=== PATIENT | male | born 1955 | race Caucasian/White ===

== ENCOUNTER → 2020-03-31 11:10 | Outpatient (CLI) | payer MEDICARE, OTHER, SELFPAY ==
[2015-12-01 10:50] VITALS: BMI 25.7
--- NOTE | 2020-03-31 | IMM_PTH ---
PATIENT: KRISTIAN GUTIERREZ LOC: [facility] U#:[id number] AGE/SX: 70/M ROOM: RE03/31/[address]: Dr. Konrad Ferro MD : 1955 BED: DIS: SPEC #: [id number] RECD: 04/01/20 11:49 STATUS: DAWIT RECharles #: [id number] LOBITO: 03/31/20 00:[address]: Konrad Ferro DEPT: IMMUNOHISTOCHEMISTRY RECD BY: Mindy Andre ENTERED: 04/01/20 11:50 SP TYPE: IMMUNO OTHR DR: Dr. Da Nath MD Tissues: B - PROSTATE RIGHT C - PROSTATE RIGHT F - PROSTATE LEFT Procedures: 34BE12 (add) P40 (add) 34BE12 (initial) PHYSICIAN & INSTITUTION [place] [address] SPECIMEN INFORMATION: Tissue Source: B - Right prostate, mid, C - Right prostate, base, F - Left prostate, base Clinical Info: Elevated PSA Specimen Number: [id number] B, C & F CPT code: 12801, 25571 x5 METHODOLOGY: Deparaffinized sections of prefer/formalin-fixed tissue or PAP/DQ stained slides are incubated with monoclonal/polyclonal antibodies/oligonucleotide probes. Localization is made via biotin free immunoperoxidase method. Appropriate controls are performed and reacted as expected. Results on target cell population are indicated in the following table: RESULTS: ANTIBODY / CLONE RESULT Block B P40 (BC28) negative 34BE12 (34BE12) negative Block C P40 (BC28) negative 34BE12 (34BE12) negative Block F P40 (BC28) negative* 34BE12 (34BE12) negative* * positive in the area of high grade prostatic intraepithelial neoplasia (HGPIN) These tests were developed and their performance characteristics determined by [facility]. They may not have been cleared or approved by the U.S. Food and Drug Administration. The FDA has determined that such clearance or approval is not necessary. The above immunohistochemical/dualISH markers are ordered and reviewed by the Pathologist. INTERPRETATION: B. Right prostate, mid, core biopsy: Focal atypical small acinar proliferation. See comment. C. Right prostate, base, core biopsy: A minute focus of adenocarcinoma. F. Left prostate, base, core biopsy: Focal atypical small acinar proliferation. Focal high-grade prostatic intraepithelial neoplasia (HGPIN). See comment. GINNY:lincoln 04/02/20 Comment: B & F - Atypical focus consists of only 2-3 glands. Case has been reviewed in consultation with Dr. Donahue who concurs with the above diagnosis. IDC:AM
--- NOTE | 2020-03-31 | IMM_PTH ---
PATIENT: KRISTIAN GUTIERREZ LOC: [facility] U#:[id number] AGE/SX: 70/M ROOM: RE03/31/[address]: Dr. Konrad Ferro MD : 1955 BED: DIS: SPEC #: [id number] RECD: 04/01/20 11:49 STATUS: DAWIT RECharles #: [id number] LOBITO: 03/31/20 00:[address]: Konrad Ferro DEPT: IMMUNOHISTOCHEMISTRY RECD BY: Mindy Andre ENTERED: 04/01/20 11:50 SP TYPE: IMMUNO OTHR DR: Dr. Da Nath MD Tissues: B - PROSTATE RIGHT C - PROSTATE RIGHT F - PROSTATE LEFT Procedures: 34BE12 (add) P40 (add) 34BE12 (initial) PHYSICIAN & INSTITUTION [place] [address] SPECIMEN INFORMATION: Tissue Source: B - Right prostate, mid, C - Right prostate, base, F - Left prostate, base Clinical Info: Elevated PSA Specimen Number: [id number] B, C & F CPT code: 52499, 36229 x5 METHODOLOGY: Deparaffinized sections of prefer/formalin-fixed tissue or PAP/DQ stained slides are incubated with monoclonal/polyclonal antibodies/oligonucleotide probes. Localization is made via biotin free immunoperoxidase method. Appropriate controls are performed and reacted as expected. Results on target cell population are indicated in the following table: RESULTS: ANTIBODY / CLONE RESULT Block B P40 (BC28) negative 34BE12 (34BE12) negative Block C P40 (BC28) negative 34BE12 (34BE12) negative Block F P40 (BC28) negative* 34BE12 (34BE12) negative* * positive in the area of high grade prostatic intraepithelial neoplasia (HGPIN) These tests were developed and their performance characteristics determined by [facility]. They may not have been cleared or approved by the U.S. Food and Drug Administration. The FDA has determined that such clearance or approval is not necessary. The above immunohistochemical/dualISH markers are ordered and reviewed by the Pathologist. INTERPRETATION: B. Right prostate, mid, core biopsy: Focal atypical small acinar proliferation. See comment. C. Right prostate, base, core biopsy: A minute focus of adenocarcinoma. F. Left prostate, base, core biopsy: Focal atypical small acinar proliferation. Focal high-grade prostatic intraepithelial neoplasia (HGPIN). See comment. GINNY:lincoln 04/02/20 Comment: B & F - Atypical focus consistent with only 2-3 glands. Case has been reviewed in consultation with Dr. Donahue who concurs with the above diagnosis. IDC:AM
--- NOTE | 2020-03-31 08:00 | PROSBIL_PTH ---
PATIENT: KRISTIAN GUTIERREZ LOC: [facility] U#:[id number] AGE/SX: 70/M ROOM: RE03/31/[address]: Dr. Konrad Ferro MD : 1955 BED: DIS: SPEC #: [id number] RECD: 03/31/20 11:08 STATUS: DAWIT KEREN #: [id number] LOBITO: 03/31/20 08:[address]: Konrad Ferro DEPT: SURGICAL PATHOLOGY RECD BY: Marshal Jonas ENTERED: 03/31/20 11:50 SP TYPE: PROST BX JEREMIAS DR: Dr. Da Nath MD Tissues: A - PROSTATE RIGHT B - PROSTATE RIGHT C - PROSTATE RIGHT D - PROSTATE LEFT E - PROSTATE LEFT F - PROSTATE LEFT Procedures: PROSTATE BX HEADER OPERATION: Prostate biopsy PRE-OP DIAGNOSIS: Elevated PSA TISSUE SUBMITTED: A - Right apex, B - Right mid, C - Right base, D - Left apex, E - Left mid, F - Left base MICROSCOPIC DIAGNOSIS A. Right prostate, apex, core biopsy: Prostatic tissue, negative for malignancy. B. Right prostate, mid, core biopsy: Focal atypical small acinar proliferation (MILIND). See comment. C. Right prostate, base, core biopsy: Prostatic adenocarcinoma. Alysha grade: 3+3=6 Number of cores involved: 1/2 Proportion of tissue involved: <5% Perineural invasion: Not identified. Greatest tumor length: <1 mm See comment. D. Left prostate, apex, core biopsy: Prostatic tissue, negative for malignancy. E. Left prostate, mid, core biopsy: Prostatic tissue, negative for malignancy. Focal mild acute and chronic inflammation. F. Left prostate, base, core biopsy: Focal high-grade prostatic intraepithelial neoplasia (HGPIN). Focal atypical small acinar proliferation (MILIND). Focal mild chronic inflammation. See comment. COMMENT B, C & F - Immunohistochemistry ([id number]) supports the above diagnosis. B & F - Atypical focus consists of only 2-3 glands. Case has been reviewed in consultation with Dr. Donahue who concurs with the above diagnosis. IDC:AM MICROSCOPIC DESCRIPTION Slides are reviewed. GROSS DESCRIPTION A - Received is one container designated prostate, right apex. The specimen consists of one elongated fragment of light arredondo-white soft tissue measuring 1.5 cm in length and 0.1 cm in diameter. The specimen is totally submitted in one cassette. B - Received is one container designated prostate, right mid. The specimen consists of two elongated fragments of light arredondo-white soft tissue measuring 0.7 and 1.2 cm in length and 0.1 cm in diameter. The specimen is totally submitted in one cassette. C - Received is one container designated prostate, right base. The specimen consists of two elongated fragments of light arredondo-white soft tissue measuring 1 and 1.2 cm in length and 0.1 cm in diameter. The specimen is totally submitted in one cassette. D - Received is one container designated prostate, left apex. The specimen consists of one elongated fragment of light arredondo-white soft tissue measuring 1.5 cm in length and 0.1 cm in diameter. The specimen is totally submitted in one cassette. E - Received is one container designated prostate, left mid. The specimen consists of one elongated fragment of light arredondo-white soft tissue measuring 1.2 cm in length and 0.1 cm in diameter. The specimen is totally submitted in one cassette. F - Received is one container designated prostate, left base. The specimen consists of two elongated fragments of light arredondo-white soft tissue each measuring 1.2 cm in length and 0.1 cm in diameter. The specimen is totally submitted in one cassette. / SJ:rg 03/31/20 TC:0 CPT: 85111 x6 ADDENDUM ADDENDUM ADDENDUM ADDENDUM ADDENDUM ADDENDUM ADDENDUM ADDENDUM 04/23/2020 09:34 ADDENDUM 04/23/2020 09:34 ADDENDUM 04/23/2020 09:34 ADDENDUM 04/23/2020 09:34 ADDENDUM 04/23/2020 09:34 An order for Oncotype testing was received from Dr. Ferro. This necessitated case review, block and slide selection by pathologist at [facility]. Genomic Prostate Score = 23 Results of the complete Oncotype testing (Run3D report) are viewable in EMR under: Reports - Pathology - Lab Pathology Report, Scanned.
== END ==
PROVIDERS: PCP Family Medicine; Referring Provider Urology; Visit Provider Urology
DX: R97.20 Elevated prostate specific antigen [PSA] (principal)
CPT/HCPCS: 88305; 88341; 88342; G0416

== ENCOUNTER 2021-07-27 11:52 | Outpatient (RCR) | payer MEDICARE, OTHER, SELFPAY ==
--- NOTE | 2021-10-12 10:57 | HP.PTDCSUM ---
It has been my pleasure to treat KRISTIAN GUTIERREZ referred by Dr. Chey Capps MD, with the diagnosis of B RC impingement for a total of 1 visit(s). Discharge Date: 10/12/21 Please see the following information for a summary of their discharge status. R shoulder Pain Intensity (Out of 10): 4 L shoulder pain Pain Intensity (Out of 10): 4 Goal 1:: I HEP Plan: Per pt request see pt for a few visits to learn HEP to include increase ROM, stretch and strengthening RC and scapular and thoracic. HEP: corner stretch and orange T-band mid rows Discharge Comments: DC PT at this time due to the patient not wanting to come into the clinic for additional exercises. If there are questions or concerns regarding this patient's physical therapy, please feel free to call me at [phone]. Thank you for the referral of this patient. Sincerely, Dahlia Swift, MPT Balance/Gait/Functional tests - Balance/Special Test Scores Quick DASH Score: 29.5450
== END 2021-07-27 19:00 | disposition home or self-care (01) ==
LOC: PT 11:52
PROVIDERS: PCP Family Medicine; Referring Provider Internal Medicine Rheumatology; Visit Provider Internal Medicine Rheumatology
DX: M05.742 Rheumatoid arthritis with rheumatoid factor 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 (principal); C43.9 Malignant melanoma of skin, unspecified; C61 Malignant neoplasm of prostate; M17.0 Bilateral primary osteoarthritis of knee; G56.02 Carpal tunnel syndrome, left upper limb; M65.342 Trigger finger, left ring finger; M65.352 Trigger finger, left little finger; Z79.899 Other long term (current) drug therapy; Z85.828 Personal history of other malignant neoplasm of skin
CPT/HCPCS: 97161

== ENCOUNTER → 2022-04-15 | Outpatient (CLI) | payer MEDICARE, OTHER, SELFPAY ==
--- NOTE | 2022-04-15 08:30 | MRI_ITS ---
STUDY: MR PELVIS WITH T WITHOUT CONTRAST REASON FOR EXAM: Male, 67 years old. ELEVATED PROSTATE SPECIFIC ANTIGEN TECHNIQUE: Standardized fat and water weighted pulse sequences were obtained in all 3 orthogonal planes, pre-and post contrast administration. WITH T WITHOUT of 15ML dOTAREM contrast material was administered intravenously for the contrast portion of the examination. COMPARISON: None. FINDINGS: Normal urinary bladder. Normal visualized colon. Prostate gland: The anterior fibromuscular stroma and central zone appear intact. The central gland demonstrates heterogeneous nodular signal characteristics. This suggests benign prostatic hypertrophy. Rectum is unremarkable. Levator ani muscle is not disrupted. The distal urethra is surrounded by the low T2 signal intensity muscle which is the external urethral sphincter as noted on the coronal images. The penile bulb is embraced by an intact inferomedial levator ani muscle. No areas of abnormal enhancement. Normal visualized neurovascular bundles. There is no pelvic fluid. There is no pelvic mass lesion or lymphadenopathy. Normal visualized pelvic arteries. Normal osseous structures. There is a left inguinal hernia containing fat. There is no bowel involvement. There is no incarceration. There is no findings suggesting that this is causing a bowel obstruction. MRI/Pelvis W/WO Contrast IMPRESSION: No discrete MRI signal abnormality to suggest a neoplasm. Nodular heterogeneous prostate gland suggest benign prostatic hypertrophy. Electronically Signed: Quan Vivar MD at 15:29 EDT ,
[2022-04-15 09:00] LABS: CREATININE FINGERSTICK < 0.9 mg/dL (0.70-1.30); EGFR FINGERSTICK > 60.0000 mL/min (>60)
== END | disposition home or self-care (01) ==
PROVIDERS: PCP Family Medicine; Referring Provider Urology; Visit Provider Urology
DX: R97.20 Elevated prostate specific antigen [PSA] (principal)
CPT/HCPCS: 72197; A9575

== ENCOUNTER 2023-01-24 09:19 | Day surgery (SDC) | payer MEDICARE, OTHER, SELFPAY ==
[2023-01-24 09:48] VITALS: BP 143/74; PULSE 89; RESP 18; TEMP 36.4; O2SAT 98; BMI 22.0
[2023-01-24] MEDS: Lactated Ringers 1,000 ML 15 ML IV (09:51)
--- NOTE | 2023-01-24 10:45 | HP.PCM_ITS ---
[facility] - General General Date of Service: 01/24/23 Chief Complaint: Screening for intestinal cancer [facility] Narrative KRISTIAN GUTIERREZ, is a 68 M who presents for screening colonoscopy today. Previous one was at least 10 years ago. No family history of colon cancer. No bright red blood per rectum or melena. He otherwise enjoys a steady health. He presents via open access today. He feels in good condition. No chest pain or shortness of breath. No abdominal pain. No change of bowel habits. [facility] Medical History (Updated 01/18/23 @ 13:42 by Kaylynn Knight) Cancer High cholesterol History of steroid therapy Keratosis Non-smoker Pure hypercholesterolemia, unspecified Rheumatoid arthritis Wears glasses Home Medications folic acid 1 mg tablet 1 mg PO BIDCM 11/30/15 [History Last Taken Unknown] leucovorin calcium 5 mg tablet 3 tab PO Q7D 11/30/15 [History Last Taken Unknown] methotrexate sodium 2.5 mg tablet 8 tab PO Q7D 11/30/15 [History Last Taken Un known] atorvastatin 10 mg tablet 10 mg PO DAILY 12/05/22 [History Last Taken Unknown] hydroxychloroquine 200 mg tablet 300 mg PO DAILY 12/05/22 [History Last Taken Unknown] Allergy/AdvReac Type Severity Reaction Status Date / Time tetracycline Allergy SKIN Verified 01/24/23 09:48 FLAKING Family History (Updated 12/05/22 @ 09:52 by Nova Alcala) Father Diabetes CAD (coronary artery disease) Hypertension Mother Diabetes Surgical History (Updated 01/18/23 @ 13:42 by Kaylynn Knight) History of colonoscopy History of prostate biopsy Hx of left knee surgery Hx of umbilical hernia repair (~12/01/15) Social History (Updated 12/05/22 @ 09:53 by Nova Alcala) household members: spouse current occupational status: retired Smoking Status: Never smoker alcohol intake: never ROS Constitutional Constitutional: Reports systems reviewed and no addt'l complaints, except as documented Cardiovascular Cardiovascular: Denies chest pain Respiratory/Chest Respiratory/Chest: Denies shortness of breath at rest Gastrointestinal Gastrointestinal: Denies abdominal pain, change in bowel habits, hematochezia or melena Vital Signs Vital Signs Vital Signs: 01/24/23 09:48 01/24/23 09:48 Temperature 97.6 F L Temperature Source Temporal Pulse Rate 89 Respiratory Rate 18 Respiratory Pattern Normal Blood Pressure 143/74 H Blood Pressure Mean 97 Blood Pressure Source Monitor Blood Pressure Position Sitting Blood Pressure Location Left Arm Pulse Ox 98 Oxygen Delivery Method Room Air Weight Weight: 144 lb 13.499 oz Body Mass Index (BMI) 22.0 Physical Exam Const alert, oriented x3 and no apparent distress General Appearance: cooperative and comfortable Eyes General Eye: normal appearance of both eyes Neck General: normal visual inspection Chest inspection of chest normal Resp Effort and Inspection: able to speak in complete sentences and symmetric chest movement Auscultation: clear to auscultation bilaterally Cardio regular rate and regular rhythm GI soft to palpation, non-tender and non-distended Extremity no calf tenderness Neuro oriented x3 Psych thought process normal Assessment & Plan Assessment/Plan (1) Encounter for screening for malignant neoplasm of colon: PLAN: The patient presents for screening colonoscopy today. He is aware of the technique, benefit, risk, alternatives. He has had an opportunity to ask and have questions answered. He presents via open access. We will proceed as noted. Reji Arce M.D., F.A.C.S.
--- NOTE | 2023-01-24 10:45 | COLBX_PTH ---
PATIENT: KRISTIAN GUTIERREZ LOC: EN U#:[id number] AGE/SX: 68/M ROOM: RE01/24/[address]: Dr. Reji Arce MD : 1955 BED: DIS: 01/24/2023 SPEC #: [id number] RECD: 01/24/23 11:35 STATUS: DAWIT VELIZ #: [id number] LOBITO: 01/24/23 10:[address]: Reji Arce DEPT: SURGICAL PATHOLOGY RECD BY: Kathryn Weathers ENTERED: 01/24/23 12:52 SP TYPE: COLON BX OTHR DR: Dr. Da Nath MD Tissues: Sigmoid colon biopsy Procedures: Surgery Specimen Level IV HEADER OPERATION: Colonoscopy ? open access (MAC) PRE-OP DIAGNOSIS: Screening TISSUE SUBMITTED: Distal sigmoid polyp MICROSCOPIC DIAGNOSIS Distal sigmoid colon polyp, biopsy: Tubular adenoma. AM:lincoln 01/25/2023 MICROSCOPIC DESCRIPTION Slides are reviewed. GROSS DESCRIPTION Received in fixative is one container labeled with the patient's name and designated distal sigmoid polyp. The specimen consists of two irregular fragments of light arredondo soft tissue that in aggregate measure 0.6 x 0.6 x 0.1 cm. The specimen is totally submitted in one cassette. / AM:lincoln 01/24/2023 TC:5 CPT: 87361
--- NOTE | 2023-01-24 11:28 | OP.CCLET_ITS ---
01/24/2023 Da Nath Re : Colonoscopy procedure for Tommy Daveycherri Nath This procedure was performed on Tuesday, January 24, 2023. My impressions and recommendations are as follows: Impressions : - One 4 mm polyp in the distal sigmoid colon, removed with a hot snare. Resected and retrieved. - Tortuous colon. Recommendations : - Discharge patient to home. - Resume previous diet. - Continue present medications. - Repeat colonoscopy in 5 years for surveillance based on pathology results. - Telephone my office for pathology results in 1 week. My findings are described in the full procedure note, which is enclosed. If I can be of further assistance, please feel free to contact me at Doctor phone number(s): Work: . Sincerely, Reji Arce MD 01/24/2023 11:27:59 AM This report has been signed electronically.
--- NOTE | 2023-01-24 11:28 | OP.COLON_ITS ---
Patient Name: Tommy Barba Procedure Date: 01/24/2023 10:53 AM Date of : 1955 Age: 68 Procedure: Colonoscopy Indications: Screening for colorectal malignant neoplasm Providers: Reji Arce MD Referring MD: Reji Arce MD Medicines: See the Anesthesia note for documentation of the administered medications Patient Profile: Last Colonoscopy: 10 years ago. Complications: No immediate complications. Procedure: Pre-Anesthesia Assessment: - Prior to the procedure, a History and Physical was performed, and patient medications and allergies were reviewed. The patient's tolerance of previous anesthesia was also reviewed. The risks and benefits of the procedure and the sedation options and risks were discussed with the patient. All questions were answered, and informed consent was obtained. Prior Anticoagulants: The patient has taken no previous anticoagulant or antiplatelet agents. ASA Grade Assessment: II - A patient with mild systemic disease. After reviewing the risks and benefits, the patient was deemed in satisfactory condition to undergo the procedure. After I obtained informed consent, the scope was passed under direct vision. Throughout the procedure, the patient's blood pressure, pulse, and oxygen saturations were monitored continuously. The colonoscope was introduced through the anus and advanced to the cecum, identified by appendiceal orifice and ileocecal valve. The colonoscopy was performed without difficulty. The patient tolerated the procedure well. The quality of the bowel preparation was good. The ileocecal valve and the appendiceal orifice were photographed. Scope In: 11:04:35 AM Scope Withdrawal Time 0 hours 14 minutes 16 seconds Scope Out: 11:24:13 AM Total Procedure Duration Time 0 hours 19 minutes 38 seconds Findings: The perianal and digital rectal examinations were normal. Pertinent negatives include normal prostate (size, shape, and consistency). A 4 mm polyp was found in the distal sigmoid colon. The polyp was sessile. The polyp was removed with a hot snare. Resection and retrieval were complete. The sigmoid colon was moderately tortuous. Impression: - One 4 mm polyp in the distal sigmoid colon, removed with a hot snare. Resected and retrieved. - Tortuous colon. Recommendation: - Discharge patient to home. - Resume previous diet. - Continue present medications. - Repeat colonoscopy in 5 years for surveillance based on pathology results. - Telephone my office for pathology results in 1 week. Procedure Code(s): --- Professional --- 08712, Colonoscopy, flexible; with removal of tumor(s), polyp(s), or other lesion(s) by snare technique Diagnosis Code(s): --- Professional --- Z12.11, Encounter for screening for malignant neoplasm of colon D12.5, Benign neoplasm of sigmoid colon Q43.8, Other specified congenital malformations of intestine CPT copyright 2017 [employer]. All rights reserved. The codes documented in this report are preliminary and upon gold leaf printer review may be revised to meet current compliance requirements. Reji Arce MD 01/24/2023 11:27:59 AM This report has been signed electronically. Number of Addenda: 0 Note Initiated On: 01/24/2023 10:53 AM
[2023-01-24 11:30] VITALS: BP 107/66; BP 143/74; PULSE 58; RESP 16; TEMP 36.6; O2SAT 99
[2023-01-24 11:35] VITALS: BP 111/79; BP 143/74; PULSE 53; RESP 16; O2SAT 99
[2023-01-24 11:40] VITALS: BP 126/73; BP 143/74; PULSE 50; RESP 16; O2SAT 100
[2023-01-24 11:45] VITALS: BP 121/73; BP 143/74; PULSE 52; RESP 16; TEMP 36.2; O2SAT 100
[2023-01-24 12:02] VITALS: BP 143/74
== END 2023-01-24 12:06 | disposition home or self-care (01) ==
LOC: EN 09:22 → AC 10:30
PROVIDERS: PCP Family Medicine; Referring Provider Family Medicine; Visit Provider Surgery
PROC: 0DJD8ZZ Inspection of Lower Intestinal Tract, Via Natural or Artificial Opening Endoscopic (ICD-10-PCS; CPT 45378; principal; 2023-01-24 10:40)
DX: Z12.11 Encounter for screening for malignant neoplasm of colon (principal); D12.5 Benign neoplasm of sigmoid colon; E78.00 Pure hypercholesterolemia, unspecified; Q43.8 Other specified congenital malformations of intestine; Z79.899 Other long term (current) drug therapy
CPT/HCPCS: 45385; 88305; J7120; J2405

== ENCOUNTER → 2023-09-19 | Outpatient (CLI) | payer MEDICARE, OTHER, SELFPAY ==
--- NOTE | 2023-09-19 07:47 | ECHOD_ITS ---
Reason For Study: VENTRICULAR PREMATURE DEPOLARIZATION Procedure This was a 2D Doppler, Color Flow transthoracic echocardiogram. Exam performed in department. Left Ventricle Normal left ventricle. Left ventricular systolic function is normal. The estimated ejection fraction is 55 %. No regional wall motion abnormalities noted. Right Ventricle Normal RV size. Normal systolic function. Atria Normal left atrium. Normal right atrium. Mitral Valve Normal mitral valve. Tricuspid Valve Normal tricuspid valve. Mild tricuspid valve insufficiency. Pulmonary artery systolic pressure is 24 mmHg. Aortic Valve Trisinus/trileaflet aortic valve. Pulmonic Valve The pulmonic valve is not well visualized. Great Vessels Normal aortic root. The pulmonary artery is normal size. Normal inferior vena cava. Pericardium/Pleural No pericardial effusion. MMode/2D Measurements & Calculations LVIDd: 4.0 cm IVSd: 0.90 cm Ao root diam: 3.4 cm LVIDs: 2.8 cm LVPWd: 0.92 cm RVDd: 3.7 cm FS: 30.0 % LAV(MOD-bp): 34.2 ml LVAd ap4: 31.9 cm2 SV(MOD-sp4): 53.6 ml LAV(MOD-bp) Indexed: 18.6 ml/m2 LVLd ap4: 8.4 cm LAV(MOD-sp2): 33.1 ml EDV(MOD-sp4): 98.9 ml LAV(MOD-sp4): 34.5 ml EDV(sp4-el): 102.7 ml LVAs ap4: 20.0 cm2 LVLs ap4: 7.4 cm ESV(MOD-sp4): 45.3 ml ESV(sp4-el): 46.4 ml EF(MOD-sp4): 54.2 % EF(sp4-el): 54.9 % SV(sp4-el): 56.3 ml LA A4 area: 15.4 cm2 LA dimension(2D): 2.7 cm RA A4 area: 13.8 cm2 Time Measurements MV dec time: 0.27 sec Doppler Measurements & Calculations MV E max maxwell: 63.8 cm/sec Lat Peak E' Maxwell: 9.4 cm/sec Med Peak E' Maxwell: 8.5 cm/sec MV A max maxwell: 59.3 cm/sec E/E' lat: 6.8 E/E' med: 7.5 MV E/A: 1.1 Ao V2 max: 111.2 cm/sec AI max maxwell: 536.4 cm/sec LV V1 max: 97.6 cm/sec Ao max P.9 mmHg AI max P.1 mmHg LV V1 max P.8 mmHg AI dec slope: 207.7 cm/sec2 AI P1/2t: 756.4 msec PA V2 max: 82.7 cm/sec TR max maxwell: 220.6 cm/sec TR max P.5 mmHg ECHO/Echo Complete Interpretation Summary Normal left ventricle. Left ventricular systolic function is normal. The estimated ejection fraction is 55 %. Structurally normal valves. Ordering Physician: Yun Torres Referring Physician: BEN ASHBY Performed By: Jelena Cardenas RDCS
--- OUTSIDE RECORDS SUMMARY | 2023-09-19 07:54 | XMS RPT_ITS | CCD ---
Author Name Unknown Address [facility] [address] [place] [address] Organization [facility] Care Team Providers Care Hot Braider Name Role Phone ZACH HIRSCH MD Admitting Unavailable ZACH HIRSCH MD Attending Unavailable ZACH HIRSCH MD Primary Care Unavailable Ben Nath Primary Care Provider Ben Nath Unavailable Ben Nath Primary Care Provider BEN NATH Primary Care Unavailable BEN NATH Primary Care Unavailable Allergies Allergy Classification Reported Allergen(s) Allergy Type Date of Onset Reaction(s) Facility Tetracyclines (antibiotic) (1 source) Tetracycline Drug Allergy 2 Itching [facility] (1 source) Tetracycline Drug Allergy 2 Itching [facility] (1 source) ALLERGIES NOT ON FILE; Translations: [ALLERGIES NOT ON FILE] Propensity to adverse reactions (disorder) [facility] Medications Completed/Discontinued Medications Medication Drug Class(es) Dates Sig (Normalized) Sig (Original) folic acid 1 mg oral tablet (1 source) take 1 tablet by eddy th twice daily folic acid 1 mg tablet Take 1 mg by mouth twice daily. 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 therapy; Translations: [Other snf (current) drug therapy] Onset: 12-24-2019 Episodic Other connective tissue disease (11 sources) Disorder of rotator cuff; Translations: [Disorders of bursae and tendons in shoulder region, unspecified] Episodic Other non-traumatic joint disorders (11 sources) Chronic pain of right upper limb; Translations: [Pain in joint, shoulder region] Episodic Other non-traumatic joint disorders (11 sources) Shoulder stiff; Translations: [Stiffness of joint, not elsewhere classified, shoulder region] Episodic Rheumatoid arthritis and related disease (2 sources) 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; Translations: [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 (CMS/HCC)] Onset: 06-12-2023 Chronic Past or Other Problems Problem Classification Problem Date Documented Da te Episodic/Chronic Other screening for suspected conditions (not mental disorders or infectious disease) (2 sources) Patient encounter status; Translations: [Encounter for screening for malignant neoplasm of colon] Onset: 04-09-2012 04-09-2012 Episodic Results Test Name Value Interpretation Reference Range [facility] Encounters Encounter Date Encounter Type Care Provider Facility Start: 09-08[facility]20[facility] Start: 06-12-2023 End: 06-13-2023 ambulatory BEN Bajwa [facility] Start: 12-08-2022 Telephone encounter Debbie abraham PA-C Work Phone: General Surgery Procedures Date Procedure Procedure Detail Performing Clinician Start: 09-08-2023 CBC W Auto Different ial panel - Blood BEN NATH Start: 09-08-2023 Comprehensive metabo lic 2000 panel - Serum or Plasma BEN NATH Start: 09-08-2023 PROSTATE SPECIFIC ANTIGEN BEN NATH Start: 06-12-2023 CBC W Auto Different ial panel - Blood BEN NATH Start: 06-12-2023 Comprehensive metabo lic 2000 panel - Serum or Plasma BEN NATH Start: 05-01-2012 Colonoscopy [facility]ome [facility] Work Phone: Plan of Treatment Date Care Activity Detail Author Start: 09-11-2022 ADVANCE DIRECTIVE DISCUSSION ADVANCE DIRECTIVE DISCUSSION [facility] Start: 09-11-2022 DEPRESSION ASSESSMENT DEPRESSION ASSESSMENT [facility] Start: 05-12-2022 Influenza vaccination INFLUENZA (#1) [facility] Start: 05-01-2022 Colonoscopy COLONOSCOPY [facility] Start: 05-01-2022 COLORECTAL CANCER SCREENING COLORECTAL CANCER SCREENING [facility] Start: 05-01-2022 Screening for malignant neoplasm of colon [facility] Start: 01-03-2022 PTRECHECKMary, Provider: Cora Hanson, Status: Pen, Time: 2:45 PM PTRECHECKMary, Provider: Cora Hanson, Status: Pen, Time: 2:45 PM [facility] Work Phone: Start: 12-20-2021 [email or web address], Provider: Mirtha Herron, Status: Pen, Time: 2:45 PM [email or web address], Provider: Mirtha Herron, Status: Pen, Time: 2:45 PM [facility] Work Phone: Start: 12-03-2021 [email or web address], Provider: Mirtha Herron, Status: Pen, Time: 2:00 PM [email or web address], Provider: Mirtha Herron, Status: Pen, Time: 2:00 PM [facility] Work Phone: Start: 11-29-2021 PTRECHECKA, Provider: Cora Hanson, Status: Pen, Time: 2:15 PM PTRECHECKA, Provider: Cora Hanson, Status: Pen, Time: 2:15 PM [facility] Work Phone: Start: 11-26-2021 [email or web address], Provider: Mirtha Herron, Status: Pen, Time: 2:00 PM [email or web address], Provider: Mirtha Herron, Status: Pen, Time: 2:00 PM [facility] Work Phone: Start: 11-22-2021 PTRECHECKMary, Provider: Cora Hanson, Status: Pen, Time: 2:00 PM PTRECHAIDA, Provider: Cora Hanson, Status: Pen, Time: 2:00 PM [facility] Work Phone: Start: 11-19-2021 [email or web address], Provider: Mirtha Herron, Status: Pen, Time: 2:00 PM [email or web address], Provider: Mirtha Herron, Status: Pen, Time: 2:00 [facility] [place] [facility]: Start: 11-15-2021 [email or web address], Provider: Mirtha Herron, Status: Pen, Time: 2:00 PM [email or web address], Provider: Mirtha Herron, Status: Pen, Time: 2:00 PM [facility] [place] [facility]: Start: 11-12-2021 [email or web address], Provider: Mirtha Herron, Status: Pen, Time: 2:00 PM [email or web address], Provider: Mirtha Herron, Status: Pen, Time: 2:00 PM [facility] [place] Work [facility]: Start: 11-08-2021 PTFUADULT4, Provider: Mirtha Herron, Status: Pen, Time: 2:00 PM [email or web address], Provider: Mirtha Herron, Status: Pen, Time: 2:00 PM [facility] [place] Work [facility]: Start: 11-05-2021 PTFUADULT4, Provider: Mirtha Herron, Status: Pen, Time: 2:00 PM [email or web address], Provider: Mirtha Herron, Status: Pen, Time: 2:00 PM [facility] [place] Work [facility]: Start: 11-01-2021 PTFUADULT4, Provider: Mirtha Herron, Status: Pen, Time: 2:00 PM [email or web address], Provider: Mirtha Herron, Status: Pen, Time: 2:00 PM [facility] [place] Work [facility]: Start: 10-29-2021 PTFUADULT4, Provider: Mirtha Herron, Status: Pen, Time: 2:00 PM PTFUADULT4, Provider: Mirtha Herron, Status: Pen, Time: 2:00 PM [facility] Work Phone: Start: 05-12-2021 Influenza vaccination INFLUENZA (Season Ended) [facility] Start: 2018 ADVANCE DIRECTIVE DISCUSSION ADVANCE DIRECTIVE DISCUSSION [facility] Start: 2018 PNEUMOCOCCAL: 65+ (1 - PCV) PNEUMOCOCCAL: 65+ (1 - PCV) [facility] Start: 2018 PNEUMOVAX AGE 65 AND OVER WITH 5YR LOOKBACK (#1) PNEUMOVAX AGE 65 AND OVER WITH 5YR LOOKBACK (#1) [facility] Start: 03-26-2017 PROSTATE CANCER SCREENING DISCUSSION PROSTATE CANCER SCREENING DISCUSSION [facility] Start: 05-25-2015 LIPID SCREEN LIPID SCREEN [facility] Start: 05-25-2013 DIABETES SCREEN DIABETES SCREEN [facility] Start: 2003 Screening for malignant neoplasm of colon [facility] Start: 2003 SHINGRIX VACCINE (1 of 2) SHINGRIX VACCINE (1 of 2) [facility] Start: 1998 COLOGUARD (FIT-DNA) COLOGUARD (FIT-DNA) [facility] Start: [address] COLONOGRAPHY [facility] Start: 1998 FECAL OCCULT BLOOD FECAL OCCULT BLOOD [facility] Start: 1998 SIGMOIDOSCOPY SIGMOIDOSCOPY [facility] Start: 01-20-1972 Urine microalbumin profile DTAP,TDAP,TD (1 - Tdap) [facility] Start: 1971 HEPATITIS C SCREENING HEPATITIS C SCREENING [facility] Start: 1965 Adult depression screening assessment DEPRESSION SCREENING [facility] Start: 1953 COVID-19 VACCINE (#1) COVID-19 VACCINE (#1) [facility] Payers Date Payer Category Payer Unknown 2018 Medicare [id number] 2018 Medicare MEDICARE MEDICAR E A AND B [id number] 2018-Present [phone] [place] [address] Medicare [id number] 2011 Unknown MMO [employer] [id number] 2011-2015 PPO [id number] 1953 Unknown [id number] 1953 Unknown [id number] 1953 Unknown [id number] Social History Date Type Detail Facility Start: 04-09-2012 Tobacco smoking stat [facility] Unknown if ever smoked [facility] Start: 1955 Sex Assigned At Not on file [facility] Start: 11-25-2015 Tobacco smoking stat [facility] Never smoked tobacco [facility] Start: 09-21-2016 Alcohol intake Current non-dr sweeney of alcohol (finding) [facility] Clinical Notes 04-09-2012 to 12-08-2022 Telephone Encounter - Divine Fuchs RN - 12/08/2022 11:43 AM EDTTelephone Encounter - Roger Martinez - 04/09/2012 11:58 AM EDTTelephone Encounter - Keyla Eric Rn - 04/09/2012 11:12 AM EDT Note Date & Type Note Facility 12-08-2022 Miscellaneous Notes Received a request from Dr. Ben Nath's office for the consultation note for Tommy's office visit with Debbie Spencer on 10/28/2022. The patient cancelled that visit and did not reschedule. Note faxed to the office, fax confirmation sheet received. Divine Fuchs RN documented in this encounter [facility] 11-01-2021 History of Presen t illness Narrative Pt is also scheduled for recheck next mon11/01/21 therefore did not perform recheck this date. Pt tolerated session well without c/o pain despite progression and addition of multiple activities. VCs to maintain scapular retraction during TB activities and to keep elbows at sides during TB ER/IR. [facility] Work Phone: 10-25-2021 History of Presen t illness Narrative Mr. Gutierrez is progressing well through their POC addressing R shoulder pain. Pt has attended 10 sessions since 10/25/21. The pt demonstrates and verbalizes improvements in UE strength and mobility. This contributes to greater ease with all activities however pt does report mild pain in ant shoulder with abd and reaching behind back. Pt has one more appt scheduled for Mon of this week then will benefit from skilled PT once a week to every other week for 4 weeks (2-4 additional visits) with a focus on strengthening and stabilizing of the R shoulder. Pt verbalized understanding and agreement to goals and POC. Thank you for this referral and please call [phone] with any questions or concerns. [facility] Work Phone: 09-12-2021 History of Presen t illness Narrative Answered all questions at beginning of session regarding HEP. Added 1/2 foam roll stretches today for continued improved shoulder mobility. Patient had difficulty at first but then felt relief. Added these to HEP today. Tightness along the UT this date. [facility] Work Phone: 04-09-2012 Miscellaneous Notes Patient scheduled as requested [facility] SCHEDULING/PAT Pt informed of colonoscopy procedure, clear liquid diet and bowel prep. Informed pt they will call him the day before the procedure for arrival time. Verbalized understanding. [facility] ENDOSCOPY CURE FORM Patient Name:Crsitobal Gutierrez Referring Provider: Ordering provider- Dr.Daniel Dimas / Dr Ben Nath Date and Time of procedure: 05/01/2012 arriving at 6 AM for an 630 AM procedure Procedure: Colonoscopy/Go Lytely Diagnosis Code: V76.51 Does the patient have any of the following: Diabetes: No Pacemaker: No Does patient need antibiotics? No Keyla Eric RN documented in this encounter [facility] History of Present illness Narrative Mr. GUTIERREZ presents with signs and symptoms consistent with and demonstrates impairments/limitations in . They would benefit from skilled Physical Therapy with combination of manual therapy techniques to decrease myofascial and joint restrictions, as well as progression of exercises for ROM, flexibility, strength, core stabilization, and postural retraining, and body mechanics education throughout POC to progress towards independence with ADL s/IADL s and return to PLOF. [facility] Work Phone: History of Present illness Narrative Mr. GUTIERREZ presents with signs and symptoms consistent with Bilateral shoulder impingement & rotator cuff dysfunction as medical diagnosis and PT diagnosis of Right shoulder pain and stiffness of Right shoulder and demonstrates impairments/limitations in Shoulder AROM and PROM mildly, significant restriction in GH joint mobility into posterior and inferior directions as well as decreased motor control and proximal stability with scapular musculature with Right scapular more protracted and weakness noted in periscapular musculature. Pt also presents with poor posture and body mechanics. He reported good understanding to all edu and HEP with HO given. Responded well to STM and Joint Mobs to GH performed after eval this date. They would benefit from skilled Physical Therapy with combination of manual therapy techniques to decrease myofascial and joint restrictions, as well as progression of exercises for ROM, flexibility, strength, core stabilization, and postural retraining, and body mechanics education throughout POC to progress towards independence with ADL s/IADL s and return to PLOF.Clinical Presentation: Stable and/or uncomplicated characteristics.Level of Complexity: lowProblem List: activity limitations, ADLs/IADLs/self care skills, decreased functional level, flexibility, motor function/control/tone, pain, participation restrictions, posture, range of motion/joint mobility and strength. [facility] Work Phone: History of Present illness Narrative GH elevation on the R with standing shoulder flexion. End range tightness with passive flexion and ER. Tightness along UT and deltoid during STW. [facility] Work Phone: History of Present illness Narrative Added resisted shoulder rows today with cues needed d/t leaning entire body. Improvement after cues given. Updated HEP this date (see below) with blue tband and theraloop. Improved ROM with ABC's in supine. Decreased end range tightness with passive flexion and ABD.Response to treatment: no change in pain. [facility] [employer] Work Phone: History of Present illness Narrative Was able to progress strength this date by adding resisted extension and progressing to active IR/ER. Progressed instead taking 2 steps d/t improved control.Response to treatment: no change in pain. [facility] History of Present illness Narrative Improved passive flexion to WFL with soft end feel. Minimal exacerbation of pain with PROM. Added weight with anterior shoulder flexion and shoulder abduction. Decreased GH compensation observed today with these exercises so weight was added today in clinic and for HEP.Response to treatment: decreased pain. [facility] Work Phone: History of Present illness Narrative Improved ROM with ABC's with ability to complete large ROM, will attempt in standing next visit for progression. Improved ROM with shoulder flex and ABD actively. Added weight with eccentric lowering with wall slides and shoulder flex and ABD in front of the mirror.Response to treatment: decreased pain. [facility] Work Phone: History of Present illness Narrative Improved eccentric control with resisted and weight PRE's. Added internal towel stretch to HEP.Response to treatment: decreased pain.Patient was able to complete today's treatment with some difficulty. [facility] Work Phone: Reason for visit Narrative Initial Evalu ation . RIght Shoulder Impingement. [facility] Work Phone: Reason for visit Narrative Initial Evalu ation . RIght Shoulder Impingement.Referred by: Zach Wolff [facility] Work Phone: Summary Purpose Family History No Family History Records FoundNo Family History Records FoundNo Family History Records FoundNo Family History Records FoundNo Family History Records FoundNo Family History Records FoundNo Family History Records Found Advance Directives No Advanced Directives Records FoundNo Advanced Directives Records FoundNo Advanced Directives Records FoundNo Advanced Directives Records FoundNo Advanced Directives Records FoundNo Advanced Directives Records FoundNo Advanced Directives Records Found Additional Source Comments (unrecognized sect ion and content) No Status Records FoundNo Status Records FoundNo Status Records FoundNo Status Records FoundNo Status Records FoundNo Status Records FoundNo Status Records Found INFORMATION SOURCE (unrecogn ized section and content) DATE CREATED AUTHOR AUTHOR'S ORGANIZ ATION 12/26/2019 [facility] DATE CREATED AUTHOR AUTHOR'S ORGANIZ ATION 12/09/2021 [facility] DATE CREATED AUTHOR AUTHOR'S ORGANIZ ATION 05/07/2022 [employer] DATE CREATED AUTHOR AUTHOR'S ORGANIZ ATION 12/13/2022 [facility] DATE CREATED AUTHOR AUTHOR'S ORGANIZ ATION 03/25/2023 [facility] DATE CREATED AUTHOR AUTHOR'S ORGANIZ ATION 09/10/2023 [facility] Source Comments (unrecognize d section and content) In the event this informatio n is protected by the Federal Confidentiality of Alcohol and Drug Abuse Patient Records regulations: The Federal rules restrict any use of the information to criminally investigate or prosecute any alcohol or drug abuse patient.[facility] the event this information is protected by the Federal Confidentiality of Alcohol and Drug Abuse Patient Records regulations: The Federal rules restrict any use of the information to criminally investigate or prosecute any alcohol or drug abuse patient.[facility] Reason for Visit (unrecogniz ed section and content) Reason Comments Medical Records Care Teams (unrecognized sec tion and content) FOR RECORDS PERTAINING TO PATIENTS WHO ARE OR HAVE BEEN ENROLLED IN A CHEMICAL DEPENDENCY/SUBSTANCEABUSE PROGRAM, SOME INFORMATION MAY BE OMITTED. This clinical summary was aggregated from multiple sources. Caution should be exercised in using it in the provision of clinical care. This summary normalizes information from multiple sources, and as a consequence, information in this document may materially change the coding, format and clinical context of patient data. In addition, data may be omitted in some cases. CLINICAL DECISIONS SHOULD BE BASED ON THE PRIMARY CLINICAL RECORDS. [facility] [employer] provides no warranty or guarantee of the accuracy or completeness of information in this document.
== END | disposition home or self-care (01) ==
PROVIDERS: PCP Family Medicine; Referring Provider Family Medicine; Visit Provider Family Medicine
DX: I49.3 Ventricular premature depolarization (principal)
CPT/HCPCS: 93306

== ENCOUNTER 2024-01-17 12:24 | Emergency (ER) | payer MEDICARE, OTHER, SELFPAY ==
[2024-01-17 12:25] VITALS: BP 122/81; PULSE 100; RESP 17; TEMP 36.2; O2SAT 99; BMI 20.8
--- NOTE | 2024-01-17 14:11 | EDS_ITS ---
HPI History of Present Illness Chief Complaint: General Illness Informant: patient and family Narrative Narrative: Presents to ED for evaluation with difficulty sleeping. He is here with family. He states for years he is taking care of his [id number] therefore had lack of sleep. Since been over, he states night he has trouble sleeping. He saw his PCP was started on trazodone 100 mg at night. He has been taking it still unable to sleep. Approximate 10 days ago had Wellbutrin 150 mg added to take for anxiety. Last week had a phone conference and trazodone increased to 200 mg. States initially was put on magnesium which did not help. He follow-up with pulmonology Dr. Bustos 2 days ago was told with him unable to sleep cannot do a sleep study. He was told he needs to train his mind to sleep and if he is unable to sleep to be active until he is tired to sleep. He was told that trazodone would not help if he is unable to do this therefore he decreased his trazodone back down to 100 mg. He states he is getting dizzy from the 200 mg dosing. Family here stating they had a follow-up on the 15 and a week however they cannot wait that long. he denies any suicidal homicidal ideations. In addition they report over the last 5 weeks had a 40 pound weight loss. He states just does not have an appetite. There is been no vomiting or diarrhea. No urinary symptoms. No bloody stools. He has had colonoscopy in the past. Prior similar symptoms: Yes [facility] Medical History Cancer High cholesterol History of steroid therapy Keratosis Non-smoker Pure hypercholesterolemia, unspecified Rheumatoid arthritis Wears glasses no medical history Home Medications folic acid 1 mg tablet 1 mg PO BIDCM 11/30/15 [History Last Taken Unknown] leucovorin calcium 5 mg tablet 3 tab PO Q7D 11/30/15 [History Last Taken Unknown] methotrexate sodium 2.5 mg tablet 8 tab PO Q7D 11/30/15 [History Last Taken Unknown] atorvastatin 10 mg tablet 10 mg PO DAILY 12/05/22 [History Last Taken Unknown] hydroxychloroquine 200 mg tablet 300 mg PO DAILY 12/05/22 [History Last Taken Unknown] Allergy/AdvReac Type Severity Reaction Status Date / Time tetracycline Allergy SKIN Verified 01/24/23 09:48 FLAKING Family History Father Diabetes CAD (coronary artery disease) Hypertension Mother Diabetes Surgical History History of colonoscopy History of prostate biopsy Hx of left knee surgery Hx of umbilical hernia repair (~12/01/15) Social History household members: spouse current occupational status: retired Smoking Status: Never smoker alcohol intake: never ROS ROS ED Constitutional Constitutional ED: Denies chills, fever(s) or sweats Eyes Eyes: Denies change in vision ENT ENT ED: Denies dysphagia or sore throat Cardiovascular Cardiovascular: Denies chest pain, leg edema, palpitations or racing heartbeat Respiratory/Chest Respiratory/Chest: Denies cough, dyspnea or dyspnea on exertion Gastrointestinal Gastrointestinal: Denies abdominal pain, diarrhea, nausea or vomiting Genitourinary Genitourinary ED: Denies dysuria, hematuria or urinary frequency Musculoskeletal Musculoskeletal: Denies back pain, extremity pain or neck pain Integumentary Denies rash or wounds Neurologic Neurologic: Denies headache(s), paresthesias or weakness EXAM Physical Exam Const Vital Signs: 01/17/24 12:25 Temperature 97.2 F L Temperature Source Temporal Pulse Rate 100 Respiratory Rate 17 Blood Pressure 122/81 H Blood Pressure Mean 94 Pulse Ox 99 Oxygen Delivery Method Room Air MDM MDM MDM Narrative Medical decision making narrative: Interventions / MDM: Differential diagnosis: Insomnia, weight loss Diagnosis considered but do not suspect: Cancers, discussed with patient and family however outpatient workup. My EKG interpretation: N/A Imaging independently reviewed and interpreted by myself: N/A External documents reviewed: N/A Test considered but not ordered:N/A ED course: Vital stable. Patient reports insomnia with history of this. Difficulty sleeping. He is not suicidal or homicidal. There are concerns that medications were not working. Discussed his 14 pound weight loss in 5 days with no appetite. He has no belly pain no vomiting or diarrhea no bloody stools. Discussed with him that he has had upper and lower endoscopies in the past. He may need further workup if he continues to lose weight however this is outpatient. They understand this. Discussed told family I will discuss with his PCP. 1415: Discussed with Dr. Cisneros his recent treatment and visit to pulmonology, his plans were to start Ambien however he states he will have a virtual visit today with the patient and family. They will discuss treatment he will get him in and try other medications however this will be planned as an outpatient. Re-evaluation: stable Disposition discussed with patient/family/significant other: Patient and family. Case discussed with consulting clinician: N/A This note was generated with [employer] software. It may contain incorrect words, spelling, and punctuation that were not noted in checking the note before signing. Discharge Plan Triage Chief Complaint: General Illness ED Provider: Rolly Henriquez/Rx/DC Orders Clinical Impression: Insomnia disorder, Recent weight loss Instructions: Treating Insomnia, ED Insomnia Prescriptions: No Action hydroxychloroquine 200 mg tablet 300 mg PO DAILY atorvastatin 10 mg tablet 10 mg PO DAILY methotrexate sodium 2.5 MG tablet 8 tab PO Q7D Patient Comments: SATURDAYS leucovorin calcium 5 MG tablet 3 tab PO Q7D Patient Comments: SUNDAYS folic acid 1 MG tablet 1 mg PO BIDCM Primary Care Provider: Care Physician,No Primary Referrals: Lor Cisneros MD [Med Staff - Quality Assurance Engineer] - 1 Day Care Physician,No Primary [Primary Care Provider] - Activity Restrictions/Additional Instructions: Keep your phone on you. Staff will reach out to you for a virtual visit today with Dr. Cisneros. He will discuss other treatment options and medications. Disposition Disposition: Home, Self Care Discharge Date/Time: 01/17/24 14:27
== END 2024-01-17 14:27 | disposition home or self-care (01) ==
PROVIDERS: Emergency Provider Emergency Medicine; Visit Provider Emergency Medicine
DX: G47.00 Insomnia, unspecified (principal); E78.00 Pure hypercholesterolemia, unspecified; R63.4 Abnormal weight loss; Z63.6 Dependent relative needing care at home; F41.9 Anxiety disorder, unspecified; Z79.899 Other long term (current) drug therapy
CPT/HCPCS: 99282

== ENCOUNTER → 2024-01-17 | Outpatient (CLI) | payer MEDICARE, OTHER, SELFPAY ==
[2024-01-17 17:28] LABS: Absolute Lymphocyte Count 0.49 X10^3/uL (0.83-4.51); Absolute Neutrophil Count 5.3 X10^3/uL (2.0-7.7); Basophil# 0.03 X10^3/uL; Basophil% 0.5 % (0-1); Eosinophil# 0.06 X10^3/uL; Eosinophils% 0.9 % (0-5); Hemoglobin 14.6 g/dL (13.0-16.5); Lymphocyte # 0.49 X10^3/ul (0.83-4.51); Lymphocyte % 7.6 % (19-41); Mean Corpuscular Hgb 32.9 pg (27.0-32.0); Mean Corpuscular Volume 96.8 fL (80-94); Mean Platelet Vol. 9.3 fl (6.2-12.0); Monocyte# 0.48 X10^3/uL; Monocyte% 7.5 % (0-10); NRBC Flagged by Analyzer 0 % (0-5); Neutrophil # 5.33 X10^3/uL (2.7-7.7); Neutrophil % 82.9 % (47-70); POSITIVE DIFFERENTIAL YES; Platelet Count 247 K/mm3 (150-450); RBC Distribution Width CV 13.1 % (11.6-14.6); RBC Distribution Width SD 45.8 fl (35.1-43.9); Red Blood Count 4.44 M/mm3 (4.6-6.2); White Blood Count 6.4 K/mm3 (4.4-11.0)
[2024-01-17 17:47] LABS: Vitamin D,25 Hydroxy 76.5 ng/mL
== END | disposition home or self-care (01) ==
LOC: MFPLAB 15:33
PROVIDERS: Visit Provider Family Medicine
DX: R63.4 Abnormal weight loss (principal); Z85.820 Personal history of malignant melanoma of skin
CPT/HCPCS: 36415; 82306; 85025

== ENCOUNTER → 2024-05-28 | Outpatient (CLI) | payer MEDICARE, OTHER, SELFPAY ==
--- NOTE | 2024-05-28 11:48 | STRESSREP_ITS ---
Stress Test Report Date: 05/28/2024 Procedure: Exercise tolerance test/imaging study Indications: Dyspnea on exertion Consent: Per the patient Procedure: The patient exercised on a Sidney protocol for 7 minutes achieving a peak heart rate of 148 bpm (99% predicted maximal heart rate) with a peak blood pressure 152/78 mmHg and a peak MET capacity of 10.1 METs. The baseline ECG demonstrated sinus rhythm with PACs. The peak exercise ECG demonstrated sinus tachycardia with ST depressions in inferior lateral leads. PACs recorded at baseline as well as with exercise and in recovery. The functional capacity was considered good. There was no complaint of chest discomfort during exercise or recovery. The examination was discontinued secondary to target heart rate being achieved. The patient was injected with 11.5 mCi of technetium 99m Cardiolite and subsequently rest SPECT Cardiolite nuclear imaging was obtained in the horizontal long, vertical long, and short axis views. Post-exercise, the patient was injected with 34.1 mCi of technetium 99m Cardiolite and subsequently stress SPECT Cardiolite nuclear imaging was obtained in the horizontal long, vertical long, and short axis views. A gated Cardiolite study at peak stress was obtained. Rest and stress SPECT Cardiolite nuclear imaging status post realignment, normalization, and attenuation correction, demonstrates small reversible perfusion defect of the apex suggestive of mild ischemia. There is end systolic thickening and brightening. The gated Cardiolite study demonstrates myocardial thickening and inward wall motion. The reported LVEF is 60%. Impression: 1. Technically adequate (percent predicted maximal heart rate greater than 85%) exercise tolerance test 2. Peak exercise ECG with ST changes in inferior and lateral leads suggestive of ischemia 3. PACs noted at baseline, during testing in recovery 4. Rest and stress SPECT Cardiolite nuclear imaging demonstrate small reversible perfusion defect of the apex suggestive of mild ischemia. 5. The gated Cardiolite study reports an LVEF of 60%. This note was generated with [employer] software. It may contain incorrect words, spelling, and punctuation that were not noted in checking the note before signing.
== END | disposition home or self-care (01) ==
LOC: CVS 06:25
PROVIDERS: PCP Family Medicine; Referring Provider Family Medicine; Visit Provider Family Medicine
DX: R06.02 Shortness of breath (principal)
CPT/HCPCS: 78452; 93017; A9500; A4216

== ENCOUNTER → 2024-07-08 | Outpatient (CLI) | payer MEDICARE, OTHER, SELFPAY ==
--- NOTE | 2024-07-08 12:45 | CT_ITS ---
STUDY: CT CHEST WITH CONTRAST REASON FOR EXAM: Male, 69 years old. Hyperlipidemia, unspecified limited over read only RADIATION DOSAGE (If Supplied By Facility): CTDIvol = ( 28.09 ) mGy, DLP = ( 1273.49 ) mGycm TECHNIQUE: Transaxial imaging was performed following intravenous administration of IV 55mL [id number]-[id number]. Individualized dose optimization techniques were used for this CT. COMPARISON: No relevant priors. FINDINGS: CHEST Mild degree of increased markings at the lung bases suggestive of scarring. There is no demonstrated pleural abnormality. There are calcifications of the coronary arteries. There are small lymph nodes within the mediastinum, which are normal in size and morphology most compatible with reactive lymph hyperplasia. Normal hilar regions. Normal unenhanced pulmonary arteries. Normal aorta arch and descending thoracic aorta. There are multi-level degenerative changes of the thoracic spine. There is no demonstrated abnormality of the visualized upper abdomen. CT/Limited Chest CT Cardiac Only IMPRESSION: Mild degree of increased markings at the lung bases suggestive of scarring. Coronary artery calcification. Electronically Signed: Zacarias De Paz MD at 13:32 EDT ,
[2024-07-08 12:56] VITALS: BP 133/71; PULSE 58; RESP 14; O2SAT 98; BMI 24.3
[2024-07-08 13:31] VITALS: PULSE 57
[2024-07-08] MEDS: Nitroglycerin SL (ED/IMG/CATH) 0.4 MG TABLET SL (13:31)
[2024-07-08 13:36] VITALS: BP 140/76; PULSE 64; RESP 14; O2SAT 97
[2024-07-08 13:37] LABS: CREATININE FINGERSTICK < 1.0 mg/dL (0.70-1.30); EGFR FINGERSTICK > 60.0000 mL/min (>60)
--- OUTSIDE RECORDS SUMMARY | 2024-07-08 15:07 | XMS RPT_ITS | CCD ---
Author Organization [facility] Inform ion Partnership [facility] Care Team Providers Care Director Of Academic Name Role Phone CHEY HIRSCH MD Admitting Unavailable CHEY HIRSCH MD Attending Unavailable CHEY HIRSCH MD Primary Care Unavailable Ben Nath Primary Care Provider Ben Nath Unavailable Ben Nath Primary Care Provider System, Provider Not In Primary Care Provider Un available THUAN GARCIA Attending Unavailab THUAN Dow Consulting Unavailab THUAN Dow Admitting Unavailab le SYSTEM, PROVIDER NOT IN Primary Care UnavailBEN Bains Primary Care Unavailable BEN NATH Primary Care Unavailable BEN NATH Primary Care Unavailable BEN NATH Primary Care Unavailable BEN NATH Primary Care Unavailable BEN NATH Primary Care Unavailable Allergies Allergy Classification Reported Allergen(s) Allergy Type Date of Onset Reaction(s) Facility Serotonin Reuptake Inhibitors (SSRIs) (1 source) traZODone Drug Allergy 4 Headache, Dizziness only [facility] Tetracyclines (antibiotic) (1 source) Tetracycline Drug Allergy 2 Itching [facility] (1 source) Tetracycline Drug Allergy 2 Itching [facility] (1 source) traZODone; Translations: [TRAZODONE] Drug Allergy 4 [facility] (1 source) ALLERGIES NOT ON FILE; Translations: [ALLERGIES NOT ON FILE] Propensity to adverse reactions (disorder) [facility] Medications Current Medications Medication Drug Class(es) Dates Sig (Normalized) Sig (Original) folic acid 1 mg oral tablet (6 sources) Start: 02-09-2024 End: 03-10-2024 take 1 tablet by mouth once daily folic acid (FOLVITE) 1 MG tablet Take 2 (two) tablets (2 mg total) by mouth daily . 60 tablet 0 02/09/2024 03/10/2024 Active Start: 02-06-2024 End: 02-09-2024 take 2 mg by mouth once daily in the morning 2 mg, Oral, User specified (Once per day on Monday), First dose on Mon02/06/24 at 1400, In am except for the day he gets wellcovorin. Start: 01-30-2024 End: 02-05-2024 folic acid (FOLVITE) tablet 1 mg take 1 tablet by eddy th twice daily folic acid 1 mg tablet Take 1 mg by mouth twice daily. 0 Active Comment on above: Take 1 mg by mouth t wice daily. melatonin 1 mg oral tablet (3 sources) Start: 02-09-2024 End: 03-10-2024 take 2 tablets by mouth once daily melatonin 1 mg Tab Take 2 (two) tablets (2 mg total) by mouth nightly . 60 tablet 0 02/09/2024 03/10/2024 Active Start: 02-08-2024 End: 02-09-2024 melatonin tablet 2 mg mirtazapine 15 mg oral tablet (4 sources) Start: 02-02-2024 End: 03-10-2024 take 1 tablet by mouth once daily mirtazapine (REMERON) 15 MG tablet Take 1 (one) tablet (15 mg total) by mouth nightly . 30 tablet 0 02/09/2024 03/10/2024 Active Start: 01-30-2024 End: 02-02-2024 mirtazapine (REMERON) tablet 7.5 mg multivitamin (THERAGRAN) per tablet (2 sources) take 1 tablet by eddy th once daily multivitamin (THERAGRAN) per tablet Take 1 (one) tablet by mouth daily . 0 Active take 1 tablet by mouth once bennie y multivitamin (THERAGRAN) per tablet Take 1 (one) tablet by mouth daily . 0 OLANZapine 5 mg oral tablet (5 sources) Atypical Antipsychotic Start: 02-09-2024 End: 03-10-2024 take 0.5 tablet by mouth once daily OLANZapine (ZYPREXA) 5 MG tablet Take 0.5 (one-half) tablet (2.5 mg total) by mouth nightly . 15 tablet 0 02/09/2024 03/10/2024 Active Start: 02-05-2024 End: 02-09-2024 OLANZapine (ZYPREXA) tablet 2.5 mg Start: 02-03-2024 OLANZapine zyd is (ZYPREXA) disintegrating tablet 5 mg Start: 01-30-2024 End: 02-09-2024 take 1 tablet by mouth every four hours as needed OLANZapine (ZYPREXA) tablet 5 mg vitamin b12 1 mg oral tablet (3 sources) Vitamin B12 Start: 02-05-2024 End: 03-11-2024 take 1 tablet by mouth once daily cyanocobalamin (B-12) 1000 MCG tablet Take 1 (one) tablet (1,000 mcg total) by mouth daily Start: 02/10/24. 30 tablet 0 02/10/2024 03/11/2024 Active Completed/Discontinued Medications Medication Drug Class(es) Dates Sig (Normalized) Sig (Original) acetaminophen 325 mg oral tablet (1 source) Start: 01-30-2024 End: 02-09-2024 take 1 tablet by mouth every four hours as needed for pain acetaminophen (TYLENOL) tablet 650 mg 24 hr ALPRAZolam 0.5 mg extended release oral tablet (1 source) Benzodiazepine End: 02-09-2024 take 1 tablet by mouth twice daily as needed ALPRAZolam (XANAX XR) 0.5 MG 24 hr tablet Take 1 (one) tablet (0.5 mg total) by mouth 2 (two) times a day as needed . 0 02/09/2024 Discontinued (Stop Taking at Discharge) aluminum hydroxide 40 mg/ml / magnesium hydroxide 40 mg/ml / simethicone 4 mg/ml oral suspension (1 source) Start: 01-30-2024 End: 02-09-2024 take 30 mL by mouth every four hours as needed aluminum-magnesium hydroxide-simethic one (MAALOX PLUS) 200-200-20 mg/5 mL suspension 30 mL atorvastatin 10 mg oral tablet (4 sources) HMG-CoA Reductase Inhibitor Start: 01-30-2024 End: 02-09-2024 take 10 mg by mouth once daily 10 mg, Oral, Daily, First dose on Mon02/05/24 at 1400 2 ml benztropine mesylate 1 mg/ml injection (1 source) Anticholinergic, Antihistamine Start: 01-30-2024 End: 02-09-2024 inject 2 mg by intramuscular injection every twenty-four hours as needed benztropine (COGENTIN) injection 2 mg 24 hr buPROPion hydrochloride 150 mg extended release oral tablet (1 source) Aminoketone End: 02-09-2024 take 1 tablet by mouth once daily buPROPion (WELLBUTRIN XL) 150 MG 24 hr tablet Take 1 (one) tablet (150 mg total) by mouth daily . 0 02/09/2024 Discontinued (Stop Taking at Discharge) clonazePAM 0.5 mg oral tablet (1 source) Benzodiazepine Start: 02-03-2024 End: 02-03-2024 clonazePAM (KLONOPIN) tablet 1 mg Start: 02-03-2024 End: 02-03-2024 clonazePAM (KLONOPIN) tablet 1 mg escitalopram 10 mg oral tablet (2 sources) Serotonin Reuptake Inhibitor Start: 01-30-2024 End: 02-09-2024 take 10 mg by mouth once 10 mg, Oral, Once, On Mon01/30/24 at 0120, For 1 dose Haloperidol (1 source) Typical Antipsychotic Start: 01-30-2024 End: 02-09-2024 take 1 tablet by mouth every four hours as needed haloperidoL (HALDOL) tablet 5 mg hydroxychloroquine sulfate 200 mg oral tablet (4 sources) Antimalarial, Antirheumatic Agent Start: 01-30-2024 End: 02-09-2024 take 300 mg by mouth once daily 300 mg, Oral, Daily, First dose on Mon02/05/24 at 1400, Indication: Rheumatoid Arthritis hydroxychloroqui ne (PLAQUENIL) 200 mg tablet Take 1.5 (one and a half) tablets (300 mg total) by mouth daily . 0 Active hydrOXYzine hydrochloride 25 mg oral tablet (1 source) Antihistamine Start: 01-30-2024 End: 02-09-2024 take 1 tablet by mouth every six hours as needed for anxiety hydrOXYzine (ATARAX) tablet 25 mg leucovorin 5 mg oral tablet (4 sources) Folate Analog Start: 02-05-2024 End: 02-09-2024 take 15 mg by mouth every week 15 mg, Oral, Weekly, First dose on Mon02/05/24 at 1400 take 3 tablets by mouth every we ek leucovorin (WELLCOVORIN) 5 mg tablet Take 3 (three) tablets (15 mg total) by mouth once a week On Sundays Only . 0 Active Comment on above: Take 5 mg by mouth o nce each week. Three tablets every Monday magnesium hydroxide 80 mg/ml oral suspension (1 source) Start: 01-30-2024 End: 02-09-2024 magnesium hydroxide (MOM) 400 mg/5 mL suspension 2,400 mg methotrexate 2.5 mg oral tablet (5 sources) Folate Analog Metabolic Inhibitor Start: 02-05-2024 End: 02-09-2024 methoTREXate (TREXALL) tablet 10 mg take 8 tablets by mouth every we ek methoTREXate (TREXALL) 2.5 MG tablet Take 8 (eight) tablets (20 mg total) by mouth once a week On Saturdays Only . 0 Active take 7 tablets by mouth once Met hotrexate Sodium 2.5 mg tablet Take 7.5 mg by mouth once each week. Seven pills every Monday 0 Active Comment on above: Take 7.5 mg by mouth once each week. Seven pills every Monday multivitamin (THERAGRAN) per tablet 1 tablet (1 source) Start: 02-05-20 End: 02-09-20 take 1 tablet by mouth once daily 1 tablet, Oral, Daily, First dose on Mon02/05/24 at 1400 OLANZapine (ZyPREXA) injection 5 mg (1 source) Start: 01-30-20 End: 02-09-20 inject 5 mg by intramuscular injection every four hours as needed OLANZapine (ZyPREXA) injection 5 mg tamsulosin hydrochloride 0.4 mg oral capsule (4 sources) alpha-Adrenergic Velma Start: 01-30-20 End: 02-09-20 take 0.8 mg by mouth once daily at mealtime 0.8 mg, Oral, Daily, First dose on Mon02/05/24 at 1400, DO NOT CRUSH OR CHEW. Give 30 minutes after the same meal daily. Monitor for orthostasis due to potential risk of syncope. take 2 capsules by mouth once da shukri tamsulosin (FLOMAX) 0.4 mg capsule Take 2 (two) capsules (0.8 mg total) by mouth daily . 0 Active traZODone hydrochloride 50 mg oral tablet (1 source) Serotonin Reuptake Inhibitor Start: 01-30-2024 End: 02-09-2024 traZODone (DESYREL) tablet 50 mg zolpidem tartrate 5 mg oral tablet (2 sources) gamma-Aminobutyri c Acid-ergic Agonist Start: 01-30-2024 End: 01-30-2024 take 5 mg by mouth once 5 mg, Oral, Once, On Mon01/30/24 at 0120, For 1 dose End: 02-09-2024 take 1 tablet by mouth at bedtime zolpidem (AMBIEN) 10 mg tablet Take 1 (one) tablet (10 mg total) by mouth at bedtime routine . 0 02/09/2024 Discontinued (Stop Taking at Discharge) Problems Active Problems Problem Classification Problem Date Documented Da te Episodic/Chronic Anxiety disorders (4 sources) Anxiety; Translations: [Anxiety disorder, unspecified] Onset: 01-05-2024 01-30-2024 Chronic Cancer of prostate (2 sources) Malignant neoplasm of prostate; Translations: [Malignant neoplasm of prostate (CMS/HCC)] Onset: 09-08-2023 Chronic Miscellaneous mental health disorders (5 sources) Suicidal behavior; Translations: [Other symptoms and signs involving emotional state] Onset: 01-29-2024 01-29-2024 Episodic Mood disorders (9 sources) Recurrent major depressive episodes; Translations: [Major depressive disorder, recurrent, unspecified] Onset: 01-29-2024 01-29-2024 Chronic Other connective tissue disease (11 sources) Disorder of rotator cuff; Translations: [Disorders of bursae and tendons in shoulder region, unspecified] Episodic Other non-traumatic joint disorders (11 sources) Chronic pain of right upper limb; Translations: [Pain in joint, shoulder region] Episodic Other non-traumatic joint disorders (11 sources) Shoulder stiff; Translations: [Stiffness of joint, not elsewhere classified, shoulder region] Episodic Rheumatoid arthritis and related disease (4 sources) 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; Translations: [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 (Multi)] Onset: 03-18-2024 Chronic Past or Other Problems Problem Classification Problem Date Documented Da te Episodic/Chronic Other aftercare (5 sources) Other intermediate accountant (current) drug therapy; Translations: [Other intermediate accountant (current) drug therapy] Onset: 12-24-2019 Episodic Other screening for suspected conditions (not mental disorders or infectious disease) (2 sources) Patient encounter status; Translations: [Encounter for screening for malignant neoplasm of colon] Onset: 04-09-2012 04-09-2012 Episodic Results Test Name Value Interpretation Reference Range Facility CBC W Auto Differential pane l (Bld)on 05-20-2024 Basophils (Bld) [#/Vol] 0.04 x10*3/uL Normal 0.00-0.10 [facility] Comment on above: Performed By: #### 2 4323-8 #### ARPITA LUGO ([id number]) [facility] ([facility]) [address] [place] [address] 46837 Basophils/100 WBC (Bld) 0.8 % Normal 0.0-2.0 [facility] Comment on above: Performed By: #### 2 4323-8 #### ARPITA LUGO ([id number]) [facility] ([facility]) [address] [place] [address] 86622 Eosinophils (Bld) [#/Vol] 0.17 x10*3/uL Normal 0.00-0.40 [facility] Comment on above: Performed By: #### 2 4323-8 #### ARPITA LUGO ([id number]) [facility] ([facility]) [address] [place] [address] 87128 Eosinophils/100 WBC (Bld) 3.5 % Normal 0.0-6.0 [facility] Comment on above: Performed By: #### 2 4323-8 #### ARPITA LUGO ([id number]) [facility] ([facility]) [address] [place] [address] 95682 Erythrocyte distribution width (RBC) [Ratio] 13.0 % Normal 11.5-14.5 [facility] Comment on above: Performed By: #### 2 4323-8 #### ARPITA LUGO ([id number]) [facility] ([facility]) [address] [place] [address] 10333 Hematocrit (Bld) [Volume fraction] 43.6 % Normal 41.0-52.0 [facility] Comment on above: Performed By: #### 2 432-8 #### ARPITA LUGO ([id number]) [facility] ([facility]) [address] [place] [address] 71359 Hemoglobin (Bld) [Mass/Vol] 14.2 g/dL Normal 13.5-17.5 [facility] Comment on above: Performed By: #### 2 4322-8 #### ARPITA LUGO ([id number]) [facility] ([facility]) [address] [place] [address] 37680 Immature granulocytes (Bld) [#/Vol] 0.02 x10*3/uL Normal 0.00-0.50 [facility] Comment on above: Performed By: #### 2 4323-8 #### ARPITA LUGO ([id number]) [facility] ([facility]) [address] [place] [address] 68035 Immature granulocytes/100 WBC (Bld) 0.4 % Normal 0.0-0.9 [facility] Comment on above: Result Comment: Trina ture Granulocyte Count (IG) includes promyelocytes, myelocytes and metamyelocytes but does not include bands. Percent differential counts (%) should be interpreted in the context of the absolute cell counts (cells/UL). Performed By: #### 2 4323-8 #### ARPITA LUGO ([id number]) [facility] ([facility]) [address] [place] [address] 84301 Lymphocytes (Bld) [#/Vol] 0.83 x10*3/uL Normal 0.80-3.00 [facility] Comment on above: Performed By: #### 2 4323-8 #### ARPITA LUGO ([id number]) [facility] ([facility]) [address] [place] [address] 64496 Lymphocytes/100 WBC (Bld) 17.0 % Normal 13.0-44.0 [facility] Comment on above: Performed By: #### 2 4323-8 #### ARPITA LUGO ([id number]) [facility] ([facility]) [address] [place] [address] 19091 MCH (RBC) [Entitic mass] 33.3 pg Normal 26.0-34.0 [facility] Comment on above: Performed By: #### 2 4323-8 #### ARPITA LUGO ([id number]) [facility] ([facility]) [address] [place] [address] 45906 MCHC (RBC) [Mass/Vol] 32.6 g/dL Normal 32.0-36.0 [facility] Comment on above: Performed By: #### 2 432-8 #### ARPITA LUGO ([id number]) [facility] ([facility]) [address] [place] [address] 60836 MCV (RBC) [Entitic vol] 102 fL High 80-100 [facility] Comment on above: Performed By: #### 2 432-8 #### ARPITA LUGO ([id number]) [facility] ([facility]) [address] [place] [address] 30537 Monocytes (Bld) [#/Vol] 0.39 x10*3/uL Normal 0.05-0.80 [facility] Comment on above: Performed By: #### 2 4323-8 #### ARPITA LUGO ([id number]) [facility] ([facility]) [address] [place] [address] 70534 Monocytes/100 WBC (Bld) 8.0 % Normal 2.0-10.0 [facility] Comment on above: Performed By: #### 2 4323-8 #### ARPITA LUGO ([id number]) [facility] ([facility]) [address] [place] [address] 16696 Neutrophils (Bld) [#/Vol] 3.42 x10*3/uL Normal 1.60-5.50 [facility] Comment on above: Result Comment: Perc ent differential counts (%) should be interpreted in the context of the absolute cell counts (cells/uL). Performed By: #### 2 4323-8 #### ARPITA LUGO ([id number]) [facility] ([facility]) [address] [place] [address] 50486 Neutrophils/100 WBC (Bld) 70.3 % Normal 40.0-80.0 [facility] Comment on above: Performed By: #### 2 4323-8 #### ARPITA LUGO ([id number]) [facility] ([facility]) [address] [place] [address] 68946 Nucleated RBC/100 WBC (Bld) [Ratio] 0.0 /100 WBCs Normal 0.0-0.0 [facility] Comment on above: Performed By: #### 2 4323-8 #### ARPITA LUGO ([id number]) [facility] ([facility]) [address] [place] [address] 49498 Platelets (Bld) [#/Vol] 228 x10*3/uL Normal 150-450 [facility] Comment on above: Performed By: #### 2 4323-8 #### ARPITA LUGO ([id number]) [facility] ([facility]) [address] [place] [address] 95202 RBC (Bld) [#/Vol] 4.27 x10*6/uL Low 4.50-5.90 [facility] Comment on above: Performed By: #### 2 4323-8 #### ARPITA LUGO ([id number]) [facility] ([facility]) [address] [place] [address] 81511 WBC (Bld) [#/Vol] 4.9 x10*3/uL Normal 4.4-11.3 [facility] Comment on above: Performed By: #### 2 4323-8 #### ARPITA LUGO ([id number]) [facility] ([facility]) [address] [place] [address] 29786 Comprehensive metabolic 2000 panelon 05-20-2024 Albumin BCP dye [Mass/Vol] 4.4 g/dL Normal 3.4-5.0 [facility] Comment on above: Performed By: #### 2 4323-8 #### ARPITA LUGO ([id number]) [facility] ([facility]) [address] [place] [address] 48009 ALP [Catalytic activity/Vol] 64 U/L Normal 33-136 [facility] Comment on above: Performed By: #### 2 4323-8 #### ARPITA LUGO ([id number]) [facility] ([facility]) [address] [place] [address] 27078 ALT With P-5'-P [Catalytic activity/Vol] 24 U/L Normal 10-52 [facility] Comment on above: Result Comment: Birdie ents treated with Sulfasalazine may generate falsely decreased results for ALT. Performed By: #### 2 432-8 #### ARPITA LUGO ([id number]) [facility] ([facility]) [address] [place] [address] 72769 Anion gap [Moles/Vol] 10 mmol/L Normal 10-20 [facility] Comment on above: Performed By: #### 2 432-8 #### ARPITA LUGO ([id number]) [facility] ([facility]) [address] [place] [address] 28884 AST With P-5'-P [Catalytic activity/Vol] 25 U/L Normal 9-39 [facility] Comment on above: Performed By: #### 2 432-8 #### ARPITA LUGO ([id number]) [facility] ([facility]) [address] [place] [address] 34618 Bilirubin [Mass/Vol] 0.7 mg/dL Normal 0.0-1.2 [facility] Comment on above: Performed By: #### 2 432-8 #### ARPITA LUGO ([id number]) [facility] ([facility]) [address] [place] [address] 73721 Calcium [Mass/Vol] 9.4 mg/dL Normal 8.6-10.3 [facility] Comment on above: Performed By: #### 2 432-8 #### ARPITA LUGO ([id number]) [facility] ([facility]) [address] [place] [address] 87677 Chloride [Moles/Vol] 104 mmol/L Normal 98-107 [facility] Comment on above: Performed By: #### 2 432-8 #### ARPITA LUGO ([id number]) [facility] ([facility]) [address] [place] [address] CO2 [Moles/Vol] 29 mmol/L Normal 21-32 [facility] Comment on above: Performed By: #### 2 4323-8 #### ARPITA LUGO ([id number]) [facility] ([facility]) [address] [place] [address] Creatinine [Mass/Vol] 1.07 mg/dL Normal 0.50-1.30 [facility] Comment on above: Performed By: #### 2 4323-8 #### ARPITA LUGO ([id number]) [facility] ([facility]) [address] [place] [address] 27348 Glomerular filtration rate/1.73 sq M.predicted 74 mL/min/1.73m*2 Normal >60 [facility] Comment on above: Result Comment: Calc ulations of estimated GFR are performed using the 2020 CKD-EPI Study Refit equation without the race variable for the IDMS-Traceable creatinine methods. https://jasn.asnjournals.org/content/early//ASN.375668 4527 Performed By: #### 2 4323-8 #### ARPITA LUGO ([id number]) [facility] ([facility]) [facility] [place] [address] Glucose [Mass/Vol] 104 mg/dL High 74-99 [facility] Comment on above: Performed By: #### 2 4323-8 #### ARPITA LUGO ([id number]) [facility] ([facility]) [address] [place] [address] Potassium [Moles/Vol] 4.2 mmol/L Normal 3.5-5.3 [facility] Comment on above: Performed By: #### 2 4323-8 #### ARPITA LUGO ([id number]) [facility] ([facility]) [address] [place] [address] Protein [Mass/Vol] 6.5 g/dL Normal 6.4-8.2 [facility] Comment on above: Performed By: #### 2 4322-8 #### ARPITA LUGO ([id number]) [facility] ([facility]) [address] [place] [address] 54712 Sodium [Moles/Vol] 139 mmol/L Normal 136-145 [facility] Comment on above: Performed By: #### 2 4322-8 #### ARPITA LUGO ([id number]) [facility] ([facility]) [address] [place] [address] 42966 Urea nitrogen [Mass/Vol] 20 mg/dL Normal 6-23 [facility] Comment on above: Performed By: #### 2 4322-8 #### ARPITA LUGO ([id number]) [facility] ([facility]) [address] [place] [address] 98368 CBC W Auto Differential pane l (Bld)on 02-19-2024 Basophils (Bld) [#/Vol] 0.02 x10*3/uL Normal 0.00-0.10 [facility] Comment on above: Performed By: #### 2 4322-8 #### ARPITA LUGO ([id number]) [facility] ([facility]) [address] [place] [address] 05612 Basophils/100 WBC (Bld) 0.4 % Normal 0.0-2.0 [facility] Comment on above: Performed By: #### 2 4322-8 #### ARPITA LUGO ([id number]) [facility] ([facility]) [address] [place] [address] 23271 Eosinophils (Bld) [#/Vol] 0.10 x10*3/uL Normal 0.00-0.40 [facility] Comment on above: Performed By: #### 2 3-8 #### ARPITA LUGO ([id number]) [facility] ([facility]) [address] [place] [address] 81752 Eosinophils/100 WBC (Bld) 2.2 % Normal 0.0-6.0 [facility] Comment on above: Performed By: #### 2 4322-8 #### ARPITA LUGO ([id number]) [facility] ([facility]) [address] [place] [address] 48741 Erythrocyte distribution width (RBC) [Ratio] 15.1 % High 11.5-14.5 [facility] Comment on above: Performed By: #### 2 4323-8 #### ARPITA LUGO ([id number]) [facility] ([facility]) [address] [place] [address] Hematocrit (Bld) [Volume fraction] 43.9 % Normal 41.0-52.0 [facility] Comment on above: Performed By: #### 2 4323-8 #### ARPITA LUGO ([id number]) [facility] ([facility]) [address] [place] [address] Hemoglobin (Bld) [Mass/Vol] 14.0 g/dL Normal 13.5-17.5 [facility] Comment on above: Performed By: #### 2 4323-8 #### ARPITA LUGO ([id number]) [facility] ([facility]) [address] [place], [place] [address] Immature granulocytes (Bld) [#/Vol] 0.03 x10*3/uL Normal 0.00-0.50 [facility] Comment on above: Performed By: #### 2 4323-8 #### ARPITA LUGO ([id number]) [facility] ([facility]) [address] [place], [place] [id number] Immature granulocytes/100 WBC (Bld) 0.7 % Normal 0.0-0.9 [facility] Comment on above: Result Comment: Trina ture Granulocyte Count (IG) includes promyelocytes, myelocytes and metamyelocytes but does not include bands. Percent differential counts (%) should be interpreted in the context of the absolute cell counts (cells/UL). Performed By: #### 2 4323-8 #### ARPITA LUGO ([id number]) [facility] ([facility]) [address] [place] [address] 27708 Lymphocytes (Bld) [#/Vol] 0.82 x10*3/uL Normal 0.80-3.00 [facility] Comment on above: Performed By: #### 2 432-8 #### ARPITA LUGO ([id number]) [facility] ([facility]) [address] [place] [address] 18704 Lymphocytes/100 WBC (Bld) 18.0 % Normal 13.0-44.0 [facility] Comment on above: Performed By: #### 2 432-8 #### ARPITA LUGO ([id number]) [facility] ([facility]) [address] [place] [address] 65158 MCH (RBC) [Entitic mass] 34.0 pg Normal 26.0-34.0 [facility] Comment on above: Performed By: #### 2 4322-8 #### ARPITA LUGO ([id number]) [facility] ([facility]) [address] [place] [address] 12362 MCHC (RBC) [Mass/Vol] 31.9 g/dL Low 32.0-36.0 [facility] Comment on above: Performed By: #### 2 4322-8 #### ARPITA LUGO ([id number]) [facility] ([facility]) [address] [place] [address] 23100 MCV (RBC) [Entitic vol] 107 fL High 80-100 [facility] Comment on above: Performed By: #### 2 4322-8 #### ARPITA LUGO ([id number]) [facility] ([facility]) [address] [place] [address] 57007 Monocytes (Bld) [#/Vol] 0.28 x10*3/uL Normal 0.05-0.80 [facility] Comment on above: Performed By: #### 2 432-8 #### ARPITA LUGO ([id number]) [facility] ([facility]) [address] [place] [address] 56363 Monocytes/100 WBC (Bld) 6.2 % Normal 2.0-10.0 [facility] Comment on above: Performed By: #### 2 432-8 #### ARPITA LUGO ([id number]) [facility] ([facility]) [address] [place] [address] 00494 Neutrophils (Bld) [#/Vol] 3.30 x10*3/uL Normal 1.60-5.50 [facility] Comment on above: Result Comment: Perc ent differential counts (%) should be interpreted in the context of the absolute cell counts (cells/uL). Performed By: #### 2 4323-8 #### ARPITA LUGO ([id number]) [facility] ([facility]) [address] [place] [address] 10690 Neutrophils/100 WBC (Bld) 72.5 % Normal 40.0-80.0 [facility] Comment on above: Performed By: #### 2 432-8 #### ARPITA LUGO ([id number]) [facility] ([facility]) [address] [place] [address] 97803 Nucleated RBC/100 WBC (Bld) [Ratio] 0.0 /100 WBCs Normal 0.0-0.0 [facility] Comment on above: Performed By: #### 2 432-8 #### ARPITA LUGO ([id number]) [facility] ([facility]) [address] [place] [address] 90556 Platelets (Bld) [#/Vol] 227 x10*3/uL Normal 150-450 [facility] Comment on above: Performed By: #### 2 4323-8 #### ARPITA LUGO ([id number]) [facility] ([facility]) [address] [place] [address] 72391 RBC (Bld) [#/Vol] 4.12 x10*6/uL Low 4.50-5.90 [facility] Comment on above: Performed By: #### 2 4323-8 #### ARPITA LUGO ([id number]) [facility] ([facility]) [address] [place] [address] 21413 WBC (Bld) [#/Vol] 4.6 x10*3/uL Normal 4.4-11.3 [facility] Comment on above: Performed By: #### 2 4323-8 #### ARPITA LUGO ([id number]) [facility] ([facility]) [address] [place] [address] 97155 Comprehensive metabolic 2000 panelon 02-19-2024 Albumin BCP dye [Mass/Vol] 3.9 g/dL Normal 3.4-5.0 [facility] Comment on above: Performed By: #### 2 4323-8 #### ARPITA LUGO ([id number]) [facility] ([facility]) [address] [place] [address] ALP [Catalytic activity/Vol] 51 U/L Normal 33-136 [facility] Comment on above: Performed By: #### 2 4323-8 #### ARPITA LUGO ([id number]) [facility] ([facility]) [address] [place] [address] ALT With P-5'-P [Catalytic activity/Vol] 33 U/L Normal 10-52 [facility] Comment on above: Result Comment: Birdie ents treated with Sulfasalazine may generate falsely decreased results for ALT. Performed By: #### 2 4323-8 #### ARPITA LUGO ([id number]) [facility] ([facility]) [address] [place] [address] Anion gap [Moles/Vol] 10 mmol/L Normal 10-20 [facility] Comment on above: Performed By: #### 2 432-8 #### ARPITA LUGO ([id number]) [facility] ([facility]) [address] [place] [address] AST With P-5'-P [Catalytic activity/Vol] 22 U/L Normal 9-39 [facility] Comment on above: Performed By: #### 2 4323-8 #### ARPITA LUGO ([id number]) [facility] ([facility]) [address] [place] [address] Bilirubin [Mass/Vol] 0.7 mg/dL Normal 0.0-1.2 [facility] Comment on above: Performed By: #### 2 4323-8 #### ARPITA LUGO ([id number]) [facility] ([facility]) [address] [place] [address] Calcium [Mass/Vol] 9.0 mg/dL Normal 8.6-10.3 [facility] Comment on above: Performed By: #### 2 4323-8 #### ARPITA LUGO ([id number]) [facility] ([facility]) [facility] [place] [address] Chloride [Moles/Vol] 104 mmol/L Normal 98-107 [facility] Comment on above: Performed By: #### 2 4323-8 #### ARPITA LUGO ([id number]) [facility] ([facility]) [address] [place] [address] 84284 CO2 [Moles/Vol] 31 mmol/L Normal 21-32 [facility] Comment on above: Performed By: #### 2 4323-8 #### ARPITA LUGO ([id number]) [facility] ([facility]) [address] [place] [address] 44421 Creatinine [Mass/Vol] 0.85 mg/dL Normal 0.50-1.30 [facility] Comment on above: Performed By: #### 2 4323-8 #### ARPITA LUGO ([id number]) [facility] ([facility]) [address] [place] [address] 55309 GFR/1.73 sq M.predicted MDRD (S/P/Bld) [Vol rate/Area] mL/min/{1.73_m2} Normal >60 [facility] Comment on above: Result Comment: Calc ulations of estimated GFR are performed using the 2020 CKD-EPI Study Refit equation without the race variable for the IDMS-Traceable creatinine methods. https://jasn.asnjournals.org/content/early//ASN.073481 0331 Performed By: #### 2 4323-8 #### ARPITA LUGO ([id number]) [facility] ([facility]) [address] [place] [address] 54882 Glucose [Mass/Vol] 100 mg/dL High 74-99 [facility] Comment on above: Performed By: #### 2 4323-8 #### ARPITA LUGO ([id number]) [facility] ([facility]) [address] [place] [address] Potassium [Moles/Vol] 4.4 mmol/L Normal 3.5-5.3 [facility] Comment on above: Performed By: #### 2 4323-8 #### ARPITA LUGO ([id number]) [facility] ([facility]) [address] [place] [address] Protein [Mass/Vol] 6.2 g/dL Low 6.4-8.2 [facility] Comment on above: Performed By: #### 2 4323-8 #### ARPITA LUGO ([id number]) [facility] ([facility]) [address] [place] [address] Sodium [Moles/Vol] 141 mmol/L Normal 136-145 [facility] Comment on above: Performed By: #### 2 4323-8 #### ARPITA LUGO ([id number]) [facility] ([facility]) [address] [place] [address] 56757 Urea nitrogen [Mass/Vol] 16 mg/dL Normal 6-23 [facility] Comment on above: Performed By: #### 2 4323-8 #### ARPITA LUGO ([id number]) [facility] ([facility]) [address] [place] [address] 70893 AMMONIAon 02-04-2024 AMMONIA 13 micromol/L Normal 12-47 [facility] Comment on above: Performed By: #### 4 5060 ####[facility] [address] [place], [place] [address] Lance Ram M.D. [id number] Ammoniaon 02-04-2024 Ammonia (P) [Mass/Vol] 13 ug/dL [facility] Ammonia (P) [Mass/Vol]on Interpretation and review of laboratory results Normal [facility] URINALYSISon 02-04-2024 BACTERIA, URINE None Seen Normal None Seen [facility] Comment on above: Order Comment: Micro scopic examination is performed on all urinalysis samples and only positive findings are reported. The test for blood on the chemical analytic portion of urinalysis may also be positive due to hemoglobinuria and myoglobinuria and if red blood cells are present they are quantified by microscopic examination. Performed By: #### 4 6625 #### [facility] [address] [place] [address] Lance Ram M.D. [id number] BILIRUBIN, URINE Negative Normal Negative [facility] Comment on above: Order Comment: Micro scopic examination is performed on all urinalysis samples and only positive findings are reported. The test for blood on the chemical analytic portion of urinalysis may also be positive due to hemoglobinuria and myoglobinuria and if red blood cells are present they are quantified by microscopic examination. Performed By: #### 4 6625 #### [facility] [address] [place] [address] Lance Ram M.D. [id number] BLOOD, URINE Negative Normal Negative [facility] Comment on above: Order Comment: Micro scopic examination is performed on all urinalysis samples and only positive findings are reported. The test for blood on the chemical analytic portion of urinalysis may also be positive due to hemoglobinuria and myoglobinuria and if red blood cells are present they are quantified by microscopic examination. Performed By: #### 4 6625 #### [facility] [address] [place] [address] Lance Ram M.D. [id number] Clarity (U) Clear Normal Clear [facility] Comment on above: Order Comment: Micro scopic examination is performed on all urinalysis samples and only positive findings are reported. The test for blood on the chemical analytic portion of urinalysis may also be positive due to hemoglobinuria and myoglobinuria and if red blood cells are present they are quantified by microscopic examination. Performed By: #### 4 6625 #### [facility] [address] [place] [address] Lance Ram M.D. [id number] Color (U) Yellow Normal Colorless, Yellow [facility] Comment on above: Order Comment: Micro scopic examination is performed on all urinalysis samples and only positive findings are reported. The test for blood on the chemical analytic portion of urinalysis may also be positive due to hemoglobinuria and myoglobinuria and if red blood cells are present they are quantified by microscopic examination. Performed By: #### 4 6625 #### [facility] [address] [place] [id number] Lance Ram M.D. [id number] Glucose Ql (U) Negative Normal Negative [facility] Comment on above: Order Comment: Micro scopic examination is performed on all urinalysis samples and only positive findings are reported. The test for blood on the chemical analytic portion of urinalysis may also be positive due to hemoglobinuria and myoglobinuria and if red blood cells are present they are quantified by microscopic examination. Performed By: #### 4 6625 #### [facility] [address] [place] [id number] Lance Ram M.D. [id number] Ketones Ql (U) Negative Normal Negative [facility] Comment on above: Order Comment: Micro scopic examination is performed on all urinalysis samples and only positive findings are reported. The test for blood on the chemical analytic portion of urinalysis may also be positive due to hemoglobinuria and myoglobinuria and if red blood cells are present they are quantified by microscopic examination. Performed By: #### 4 6625 #### LAB [address] [place] [address] Lance Ram M.D. [id number] Leukocyte esterase Test strip Ql (U) Negative Normal Negative [facility] Comment on above: Order Comment: Micro scopic examination is performed on all urinalysis samples and only positive findings are reported. The test for blood on the chemical analytic portion of urinalysis may also be positive due to hemoglobinuria and myoglobinuria and if red blood cells are present they are quantified by microscopic examination. Performed By: #### 4 6625 #### [facility] [address] [place] [id number] Lance Ram M.D. [id number] MUCUS, URINE Rare Normal None Seen, Rare [facility] Comment on above: Order Comment: Micro scopic examination is performed on all urinalysis samples and only positive findings are reported. The test for blood on the chemical analytic portion of urinalysis may also be positive due to hemoglobinuria and myoglobinuria and if red blood cells are present they are quantified by microscopic examination. Performed By: #### 4 6625 #### [facility] [address] [place] [address] Lance Ram M.D. [id number] NITRITE, URINE Negative Normal Negative [facility] Comment on above: Order Comment: Micro scopic examination is performed on all urinalysis samples and only positive findings are reported. The test for blood on the chemical analytic portion of urinalysis may also be positive due to hemoglobinuria and myoglobinuria and if red blood cells are present they are quantified by microscopic examination. Performed By: #### 4 6625 #### [facility] [address] [place] [address] Lance Ram M.D. [id number] pH (U) 6.5 [pH] Normal 5.0-7.0 [facility] Comment on above: Order Comment: Micro scopic examination is performed on all urinalysis samples and only positive findings are reported. The test for blood on the chemical analytic portion of urinalysis may also be positive due to hemoglobinuria and myoglobinuria and if red blood cells are present they are quantified by microscopic examination. Performed By: #### 4 6625 #### [facility] [address] [place] [address] Lance Ram M.D. [id number] PROTEIN, URINE Negative Normal Negative [facility] Comment on above: Order Comment: Micro scopic examination is performed on all urinalysis samples and only positive findings are reported. The test for blood on the chemical analytic portion of urinalysis may also be positive due to hemoglobinuria and myoglobinuria and if red blood cells are present they are quantified by microscopic examination. Performed By: #### 4 6625 #### [facility] [address] [place] [address] Lance Ram M.D. [id number] RBC, URINE < Normal 0-3 [facility] Comment on above: Order Comment: Micro scopic examination is performed on all urinalysis samples and only positive findings are reported. The test for blood on the chemical analytic portion of urinalysis may also be positive due to hemoglobinuria and myoglobinuria and if red blood cells are present they are quantified by microscopic examination. Performed By: #### 4 6625 #### [facility] [address] [place], [place] [address] Lance Ram M.D. [id number] Specific gravity (U) [Rel density] 1.023 Normal 1.005-1.025 [facility] Comment on above: Order Comment: Micro scopic examination is performed on all urinalysis samples and only positive findings are reported. The test for blood on the chemical analytic portion of urinalysis may also be positive due to hemoglobinuria and myoglobinuria and if red blood cells are present they are quantified by microscopic examination. Performed By: #### 4 6625 #### [facility] [address] [place], [place] [address] Lance Ram M.D. [id number] UROBILINOGEN, URINE <2.0 Normal <2.0 [facility] Comment on above: Order Comment: Micro scopic examination is performed on all urinalysis samples and only positive findings are reported. The test for blood on the chemical analytic portion of urinalysis may also be positive due to hemoglobinuria and myoglobinuria and if red blood cells are present they are quantified by microscopic examination. Performed By: #### 4 6625 #### [facility] [address] [place], [place] [address] Lance Ram M.D. [id number] UrinalysisOrdered By: Rose Marie Beverly on 02-04-2024 Bacteria Auto Ql (U) None Seen None Se en /hpf [facility] Bilirubin Ql (U) Negative Negative [facility] th Clarity Refractometry automated (U) Clear Clear [facility] Color (U) Yellow Colorless, Yellow [facility] Glucose Auto test strip (U) [Mass/Vol] Negative Negative mg/dL [facility] Hemoglobin Auto test strip Ql (U) Negative Negative [facility] Interpretation and review of laboratory results Normal [facility] Ketones (U) [Mass/Vol] Negative Negative mg/dL [facility] Leukocyte esterase Auto test strip Ql (U) Negative Negative [facility] Mucus Auto (Urine sed) [#/Area] Rare None Seen, Rare /lpf [facility] Nitrite Auto test strip Ql (U) Negative Negative [facility] pH (U) 6.5 [pH] 5.0 - 7.0 [facility] Protein (U) [Mass/Vol] Negative Negative mg/dL [facility] RBC Auto (Urine sed) [#/Area] [facility] Specific gravity (U) [Rel density] 1.023 1.005 - 1.025 [facility] Urobilinogen (U) [Mass/Vol] mg/dL NINF - 2.0 mg/dL [facility] Microscopic examination is performed on all urinalysis samples and only positive findings are reported. The test for blood on the chemical analytic portion of urinalysis may also be positive due to hemoglobinuria and myoglobinuria and if red blood cells are present they are quantified by microscopic examination. [facility] Cobalamin (Vitamin B12) [Mas s/Vol]on 02-01-2024 Interpretation and review of laboratory results Normal [facility] FOLATEon 02-01-2024 FOLATE > High 3.1-17.5 [facility] Comment on above: Result Comment: Defi cient <2.2 Borderline 2.2 - 3.0 Excessive >17.5 Performed By: #### 4 5658 #### [facility] [address] [place] [address] Lance Ram M.D. [id number] FolateOrdered By: Ora Hazel on 02-01-2024 Folate [Mass/Vol] ng/mL High 3.1 - 17.5 ng/mL [facility] Comment on above: Deficient <2.2 Borderline 2.2 - 3.0 Excessive >17.5 Folate [Mass/Vol]Ordered By: Ora Hazel on 02-01-2024 Interpretation and review of laboratory results Abnormal [facility] VITAMIN B12on 02-01-2024 Cobalamin (Vitamin B12) [Mass/Vol] 877 pg/mL Normal 232-1245 [facility] Comment on above: Performed By: #### 4 6670 ####[facility] [address] [place], [place] [address] Lance Ram M.D. [id number] VITAMIN D, TOTAL, 25-OHon VITAMIN D 25-HYDROXY 54 ng/mL Normal 20-100 [facility] Comment on above: Order Comment: [facility] has implemented the eGFR calculation approach that does not have a coefficient for race that conforms to the NKF-ASN Task Force Recommendations. Performed By: #### 4 6147 #### [facility] [address] [place], [place] [address] Lance Ram M.D. [id number] Vitamin B12on 02-01-2024 Cobalamin (Vitamin B12) [Mass/Vol] 877 pg/mL 232 - 1245 pg/mL [facility] Vitamin D, Total, 25-OHon 25-hydroxyvitamin D [Mass/Vol] 54 ng/mL 20 - 100 ng/mL [facility] Interpretation and review of laboratory results Normal [facility] Vitamin D Expected Values Deficiency: 0-10 Insufficiency: 10-20 Sufficient: 20-100 Toxicity: >100 [facility] Comprehensive metabolic 2000 panelon 01-30-2024 Albumin [Mass/Vol] 3.9 g/dL 3.2 - 5.2 g/dL [facility] ALP [Catalytic activity/Vol] 74 U/L 40 - 150 U/L [facility] ALT [Catalytic activity/Vol] 37 U/L 0-50 U/L [facility] AST [Catalytic activity/Vol] 30 U/L 0-50 U/L [facility] Bilirubin [Mass/Vol] 0.5 mg/dL 0.0 - 1 .3 mg/dL [facility] Protein [Mass/Vol] 5.9 g/dL Low 6.0 - 8.0 g/dL [facility] DRUGS OF ABUSE SCREEN, URINE on 01-30-2024 AMPHETAMINE SCREEN, URINE Not detected Normal None Detected [facility] Comment on above: Order Comment: Scree n results should be used for treatment purposes only.Specimen will be kept for 2 weeks, if the sample is adequate. Confirmation testing can be initiated by calling the lab within 2 weeks. Result Comment: Urin e Amphetamine Cutoff: < 1000 ng/mL = None Detected Performed By: #### 4 6965 ####[facility] [address] [place], [place] [address] Lance Ram M.D. [id number] BARBITURATE SCREEN URINE Not detected Normal None Detected [facility] Comment on above: Order Comment: Scree n results should be used for treatment purposes only.Specimen will be kept for 2 weeks, if the sample is adequate. Confirmation testing can be initiated by calling the lab within 2 weeks. Result Comment: Urin e Barbiturates Cutoff: < 200 ng/mL = None Detected Performed By: #### 4 6965 ####[facility] [address] [place] [address] Lance Ram M.D. [id number] BENZODIAZEPINE SCREEN, URINE Positive Abnormal None Detected [facility] Comment on above: Order Comment: Scree n results should be used for treatment purposes only.Specimen will be kept for 2 weeks, if the sample is adequate. Confirmation testing can be initiated by calling the lab within 2 weeks. Result Comment: Urin e Benzodiazepine Cutoff: < 200 ng/mL = None Detected Performed By: #### 4 6965 ####[facility] [address] [place] [address] Lance Ram M.D. [id number] BUPRENORPHINE, URINE Not detected Normal None Detected [facility] Comment on above: Order Comment: Scree n results should be used for treatment purposes only.Specimen will be kept for 2 weeks, if the sample is adequate. Confirmation testing can be initiated by calling the lab within 2 weeks. Result Comment: Urin e Buprenorphine Cutoff: < 5 ng/mL = None Detected Performed By: #### 4 6965 #### [facility] [address] [place] [address] Lance Ram M.D. [id number] CANNABINOID SCREEN URINE Not detected Normal None Detected [facility] Comment on above: Order Comment: Scree n results should be used for treatment purposes only.Specimen will be kept for 2 weeks, if the sample is adequate. Confirmation testing can be initiated by calling the lab within 2 weeks. Result Comment: Urin e Cannabinoids Cutoff: < 50 ng/mL = None Detected Performed By: #### 4 6965 ####[facility] [address] [place] [address] Lance Ram M.D. [id number] COCAINE, SCREEN URINE Not detected Normal None Detecte d [facility] Comment on above: Order Comment: Scree n results should be used for treatment purposes only.Specimen will be kept for 2 weeks, if the sample is adequate. Confirmation testing can be initiated by calling the lab within 2 weeks. Result Comment: Urin e Cocaine Cutoff: < 300 ng/mL = None Detected Performed By: #### 4 6965 ####[facility] [address] [place] [address] Lance Ram M.D. [id number] FENTANYL, URINE Not detected Normal None Detected [facility] Comment on above: Order Comment: Scree n results should be used for treatment purposes only.Specimen will be kept for 2 weeks, if the sample is adequate. Confirmation testing can be initiated by calling the lab within 2 weeks. Result Comment: Urin e Fentanyl Cutoff: < 1 ng/mL = None Detected Performed By: #### 4 6965 #### [facility] [address] [place] [address] Lance Ram M.D. [id number] METHADONE SCREEN, URINE Not detected Normal None Detected [facility] Comment on above: Order Comment: Scree n results should be used for treatment purposes only.Specimen will be kept for 2 weeks, if the sample is adequate. Confirmation testing can be initiated by calling the lab within 2 weeks. Result Comment: Urin e Methadone Cutoff: < 300 ng/mL = None Detected Performed By: #### 4 6965 #### [facility] [address] [place] [address] Lance Ram M.D. [id number] OPIATE SCREEN URINE Not detected Normal None Detected [facility] Comment on above: Order Comment: Scree n results should be used for treatment purposes only.Specimen will be kept for 2 weeks, if the sample is adequate. Confirmation testing can be initiated by calling the lab within 2 weeks. Result Comment: Urin e Opiates Cutoff: < 300 ng/mL = None Detected Performed By: #### 4 [id number] #### LAB [address] [address] Lance Ram M.D. [id number] OXYCODONE SCREEN, URINE Not detected Normal None Detected [facility] Comment on above: Order Comment: Scree n results should be used for treatment purposes only.Specimen will be kept for 2 weeks, if the sample is adequate. Confirmation testing can be initiated by calling the lab within 2 weeks. Result Comment: Urin e Oxycodone Cutoff: < 100 ng/mL = None Detected Performed By: #### 4 6965 ####[facility] [address] [address] Lance Ram M.D. [id number] ED Prov Noteon 01-30-2024 ED Prov Note This patient was turned over to me by . Patient was evaluated by behavioral health and the patient will be excepted by Dr. Abdalla for inpatient evaluation for depression. Patient felisa stable while in the ED. Kristian Moulton Jr., PA-C 01/30/24 0330 AUTHENTICATED BY KRISTIAN MOULTON JR., ON 01/30/2024 03:30:32 Normal [facility] Free T4 [Mass/Vol]on 024 Interpretation and review of laboratory results Normal [facility] Gold Topon 01-30-2024 Extra Tube Hold for add-ons. [facility] Comment on above: Auto resulted. [facility] Laboratory - Chemistry and C hemistry - challengeon 01-30-2024 Anion gap [Moles/Vol] 13 mmol/L 10 - 2 0 mmol/L [facility] Calcium [Mass/Vol] 9.0 mg/dL 8.4 - 10. 2 mg/dL [facility] Chloride [Moles/Vol] 102 mmol/L 98 - 10 8 mmol/L [facility] Creatinine [Mass/Vol] 1.02 mg/dL 0.80 - 1.30 mg/dL [facility] GFR/1.73 sq M.predicted CKD-EPI (S/P/Bld) [Vol rate/Area] 79 - PINF [facility] Comment on above: Estimated GFR was ca lculated using the 2020 CKD-EPI creatinine equation. Glucose [Mass/Vol] 159 mg/dL High 65 - 99 mg/dL [facility] HCO3 [Moles/Vol] 26 mmol/L 21 - 32 mmol/L [facility] Potassium [Moles/Vol] 4.4 mmol/L 3.5 - 5.1 mmol/L [facility] Sodium [Moles/Vol] 137 mmol/L 135 - 145 mmol/L [facility] Urea nitrogen [Mass/Vol] 22 mg/dL 8 - 25 mg/dL [facility] Urea nitrogen/Creatinine [Mass ratio] 21.6 mg/mg High 10.0 - 20.0 [facility] Lipid 1996 panelon 4 Cholesterol [Mass/Vol] 120 mg/dL 100 - 199 mg/dL [facility] Cholesterol in HDL [Mass/Vol] 58 mg/dL 40 - 59 mg/dL [facility] Cholesterol in LDL [Mass/Vol] 46 mg/dL 10 - 130 mg/dL [facility] Comment on above: National Cholesterol Education Program Guidelines: LDL Cholesterol Optimal: <100 mg/dL Near Optimal/above Optimal: 100-129 mg/dL Borderline High: 130-159 mg/dL High: 160-189 mg/dL Very High: greater than or equal to 190 mg/dL Cholesterol non HDL [Mass/Vol] 62 mg/dL [facility] Comment on above: National Cholesterol Education Program Guidelines: NON HDL Cholesterol Desirable: <130 mg/dL Borderline High: 130-159 mg/dL High: 160-189 mg/dL Very High: > or = 190 mg/dL Cholesterol.total/Cho lesterol in HDL [Mass ratio] 2.1 {ratio} ratio [facility] Comment on above: Males Cholesterol/HD L Ratio: Average risk: 5.0 1/2 average risk: 3.4 2 x average risk: 9.6 Triglyceride [Mass/Vol] 79 mg/dL 30 - 150 mg/dL [facility] No Panel Informationon 01-29 Interpretation and review of laboratory results Abnormal [facility] Services has implemented the eGFR calculation approach that does not have a coefficient for race that conforms to the NKF-ASN Task Force Recommendations. [facility] T4, Freeon 01-30-2024 Free T4 [Mass/Vol] 1.3 ng/dL 0.7 - 1.7 ng/dL [facility] TSH DL <= 0.005 mIU/L Qnon 0 01-30-2024 TSH Qn 4.81 m[IU]/L High [facility] Urine Drug Screenon 01-30-20 24 Amphetamines Ql (U) Not detected None Detected [facility] Comment on above: Urine Amphetamine Cu toff: < 1000 ng/mL = None Detected Barbiturates Screen Ql (U) Not detected None Detected [facility] Comment on above: Urine Barbiturates C utoff: < 200 ng/mL = None Detected Benzodiazepines Ql (U) Positive Abnormal None Detected [facility] Comment on above: Urine Benzodiazepine Cutoff: < 200 ng/mL = None Detected Buprenorphine Ql (U) Not detected None Detected [facility] Comment on above: Urine Buprenorphine Cutoff: < 5 ng/mL = None Detected Cannabinoids Screen Ql (U) Not detected None Detected [facility] Comment on above: Urine Cannabinoids C utoff: < 50 ng/mL = None Detected Cocaine Ql (U) Not detected None Detected [facility] Comment on above: Urine Cocaine Cutoff : < 300 ng/mL = None Detected fentaNYL+Norfentanyl Screen Ql (U) Not detected None Detected [facility] Comment on above: Urine Fentanyl Cutof f: < 1 ng/mL = None Detected Interpretation and review of laboratory results Abnormal [facility] Methadone Screen Ql (U) Not detected None Detected [facility] Comment on above: Urine Methadone Cuto ff: < 300 ng/mL = None Detected Opiates Screen Ql (U) Not detected None Detecte d [facility] Comment on above: Urine Opiates Cutoff : < 300 ng/mL = None Detected oxyCODONE Ql (U) Not detected None Detected [facility] Comment on above: Urine Oxycodone Cuto ff: < 100 ng/mL = None Detected Screen results should be used for treatment purposes only. Specimen will be kept for 2 weeks, if the sample is adequate. Confirmation testing can be initiated by calling the lab within 2 weeks. [facility] ALCOHOL, MEDICALon ALCOHOL MEDICAL < Normal <10.0 [facility] Comment on above: Result Comment: Alco hol cutoff: <10.00 mg/dL = None Detected Performed By: #### 4 6126 #### [facility] [address], [place] [address] Lance Ram M.D. [id number] Alcohol, MedicalOrdered By: Jimena Henson on 01-29-2024 Ethanol [Mass/Vol] mg/dL NINF - 10 .0 mg/dL [facility] Comment on above: Alcohol cutoff: <10. 00 mg/dL = None Detected BASIC METABOLIC PANELon 01-10 Anion gap [Moles/Vol] 13 mmol/L Normal - [facility] Comment on above: Order Comment: [facility] Services has implemented the eGFR calculation approach that does not have a coefficient for race that conforms to the NKF-ASN Task Force Recommendations. Performed By: #### 4 6134 #### [facility] [address], [place] [address] Lance Ram M.D. [id number] Performed By: #### 4 6126 #### [facility] [address] [address] Lance Ram M.D. [id number] Calcium [Mass/Vol] 9.0 mg/dL Normal 8.4-10.2 [facility] Comment on above: Order Comment: [facility] has implemented the eGFR calculation approach that does not have a coefficient for race that conforms to the NKF-ASN Task Force Recommendations. Performed By: #### 4 6124 #### [facility] [address] [address] Lance Ram M.D. [id number] Performed By: #### 4 6126 #### LAB [address] [address] Lance Ram M.D. [id number] Chloride [Moles/Vol] 102 mmol/L Normal 98-108 [facility] Comment on above: Order Comment: [facility] Services has implemented the eGFR calculation approach that does not have a coefficient for race that conforms to the NKF-ASN Task Force Recommendations. Performed By: #### 4 6124 #### LAB [address] [address] Lance Ram M.D. [id number] Performed By: #### 4 6126 #### LAB [address] [address] Lance Ram M.D. [id number] Creatinine [Mass/Vol] 1.02 mg/dL Normal 0.80-1.30 [facility] Comment on above: Order Comment: [facility] Services has implemented the eGFR calculation approach that does not have a coefficient for race that conforms to the NKF-ASN Task Force Recommendations. Performed By: #### 4 6124 #### [facility] [address] [address] Lance Ram M.D. [id number] Performed By: #### 4 6126 #### LAB [address] [address] Lance Ram M.D. [id number] EGFR 79 mL/min/1.73 m2 Normal >=60 [facility] Comment on above: Order Comment: [facility] has implemented the eGFR calculation approach that does not have a coefficient for race that conforms to the NKF-ASN Task Force Recommendations. Result Comment: Cory mated GFR was calculated using the 2020 CKD-EPI creatinine equation. Performed By: #### 4 6124 #### [facility] [address] [address] Lance Ram M.D. [id number] Performed By: #### 4 6126 #### [facility] [address] [address] Lance Ram M.D. [id number] Glucose [Mass/Vol] 159 mg/dL High 65-99 [facility] Comment on above: Order Comment: [facility] has implemented the eGFR calculation approach that does not have a coefficient for race that conforms to the NKF-ASN Task Force Recommendations. Performed By: #### 4 6124 #### LAB [address] [address] Lance Ram M.D. [id number] Performed By: #### 4 6126 #### LAB [address] [address] Lance Ram M.D. [id number] HCO3 (Bld) [Moles/Vol] 26 mmol/L Normal 21-32 [facility] Comment on above: Order Comment: [facility] Services has implemented the eGFR calculation approach that does not have a coefficient for race that conforms to the NKF-ASN Task Force Recommendations. Performed By: #### 4 6124 #### [facility] [address] [address] Lance Ram M.D. [id number] Performed By: #### 4 6126 #### [facility] [address] [address] Lance Ram M.D. [id number] Potassium [Moles/Vol] 4.4 mmol/L Normal 3.5-5.1 [facility] Comment on above: Order Comment: [facility] has implemented the eGFR calculation approach that does not have a coefficient for race that conforms to the NKF-ASN Task Force Recommendations. Performed By: #### 4 6124 #### [facility] [address] [address] Lance Ram M.D. [id number] Performed By: #### 4 6126 #### LAB [address] [address] Lance Ram M.D. [id number] Sodium [Moles/Vol] 137 mmol/L Normal 135-145 [facility] Comment on above: Order Comment: [facility] has implemented the eGFR calculation approach that does not have a coefficient for race that conforms to the NKF-ASN Task Force Recommendations. Performed By: #### 4 6124 #### [facility] LAB [address] [place] [address] Lance Ram M.D. [id number] Performed By: #### 4 6126 #### LAB [address] [address] Lance Ram M.D. [id number] Urea nitrogen [Mass/Vol] 22 mg/dL Normal 8-25 [facility] Comment on above: Order Comment: [facility] has implemented the eGFR calculation approach that does not have a coefficient for race that conforms to the NKF-ASN Task Force Recommendations. Performed By: #### 4 6124 #### LAB [address] [address] Lance Ram M.D. [id number] Performed By: #### 4 6126 #### LAB [address] [address] Lance Ram M.D. [id number] Urea nitrogen/Creatinine [Mass ratio] 21.6 mg/mg High 10.0-20.0 [facility] Comment on above: Order Comment: [facility] has implemented the eGFR calculation approach that does not have a coefficient for race that conforms to the NKF-ASN Task Force Recommendations. Performed By: #### 4 6124 #### [facility] [address] [id number] Lance Ram M.D. [id number] Performed By: #### 4 6126 #### LAB [address] [id number] Lance Ram M.D. [id number] COMPREHENSIVE METABOLIC PANE [facility] 01-29-2024 Albumin [Mass/Vol] 3.9 g/dL Normal 3.2-5.2 [facility] Comment on above: Order Comment: [facility] has implemented the eGFR calculation approach that does not have a coefficient for race that conforms to the NKF-ASN Task Force Recommendations. Performed By: #### 4 6126 #### LAB [address] [address] Lance Ram M.D. [id number] ALP [Catalytic activity/Vol] 74 U/L Normal 40-150 [facility] Comment on above: Order Comment: [facility] has implemented the eGFR calculation approach that does not have a coefficient for race that conforms to the NKF-ASN Task Force Recommendations. Performed By: #### 4 6126 #### LAB [address] [address] Lance Ram M.D. [id number] ALT [Catalytic activity/Vol] 37 U/L Normal 0-50 U/L [facility] Comment on above: Order Comment: [facility] has implemented the eGFR calculation approach that does not have a coefficient for race that conforms to the NKF-ASN Task Force Recommendations. Performed By: #### 4 6126 #### LAB [address] [address] Lance Ram M.D. [id number] AST [Catalytic activity/Vol] 30 U/L Normal 0-50 U/L [facility] Comment on above: Order Comment: [facility] has implemented the eGFR calculation approach that does not have a coefficient for race that conforms to the NKF-ASN Task Force Recommendations. Performed By: #### 4 6126 #### LAB [address] [address] Lance Ram M.D. [id number] Bilirubin [Mass/Vol] 0.5 mg/dL Normal 0.0-1.3 [facility] Comment on above: Order Comment: [facility] has implemented the eGFR calculation approach that does not have a coefficient for race that conforms to the NKF-ASN Task Force Recommendations. Performed By: #### 4 6126 #### LAB [address], [place] [address] Lance Ram M.D. [id number] Protein [Mass/Vol] 5.9 g/dL Low 6.0-8.0 [facility] Comment on above: Order Comment: [facility] has implemented the eGFR calculation approach that does not have a coefficient for race that conforms to the NKF-ASN Task Force Recommendations. Performed By: #### 4 6126 #### LAB [address], [place] [address] Lance Ram M.D. [id number] ED Prov Noteon 01-29-2024 ED Prov Note [facility] EMERGENCY DEPARTMENT ATTENDING NOTE: NAME: Kristian Gutierrez CSN: [id number] 69 y.o. PCP: System, Provider Not In History: Chief Complaint: Psychiatric Evaluation HPI: The history was obtained from the patient and sisters . Kristian is a 69 y.o. male who presents with a chief complaint of Psychiatric Evaluation. Patient brought in for psychiatric valuation. Sister is very concerned about him being increasingly depressed not sleeping very focused on financial issues and they state that he verbalized some suicidal thoughts no plan. Patient is on various psychiatric medications currently he has never been hospitalized for anypsychiatric issues in the past. Sister states only thing that seems to help briefly is the Xanax that he takes twice a day otherwise he is hyperfocused on financial issues. Sister states that he does have money is not destitute he can pay all his bills but this is a very pressing concern to the patient. PMHx: Past Medical History: Diagnosis Date Anxiety Arthritis Cancer (HCC) Depression Insomnia PMSx: History reviewed. No pertinent surgical history. FAM. Hx: History reviewed. No pertinent family history. SOC. Hx: Social History Socioeconomic History Marital status: Tobacco Use Smoking status: Never Smokeless tobacco: Never Vaping Use Vaping Use: Never used Substance and Sexual Activity Alcohol use: Never Drug use: Never MEDs: No current outpatient medications on file prior to encounter. ALL: No Known Allergies ROS: Review of Systems Positives and pertinent negatives as per HPI. All other systems were reviewed and are negative. Physical Exam: Patient Vitals for the past 24 hrs: BP Temp Pulse Resp SpO2 Height Weight 01/29/24 2230 (!) 146/87 -- -- -- 96 % -- -- 01/29/24 2215 (!) 163/83 -- -- -- 98 % -- -- 01/29/24 2212 (!) 163/83 98.2 degrees F (36.8 degrees C) 81 18 97 % -- -- 01/29/242153 -- -- -- -- -- 5' 7 62.6 kg (138 lb) Physical Exam Constitutional: Awake, alert, no acute distress Head: Normocephalic/atrau matic Neck: Supple, trachea midline Skin: Warm and dry, no rashes Lungs: No acute respiratory distress Musculoskeletal: Full range of motion all extremities, Neuro: No gross focal neurologic deficits, NIH is 0 Psych: Alert and oriented x 3, no psychosis, Laboratory & Radiological Imaging (if done): Labs Reviewed DRUGS OF ABUSE SCREEN, URINE ALCOHOL, MEDICAL No orders to display Procedures: Procedures ED Course / Medical Decision Making: I did personally review Kristian's past medical history, surgical history, social history, as well as family history (when relevant). In this case, I also oversaw the his drug management by reviewing his medication list, allergy list, as well as the medications that I prescribed during the ED course and/or recommended as an out-patient (including possible OTC medications such as acetaminophen, NSAIDs , etc). His past medical problem list included: Active Ambulatory Problems Diagnosis Date Noted No Active Ambulatory Problems Resolved Ambulatory Problems Diagnosis Date Noted No Resolved Ambulatory Problems Past Medical History: Diagnosis Date Anxiety Arthritis Cancer (HCC) Depression Insomnia ED MEDICATIONS GIVEN: Medications - No data to display After reviewing the items above, I did look at previous medical documentation, such as recent hospitalizations, office visits, and/or recent consultations with PCP/specialist. SDOH: Another factor that I considered in Kristian's care was his Social Determinants of Health (SDOH). During this ED encounter, he did NOT appear to have any significant issues identified. LAB TESTING: Ancillary lab testing: See orders DIFFERENTIAL DIAGNOSES: Depression, psychosis, as well as other etiologies. ED COURSE: I advised the patient. I feel he would benefit from a psychiatric consultation and admission. Discussed this with the patient and sisters at bedside. Patient be endorsed to the oncoming provider . Clinical Impression: 1. Suicidal behavior without attempted self-injury 2. Episode of recurrent major depressive disorder, unspecified depression episode severity (HCC) Disposition: ED Disposition None Jessica Corrigan DO ED Attending Physician [facility] EMERGENCY DEPART[facility] Jessica Corrigan DO 01/29/24 6971 AUTHENTICATED BY JESSICA CORRIGAN, ON 01/29/2024 22:57:33 [facility] Ethanol [Mass/Vol]Ordered By : Jimena Henson on 01-29-2024 Interpretation and review of laboratory results Normal [facility] LIPID PANELon 01-29-2024 Cholesterol [Mass/Vol] 120 mg/dL Normal 100-199 [facility] Comment on above: Performed By: #### 4 6087 ####[facility] [address], [place] [address] Lance Ram M.D. [id number] Cholesterol in HDL [Mass/Vol] 58 mg/dL Normal 40-59 [facility] Comment on above: Performed By: #### 4 6087 ####[facility] [address], [place] [address] Lance Ram M.D. [id number] Cholesterol.total/Cho lesterol in HDL [Mass ratio] 2.1 {ratio} Normal [facility] Comment on above: Result Comment: Male s Cholesterol/HDL Ratio: Average risk: 5.0 1/2 average risk: 3.4 2 x average risk: 9.6 Performed By: #### 4 6087 ####[facility] [address], [place] [address] Lance Ram M.D. [id number] LDL CHOLESTEROL CALCULATED 46 mg/dL Normal 10-130 [facility] Comment on above: Result Comment: [place] [place] Cholesterol Education Program Guidelines: LDL Cholesterol Optimal: <100 mg/dL Near Optimal/above Optimal: 100-129 mg/dL Borderline High: 130-159 mg/dL High: 160-189 mg/dL Very High: greater than or equal to 190 mg/dL Performed By: #### 4 6087 #### LAB [address] [address] Lance Ram M.D. [id number] NON HDL CHOL 62 mg/dL Normal [facility] Comment on above: Result Comment: [place]ari [place] Cholesterol Education Program Guidelines: NON HDL Cholesterol Desirable: <130 mg/dL Borderline High: 130-159 mg/dL High: 160-189 mg/dL Very High: > or = 190 mg/dL Performed By: #### 4 6087 #### LAB [address] [address] Lance Ram M.D. [id number] Triglyceride [Mass/Vol] 79 mg/dL Normal 30-150 [facility] Comment on above: Performed By: #### 4 6087 ####[facility] [address] [address] Lance Ram M.D. [id number] No Panel Informationon 01-28 Extra Tube Hold for add-ons. [facility] Comment on above: Auto resulted. [facility] T4, FREEon 01-29-2024 Free T4 [Mass/Vol] 1.3 ng/dL Normal 0.7-1.7 [facility] Comment on above: Performed By: #### 4 6567 #### LAB [address] [address] Lance Ram M.D. [id number] TSH WITH REFLEX FREE T4on TSH Qn 4.81 m[IU]/L High 0.27-4.20 [facility] Comment on above: Performed By: #### 4 6126 #### LAB [address] [address] Lance Ram M.D. [id number] Testosterone Free/Testostero ne.total [Mass fraction]on 01-05-2024 Testosterone [Mass/Vol] 281 ng/dL Normal 250-1100 [facility] Comment on above: Result Comment: Men with clinically significant hypogonadal symptoms and testosterone values repeatedly in the range of the 200-300 ng/dL or less, may benefit from testosterone treatment after adequate risk and benefits counseling. For additional information, please refer to http://education.[employer]/faq/ PxdhcCnzuuscvihqfCXZNNZYOU945 (This link is being provided for informational/ educational purposes only.) This test was developed and its analytical performance characteristics have been determined by [employer] [place], [place]. It has not been cleared or approved by the U.S. Food and Drug Administration. This assay has been validated pursuant to the CLIA regulations and is used for clinical purposes. Performed By: #### 2 4323-8 #### ARPITA LUGO ([id number]) [facility] ([facility]) [address] [place] [address] Testosterone Free [Mass/Vol] 65.8 pg/mL Normal 30.0-135.0 [facility] Comment on above: Result Comment: This test was developed and its analytical performance characteristics have been determined by [employer] [place] [place]. It has not been cleared or approved by the U.S. Food and Drug Administration. This assay has been validated pursuant to the CLIA regulations and is used for clinical purposes. Performed By: #### 2 4323-8 #### ARPITA LUGO ([id number]) [facility] ([facility]) [address] [place] [address] CBC W Auto Differential pane l (Bld)on 11-27-2023 Basophils (Bld) [#/Vol] 0.03 x10*3/uL Normal 0.00-0.10 [facility] Comment on above: Performed By: #### 2 4323-8 #### ARPITA LUGO ([id number]) [facility] ([facility]) [address] [place] [address]682 Basophils/100 WBC (Bld) 0.6 % Normal 0.0-2.0 [facility] Comment on above: Performed By: #### 2 4323-8 #### ARPITA LUGO ([id number]) [facility] ([facility]) [address] [place] [address]86 Eosinophils (Bld) [#/Vol] 0.06 x10*3/uL Normal 0.00-0.70 [facility] Comment on above: Performed By: #### 2 4323-8 #### ARPITA LUGO ([id number]) [facility] ([facility]) [address] [place] [address]73 Eosinophils/100 WBC (Bld) 1.3 % Normal 0.0-6.0 [facility] Comment on above: Performed By: #### 2 4322-8 #### ARPITA LUGO ([id number]) [facility] ([facility]) [address] [place] [address] 92771 Erythrocyte distribution width (RBC) [Ratio] 13.2 % Normal 11.5-14.5 [facility] Comment on above: Performed By: #### 2 4322-8 #### ARPITA LUGO ([id number]) [facility] ([facility]) [address] [place] [address]647 Hematocrit (Bld) [Volume fraction] 47.3 % Normal 41.0-52.0 [facility] Comment on above: Performed By: #### 2 4322-8 #### ARPITA LUGO ([id number]) [facility] ([facility]) [address] [place] [address]46 Hemoglobin (Bld) [Mass/Vol] 15.8 g/dL Normal 13.5-17.5 [facility] Comment on above: Performed By: #### 2 4323-8 #### ARPITA LUGO ([id number]) [facility] ([facility]) [address] [place] [address] 56190 Immature granulocytes (Bld) [#/Vol] 0.01 x10*3/uL Normal 0.00-0.70 [facility] Comment on above: Performed By: #### 2 432-8 #### ARPITA LUGO ([id number]) [facility] ([facility]) [address] [place] [address] 17088 Immature granulocytes/100 WBC (Bld) 0.2 % Normal 0.0-0.9 [facility] Comment on above: Result Comment: Trina ture Granulocyte Count (IG) includes promyelocytes, myelocytes and metamyelocytes but does not include bands. Percent differential counts (%) should be interpreted in the context of the absolute cell counts (cells/UL). Performed By: #### 2 4323-8 #### ARPITA LUGO ([id number]) [facility] ([facility]) [address] [place] [address] 52758 Lymphocytes (Bld) [#/Vol] 0.82 x10*3/uL Low 1.20-4.80 [facility] Comment on above: Performed By: #### 2 4323-8 #### ARPITA LUGO ([id number]) [facility] ([facility]) [address] [place] [address] 98326 Lymphocytes/100 WBC (Bld) 17.5 % Normal 13.0-44.0 [facility] Comment on above: Performed By: #### 2 4323-8 #### ARPITA LUGO ([id number]) [facility] ([facility]) [address] [place] [address] 90394 MCH (RBC) [Entitic mass] 33.9 pg Normal 26.0-34.0 [facility] Comment on above: Performed By: #### 2 4323-8 #### ARPITA LUGO ([id number]) [facility] ([facility]) [address] [place] [address] 46835 MCHC (RBC) [Mass/Vol] 33.4 g/dL Normal 32.0-36.0 [facility] Comment on above: Performed By: #### 2 4323-8 #### ARPITA LUGO ([id number]) [facility] ([facility]) [address] [place] [address] 37988 MCV (RBC) [Entitic vol] 102 fL High 80-100 [facility] Comment on above: Performed By: #### 2 4323-8 #### ARPITA LUGO ([id number]) [facility] ([facility]) [address] [place] [address] 77532 Monocytes (Bld) [#/Vol] 0.36 x10*3/uL Normal 0.10-1.00 [facility] Comment on above: Performed By: #### 2 4323-8 #### ARPITA LUGO ([id number]) [facility] ([facility]) [address] [place] [address] 13655 Monocytes/100 WBC (Bld) 7.7 % Normal 2.0-10.0 [facility] Comment on above: Performed By: #### 2 4323-8 #### ARPITA LUGO ([id number]) [facility] ([facility]) [address] [place] [address] 05079 Neutrophils (Bld) [#/Vol] 3.41 x10*3/uL Normal 1.20-7.70 [facility] Comment on above: Result Comment: Perc ent differential counts (%) should be interpreted in the context of the absolute cell counts (cells/uL). Performed By: #### 2 4323-8 #### ARPITA LUGO ([id number]) [facility] ([facility]) [address] [place] [address] 73710 Neutrophils/100 WBC (Bld) 72.7 % Normal 40.0-80.0 [facility] Comment on above: Performed By: #### 2 4323-8 #### ARPITA LUGO ([id number]) [facility] ([facility]) [address] [place] [address] 28060 Nucleated RBC/100 WBC (Bld) [Ratio] 0.0 /100 WBCs Normal 0.0-0.0 [facility] Comment on above: Performed By: #### 2 4323-8 #### ARPITA LUGO ([id number]) [facility] ([facility]) [address] [place] [address] 45284 Platelets (Bld) [#/Vol] 235 x10*3/uL Normal 150-450 [facility] Comment on above: Performed By: #### 2 4323-8 #### ARPITA LUGO ([id number]) [facility] ([facility]) [address] [place] [address] 85089 RBC (Bld) [#/Vol] 4.66 x10*6/uL Normal 4.50-5.90 [facility] Comment on above: Performed By: #### 2 4323-8 #### ARPITA LUGO ([id number]) [facility] ([facility]) [address] [place] [address] 86856 WBC (Bld) [#/Vol] 4.7 x10*3/uL Normal 4.4-11.3 [facility] Comment on above: Performed By: #### 2 4323-8 #### ARPITA LUGO ([id number]) [facility] ([facility]) [address] [place] [address] 26457 Comprehensive metabolic 2000 panelon 11-27-2023 Albumin BCP dye [Mass/Vol] 4.6 g/dL Normal 3.4-5.0 [facility] Comment on above: Performed By: #### 2 4323-8 #### ARPITA LUGO ([id number]) [facility] ([facility]) [address] [place] [address] 19459 ALP [Catalytic activity/Vol] 57 U/L Normal 33-136 [facility] Comment on above: Performed By: #### 2 4323-8 #### ARPITA LUGO ([id number]) [facility] ([facility]) [address] [place] [address] 91202 ALT With P-5'-P [Catalytic activity/Vol] 23 U/L Normal 10-52 [facility] Comment on above: Result Comment: Birdie ents treated with Sulfasalazine may generate falsely decreased results for ALT. Performed By: #### 2 4323-8 #### ARPITA LUGO ([id number]) [facility] ([facility]) [address] [place] [address] 60024 Anion gap [Moles/Vol] 9 mmol/L Low 10-20 [facility] Comment on above: Performed By: #### 2 4323-8 #### ARPITA LUGO ([id number]) [facility] ([facility]) [address] [place] [address] 28312 AST With P-5'-P [Catalytic activity/Vol] 20 U/L Normal 9-39 [facility] Comment on above: Performed By: #### 2 4323-8 #### ARPITA LUGO ([id number]) [facility] ([facility]) [address] [place] [address] Bilirubin [Mass/Vol] 1.1 mg/dL Normal 0.0-1.2 [facility] Comment on above: Performed By: #### 2 4323-8 #### ARPITA LUGO ([id number]) [facility] ([facility]) [address] [place] [address] Calcium [Mass/Vol] 9.6 mg/dL Normal 8.6-10.3 [facility] Comment on above: Performed By: #### 2 4323-8 #### ARPITA LUGO ([id number]) [facility] ([facility]) [address] [place] [address] Chloride [Moles/Vol] 103 mmol/L Normal 98-107 [facility] Comment on above: Performed By: #### 2 4323-8 #### ARPITA LUGO ([id number]) [facility] ([facility]) [address] [place] [address] CO2 [Moles/Vol] 32 mmol/L Normal 21-32 [facility] Comment on above: Performed By: #### 2 4323-8 #### ARPITA LUGO ([id number]) [facility] ([facility]) [address] [place] [address] Creatinine [Mass/Vol] 0.93 mg/dL Normal 0.50-1.30 [facility] Comment on above: Performed By: #### 2 4323-8 #### ARPITA LUGO ([id number]) [facility] ([facility]) [address] [place] [address] Glomerular filtration rate/1.73 sq M.predicted 88 mL/min/1.73m*2 Normal >60 [facility] Comment on above: Result Comment: Calc ulations of estimated GFR are performed using the 2020 CKD-EPI Study Refit equation without the race variable for the IDMS-Traceable creatinine methods. https://jasn.asnjournals.org/content/early/ASN.923298 4024 Performed By: #### 2 4323-8 #### ARIPTA LUGO ([id number]) [facility] ([facility]) [address] [place] [address] 90828 Glucose [Mass/Vol] 92 mg/dL Normal 74-99 [facility] Comment on above: Performed By: #### 2 4323-8 #### ARPITA LUGO ([id number]) [facility] ([facility]) [address] [place] [address] 69798 Potassium [Moles/Vol] 4.4 mmol/L Normal 3.5-5.3 [facility] Comment on above: Performed By: #### 2 4323-8 #### ARPITA LUGO ([id number]) [facility] ([facility]) [address] [place] [address] 65771 Protein [Mass/Vol] 6.9 g/dL Normal 6.4-8.2 [facility] Comment on above: Performed By: #### 2 4323-8 #### ARPITA LUGO ([id number]) [facility] ([facility]) [address] [place] [address] 80752 Sodium [Moles/Vol] 140 mmol/L Normal 136-145 [facility] Comment on above: Performed By: #### 2 4323-8 #### ARPITA LUGO ([id number]) [facility] ([facility]) [address] [place] [address] 54528 Urea nitrogen [Mass/Vol] 17 mg/dL Normal 6-23 [facility] Comment on above: Performed By: #### 2 4323-8 #### ARPITA LUGO ([id number]) [facility] ([facility]) [address] [place] [address] 81450 CBC W Auto Differential pane l (Bld)on 10-16-2023 Basophils (Bld) [#/Vol] 0.03 x10*3/uL Normal 0.00-0.10 [facility] Comment on above: Performed By: #### 5 7021-8 #### ARPITA LUGO ([id number]) [facility] ([facility]) [address] [place] [address] 06514 Basophils/100 WBC (Bld) 0.5 % Normal 0.0-2.0 [facility] Comment on above: Performed By: #### 5 7021-8 #### ARPITA LUGO ([id number]) [facility] ([facility]) [address] [place] [address] 45199 Eosinophils (Bld) [#/Vol] 0.07 x10*3/uL Normal 0.00-0.70 [facility] Comment on above: Performed By: #### 7021-8 #### ARPITA LUGO ([id number]) [facility] ([facility]) [address] [place] [address] 46089 Eosinophils/100 WBC (Bld) 1.3 % Normal 0.0-6.0 [facility] Comment on above: Performed By: #### 7021-8 #### ARPITA LUGO ([id number]) [facility] ([facility]) [address] [place] [address] 73618 Erythrocyte distribution width (RBC) [Ratio] 13.3 % Normal 11.5-14.5 [facility] Comment on above: Performed By: #### 5 7021-8 #### ARPITA LUGO ([id number]) [facility] ([facility]) [address] [place] [address] 11903 Hematocrit (Bld) [Volume fraction] 45.5 % Normal 41.0-52.0 [facility] Comment on above: Performed By: #### 5 7021-8 #### ARPITA LUGO ([id number]) [facility] ([facility]) [address] [place] [address] 43809 Hemoglobin (Bld) [Mass/Vol] 15.5 g/dL Normal 13.5-17.5 [facility] Comment on above: Performed By: #### 5 7021-8 #### ARPITA LUGO ([id number]) [facility] ([facility]) [address] [place] [address] 32364 Immature granulocytes (Bld) [#/Vol] 0.04 x10*3/uL Normal 0.00-0.70 [facility] Comment on above: Performed By: #### 5 7021-8 #### ARPITA LUGO ([id number]) [facility] ([facility]) [address] [place], [place] [address] Immature granulocytes/100 WBC (Bld) 0.7 % Normal 0.0-0.9 [facility] Comment on above: Result Comment: Trina ture Granulocyte Count (IG) includes promyelocytes, myelocytes and metamyelocytes but does not include bands. Percent differential counts (%) should be interpreted in the context of the absolute cell counts (cells/UL). Performed By: #### 5 7021-8 #### ARPITA LUGO ([id number]) [facility] ([facility]) [address] [place] [address] Lymphocytes (Bld) [#/Vol] 0.75 x10*3/uL Low 1.20-4.80 [facility] Comment on above: Performed By: #### 5 7021-8 #### ARPITA LUGO ([id number]) [facility] ([facility]) [address] [place], [place] [address] Lymphocytes/100 WBC (Bld) 13.7 % Normal 13.0-44.0 [facility] Comment on above: Performed By: #### 5 7021-8 #### ARPITA LUGO ([id number]) [facility] ([facility]) [address] [place] [address] MCH (RBC) [Entitic mass] 33.7 pg Normal 26.0-34.0 [facility] Comment on above: Performed By: #### 5 7021-8 #### ARPITA LUGO ([id number]) [facility] ([facility]) [address] [place] [address] MCHC (RBC) [Mass/Vol] 34.1 g/dL Normal 32.0-36.0 [facility] Comment on above: Performed By: #### 5 7021-8 #### ARPITA LUGO ([id number]) [facility] ([facility]) [address] [place] [address] MCV (RBC) [Entitic vol] 99 fL Normal 80-100 [facility] Comment on above: Performed By: #### 5 7021-8 #### ARPITA LUGO ([id number]) [facility] ([facility]) [address] [place] [address] 45158 Monocytes (Bld) [#/Vol] 0.43 x10*3/uL Normal 0.10-1.00 [facility] Comment on above: Performed By: #### 5 7021-8 #### ARPITA LUGO ([id number]) [facility] ([facility]) [address] [place] [address] 91446 Monocytes/100 WBC (Bld) 7.9 % Normal 2.0-10.0 [facility] Comment on above: Performed By: #### 5 7021-8 #### ARPITA LUGO ([id number]) [facility] ([facility]) [address] [place] [address] 41527 Neutrophils (Bld) [#/Vol] 4.15 x10*3/uL Normal 1.20-7.70 [facility] Comment on above: Result Comment: Perc ent differential counts (%) should be interpreted in the context of the absolute cell counts (cells/uL). Performed By: #### 5 7021-8 #### ARPITA LUGO ([id number]) [facility] ([facility]) [address] [place] [address] 63996 Neutrophils/100 WBC (Bld) 75.9 % Normal 40.0-80.0 [facility] Comment on above: Performed By: #### 5 7021-8 #### ARPITA LUGO ([id number]) [facility] ([facility]) [address] [place] [address] 72745 Nucleated RBC/100 WBC (Bld) [Ratio] 0.0 /100 WBCs Normal 0.0-0.0 [facility] Comment on above: Performed By: #### 5 7021-8 #### ARPITA LUGO ([id number]) [facility] ([facility]) [address] [place] [address] 33980 Platelets (Bld) [#/Vol] 240 x10*3/uL Normal 150-450 [facility] Comment on above: Performed By: #### 5 7021-8 #### ARPITA LUGO ([id number]) [facility] ([facility]) [address] [place] [address] RBC (Bld) [#/Vol] 4.60 x10*6/uL Normal 4.50-5.90 [facility] Comment on above: Performed By: #### 5 7021-8 #### ARPITA LUGO ([id number]) [facility] ([facility]) [address] [place] [address] WBC (Bld) [#/Vol] 5.5 x10*3/uL Normal 4.4-11.3 [facility] Comment on above: Performed By: #### 5 7021-8 #### ARPITA LUGO ([id number]) [facility] ([facility]) [address] [place] [address] Cobalaminson 10-16-2023 Cobalamin (Vitamin B12) [Mass/Vol] 308 pg/mL Normal 211-911 [facility] Comment on above: Performed By: #### 2 4323-8 #### ARPITA LUGO ([id number]) [facility] ([facility]) [address] [place] [address] Comprehensive metabolic 2000 panelon 10-16-2023 Albumin BCP dye [Mass/Vol] 4.6 g/dL Normal 3.4-5.0 [facility] Comment on above: Performed By: #### 2 4323-8 #### ARPITA LUGO ([id number]) [facility] ([facility]) [address] [place] [address] 51033 ALP [Catalytic activity/Vol] 64 U/L Normal 33-136 [facility] Comment on above: Performed By: #### 2 4323-8 #### ARPITA LUGO ([id number]) [facility] ([facility]) [address] [place] [address] 05541 ALT With P-5'-P [Catalytic activity/Vol] 24 U/L Normal 10-52 [facility] Comment on above: Result Comment: Birdie ents treated with Sulfasalazine may generate falsely decreased results for ALT. Performed By: #### 2 4323-8 #### ARPITA LUGO ([id number]) [facility] ([facility]) [facility] [place] [address] Anion gap [Moles/Vol] 11 mmol/L Normal 10-20 [facility] Comment on above: Performed By: #### 2 4323-8 #### ARPITA LUGO ([id number]) [facility] ([facility]) [address] [place] [address] 80126 AST With P-5'-P [Catalytic activity/Vol] 21 U/L Normal 9-39 [facility] Comment on above: Performed By: #### 2 432-8 #### ARPITA LUGO ([id number]) [facility] ([facility]) [address] [place] [address] 11420 Bilirubin [Mass/Vol] 1.1 mg/dL Normal 0.0-1.2 [facility] Comment on above: Performed By: #### 2 432-8 #### ARPITA LUOG ([id number]) [facility] ([facility]) [address] [place] [address] 41559 Calcium [Mass/Vol] 9.5 mg/dL Normal 8.6-10.3 [facility] Comment on above: Performed By: #### 2 4323-8 #### ARPITA LUGO ([id number]) [facility] ([facility]) [address] [place] [address] 76177 Chloride [Moles/Vol] 105 mmol/L Normal 98-107 [facility] Comment on above: Performed By: #### 2 4323-8 #### ARPITA LUGO ([id number]) [facility] ([facility]) [address] [place] [address] 63264 CO2 [Moles/Vol] 31 mmol/L Normal 21-32 [facility] Comment on above: Performed By: #### 2 4323-8 #### ARPITA LUGO ([id number]) [facility] ([facility]) [address] [place] [address] 49105 Creatinine [Mass/Vol] 0.92 mg/dL Normal 0.50-1.30 [facility] Comment on above: Performed By: #### 2 432-8 #### ARPITA LUGO ([id number]) [facility] ([facility]) [address] [place] [address] 02113 Glomerular filtration rate/1.73 sq M.predicted 89 mL/min/1.73m*2 Normal >60 [facility] Comment on above: Result Comment: Calc ulations of estimated GFR are performed using the 2020 CKD-EPI Study Refit equation without the race variable for the IDMS-Traceable creatinine methods. https://jasn.asnjournals.org/content/early//ASN.352487 0272 Performed By: #### 2 432-8 #### ARPITA LUGO ([id number]) [facility] ([facility]) [address] [place] [address] 29824 Glucose [Mass/Vol] 77 mg/dL Normal 74-99 [facility] Comment on above: Performed By: #### 2 432-8 #### ARPITA LUGO ([id number]) [facility] ([facility]) [address] [place] [address] 34789 Potassium [Moles/Vol] 4.5 mmol/L Normal 3.5-5.3 [facility] Comment on above: Performed By: #### 2 432-8 #### ARPITA LUGO ([id number]) [facility] ([facility]) [address] [place] [address] 64818 Protein [Mass/Vol] 6.7 g/dL Normal 6.4-8.2 [facility] Comment on above: Performed By: #### 2 432-8 #### ARPITA LUGO ([id number]) [facility] ([facility]) [address] [place] [address] 08796 Sodium [Moles/Vol] 142 mmol/L Normal 136-145 [facility] Comment on above: Performed By: #### 2 432-8 #### ARPITA LUGO ([id number]) [facility] ([facility]) [address] [place] [address] Urea nitrogen [Mass/Vol] 19 mg/dL Normal 6-23 [facility] Comment on above: Performed By: #### 2 4323-8 #### ARPITA LUGO ([id number]) [facility] ([facility]) [address] [place] [address] Ferritinon 10-16-2023 Ferritin [Mass/Vol] 399 ng/mL High 20-300 [facility] Comment on above: Performed By: #### 2 276-4 #### ARPITA LUGO ([id number]) [facility] ([facility]) [address] [place] [address] Lipid 1996 panelon Cholesterol [Mass/Vol] 150 mg/dL Normal 0-199 [facility] Comment on above: Result Comment: Age Desirable Borderline High High 0-19 Y 0 - 169 170 - 199 >/= 200 20-24 Y 0 - 189 190 - 224 >/= 225 >24 Y 0 - 199 200 - 239 >/= 240 All ranges are based on fasting samples. Specific therapeutic targets will vary based on patient-specific cardiac risk. Pediatric guidelines reference:Pediatrics 2011, 128(S5).Adult guidelines reference: NCEP ATPIII Guidelines,FIDEL 2001, 258:2486-97 Venipuncture immediately after or during the administration of Metamizole may lead to falsely low results. Testing should be performed immediately prior to Metamizole dosing. Performed By: #### 2 4331-1 #### ARPITA LUGO ([id number]) [facility] ([facility]) [address] [place] [address] Cholesterol in HDL [Mass/Vol] 55.0 mg/dL Normal [facility] Comment on above: Result Comment: Age Very Low Low Normal High 0-19 Y < 35 < 40 40-45 ---- 20-24 Y ---- < 40 >45 ---- >24 Y ---- < 40 40-60 >60 Performed By: #### 2 4331-1 #### ARPITA LUGO ([id number]) [facility] ([facility]) [facility] [place] [address] Cholesterol in LDL [Mass/Vol] 84 mg/dL Normal <=99 [facility] Comment on above: Result Comment: Near Borderline AGE Desirable Optimal High High Very High 0-19 Y 0 - 109 --- 110-129 >/= 130 ---- 20-24 Y 0 - 119 --- 120-159 >/= 160 ---- >24 Y 0 - 99 100-129 130-159 160-189 >/=190 Performed By: #### 2 4331-1 #### ARPITA LUGO ([id number]) [facility] ([facility]) [address] [place] [address] 33060 Cholesterol in VLDL [Mass/Vol] 11 mg/dL Normal 0-40 [facility] Comment on above: Performed By: #### 2 4331-1 #### ARPITA LUGO ([id number]) [facility] ([facility]) [address] [place] [address] 29310 CHOLESTEROL/HDL RATIO 2.7 Normal [facility] Comment on above: Result Comment: Ref Values Desirable < 3.4 High Risk > 5.0 Performed By: #### 2 4331-1 #### ARPITA LUGO ([id number]) [facility] ([facility]) [address] [place] [address] 15938 NON HDL CHOLESTEROL 95 mg/dL Normal 0-149 [facility] Comment on above: Result Comment: Age Desirable Borderline High High Very High 0-19 Y 0 - 119 120 - 144 >/= 145 >/= 160 20-24 Y 0 - 149 150 - 189 >/= 190 ---- >24 Y 30 mg/dL above LDL Cholesterol goal Performed By: #### 2 4331-1 #### ARPITA LUGO ([id number]) [facility] ([facility]) [address] [place] [address] 01756 Triglyceride [Mass/Vol] 56 mg/dL Normal 0-149 [facility] Comment on above: Result Comment: Age Desirable Borderline High High Very High 0 D-90 D 19 - 174 ---- ---- ---- 91 D- 9 Y 0 - 74 75 - 99 >/= 100 ---- 10-19 Y 0 - 89 90 - 129 >/= 130 ---- 20-24 Y 0 - 114 115 - 149 >/= 150 ---- >24 Y 0 - 149 150 - 199 200- 499 >/= 500 Venipuncture immediately after or during the administration of Metamizole may lead to falsely low results. Testing should be performed immediately prior to Metamizole dosing. Performed By: #### 2 4331-1 #### ARPITA LUGO ([id number]) [facility] ([facility]) [address] [place] [id number] Magnesiumon 10-16-2023 Magnesium [Mass/Vol] 2.00 mg/dL Normal 1.60-2.40 [facility] Comment on above: Performed By: #### 1 9123-9 #### ARPITA LUGO ([id number]) [facility] ([facility]) [address] [place] [address] Thyrotropinon 10-16-2023 TSH Qn 2.91 m[IU]/L Normal 0.44-3.98 [facility] Comment on above: Order Comment: TSH t esting is performed using different testing methodology at [facility] than at other [facility]. Direct result comparisons should only be made within the same method. Performed By: #### 2 4323-8 #### ARPITA LUGO ([id number]) [facility] ([facility]) [address] [place] [id number] CBC W Auto Differential pane l (Bld)on 09-08-2023 Basophils (Bld) [#/Vol] 0.05 x10*3/uL Normal 0.00-0.10 [facility] Comment on above: Performed By: #### 5 7021-8 #### ARPITA LUGO ([id number]) [facility] ([facility]) [address] [place] [address] 96080 Basophils/100 WBC (Bld) 1.0 % Normal 0.0-2.0 [facility] Comment on above: Performed By: #### 5 7021-8 #### ARPITA LUGO ([id number]) [facility] ([facility]) [address] [place] [address] 70817 Eosinophils (Bld) [#/Vol] 0.14 x10*3/uL Normal 0.00-0.70 [facility] Comment on above: Performed By: #### 5 7021-8 #### ARPITA LUGO ([id number]) [facility] ([facility]) [address] [place] [address] 12147 Eosinophils/100 WBC (Bld) 2.7 % Normal 0.0-6.0 [facility] Comment on above: Performed By: #### 5 7021-8 #### ARPITA LUGO ([id number]) [facility] ([facility]) [address] [place] [address] 90795 Erythrocyte distribution width (RBC) [Ratio] 13.4 % Normal 11.5-14.5 [facility] Comment on above: Performed By: #### 5 7021-8 #### ARPITA LUGO ([id number]) [facility] ([facility]) [address] [place], [place] [address] Hematocrit (Bld) [Volume fraction] 43.9 % Normal 41.0-52.0 [facility] Comment on above: Performed By: #### 5 7021-8 #### ARPITA LUGO ([id number]) [facility] ([facility]) [address] [place] [address] 68342 Hemoglobin (Bld) [Mass/Vol] 14.7 g/dL Normal 13.5-17.5 [facility] Comment on above: Performed By: #### 5 7021-8 #### ARPITA LUGO ([id number]) [facility] ([facility]) [address] [place] [address] 05080 Immature granulocytes (Bld) [#/Vol] 0.04 x10*3/uL Normal 0.00-0.70 [facility] Comment on above: Performed By: #### 5 7021-8 #### ARPITA LUGO ([id number]) [facility] ([facility]) [address] [place] [address] 93917 Immature granulocytes/100 WBC (Bld) 0.8 % Normal 0.0-0.9 [facility] Comment on above: Result Comment: Trina ture Granulocyte Count (IG) includes promyelocytes, myelocytes and metamyelocytes but does not include bands. Percent differential counts (%) should be interpreted in the context of the absolute cell counts (cells/UL). Performed By: #### 5 7021-8 #### ARPITA LUGO ([id number]) [facility] ([facility]) [address] [place] [address] 41945 Lymphocytes (Bld) [#/Vol] 1.04 x10*3/uL Low 1.20-4.80 [facility] Comment on above: Performed By: #### 5 7021-8 #### ARPITA LUGO ([id number]) [facility] ([facility]) [address] [place] [address] 20183 Lymphocytes/100 WBC (Bld) 20.3 % Normal 13.0-44.0 [facility] Comment on above: Performed By: #### 5 7021-8 #### ARPITA LUGO ([id number]) [facility] ([facility]) [address] [place] [address] 91819 MCH (RBC) [Entitic mass] 33.4 pg Normal 26.0-34.0 [facility] Comment on above: Performed By: #### 5 7021-8 #### ARPITA LUGO ([id number]) [facility] ([facility]) [address] [place] [address] 08587 MCHC (RBC) [Mass/Vol] 33.5 g/dL Normal 32.0-36.0 [facility] Comment on above: Performed By: #### 5 7021-8 #### ARPITA LUGO ([id number]) [facility] ([facility]) [address] [place] [address] 43743 MCV (RBC) [Entitic vol] 100 fL Normal 80-100 [facility] Comment on above: Performed By: #### 5 7021-8 #### ARPITA LUGO ([id number]) [facility] ([facility]) [address] [place] [address] 02754 Monocytes (Bld) [#/Vol] 0.49 x10*3/uL Normal 0.10-1.00 [facility] Comment on above: Performed By: #### 5 7021-8 #### ARPITA LUGO ([id number]) [facility] ([facility]) [address] [place] [address] 53872 Monocytes/100 WBC (Bld) 9.6 % Normal 2.0-10.0 [facility] Comment on above: Performed By: #### 5 7021-8 #### ARPITA LUGO ([id number]) [facility] ([facility]) [address] [place] [address] 32128 Neutrophils (Bld) [#/Vol] 3.37 x10*3/uL Normal 1.20-7.70 [facility] Comment on above: Result Comment: Perc ent differential counts (%) should be interpreted in the context of the absolute cell counts (cells/uL). Performed By: #### 5 7021-8 #### ARPITA LUGO ([id number]) [facility] ([facility]) [address] [place] [address] 52522 Neutrophils/100 WBC (Bld) 65.6 % Normal 40.0-80.0 [facility] Comment on above: Performed By: #### 5 7021-8 #### ARPITA LUGO ([id number]) [facility] ([facility]) [address] [place] [address] 94166 Nucleated RBC/100 WBC (Bld) [Ratio] 0.0 /100 WBCs Normal 0.0-0.0 [facility] Comment on above: Performed By: #### 5 7021-8 #### ARPITA LUGO ([id number]) [facility] ([facility]) [address] [place] [address] 62565 Platelets (Bld) [#/Vol] 262 x10*3/uL Normal 150-450 [facility] Comment on above: Performed By: #### 5 7021-8 #### ARPITA LUGO ([id number]) [facility] ([facility]) [address] [place] [address] 40194 RBC (Bld) [#/Vol] 4.40 x10*6/uL Low 4.50-5.90 [facility] Comment on above: Performed By: #### 5 7021-8 #### ARPITA LUGO ([id number]) [facility] ([facility]) [address] [place] [address] 33344 WBC (Bld) [#/Vol] 5.1 x10*3/uL Normal 4.4-11.3 [facility] Comment on above: Performed By: #### 5 7021-8 #### ARPITA LUGO ([id number]) [facility] ([facility]) [address] [place] [address] Comprehensive metabolic 2000 panelon 09-08-2023 Albumin BCP dye [Mass/Vol] 4.5 g/dL Normal 3.4-5.0 [facility] Comment on above: Performed By: #### 2 4323-8 #### ARPITA LUGO ([id number]) [facility] ([facility]) [address] [place] [address] 87413 ALP [Catalytic activity/Vol] 68 U/L Normal 33-136 [facility] Comment on above: Performed By: #### 2 4323-8 #### ARPITA LUGO ([id number]) [facility] ([facility]) [address] [place] [address] 38834 ALT With P-5'-P [Catalytic activity/Vol] 25 U/L Normal 10-52 [facility] Comment on above: Result Comment: Birdie ents treated with Sulfasalazine may generate falsely decreased results for ALT. Performed By: #### 2 4323-8 #### ARPITA LUGO ([id number]) [facility] ([facility]) [address] [place] [address] 22796 Anion gap [Moles/Vol] 9 mmol/L Low 10-20 [facility] Comment on above: Performed By: #### 2 4323-8 #### ARPITA LUGO ([id number]) [facility] ([facility]) [address] [place] [address] 05713 AST With P-5'-P [Catalytic activity/Vol] 22 U/L Normal 9-39 [facility] Comment on above: Performed By: #### 2 4323-8 #### ARPITA LUGO ([id number]) [facility] ([facility]) [address] [place] [address] Bilirubin [Mass/Vol] 0.7 mg/dL Normal 0.0-1.2 [facility] Comment on above: Performed By: #### 2 4323-8 #### ARPITA LUGO ([id number]) [facility] ([facility]) [address] [place] [address] 38520 Calcium [Mass/Vol] 9.4 mg/dL Normal 8.6-10.3 [facility] Comment on above: Performed By: #### 2 4323-8 #### ARPITA LUGO ([id number]) [facility] ([facility]) [address] [place] [address] 88710 Chloride [Moles/Vol] 104 mmol/L Normal 98-107 [facility] Comment on above: Performed By: #### 2 4323-8 #### ARPITA LUGO ([id number]) [facility] ([facility]) [address] [place] [address] CO2 [Moles/Vol] 33 mmol/L High 21-32 [facility] Comment on above: Performed By: #### 2 4323-8 #### ARPITA LUGO ([id number]) [facility] ([facility]) [facility] [place] [address] Creatinine [Mass/Vol] 0.96 mg/dL Normal 0.50-1.30 [facility] Comment on above: Performed By: #### 2 4323-8 #### ARPITA LUGO ([id number]) [facility] ([facility]) [address] [place] [address] 23313 GFR/1.73 sq M.predicted MDRD (S/P/Bld) [Vol rate/Area] 85 mL/min/1.73m*2 Normal >60 [facility] Comment on above: Result Comment: Calc ulations of estimated GFR are performed using the 2020 CKD-EPI Study Refit equation without the race variable for the IDMS-Traceable creatinine methods. https://jasn.asnjournals.org/content//ASN.168018 5373 Performed By: #### 2 4323-8 #### ARPITA LUGO ([id number]) [facility] ([facility]) [address] [place] [address] 22233 Glucose [Mass/Vol] 80 mg/dL Normal 74-99 [facility] Comment on above: Performed By: #### 2 4323-8 #### ARPITA LUGO ([id number]) [facility] ([facility]) [address] [place] [address] 77963 Potassium [Moles/Vol] 4.8 mmol/L Normal 3.5-5.3 [facility] Comment on above: Performed By: #### 2 4323-8 #### ARPITA LUGO ([id number]) [facility] ([facility]) [address] [place] [address] 20250 Protein [Mass/Vol] 6.7 g/dL Normal 6.4-8.2 [facility] Comment on above: Performed By: #### 2 4323-8 #### ARPITA LUGO ([id number]) [facility] ([facility]) [address] [place] [address] 55451 Sodium [Moles/Vol] 141 mmol/L Normal 136-145 [facility] Comment on above: Performed By: #### 2 4323-8 #### ARPITA LUGO ([id number]) [facility] ([facility]) [address] [place] [address] 88465 Urea nitrogen [Mass/Vol] 18 mg/dL Normal 6-23 [facility] Comment on above: Performed By: #### 2 4323-8 #### ARPITA LUGO ([id number]) [facility] ([facility]) [address] [place] [address] 17789 Prostate specific Agon 09-08 Prostate specific Ag [Mass/Vol] 6.37 ng/mL High <=4.00 [facility] Comment on above: Order Comment: The F DA requires that the method used for PSA assay be reported to the physician. Values obtained with different assay methods must not be used interchangeably. This test was performed at [facility] using the Flythegap PSA assay is a two-site immunoenzymatic sandwich assay. The assay is approved for measurement of prostate-specific antigen (PSA)in serum and may be used in conjunction with a digital rectal examination in men 50 years and older as an aid in detection of prostate cancer. 9-Zgnzl-iqmxjsait inhibitors (e.g. Proscar, Finasteride, Avodart, Dutasteride and Judy) for the treatment of BPH have been shown to lower PSA levels by an average of 50% after 6 months of treatment. Performed By: #### 2 857-1 #### ARPITA LUGO ([id number]) [facility] ([facility]) [address] [place] [address] 41818 CBC W Auto Differential pane l (Bld)on 06-12-2023 Basophils (Bld) [#/Vol] 0.03 x10*3/uL Normal 0.00-0.10 [facility] Comment on above: Performed By: #### 5 7021-8 #### ARPITA LUGO ([id number]) [facility] ([facility]) [address] [place] [address] 86156 Basophils/100 WBC (Bld) 0.7 % Normal 0.0-2.0 [facility] Comment on above: Performed By: #### 5 7021-8 #### ARPITA LUGO ([id number]) [facility] ([facility]) [address] [place] [address] 47409 Eosinophils (Bld) [#/Vol] 0.08 x10*3/uL Normal 0.00-0.70 [facility] Comment on above: Performed By: #### 5 7021-8 #### ARPITA LUGO ([id number]) [facility] ([facility]) [address] [place] [address] 27657 Eosinophils/100 WBC (Bld) 1.7 % Normal 0.0-6.0 [facility] Comment on above: Performed By: #### 5 7021-8 #### ARPITA LUGO ([id number]) [facility] ([facility]) [address] [place] [address] 81696 Erythrocyte distribution width (RBC) [Ratio] 13.6 % Normal 11.5-14.5 [facility] Comment on above: Performed By: #### 5 7021-8 #### ARPITA LUGO ([id number]) [facility] ([facility]) [address] [place] [address] 80905 Hematocrit (Bld) [Volume fraction] 43.6 % Normal 41.0-52.0 [facility] Comment on above: Performed By: #### 5 7021-8 #### ARPITA LUGO ([id number]) [facility] ([facility]) [address] [place] [address] Hemoglobin (Bld) [Mass/Vol] 14.4 g/dL Normal 13.5-17.5 [facility] Comment on above: Performed By: #### 5 7021-8 #### ARPITA LUGO ([id number]) [facility] ([facility]) [address] [place], [place] [address] Immature granulocytes (Bld) [#/Vol] 0.01 x10*3/uL Normal 0.00-0.70 [facility] Comment on above: Performed By: #### 5 7021-8 #### ARPITA LUGO ([id number]) [facility] ([facility]) [address] [place], [place] [address] Immature granulocytes/100 WBC (Bld) 0.2 % Normal 0.0-0.9 [facility] Comment on above: Result Comment: Trina ture Granulocyte Count (IG) includes promyelocytes, myelocytes and metamyelocytes but does not include bands. Percent differential counts (%) should be interpreted in the context of the absolute cell counts (cells/UL). Performed By: #### 5 7021-8 #### ARPITA LUGO ([id number]) [facility] ([facility]) [address] [place] [address] 23445 Lymphocytes (Bld) [#/Vol] 0.90 x10*3/uL Low 1.20-4.80 [facility] Comment on above: Performed By: #### 5 7021-8 #### ARPITA LUGO ([id number]) [facility] ([facility]) [address] [place] [address] Lymphocytes/100 WBC (Bld) 19.6 % Normal 13.0-44.0 [facility] Comment on above: Performed By: #### 5 7021-8 #### ARPITA LUGO ([id number]) [facility] ([facility]) [address] [place] [address] 57854 MCH (RBC) [Entitic mass] 33.9 pg Normal 26.0-34.0 [facility] Comment on above: Performed By: #### 5 7021-8 #### ARPITA LUGO ([id number]) [facility] ([facility]) [address] [place] [address] 63865 MCHC (RBC) [Mass/Vol] 33.0 g/dL Normal 32.0-36.0 [facility] Comment on above: Performed By: #### 5 7021-8 #### ARPITA LUGO ([id number]) [facility] ([facility]) [address] [place] [address] 03049 MCV (RBC) [Entitic vol] 103 fL High 80-100 [facility] Comment on above: Performed By: #### 5 7021-8 #### ARPITA LUGO ([id number]) [facility] ([facility]) [address] [place] [address] Monocytes (Bld) [#/Vol] 0.42 x10*3/uL Normal 0.10-1.00 [facility] Comment on above: Performed By: #### 5 7021-8 #### ARPITA LUGO ([id number]) [facility] ([facility]) [address] [place] [address] 35497 Monocytes/100 WBC (Bld) 9.1 % Normal 2.0-10.0 [facility] Comment on above: Performed By: #### 5 7021-8 #### ARPITA LUGO ([id number]) [facility] ([facility]) [address] [place] [address] Neutrophils (Bld) [#/Vol] 3.16 x10*3/uL Normal 1.20-7.70 [facility] Comment on above: Result Comment: Perc ent differential counts (%) should be interpreted in the context of the absolute cell counts (cells/uL). Performed By: #### 5 7021-8 #### ARPITA LUGO ([id number]) [facility] ([facility]) [address] [place] [address] 32188 Neutrophils/100 WBC (Bld) 68.7 % Normal 40.0-80.0 [facility] Comment on above: Performed By: #### 5 7021-8 #### ARPITA LUGO ([id number]) [facility] ([facility]) [address] [place] [address] 14769 Nucleated RBC/100 WBC (Bld) [Ratio] 0.0 /100 WBCs Normal 0.0-0.0 [facility] Comment on above: Performed By: #### 5 7021-8 #### ARPITA LUGO ([id number]) [facility] ([facility]) [address] [place] [address] 00059 Platelet mean volume (Bld) [Entitic vol] 9.4 fL Normal 7.5-11.5 [facility] Comment on above: Performed By: #### 5 7021-8 #### ARPITA LUGO ([id number]) [facility] ([facility]) [address] [place] [address] 92668 Platelets (Bld) [#/Vol] 248 x10*3/uL Normal 150-450 [facility] Comment on above: Performed By: #### 5 7021-8 #### ARPITA LUGO ([id number]) [facility] ([facility]) [address] [place] [address] 83884 RBC (Bld) [#/Vol] 4.25 x10*6/uL Low 4.50-5.90 [facility] Comment on above: Performed By: #### 5 7021-8 #### ARPITA LUGO ([id number]) [facility] ([facility]) [address] [place] [address] 59077 WBC (Bld) [#/Vol] 4.6 x10*3/uL Normal 4.4-11.3 [facility] Comment on above: Performed By: #### 5 7021-8 #### ARPITA LUGO ([id number]) [facility] ([facility]) [address] [place] [address] Comprehensive metabolic 2000 panelon 06-12-2023 Albumin BCP dye [Mass/Vol] 4.6 g/dL Normal 3.4-5.0 [facility] Comment on above: Performed By: #### 2 4323-8 #### ARPITA LUGO ([id number]) [facility] ([facility]) [address] [place] [address] 48511 ALP [Catalytic activity/Vol] 54 U/L Normal 33-136 [facility] Comment on above: Performed By: #### 2 4323-8 #### ARPITA LUGO ([id number]) [facility] ([facility]) [address] [place] [address] 78501 ALT With P-5'-P [Catalytic activity/Vol] 27 U/L Normal 10-52 [facility] Comment on above: Result Comment: Birdie ents treated with Sulfasalazine may generate falsely decreased results for ALT. Performed By: #### 2 4323-8 #### ARIPTA LUGO ([id number]) [facility] ([facility]) [address] [place] [address] 54450 Anion gap [Moles/Vol] 8 mmol/L Low 10-20 [facility] Comment on above: Performed By: #### 2 4323-8 #### ARPITA LUGO ([id number]) [facility] ([facility]) [address] [place] [address] 51786 AST With P-5'-P [Catalytic activity/Vol] 25 U/L Normal 9-39 [facility] Comment on above: Performed By: #### 2 4323-8 #### ARPITA LUGO ([id number]) [facility] ([facility]) [address] [place] [address] 96566 Bilirubin [Mass/Vol] 0.8 mg/dL Normal 0.0-1.2 [facility] Comment on above: Performed By: #### 2 4323-8 #### ARPITA LUGO ([id number]) [facility] ([facility]) [address] [place] [address] Calcium [Mass/Vol] 9.6 mg/dL Normal 8.6-10.3 [facility] Comment on above: Performed By: #### 2 4323-8 #### ARPITA LUGO ([id number]) [facility] ([facility]) [address] [place] [address] 46615 Chloride [Moles/Vol] 103 mmol/L Normal 98-107 [facility] Comment on above: Performed By: #### 2 4323-8 #### ARPITA LUGO ([id number]) [facility] ([facility]) [address] [place] [address] 91765 CO2 [Moles/Vol] 32 mmol/L Normal 21-32 [facility] Comment on above: Performed By: #### 2 4323-8 #### ARPITA LUGO ([id number]) [facility] ([facility]) [address] [place] [address] 71595 Creatinine [Mass/Vol] 0.88 mg/dL Normal 0.50-1.30 [facility] Comment on above: Performed By: #### 2 4323-8 #### ARPITA LUGO ([id number]) [facility] ([facility]) [address] [place] [address] 23889 GFR/1.73 sq M.predicted MDRD (S/P/Bld) [Vol rate/Area] mL/min/{1.73_m2} Normal >60 [facility] Comment on above: Result Comment: Calc ulations of estimated GFR are performed using the 2020 CKD-EPI Study Refit equation without the race variable for the IDMS-Traceable Creatinine Methods. https://jasn.asnjournals.org/content/early//ASN.159377 5215 Performed By: #### 2 4323-8 #### ARPITA LUGO ([id number]) [facility] ([facility]) [address] [place] [address] 15543 Glucose [Mass/Vol] 62 mg/dL Low 74-99 [facility] Comment on above: Performed By: #### 2 4323-8 #### ARPITA LUGO ([id number]) [facility] ([facility]) [address] [place] [address] 14064 Potassium [Moles/Vol] 4.3 mmol/L Normal 3.5-5.3 [facility] Comment on above: Performed By: #### 2 4323-8 #### ARPITA LUGO ([id number]) [facility] ([facility]) [address] [place] [address] Protein [Mass/Vol] 6.4 g/dL Normal 6.4-8.2 [facility] Comment on above: Performed By: #### 2 4323-8 #### ARPITA LUGO ([id number]) [facility] ([facility]) [address] [place] [address] Sodium [Moles/Vol] 139 mmol/L Normal 136-145 [facility] Comment on above: Performed By: #### 2 4323-8 #### ARPITA LUGO ([id number]) [facility] ([facility]) [address] [place] [address] Urea nitrogen [Mass/Vol] 20 mg/dL Normal 6-23 [facility] Comment on above: Performed By: #### 2 4323-8 #### ARPITA LUGO ([id number]) [facility] ([facility]) [address] [place] [address] CBC AND DIFFERENTIALon 03-24 % AUTOMATED IMMATURE GRAN 0.5 % Normal 0.0 - 0.9 [facility] Comment on above: Result Comment: Trina ture Granulocyte Count (IG) includes promyelocytes, myelocytes and metamyelocytes but does not include bands. Percent differential counts (%) should be interpreted in the context of the absolute cell counts (cells/L). Performed By: #### M DIFF #### [place] [id number] Basophils (Bld) [#/Vol] 0.04 10*3/uL Normal 0.00 - 0.10 [facility] Comment on above: Performed By: #### M DIFF #### [address] [id number] Basophils/100 WBC (Bld) 0.7 % Normal 0.0 - 2.0 [facility] Comment on above: Performed By: #### M DIFF #### [address] [id number] Eosinophils (Bld) [#/Vol] 0.16 10*3/uL Normal 0.00 - 0.70 [facility] Comment on above: Performed By: #### M DIFF #### [address] [address] Eosinophils/100 WBC (Bld) 2.7 % Normal 0.0 - 6.0 [facility] Comment on above: Performed By: #### M DIFF #### [address] [address] Erythrocyte distribution width (RBC) [Ratio] 13.6 % Normal 11.5 - 14.5 [facility] Comment on above: Performed By: #### M DIFF #### [address] [address] Hematocrit (Bld) [Volume fraction] 42.5 % Normal 41.0 - 52.0 [facility] Comment on above: Performed By: #### M DIFF #### [address] [address] Hemoglobin (Bld) [Mass/Vol] 14.4 g/dL Normal 13.5 - 17.5 [facility] Comment on above: Performed By: #### M DIFF #### [address] [address] Lymphocytes (Bld) [#/Vol] 1.00 10*3/uL Low 1.20 - 4.80 [facility] Comment on above: Performed By: #### M DIFF #### [address] [address] Lymphocytes/100 WBC (Bld) 16.8 % Normal 13.0 - 44.0 [facility] Comment on above: Performed By: #### M DIFF #### [address] [address] MCHC (RBC) [Mass/Vol] 33.9 g/dL Normal 32.0 - 36.0 [facility] Comment on above: Performed By: #### M DIFF #### [address] [address] MCV (RBC) [Entitic vol] 101 fL High 80 - 100 [facility] Comment on above: Performed By: #### M DIFF #### [address] [address] Monocytes (Bld) [#/Vol] 0.47 10*3/uL Normal 0.10 - 1.00 [facility] Comment on above: Performed By: #### M DIFF #### [address] [address] Monocytes/100 WBC (Bld) 7.9 % Normal 2.0 - 10.0 [facility] Comment on above: Performed By: #### M DIFF #### [address] [address] Neutrophils (Bld) [#/Vol] 4.24 10*3/uL Normal 1.20 - 7.70 [facility] Comment on above: Result Comment: Perc ent differential counts (%) should be interpreted in the context of the absolute cell counts (cells/L). Performed By: #### M DIFF #### [address] [address] Neutrophils/100 WBC (Bld) 71.4 % Normal 40.0 - 80.0 [facility] Comment on above: Performed By: #### M DIFF #### [address] [address] Platelets (Bld) [#/Vol] 269 10*3/uL Normal 150 - 450 [facility] Comment on above: Performed By: #### M DIFF #### [address] [address] RBC 4.22 x10E12/L Low 4.50 - 5.90 [facility] Comment on above: Performed By: #### M DIFF #### [address] [address] WBC (Bld) [#/Vol] 5.9 10*3/uL Normal 4.4 - 11.3 [facility] [place] Comment on above: Performed By: #### M DIFF #### [address] [address] COMPREHENSIVE PANELon 2022 Albumin [Mass/Vol] 4.3 g/dL Normal 3.4 - 5.0 [facility] [place] Comment on above: Performed By: #### M DIFF #### [address] [address] ALP [Catalytic activity/Vol] 59 U/L Normal 33 - 136 [facility] Comment on above: Performed By: #### M DIFF #### [address] [address] ALT [Catalytic activity/Vol] 22 U/L Normal 10 - 52 [facility] Comment on above: Result Comment: Birdie ents treated with Sulfasalazine may generate falsely decreased results for ALT. Performed By: #### M DIFF #### [address] [address] Anion gap [Moles/Vol] 9 mmol/L Low 10 - 20 [facility] Comment on above: Performed By: #### M DIFF #### [address] [address] AST [Catalytic activity/Vol] 22 U/L Normal 9 - 39 [facility] Comment on above: Performed By: #### M DIFF #### [address] [address] Bilirubin [Mass/Vol] 0.7 mg/dL Normal 0.0 - 1.2 [facility] Comment on above: Performed By: #### M DIFF #### [address] [address] Calcium [Mass/Vol] 9.5 mg/dL Normal 8.6 - 10.3 [facility] [place] Comment on above: Performed By: #### M DIFF #### [address] [address] Chloride [Moles/Vol] 105 mmol/L Normal 98 - 107 [facility] Comment on above: Performed By: #### M DIFF #### [address] [address] Creatinine [Mass/Vol] 1.11 mg/dL Normal 0.50 - 1.30 [facility] Comment on above: Performed By: #### M DIFF #### [address] [address] GFR/1.73 sq M.predicted among non-blacks MDRD (S/P/Bld) [Vol rate/Area] 71 mL/min/{1.73_m2} Normal >90 [facility] Comment on above: Result Comment: CALC ULATIONS OF ESTIMATED GFR ARE PERFORMED USING THE 2020 CKD-EPI STUDY REFIT EQUATION WITHOUT THE RACE VARIABLE FOR THE IDMS-TRACEABLE CREATININE METHODS. https://jasn.asnjournals.org/content/early/ASN.064366 8533 Performed By: #### M DIFF #### [address] [address] Glucose [Mass/Vol] 92 mg/dL Normal 74 - 99 [facility] [place] Comment on above: Performed By: #### M DIFF #### [address] [address] HCO3 (Bld) [Moles/Vol] 30 mmol/L Normal 21 - 32 [facility] Comment on above: Performed By: #### M DIFF #### [address] [address] Potassium [Moles/Vol] 4.1 mmol/L Normal 3.5 - 5.3 [facility] Comment on above: Performed By: #### M DIFF #### [address] [address] Protein [Mass/Vol] 6.7 g/dL Normal 6.4 - 8.2 [facility] [place] Comment on above: Performed By: #### M DIFF #### [address] [address] Sodium [Moles/Vol] 140 mmol/L Normal 136 - 145 [facility] [place] Comment on above: Performed By: #### M DIFF #### [address] [address] Urea nitrogen [Mass/Vol] 20 mg/dL Normal 6 - 23 [facility] Comment on above: Performed By: #### M DIFF #### [address] [address] CBC AND DIFFERENTIALon 12-26 % AUTOMATED IMMATURE GRAN 0.4 % Normal 0.0 - 0.9 [facility] Comment on above: Result Comment: Trina ture Granulocyte Count (IG) includes promyelocytes, myelocytes and metamyelocytes but does not include bands. Percent differential counts (%) should be interpreted in the context of the absolute cell counts (cells/L). Performed By: #### C BCDF #### [address] [address] Basophils (Bld) [#/Vol] 0.03 10*3/uL Normal 0.00 - 0.10 [facility] Comment on above: Performed By: #### C BCDF #### [address] [address] Basophils/100 WBC (Bld) 0.5 % Normal 0.0 - 2.0 [facility] Comment on above: Performed By: #### C BCDF #### [address] [address] Eosinophils (Bld) [#/Vol] 0.07 10*3/uL Normal 0.00 - 0.70 [facility] Comment on above: Performed By: #### C BCDF #### [address] [address] Eosinophils/100 WBC (Bld) 1.2 % Normal 0.0 - 6.0 [facility] Comment on above: Performed By: #### C BCDF #### [address] [address] Erythrocyte distribution width (RBC) [Ratio] 13.2 % Normal 11.5 - 14.5 [facility] Comment on above: Performed By: #### C BCDF #### [address] [address] Hematocrit (Bld) [Volume fraction] 41.7 % Normal 41.0 - 52.0 [facility] Comment on above: Performed By: #### C BCDF #### [address] [address] Hemoglobin (Bld) [Mass/Vol] 14.1 g/dL Normal 13.5 - 17.5 [facility] Comment on above: Performed By: #### C BCDF #### [address] [address] Lymphocytes (Bld) [#/Vol] 0.87 10*3/uL Low 1.20 - 4.80 [facility] Comment on above: Performed By: #### C BCDF #### [address] [address] Lymphocytes/100 WBC (Bld) 15.3 % Normal 13.0 - 44.0 [facility] Comment on above: Performed By: #### C BCDF #### [address] [address] MCHC (RBC) [Mass/Vol] 33.8 g/dL Normal 32.0 - 36.0 [facility] Comment on above: Performed By: #### C BCDF #### [address] [address] MCV (RBC) [Entitic vol] 99 fL Normal 80 - 100 [facility] Comment on above: Performed By: #### C BCDF #### [address] [address] Monocytes (Bld) [#/Vol] 0.41 10*3/uL Normal 0.10 - 1.00 [facility] Comment on above: Performed By: #### C BCDF #### [address] [address] Monocytes/100 WBC (Bld) 7.2 % Normal 2.0 - 10.0 [facility] Comment on above: Performed By: #### C BCDF #### [address] [address] Neutrophils (Bld) [#/Vol] 4.28 10*3/uL Normal 1.20 - 7.70 [facility] Comment on above: Result Comment: Perc ent differential counts (%) should be interpreted in the context of the absolute cell counts (cells/L). Performed By: #### C BCDF #### [address] [address] Neutrophils/100 WBC (Bld) 75.4 % Normal 40.0 - 80.0 [facility] Comment on above: Performed By: #### C BCDF #### [address] [address] Platelets (Bld) [#/Vol] 251 10*3/uL Normal 150 - 450 [facility] Comment on above: Performed By: #### C BCDF #### [address] [address] RBC 4.22 x10E12/L Low 4.50 - 5.90 [facility] Comment on above: Performed By: #### C BCDF #### [address] [address] WBC (Bld) [#/Vol] 5.7 10*3/uL Normal 4.4 - 11.3 [facility] [place] Comment on above: Performed By: #### C BCDF #### [address] [address] COMPREHENSIVE PANELon 2022 Albumin [Mass/Vol] 4.4 g/dL Normal 3.4 - 5.0 [facility] [place] Comment on above: Performed By: #### C MP #### [address] [address] ALP [Catalytic activity/Vol] 58 U/L Normal 33 - 136 [facility] Comment on above: Performed By: #### C MP #### [address] [address] ALT [Catalytic activity/Vol] 21 U/L Normal 10 - 52 [facility] Comment on above: Result Comment: Birdie ents treated with Sulfasalazine may generate falsely decreased results for ALT. Performed By: #### C MP #### [address] [address] Anion gap [Moles/Vol] 9 mmol/L Low 10 - 20 [facility] Comment on above: Performed By: #### C MP #### [address] [address] AST [Catalytic activity/Vol] 25 U/L Normal 9 - 39 [facility] Comment on above: Performed By: #### C MP #### [address] [address] Bilirubin [Mass/Vol] 0.7 mg/dL Normal 0.0 - 1.2 [facility] Comment on above: Performed By: #### C MP #### [address] [address] Calcium [Mass/Vol] 9.3 mg/dL Normal 8.6 - 10.3 [facility] [place] Comment on above: Performed By: #### C MP #### [address] [address] Chloride [Moles/Vol] 105 mmol/L Normal 98 - 107 [facility] Comment on above: Performed By: #### C MP #### [address] [address] Creatinine [Mass/Vol] 1.12 mg/dL Normal 0.50 - 1.30 [facility] Comment on above: Performed By: #### C MP #### [address] [address] GFR/1.73 sq M.predicted among non-blacks MDRD (S/P/Bld) [Vol rate/Area] 71 mL/min/{1.73_m2} Normal >90 [facility] Comment on above: Result Comment: CALC ULATIONS OF ESTIMATED GFR ARE PERFORMED USING THE 2020 CKD-EPI STUDY REFIT EQUATION WITHOUT THE RACE VARIABLE FOR THE IDMS-TRACEABLE CREATININE METHODS. https://jasn.asnjournals.org/content/early/ASN.698042 0536 Performed By: #### C MP #### [address] [address] Glucose [Mass/Vol] 107 mg/dL High 74 - 99 [facility] [place] Comment on above: Performed By: #### C MP #### [address] [address] HCO3 (Bld) [Moles/Vol] 31 mmol/L Normal 21 - 32 [facility] Comment on above: Performed By: #### C MP #### [address] [address] Potassium [Moles/Vol] 4.5 mmol/L Normal 3.5 - 5.3 [facility] Comment on above: Performed By: #### C MP #### [address] [address] Protein [Mass/Vol] 6.7 g/dL Normal 6.4 - 8.2 [facility] [place] Comment on above: Performed By: #### C MP #### [address] [address] Sodium [Moles/Vol] 140 mmol/L Normal 136 - 145 [facility] [place] Comment on above: Performed By: #### C MP #### [address] [address] Urea nitrogen [Mass/Vol] 18 mg/dL Normal 6 - 23 [facility] Comment on above: Performed By: #### C MP #### [address] [address] Abhilash 12-08-2022 CNPN Telephone ([employer]) ---- KRISTIAN GUTIERREZ ([id number]) 1955 Date Time Provider Department 12/08/22 DEBBIE DUNN During your visit today, we recorded the following information about you: Evie Fuchs RN 12/08/2022 11:44 AM Signed Received a request from Dr. Ben Nath's office for the consultation note for Kristian's office visit with Debbie on 10/28/2022. The patient cancelled that visit and did not reschedule. Note faxed to the office, fax confirmation sheet received. Evie Fuchs RN Allergies As of Date: 12/08/2022 Noted Allergy Reaction TETRACYCLINE 04/09/2012 9 - Itching Comments: Skin pealing Date Reviewed: 12/08/2015 Reviewed by: William Do LPN - Fully Assessed Reason for Visit: Medical Records [Other] Prescriptions as of 12/08/2022 - Methotrexate Sodium 2.5 mg tablet Take 7.5 mg by mouth once each week. Seven pills every Monday - folic acid 1 mg tablet Take 1 mg by mouth twice daily. - leucovorin (LEUCOVORIN) 5 mg tablet Take 5 mg by mouth once each week. Three tablets every Monday Meds Comments as of 12/08/2015: Problem List As Of Date 12/08/2022 Noted Resolved Screen for colon cancer [Z12.11] 04/09/2012 Encounter Status:Closed by EVIE FUCHS on 12/08/22 Normal [facility] CBC AND DIFFERENTIALon 10-07 % AUTOMATED IMMATURE GRAN 8.6 % High 0.0 - 0.9 [facility] Comment on above: Result Comment: Trina ture Granulocyte Count (IG) includes promyelocytes, myelocytes and metamyelocytes but does not include bands. Percent differential counts (%) should be interpreted in the context of the absolute cell counts (cells/L). Performed By: #### C BCDF #### [place] [address] DIFFERENTIAL SEE MANUAL DIFF Normal [facility] Comment on above: Performed By: #### C BCDF #### [place] [address] Erythrocyte distribution width (RBC) [Ratio] 13.4 % Normal 11.5 - 14.5 [facility] Comment on above: Performed By: #### C BCDF #### [address] [address] Hematocrit (Bld) [Volume fraction] 45.8 % Normal 41.0 - 52.0 [facility] Comment on above: Performed By: #### C BCDF #### [address] [address] Hemoglobin (Bld) [Mass/Vol] 15.2 g/dL Normal 13.5 - 17.5 [facility] Comment on above: Performed By: #### C BCDF #### [address] [address] MCHC (RBC) [Mass/Vol] 33.2 g/dL Normal 32.0 - 36.0 [facility] Comment on above: Performed By: #### C BCDF #### [address] [address] MCV (RBC) [Entitic vol] 98 fL Normal 80 - 100 [facility] Comment on above: Performed By: #### C BCDF #### [address] [address] Platelets (Bld) [#/Vol] 237 10*3/uL Normal 150 - 450 [facility] Comment on above: Performed By: #### C BCDF #### [address] [address] RBC 4.66 x10E12/L Normal 4.50 - 5.90 [facility] Comment on above: Performed By: #### C BCDF #### [address] [address] WBC (Bld) [#/Vol] 5.2 10*3/uL Normal 4.4 - 11.3 [facility] [place] Comment on above: Performed By: #### C BCDF #### [address] [address] COMPREHENSIVE PANELon 2022 Albumin [Mass/Vol] 4.3 g/dL Normal 3.4 - 5.0 [facility] [place] Comment on above: Performed By: #### M DIFF #### [address] [address] ALP [Catalytic activity/Vol] 63 U/L Normal 33 - 136 [facility] Comment on above: Performed By: #### M DIFF #### [address] [address] ALT [Catalytic activity/Vol] 22 U/L Normal 10 - 52 [facility] Comment on above: Result Comment: Birdie ents treated with Sulfasalazine may generate falsely decreased results for ALT. Performed By: #### M DIFF #### [address] [address] Anion gap [Moles/Vol] 7 mmol/L Low 10 - 20 [facility] Comment on above: Performed By: #### M DIFF #### [address] [address] AST [Catalytic activity/Vol] 21 U/L Normal 9 - 39 [facility] Comment on above: Performed By: #### M DIFF #### [address] [address] Bilirubin [Mass/Vol] 0.9 mg/dL Normal 0.0 - 1.2 [facility] Comment on above: Performed By: #### M DIFF #### [address] [address] Calcium [Mass/Vol] 9.3 mg/dL Normal 8.6 - 10.3 [facility] [place] Comment on above: Performed By: #### M DIFF #### [address] [address] Chloride [Moles/Vol] 104 mmol/L Normal 98 - 107 [facility] Comment on above: Performed By: #### M DIFF #### [address] [address] Creatinine [Mass/Vol] 0.87 mg/dL Normal 0.50 - 1.30 [facility] Comment on above: Performed By: #### M DIFF #### [address] [address] eGFR MALE >90 Normal >90 [facility] Comment on above: Result Comment: CALC ULATIONS OF ESTIMATED GFR ARE PERFORMED USING THE 2020 CKD-EPI STUDY REFIT EQUATION WITHOUT THE RACE VARIABLE FOR THE IDMS-TRACEABLE CREATININE METHODS. https://jasn.asnjournals.org/content/early/ASN.766645 6014 Performed By: #### M DIFF #### [address] [address] Glucose [Mass/Vol] 84 mg/dL Normal 74 - 99 [facility] [place] Comment on above: Performed By: #### M DIFF #### [address] [address] HCO3 (Bld) [Moles/Vol] 35 mmol/L High 21 - 32 [facility] Comment on above: Performed By: #### M DIFF #### [address] [address] Potassium [Moles/Vol] 4.3 mmol/L Normal 3.5 - 5.3 [facility] Comment on above: Performed By: #### M DIFF #### [address] [address] Protein [Mass/Vol] 6.9 g/dL Normal 6.4 - 8.2 [facility] [place] Comment on above: Performed By: #### M DIFF #### [address] [address] Sodium [Moles/Vol] 142 mmol/L Normal 136 - 145 [facility] [place] Comment on above: Performed By: #### M DIFF #### [address] [address] Urea nitrogen [Mass/Vol] 17 mg/dL Normal 6 - 23 [facility] Comment on above: Performed By: #### M DIFF #### [address] [address] MANUAL DIFFERENTIALon 2022 % BAND NEUTROPHIL 1.0 % Normal 0.0 - 5.0 [facility] Comment on above: Performed By: #### M DIFF #### [address] [address] % BASOPHIL 2.0 % Normal 0.0 - 2.0 [facility] Comment on above: Performed By: #### M DIFF #### [address] [address] % EOSINOPHIL 3.0 % Normal 0.0 - 6.0 [facility] Comment on above: Performed By: #### M DIFF #### [address] [address] % LYMPHOCYTE 21.0 % Normal 13.0 - 44.0 [facility] Comment on above: Performed By: #### M DIFF #### [address] [address] % MONOCYTE 8.0 % Normal 2.0 - 10.0 [facility] Comment on above: Performed By: #### M DIFF #### [address] [address] % SEG NEUTROPHIL 65.0 % Normal 40.0 - 80.0 [facility] Comment on above: Result Comment: Perc ent differential counts (%) should be interpreted in the context of the absolute cell counts (cells/L). Performed By: #### M DIFF #### [address] [address] ANC 3.43 x10E9/L Normal 1.20 - 7.70 [facility] Comment on above: Performed By: #### M DIFF #### [address] [address] BAND NEUTROPHIL 0.05 x10E9/L Normal 0.00 - 0.70 [facility] [place] Comment on above: Performed By: #### M DIFF #### [address] [address] BASOPHIL 0.10 x10E9/L Normal 0.00 - 0.10 [facility] Comment on above: Performed By: #### M DIFF #### [address] [address] EOSINOPHIL 0.16 x10E9/L Normal 0.00 - 0.70 [facility] Comment on above: Performed By: #### M DIFF #### [address] [address] LYMPHOCYTE 1.09 x10E9/L Low 1.20 - 4.80 [facility] Comment on above: Performed By: #### M DIFF #### [address] [address] MONOCYTE 0.42 x10E9/L Normal 0.10 - 1.00 [facility] Comment on above: Performed By: #### M DIFF #### [address] [address] SEG NEUTROPHIL 3.38 x10E9/L Normal 1.20 - 7.00 [facility] Comment on above: Performed By: #### M DIFF #### [address] [address] RED CELL MORPHOLOGYon 2022 RBC morphology finding Nom (Bld) SEE COMMENT Normal [facility] Comment on above: Result Comment: NO S IGNIFICANT RBC ABNORMALITIES SEEN ON SMEAR REVIEW. Performed By: #### M ORP2 #### [address] [address] CBC AND DIFFERENTIALon 07-15 % AUTOMATED IMMATURE GRAN 0.6 % Normal 0.0 - 0.9 [facility] Comment on above: Result Comment: Trina ture Granulocyte Count (IG) includes promyelocytes, myelocytes and metamyelocytes but does not include bands. Percent differential counts (%) should be interpreted in the context of the absolute cell counts (cells/L). Performed By: #### C BCDF #### [address] [address] Basophils (Bld) [#/Vol] 0.04 10*3/uL Normal 0.00 - 0.10 [facility] Comment on above: Performed By: #### C BCDF #### [address] [address] Basophils/100 WBC (Bld) 0.8 % Normal 0.0 - 2.0 [facility] Comment on above: Performed By: #### C BCDF #### [address] [address] Eosinophils (Bld) [#/Vol] 0.14 10*3/uL Normal 0.00 - 0.70 [facility] Comment on above: Performed By: #### C BCDF #### [address] [address] Eosinophils/100 WBC (Bld) 2.7 % Normal 0.0 - 6.0 [facility] Comment on above: Performed By: #### C BCDF #### [address] [address] Erythrocyte distribution width (RBC) [Ratio] 13.3 % Normal 11.5 - 14.5 [facility] Comment on above: Performed By: #### C BCDF #### [address] [address] Hematocrit (Bld) [Volume fraction] 43.4 % Normal 41.0 - 52.0 [facility] Comment on above: Performed By: #### C BCDF #### [address] [address] Hemoglobin (Bld) [Mass/Vol] 14.5 g/dL Normal 13.5 - 17.5 [facility] Comment on above: Performed By: #### C BCDF #### [address] [address] Lymphocytes (Bld) [#/Vol] 0.69 10*3/uL Low 1.20 - 4.80 [facility] Comment on above: Performed By: #### C BCDF #### [address] [address] Lymphocytes/100 WBC (Bld) 13.2 % Normal 13.0 - 44.0 [facility] Comment on above: Performed By: #### C BCDF #### [address] [address] MCHC (RBC) [Mass/Vol] 33.4 g/dL Normal 32.0 - 36.0 [facility] Comment on above: Performed By: #### C BCDF #### [address] [place] [address] MCV (RBC) [Entitic vol] 99 fL Normal 80 - 100 [facility] Comment on above: Performed By: #### C BCDF #### [address] [address] Monocytes (Bld) [#/Vol] 0.51 10*3/uL Normal 0.10 - 1.00 [facility] Comment on above: Performed By: #### C BCDF #### [address] [address] Monocytes/100 WBC (Bld) 9.8 % Normal 2.0 - 10.0 [facility] Comment on above: Performed By: #### C BCDF #### [address] [address] Neutrophils (Bld) [#/Vol] 3.82 10*3/uL Normal 1.20 - 7.70 [facility] Comment on above: Result Comment: Perc ent differential counts (%) should be interpreted in the context of the absolute cell counts (cells/L). Performed By: #### C BCDF #### [address] [address] Neutrophils/100 WBC (Bld) 72.9 % Normal 40.0 - 80.0 [facility] Comment on above: Performed By: #### C BCDF #### [address] [address] Platelets (Bld) [#/Vol] 251 10*3/uL Normal 150 - 450 [facility] Comment on above: Performed By: #### C BCDF #### [address] [address] RBC 4.37 x10E12/L Low 4.50 - 5.90 [facility] Comment on above: Performed By: #### C BCDF #### [address] [address] WBC (Bld) [#/Vol] 5.2 10*3/uL Normal 4.4 - 11.3 [facility] [place] Comment on above: Performed By: #### C BCDF #### [address] [address] COMPREHENSIVE PANELon 2021 Albumin [Mass/Vol] 4.3 g/dL Normal 3.4 - 5.0 [facility] [place] Comment on above: Performed By: #### C MP #### [address] [address] ALP [Catalytic activity/Vol] 61 U/L Normal 33 - 136 [facility] Comment on above: Performed By: #### C MP #### [address] [address] ALT [Catalytic activity/Vol] 23 U/L Normal 10 - 52 [facility] Comment on above: Result Comment: Birdie ents treated with Sulfasalazine may generate falsely decreased results for ALT. Performed By: #### C MP #### [address] [address] Anion gap [Moles/Vol] 9 mmol/L Low 10 - 20 [facility] Comment on above: Performed By: #### C MP #### [address] [address] AST [Catalytic activity/Vol] 22 U/L Normal 9 - 39 [facility] Comment on above: Performed By: #### C MP #### [address] [address] Bilirubin [Mass/Vol] 0.8 mg/dL Normal 0.0 - 1.2 [facility] Comment on above: Performed By: #### C MP #### [address] [address] Calcium [Mass/Vol] 9.4 mg/dL Normal 8.6 - 10.3 [facility], [place] Comment on above: Performed By: #### C MP #### [address] [address] Chloride [Moles/Vol] 104 mmol/L Normal 98 - 107 [facility] Comment on above: Performed By: #### C MP #### [address] [address] Creatinine [Mass/Vol] 0.83 mg/dL Normal 0.50 - 1.30 [facility] Comment on above: Performed By: #### C MP #### [address] [address] eGFR MALE >90 Normal >90 [facility] Comment on above: Result Comment: CALC ULATIONS OF ESTIMATED GFR ARE PERFORMED USING THE 2020 CKD-EPI STUDY REFIT EQUATION WITHOUT THE RACE VARIABLE FOR THE IDMS-TRACEABLE CREATININE METHODS. https://jasn.asnjournals.org/content/early//ASN.820072 3443 Performed By: #### C MP #### [address] [address] Glucose [Mass/Vol] 106 mg/dL High 74 - 99 [facility] [place] Comment on above: Performed By: #### C MP #### [address] [address] HCO3 (Bld) [Moles/Vol] 32 mmol/L Normal 21 - 32 [facility] Comment on above: Performed By: #### C MP #### [address] [address] Potassium [Moles/Vol] 4.2 mmol/L Normal 3.5 - 5.3 [facility] Comment on above: Performed By: #### C MP #### [address] [address] Protein [Mass/Vol] 6.7 g/dL Normal 6.4 - 8.2 [facility] [place] Comment on above: Performed By: #### C MP #### [address] [address] Sodium [Moles/Vol] 141 mmol/L Normal 136 - 145 [facility] [place] Comment on above: Performed By: #### C MP #### [address] [address] Urea nitrogen [Mass/Vol] 21 mg/dL Normal 6 - 23 [facility] Comment on above: Performed By: #### C MP #### [address] [address] Therapy Communicationon 04-12 Therapy Communication Message KRISTIAN GUTIERREZ was (D/C)- last seen: 12/03/21. Pt will be formally d/c from skilled PT as he has not attended since 12/03/21. Signatures Electronically signed by : Cora Hanson, PT; May 04 2022 9:57AM EST (Author) Normal [facility] CBC AND DIFFERENTIALon 04-18 Basophils (Bld) [#/Vol] 0.00 10*3/uL Normal 0.00 - 0.10 [facility] Comment on above: Performed By: #### C BCDF #### [address] [address] Basophils/100 WBC (Bld) 0.8 % Normal 0.0 - 2.0 [facility] Comment on above: Performed By: #### C BCDF #### [address] [address] Eosinophils (Bld) [#/Vol] 0.10 10*3/uL Normal 0.00 - 0.70 [facility] Comment on above: Performed By: #### C BCDF #### [address] [address] Eosinophils/100 WBC (Bld) 2.7 % Normal 0.0 - 6.0 [facility] Comment on above: Performed By: #### C BCDF #### [address] [address] Erythrocyte distribution width (RBC) [Ratio] 14.1 % Normal 11.5 - 14.5 [facility] Comment on above: Performed By: #### C BCDF #### [address] [address] Hematocrit (Bld) [Volume fraction] 43.6 % Normal 41.0 - 52.0 [facility] Comment on above: Performed By: #### C BCDF #### [address] [address] Hemoglobin (Bld) [Mass/Vol] 15.1 g/dL Normal 13.5 - 17.5 [facility] Comment on above: Performed By: #### C BCDF #### [address] [address] Lymphocytes (Bld) [#/Vol] 0.80 10*3/uL Low 1.20 - 4.80 [facility] Comment on above: Performed By: #### C BCDF #### [address] [address] Lymphocytes/100 WBC (Bld) 17.3 % Normal 13.0 - 44.0 [facility] Comment on above: Performed By: #### C BCDF #### [address] [address] MCHC (RBC) [Mass/Vol] 34.7 g/dL Normal 32.0 - 36.0 [facility] Comment on above: Performed By: #### C BCDF #### [address] [address] MCV (RBC) [Entitic vol] 96 fL Normal 80 - 100 [facility] Comment on above: Performed By: #### C BCDF #### [address] [address] Monocytes (Bld) [#/Vol] 0.40 10*3/uL Normal 0.10 - 1.00 [facility] Comment on above: Performed By: #### C BCDF #### [address] [address] Monocytes/100 WBC (Bld) 7.8 % Normal 2.0 - 10.0 [facility] Comment on above: Performed By: #### C BCDF #### [address] [address] Neutrophils (Bld) [#/Vol] 3.30 10*3/uL Normal 1.20 - 7.70 [facility] Comment on above: Result Comment: Perc ent differential counts (%) should be interpreted in the context of the absolute cell counts (cells/L). Performed By: #### C BCDF #### [address] [address] Neutrophils/100 WBC (Bld) 71.4 % Normal 40.0 - 80.0 [facility] Comment on above: Performed By: #### C BCDF #### [address] [address] NUCLEATED RBC 0.2 /100 WBC Normal [facility] Comment on above: Performed By: #### C BCDF #### [address] [address] Platelets (Bld) [#/Vol] 234 10*3/uL Normal 150 - 450 [facility] Comment on above: Performed By: #### C BCDF #### [address] [address] RBC 4.53 x10E12/L Normal 4.50 - 5.90 [facility] Comment on above: Performed By: #### C BCDF #### [address] [address] WBC (Bld) [#/Vol] 4.6 10*3/uL Normal 4.4 - 11.3 [facility] [place] Comment on above: Performed By: #### C BCDF #### [address] [address] COMPREHENSIVE PANELon 2021 Albumin [Mass/Vol] 4.5 g/dL Normal 3.4 - 5.0 [facility] [place] Comment on above: Performed By: #### C MP #### [address] [address] ALP [Catalytic activity/Vol] 51 U/L Normal 33 - 136 [facility] Comment on above: Performed By: #### C MP #### [address] [address] ALT [Catalytic activity/Vol] 30 U/L Normal 10 - 52 [facility] Comment on above: Result Comment: Birdie ents treated with Sulfasalazine may generate falsely decreased results for ALT. Performed By: #### C MP #### [address] [address] Anion gap [Moles/Vol] 11 mmol/L Normal 10 - 20 [facility] Comment on above: Performed By: #### C MP #### [address] [address] AST [Catalytic activity/Vol] 31 U/L Normal 9 - 39 [facility] Comment on above: Performed By: #### C MP #### [address] [address] Bilirubin [Mass/Vol] 1.0 mg/dL Normal 0.0 - 1.2 [facility] Comment on above: Performed By: #### C MP #### [address] [address] Calcium [Mass/Vol] 9.4 mg/dL Normal 8.6 - 10.3 [facility] [place] Comment on above: Performed By: #### C MP #### [address] [address] Chloride [Moles/Vol] 104 mmol/L Normal 98 - 107 [facility] Comment on above: Performed By: #### C MP #### [address] [address] Creatinine [Mass/Vol] 0.92 mg/dL Normal 0.50 - 1.30 [facility] Comment on above: Performed By: #### C MP #### [address] [address] GFR/1.73 sq M.predicted among non-blacks MDRD (S/P/Bld) [Vol rate/Area] 90 mL/min/{1.73_m2} Normal >90 [facility] Comment on above: Result Comment: CALC ULATIONS OF ESTIMATED GFR ARE PERFORMED USING THE 2020 CKD-EPI STUDY REFIT EQUATION WITHOUT THE RACE VARIABLE FOR THE IDMS-TRACEABLE CREATININE METHODS. https://jasn.asnjournals.org/content/early/ASN.517492 6364 Performed By: #### C MP #### [address] [address] Glucose [Mass/Vol] 86 mg/dL Normal 74 - 99 [facility] [place] Comment on above: Performed By: #### C MP #### [address] [address] HCO3 (Bld) [Moles/Vol] 30 mmol/L Normal 21 - 32 [facility] Comment on above: Performed By: #### C MP #### [address] [address] Potassium [Moles/Vol] 4.6 mmol/L Normal 3.5 - 5.3 [facility] Comment on above: Performed By: #### C MP #### [address] [address] Protein [Mass/Vol] 6.9 g/dL Normal 6.4 - 8.2 [facility] [place] Comment on above: Performed By: #### C MP #### [address] [address] Sodium [Moles/Vol] 140 mmol/L Normal 136 - 145 [facility] [place] Comment on above: Performed By: #### C MP #### [address] [address] Urea nitrogen [Mass/Vol] 14 mg/dL Normal 6 - 23 [facility] Comment on above: Performed By: #### C MP #### [address] [address] Complete Blood Count + Diffe shannan 04-18-2022 Basophils/100 WBC (Bld) 0.8 % 0.0 - 2.0 [facility] [place] Work Phone: Erythrocyte distribution width (RBC) [Ratio] 14.1 % See Below [facility] [place] Work Phone: Comment on above: Reference Range: 11. 5 - 14.5 Hematocrit (Bld) [Volume fraction] 43.6 % See Below [facility] [place] Work Phone: Comment on above: Reference Range: 41. 0 - 52.0 Hemoglobin (Bld) [Mass/Vol] 15.1 g/dL See Below [facility] [place] Work Phone: Comment on above: Reference Range: 13. 5 - 17.5 Lymphocytes/100 WBC (Bld) 17.3 % See Below [facility] Work Phone: Comment on above: Reference Range: 13. 0 - 44.0 MCHC (RBC) [Mass/Vol] 34.7 g/dL See Below [facility] Work Phone: Comment on above: Reference Range: 32. 0 - 36.0 MCV (RBC) [Entitic vol] 96 fL 80 - 100 [facility] Work Phone: Monocytes/100 WBC (Bld) 7.8 % 2.0 - 10.0 [facility] Work Phone: Neutrophils/100 WBC (Bld) 71.4 % See Below [facility] Work Phone: Comment on above: Reference Range: 40. 0 - 80.0 Platelets (Bld) [#/Vol] 234 10*3/uL 150 - 450 [facility] Work Phone: RBC (Bld) [#/Vol] 4.53 {x10E12/L} See Below [facility] Work Phone: Comment on above: Reference Range: 4.5 0 - 5.90 WBC (Bld) [#/Vol] 4.6 10*3/uL 4.4 - 11.3 [facility] Work Phone: Complete Blood Count + Differential 0.00 {x10E9/L} See Below [facility] Work Phone: Comment on above: Reference Range: 0.0 0 - 0.10 Complete Blood Count + Differential 0.10 {x10E9/L} See Below [facility] Work Phone: Comment on above: Reference Range: 0.0 0 - 0.70 Complete Blood Count + Differential 0.40 {x10E9/L} See Below [facility] [place] Work Phone: Comment on above: Reference Range: 0.1 0 - 1.00 Complete Blood Count + Differential 0.80 {x10E9/L} below low threshold See Below [facility] [place] Work Phone: Comment on above: Reference Range: 1.2 0 - 4.80 Complete Blood Count + Differential 3.30 {x10E9/L} See Below [facility] [place] Work Phone: Comment on above: Reference Range: 1.2 0 - 7.70 Percent differential counts (%) should be interpreted in the context of the absolute cell counts (cells/L). Complete Blood Count + Differential 2.7 % 0.0 - 6.0 [facility] [place] Work Phone: Complete Blood Count + Differential 0.2 {/100_WBC} [facility] [place] Work Phone: Laboratory - Chemistry and C hemistry - challengeon 04-18-2022 Albumin BCP dye [Mass/Vol] 4.5 g/dL 3.4 - 5.0 [facility] [place] Work Phone: ALP [Catalytic activity/Vol] 51 U/L 33 - 136 [facility] [place] Work Phone: ALT With P-5'-P [Catalytic activity/Vol] 30 U/L 10 - 52 [facility] [place] Work Phone: Comment on above: Patients treated wit h Sulfasalazine may generate falsely decreased results for ALT. Anion gap [Moles/Vol] 11 mmol/L 10 - 20 [facility] [place] Work Phone: AST With P-5'-P [Catalytic activity/Vol] 31 U/L 9 - 39 [facility] [place] Work Phone: Bilirubin [Mass/Vol] 1.0 mg/dL 0.0 - 1.2 [facility] [place] Work Phone: Calcium [Mass/Vol] 9.4 mg/dL 8.6 - 10.3 [facility] [place] Work Phone: Chloride [Moles/Vol] 104 mmol/L 98 - 107 [facility] [place] Work Phone: CO2 [Moles/Vol] 30 mmol/L 21 - 32 [facility] [place] Work Phone: Creatinine [Mass/Vol] 0.92 mg/dL See Below [facility] [place] Work Phone: Comment on above: Reference Range: 0.5 0 - 1.30 Glucose [Mass/Vol] 86 mg/dL 74 - 99 [facility] [place] Work Phone: Potassium [Moles/Vol] 4.6 mmol/L 3.5 - 5.3 [facility] [place] Work Phone: Protein [Mass/Vol] 6.9 g/dL 6.4 - 8.2 [facility] [place] Work Phone: Sodium [Moles/Vol] 140 mmol/L 136 - 145 [facility] [place] Work Phone: Urea nitrogen [Mass/Vol] 14 mg/dL 6 - 23 [facility] [place] Work Phone: No Panel Informationon 04-18 90 {mL/min/1.73m2} >90 [facility] [place] Work Phone: Comment on above: CALCULATIONS OF CORY MATED GFR ARE PERFORMED USING THE 2020 CKD-EPI STUDY REFIT EQUATION WITHOUT THE RACE VARIABLE FOR THE IDMS-TRACEABLE CREATININE METHODS.https://jasn.asnjournals.org/content/early/ N.7276061883 PROSTATE SPECIFIC AGon 03-28 Prostate specific Ag [Mass/Vol] 5.08 ng/mL High 0.00 - 4.00 [facility] Comment on above: Order Comment: Phys Name LIZANDRO GARCIA MD Phys Address [address] [place] [address] Phone # [phone] Fax # [phone] Result Comment: The FDA requires that the method used for PSA assay be reported to the physician. Values obtained with different assay methods must not be used interchangeably. This test was performed at [facility] using the Flythegap PSA assay is a two-site immunoenzymatic sandwich assay. The assay is approved for measurement of prostate-specific antigen (PSA)in serum and may be used in conjunction with a digital rectal examination in men 50 years and older as an aid in detection of prostate cancer. 2-Jwwjx-fraigdmvc inhibitors (e.g. Proscar, Finasteride, Avodart, Dutasteride and Judy) for the treatment of BPH have been shown to lower PSA levels by an average of 50% after 6 months of treatment. Performed By: #### P SA #### [id number] [place] [address] PT Progress Noteon 2 PT Progress Note Therapy Diagnosis Assessed Chronic right shoulder pain (719.41,338.29) (M25.511,G89.29) Stiffness of right shoulder, not elsewhere classified (719.51) (M25.611) Bilateral rotator cuff dysfunction (726.10) (M67.911,M67.912) Plan Goals: Goals set and discussed today. Pt will demo and report compliance with HEP in order to augment POC goals and progression toward independence with symptom management for better outcomes once D/C from POC. 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 , by week 5, goal met Strength: Pt will demo improved MMT by >/= 1 point on 0-5 point scale in BUE's for improved strength and stability, and improved ease with lifting, carrying, and proper mechanics with ADL?s AND IADL?s. , by week 5, goal met QuickDASH, Pt will report subjective improvement with score on QuickDASH improved by >/= 5 points for return to PLOF, improved QOL, and improved ease with ADL?s AND IADL?s. , by week 5, goal met Planned interventions include: aquatic therapy, cryotherapy, dry needling, education/instructi on, electrical stimulation, home program, hot pack, kinesiotaping, manual therapy, neuromuscular re-education, self care/home management, therapeutic exercises and IASTM/CUPPING . Heavy focus on manual techniques included continued joint mobs to GH, scapula, and thoracic spine; Progress with proximal stabilization exercises. Frequency and duration:. Once a week or every other week for 4 weeks (2-4 visits). Potential to achieve rehab goals is excellent Patient just had re-eval last visit with PT who planned on patient cont. Will inform PT of patient intent to stop PT for time being. Instructed patient to phone with any questions or concerns he may have. Progress with POC, as tolerated. Assessment Reviewed all Previously given HEP and made changes according to progression. All questions were answered this visit prior to Added new PRE's to HEP and issued purple band for resistance progression. Completed PROM all planes with improved overall end feel. Observed patient continuing to have difficulty with active flexion of the R shoulder. Patient fatigued quickly with new exercises. Adult Risk Screening There are no spiritual/cultural practices/values/ne eds that are important to know Initial Fall Risk Screening: KRISTIAN has not fallen in the last 6 months. KRISTIAN does not have a fear of falling. He does not need assistance with sitting, standing or walking. Does not need assistance walking in his home. He does not need assistance in an unfamiliar setting. The patient is not using an assistive device. Fall Risk Screening: Patient is identified as a fall risk. Care Plan: Low Risk: Environmental for all patients and low risk patients: Offer assistance as needed or requested, keep environment free of obstacles, keep floor clean and dry, keep room lighting, wheelchair brakes on, bed/ stretcher locked and in low position if applicable, non-slip footwear if applicable, walker/cane available if needed, side rails up if applicable and pre-emptive toileting. Domestic Violence Screen: Does not feel threatened or abused physically, emotionally or sexually. Do you feel UNSAFE? The patient feels safe in the home. Depression/Suicide Screening: During the past 2 weeks, the patient has not felt down, depressed or hopeless. During the past 2 weeks, the patient has not felt little interest or pleasure in doing things. Insurance Insurance reviewed Visit number: 13 Authorization not required after evaluation POC: 07/23 Medicare PT Dx: M25.511; M25.611; M67.911 Supervising PT: Maria Victoria Salazar PT, DPT, Karen DN The Physical Therapist (PT) of record is the therapist who assumes primary responsibility for the patient management and as such is held accountable for the coordination, continuation, and progression of the plan of care. This patient?s care and PT of record will be transferred from (Maria Victoria Salazar PT, DPT, Cert DN) to (Cora Hanson PT, DPT) as of (11/15/21). Onset Date: 2020 Medicare Certification Period: Beginnin2021 Endin2021 Subjective Patient reports:. Patient decided after today he would like to try PT at home doing HEP d/t being busy with other things. States that he still had pain when carrying 2x4 in the R arm. Brought HEP to go over with therapist. Patient identified by name and date of . Home program performing as directed: Yes. Precautions: Fall Risk: low Cristobal Hx Skin Cancer removed anterior/superior Right shoulder/clavicle region; RA. Objective Ortho (more content not included)... Normal [facility] PT Progress Noteon 2 PT Progress Note Therapy Diagnosis Assessed Chronic right shoulder pain (719.41,338.29) (M25.511,G89.29) Stiffness of right shoulder, not elsewhere classified (719.51) (M25.611) Bilateral rotator cuff dysfunction (726.10) (M67.911,M67.912) Plan Goals: Goals set and discussed today. Pt will demo and report compliance with HEP in order to augment POC goals and progression toward independence with symptom management for better outcomes once D/C from POC. 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 , by week 5, goal met Strength: Pt will demo improved MMT by >/= 1 point on 0-5 point scale in BUE's for improved strength and stability, and improved ease with lifting, carrying, and proper mechanics with ADL?s AND IADL?s. , by week 5, goal met QuickDASH, Pt will report subjective improvement with score on QuickDASH improved by >/= 5 points for return to PLOF, improved QOL, and improved ease with ADL?s AND IADL?s. , by week 5, goal met Planned interventions include: aquatic therapy, cryotherapy, dry needling, education/instructi on, electrical stimulation, home program, hot pack, kinesiotaping, manual therapy, neuromuscular re-education, self care/home management, therapeutic exercises and IASTM/CUPPING . Heavy focus on manual techniques included continued joint mobs to GH, scapula, and thoracic spine; Progress with proximal stabilization exercises. Frequency and duration:. Once a week or every other week for 4 weeks (2-4 visits). Potential to achieve rehab goals is excellent Progress strength for improved ability to complete ADL's. -JA . Progress with POC, as tolerated. Assessment Mr. Gutierrez is progressing well through their [...] you for this referral and please call [phone] with any questions or concerns. Adult Risk Screening There are no spiritual/cultural practices/values/ne eds that are important to know Initial Fall Risk Screening: KRISTIAN has not fallen in the last 6 months. KRISTIAN does not have a fear of falling. He does not need assistance with sitting, standing or walking. Does not need assistance walking in his home. He does not need assistance in an unfamiliar setting. The patient is not using an assistive device. Fall Risk Screening: Patient is identified as a fall risk. Care Plan: Low Risk: Environmental for all patients and low risk patients: Offer assistance as needed or requested, keep environment free of obstacles, keep floor clean and dry, keep room lighting, wheelchair brakes on, bed/ stretcher locked and in low position if applicable, non-slip footwear if applicable, walker/cane available if needed, side rails up if applicable and pre-emptive toileting. Domestic Violence Screen: Does not feel threatened or abused physically, emotionally or sexually. Do you feel UNSAFE? The patient feels safe in the home. Depression/Suicide Screening: During the past 2 weeks, the patient has not felt down, depressed or hopeless. During the past 2 weeks, the patient has not felt little interest or pleasure in doing things. Insurance Insurance reviewed Visit number: 11 Authorization not required after evaluation POC: 07/23 Medicare PT Dx: M25.511; M25.611; M67.911 Supervising PT: Maria Victoria Salazar PT, PAPO, Karen HOLDER The Physical Therapist (PT) of record is the therapist who assumes primary responsibility for the patient management and as such is held accountable for the coordination, continuation, and progression of the plan of care. This patient?s care and PT of record will be transferred from (Maria Victoria Salazar PT, PAPO, Karen DN) to (Cora Hanson PT, PAPO) as of (11/15/21). Onset Date: 2020 Medicare Certification Period: Beginnin2021 Endin2021 Subjective Patient reports:. Pt denies pain upon arrival and states he did pretty good this weekend. Pt reports he had some discomfort in R shoulder with PRE which only occurs while performing exercises. Pt reports slight throb of R shoulder when reaching behind back however is improved. Pt report (more content not included)... Normal [facility] Therapy Re-eval Noteon 11-29 Therapy Re-eval Note Therapy Diagnosis Assessed 1. Chronic right shoulder pain (719.41,338.29) (M25.511,G89.29) 2. Stiffness of right shoulder, not elsewhere classified (719.51) (M25.611) 3. Bilateral rotator cuff dysfunction (726.10) (M67.911,M67.912) Plan Goals: Goals set and discussed today. Pt will demo and report compliance with HEP in order to augment POC goals and progression toward independence with symptom management for better outcomes once D/C from POC. 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 , by week 5, goal met Strength: Pt will demo improved MMT by >/= 1 point on 0-5 point scale in BUE's for improved strength and stability, and improved ease with lifting, carrying, and proper mechanics with ADL?s AND IADL?s. , by week 5, goal met QuickDASH, Pt will report subjective improvement with score on QuickDASH improved by >/= 5 points for return to PLOF, improved QOL, and improved ease with ADL?s AND IADL?s. , by week 5, goal met Planned interventions include: aquatic therapy, cryotherapy, dry needling, education/instructi on, electrical stimulation, home program, hot pack, kinesiotaping, manual therapy, neuromuscular re-education, self care/home management, therapeutic exercises and IASTM/CUPPING . Heavy focus on manual techniques included continued joint mobs to GH, scapula, and thoracic spine; Progress with proximal stabilization exercises. Frequency and duration:. Once a week or every other week for 4 weeks (2-4 visits). Potential to achieve rehab goals is excellent Progress strength for improved ability to complete ADL's. -JA . Progress with POC, as tolerated. Assessment Mr. Gutierrez is progressing well through their [...] you for this referral and please call [phone] with any questions or concerns. Adult Risk Screening There are no spiritual/cultural practices/values/ne eds that are important to know Initial Fall Risk Screening: KRISTIAN has not fallen in the last 6 months. KRISTIAN does not have a fear of falling. He does not need assistance with sitting, standing or walking. Does not need assistance walking in his home. He does not need assistance in an unfamiliar setting. The patient is not using an assistive device. Fall Risk Screening: Patient is identified as a fall risk. Care Plan: Low Risk: Environmental for all patients and low risk patients: Offer assistance as needed or requested, keep environment free of obstacles, keep floor clean and dry, keep room lighting, wheelchair brakes on, bed/ stretcher locked and in low position if applicable, non-slip footwear if applicable, walker/cane available if needed, side rails up if applicable and pre-emptive toileting. Domestic Violence Screen: Does not feel threatened or abused physically, emotionally or sexually. Do you feel UNSAFE? The patient feels safe in the home. Depression/Suicide Screening: During the past 2 weeks, the patient has not felt down, depressed or hopeless. During the past 2 weeks, the patient has not felt little interest or pleasure in doing things. Insurance Insurance reviewed Visit number: 11 Authorization not required after evaluation POC: 07/23 Medicare PT Dx: M25.511; M25.611; M67.911 Supervising PT: Maria Victoria Salazar PT, DPT, Cert DN The Physical Therapist (PT) of record is the therapist who assumes primary responsibility for the patient management and as such is held accountable for the coordination, continuation, and progression of the plan of care. This patient?s care and PT of record will be transferred from (Maria Victoria Salazar PT, DPT, Cert DN) to (Cora Hanson PT, DPT) as of (11/15/21). Onset Date: 2020 Medicare Certification Period: Beginnin2021 Endin2021 Subjective Patient reports:. Pt denies pain upon arrival and states he did pretty good this weekend. Pt reports he had some discomfort in R shoulder with PRE which only occurs while performing exercises. Pt reports slight throb of R shoulder when reaching behind back however is improved. (more content not included)... Normal [facility] PT Progress Noteon 2 PT Progress Note Therapy Diagnosis Assessed Chronic right shoulder pain (719.41,338.29) (M25.511,G89.29) Bilateral rotator cuff dysfunction (726.10) (M67.911,M67.912) Stiffness of right shoulder, not elsewhere classified (719.51) (M25.611) Plan Goals: Goals set and discussed today. Pt will demo and report compliance with HEP in order to augment POC goals and progression toward independence with symptom management for better outcomes once D/C from POC. 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 , by week 5 Strength: Pt will demo improved MMT by >/= 1 point on 0-5 point scale in BUE's for improved strength and stability, and improved ease with lifting, carrying, and proper mechanics with ADL?s AND IADL?s. , by week 5 QuickDASH, Pt will report subjective improvement with score on QuickDASH improved by >/= 5 points for return to PLOF, improved QOL, and improved ease with ADL?s AND IADL?s. , by week 5 Planned interventions include: aquatic therapy, cryotherapy, dry needling, education/instructi on, electrical stimulation, home program, hot pack, kinesiotaping, manual therapy, neuromuscular re-education, self care/home management, therapeutic exercises and IASTM/CUPPING . Heavy focus on manual techniques included continued joint mobs to GH, scapula, and thoracic spine; Progress with proximal stabilization exercises. Frequency and duration: 2 time(s) a week, for 6 weeks, for 12 visits . Recheck with PT at 10th visit. Potential to achieve rehab goals is excellent Progress strength for improved ability to complete ADL's. Progress with POC, as tolerated. Assessment Improved eccentric control with resisted and weight PRE's. Added internal towel stretch to HEP. Response to treatment: decreased pain. Patient was able to complete today's treatment with some difficulty. Adult Risk Screening There are no spiritual/cultural practices/values/ne eds that are important to know Initial Fall Risk Screening: KRISTIAN has not fallen in the last 6 months. KRISTIAN does not have a fear of falling. He does not need assistance with sitting, standing or walking. Does not need assistance walking in his home. He does not need assistance in an unfamiliar setting. The patient is not using an assistive device. Fall Risk Screening: Patient is identified as a fall risk. Care Plan: Low Risk: Environmental for all patients and low risk patients: Offer assistance as needed or requested, keep environment free of obstacles, keep floor clean and dry, keep room lighting, wheelchair brakes on, bed/ stretcher locked and in low position if applicable, non-slip footwear if applicable, walker/cane available if needed, side rails up if applicable and pre-emptive toileting. Domestic Violence Screen: Does not feel threatened or abused physically, emotionally or sexually. Do you feel UNSAFE? The patient feels safe in the home. Depression/Suicide Screening: During the past 2 weeks, the patient has not felt down, depressed or hopeless. During the past 2 weeks, the patient has not felt little interest or pleasure in doing things. Insurance Insurance reviewed Visit number: 10 Authorization not required after evaluation POC: 05/23 Medicare PT Dx: M25.511; M25.611; M67.911 Supervising PT: Maria Victoria Salazar PT, DPT, Karen DN The Physical Therapist (PT) of record is the therapist who assumes primary responsibility for the patient management and as such is held accountable for the coordination, continuation, and progression of the plan of care. This patient?s care and PT of record will be transferred from (Maria Victoria Salazar PT, DPT, Cert DN) to (Cora Hanson PT, DPT) as of (11/15/21). Onset Date: 2020 Medicare Certification Period: Beginnin2021 Endin2021 Subjective Patient reports:. Patient reports that he is starting to notice that he is starting to note good soreness from his muscles from using his weights at home. 0/10 pain upon arrival. States that he was able to to push a washer/dryer on a alize recently w/out throbbing pain. Patient identified by name and date of . Home program performing as directed: Partially. Precautions: Fall Risk: low Cristobal Hx Skin Cancer removed anterior/superior Right shoulder/clavicle region; RA. Treatment Time in clinic started at 2:02 pm Time in clinic ended at 2:48 pm Total time in clinic is 46 minutes. Total timed code time is 45 minutes. Therapeutic exercise (31229): timed minutes 33, units 2 . UBE 3? fwd 3? bwd 2.0 Wall flexion with eccentric lowering 2 x 10 1# (X) Shoulder rows 2 x 10 Brown tub (more content not included)... Normal [facility] PT Progress Noteon 2 PT Progress Note Therapy Diagnosis Assessed Chronic right shoulder pain (719.41,338.29) (M25.511,G89.29) Bilateral rotator cuff dysfunction (726.10) (M67.911,M67.912) Stiffness of right shoulder, not elsewhere classified (719.51) (M25.611) Plan Goals: Goals set and discussed today. Pt will demo and report compliance with HEP in order to augment POC goals and progression toward independence with symptom management for better outcomes once D/C from POC. 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 , by week 5 Strength: Pt will demo improved MMT by >/= 1 point on 0-5 point scale in BUE's for improved strength and stability, and improved ease with lifting, carrying, and proper mechanics with ADL?s AND IADL?s. , by week 5 QuickDASH, Pt will report subjective improvement with score on QuickDASH improved by >/= 5 points for return to PLOF, improved QOL, and improved ease with ADL?s AND IADL?s. , by week 5 Planned interventions include: aquatic therapy, cryotherapy, dry needling, education/instructi on, electrical stimulation, home program, hot pack, kinesiotaping, manual therapy, neuromuscular re-education, self care/home management, therapeutic exercises and IASTM/CUPPING . Heavy focus on manual techniques included continued joint mobs to GH, scapula, and thoracic spine; Progress with proximal stabilization exercises. Frequency and duration: 2 time(s) a week, for 6 weeks, for 12 visits . Recheck with PT at 10th visit. Potential to achieve rehab goals is excellent Cont with ther ex and manual therapy to improve mobility and strength. Progress with POC, as tolerated. Assessment Pt is also scheduled for recheck next mon11/01/21 therefore did not perform recheck this date. Pt tolerated session well without c/o pain despite progression and addition of multiple activities. VCs to maintain scapular retraction during TB activities and to keep elbows at sides during TB ER/IR. Adult Risk Screening There are no spiritual/cultural practices/values/ne eds that are important to know Initial Fall Risk Screening: KRISTIAN has not fallen in the last 6 months. KRISTIAN does not have a fear of falling. He does not need assistance with sitting, standing or walking. Does not need assistance walking in his home. He does not need assistance in an unfamiliar setting. The patient is not using an assistive device. Fall Risk Screening: Patient is identified as a fall risk. Care Plan: Low Risk: Environmental for all patients and low risk patients: Offer assistance as needed or requested, keep environment free of obstacles, keep floor clean and dry, keep room lighting, wheelchair brakes on, bed/ stretcher locked and in low position if applicable, non-slip footwear if applicable, walker/cane available if needed, side rails up if applicable and pre-emptive toileting. Domestic Violence Screen: Does not feel threatened or abused physically, emotionally or sexually. Do you feel UNSAFE? The patient feels safe in the home. Depression/Suicide Screening: During the past 2 weeks, the patient has not felt down, depressed or hopeless. During the past 2 weeks, the patient has not felt little interest or pleasure in doing things. Insurance Insurance reviewed Visit number: 9 Authorization not required after evaluation POC: 05/23 Medicare PT Dx: M25.511; M25.611; M67.911 Supervising PT: Maria Victoria Salazar PT, DPT, Karen DN The Physical Therapist (PT) of record is the therapist who assumes primary responsibility for the patient management and as such is held accountable for the coordination, continuation, and progression of the plan of care. This patient?s care and PT of record will be transferred from (Maria Victoria Salazar PT, DPT, Karen DN) to (Cora Hanson PT, DPT) as of (11/15/21). Onset Date: 2020 Medicare Certification Period: Beginnin2021 Endin2021 Subjective Patient reports:. Pt arrives denying pain. He states he did exercises for 1-2 hours yesterday and is not sore from it. Pt reports improvements since beginning PT services. He states he noticed improved strength and mobility. He still cannot swing stuff like pallets. Patient identified by name and date of . Home program performing as directed: Partially. Precautions: Fall Risk: low Cristobal Hx Skin Cancer removed anterior/superior Right shoulder/clavicle region; RA. Treatment Time in clinic started at 1:50 pm Time in clinic ended at 2:40 pm Total time in clinic is 50 minutes. Total timed code time is 48 minutes. Therapeutic exercise (52635): timed minutes 33, units 2 . UBE 3? fwd 3? (more content not included)... [facility] Therapy Re-eval Noteon 11-22 Therapy Re-eval Note No report was sent [facility] PT Progress Noteon PT Progress Note Therapy Diagnosis Assessed Bilateral rotator cuff dysfunction (726.10) (M67.911,M67.912) Chronic right shoulder pain (719.41,338.29) (M25.511,G89.29) Stiffness of right shoulder, not elsewhere classified (719.51) (M25.611) Plan Goals: Goals set and discussed today. Pt will demo and report compliance with HEP in order to augment POC goals and progression toward independence with symptom management for better outcomes once D/C from POC. 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 , by week 5 Strength: Pt will demo improved MMT by >/= 1 point on 0-5 point scale in BUE's for improved strength and stability, and improved ease with lifting, carrying, and proper mechanics with ADL?s AND IADL?s. , by week 5 QuickDASH, Pt will report subjective improvement with score on QuickDASH improved by >/= 5 points for return to PLOF, improved QOL, and improved ease with ADL?s AND IADL?s. , by week 5 Planned interventions include: aquatic therapy, cryotherapy, dry needling, education/instructi on, electrical stimulation, home program, hot pack, kinesiotaping, manual therapy, neuromuscular re-education, self care/home management, therapeutic exercises and IASTM/CUPPING . Heavy focus on manual techniques included continued joint mobs to GH, scapula, and thoracic spine; Progress with proximal stabilization exercises. Frequency and duration: 2 time(s) a week, for 6 weeks, for 12 visits . Recheck with PT at 10th visit. Potential to achieve rehab goals is excellent Add IR stretches next date for behind the back reaching. Progress with POC, as tolerated. Assessment Improved ROM with ABC's with ability to complete large ROM, will attempt in standing next visit for progression. Improved ROM with shoulder flex and ABD actively. Added weight with eccentric lowering with wall slides and shoulder flex and ABD in front of the mirror. Response to treatment: decreased pain. Adult Risk Screening There are no spiritual/cultural practices/values/ne eds that are important to know Initial Fall Risk Screening: KRISTIAN has not fallen in the last 6 months. KRISTIAN does not have a fear of falling. He does not need assistance with sitting, standing or walking. Does not need assistance walking in his home. He does not need assistance in an unfamiliar setting. The patient is not using an assistive device. Fall Risk Screening: Patient is identified as a fall risk. Care Plan: Low Risk: Environmental for all patients and low risk patients: Offer assistance as needed or requested, keep environment free of obstacles, keep floor clean and dry, keep room lighting, wheelchair brakes on, bed/ stretcher locked and in low position if applicable, non-slip footwear if applicable, walker/cane available if needed, side rails up if applicable and pre-emptive toileting. Please identify location of pain: Right shoulder. Pain Quality: aching, dull, tightness and throbbing. The pain makes it hard for the patient to do these things: exercise, sleep, work, house work and self-care (bathing, dressing, eating). Domestic Violence Screen: Does not feel threatened or abused physically, emotionally or sexually. Do you feel UNSAFE? The patient feels safe in the home. Depression/Suicide Screening: During the past 2 weeks, the patient has not felt down, depressed or hopeless. During the past 2 weeks, the patient has not felt little interest or pleasure in doing things. Insurance Insurance reviewed Visit number: 8 Authorization not required after evaluation POC: 10/23 Medicare PT Dx: M25.511; M25.611; M67.911 Supervising PT: Maria Victoria Salazar PT, DPT, Karen HOLDER The Physical Therapist (PT) of record is the therapist who assumes primary responsibility for the patient management and as such is held accountable for the coordination, continuation, and progression of the plan of care. This patient?s care and PT of record will be transferred from (Maria Victoria Salazar PT, MITCHELT, Karen DN) to (Cora Hanson PT, DPT) as of (11/15/21). Onset Date: 2020 Medicare Certification Period: Beginnin2021 Endin2021 Subjective Patient reports:. Patient has been compliant with HEP. States that if he gets soreness with HEP it is short term. Notes that he is putting ice on it afterward also. 0/10 pain currently. Note that mobility is better since starting PT. Patient identified by name and date of . Home program performing as directed: Partially. Precautions: Fall Risk: low Cristobal Hx Skin Cancer removed anterior/superior Right shoulder/clavicle region; RA. Objective Ortho (more content not included)... Normal [facility] PT Progress Noteon 2 PT Progress Note Therapy Diagnosis Assessed Bilateral rotator cuff dysfunction (726.10) (M67.911,M67.912) Chronic right shoulder pain (719.41,338.29) (M25.511,G89.29) Stiffness of right shoulder, not elsewhere classified (719.51) (M25.611) Plan Goals: Goals set and discussed today. Pt will demo and report compliance with HEP in order to augment POC goals and progression toward independence with symptom management for better outcomes once D/C from POC. 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 , by week 5 Strength: Pt will demo improved MMT by >/= 1 point on 0-5 point scale in BUE's for improved strength and stability, and improved ease with lifting, carrying, and proper mechanics with ADL?s AND IADL?s. , by week 5 QuickDASH, Pt will report subjective improvement with score on QuickDASH improved by >/= 5 points for return to PLOF, improved QOL, and improved ease with ADL?s AND IADL?s. , by week 5 Planned interventions include: aquatic therapy, cryotherapy, dry needling, education/instructi on, electrical stimulation, home program, hot pack, kinesiotaping, manual therapy, neuromuscular re-education, self care/home management, therapeutic exercises and IASTM/CUPPING . Heavy focus on manual techniques included continued joint mobs to GH, scapula, and thoracic spine; Progress with proximal stabilization exercises. Frequency and duration: 2 time(s) a week, for 6 weeks, for 12 visits . Recheck with PT at 10th visit. Potential to achieve rehab goals is excellent Will continue to progress strength as able for improved daily function. Will add stretches for reaching behind back next date. Progress with POC, as tolerated. Assessment Improved passive flexion to WFL with soft end feel. Minimal exacerbation of pain with PROM. Added weight with anterior shoulder flexion and shoulder abduction. Decreased GH compensation observed today with these exercises so weight was added today in clinic and for HEP. Response to treatment: decreased pain. Adult Risk Screening There are no spiritual/cultural practices/values/ne eds that are important to know Initial Fall Risk Screening: KRISTIAN has not fallen in the last 6 months. KRITSIAN does not have a fear of falling. He does not need assistance with sitting, standing or walking. Does not need assistance walking in his home. He does not need assistance in an unfamiliar setting. The patient is not using an assistive device. Fall Risk Screening: Patient is identified as a fall risk. Care Plan: Low Risk: Environmental for all patients and low risk patients: Offer assistance as needed or requested, keep environment free of obstacles, keep floor clean and dry, keep room lighting, wheelchair brakes on, bed/ stretcher locked and in low position if applicable, non-slip footwear if applicable, walker/cane available if needed, side rails up if applicable and pre-emptive toileting. Please identify location of pain: Right shoulder. Pain Quality: aching, dull, tightness and throbbing. The pain makes it hard for the patient to do these things: exercise, sleep, work, house work and self-care (bathing, dressing, eating). Domestic Violence Screen: Does not feel threatened or abused physically, emotionally or sexually. Do you feel UNSAFE? The patient feels safe in the home. Depression/Suicide Screening: During the past 2 weeks, the patient has not felt down, depressed or hopeless. During the past 2 weeks, the patient has not felt little interest or pleasure in doing things. Insurance Insurance reviewed Visit number: 7 Authorization not required after evaluation POC: 10/23 Medicare PT Dx: M25.511; M25.611; M67.911 Supervising PT: Maria Victoria Salazar PT, DPT, Karen DN The Physical Therapist (PT) of record is the therapist who assumes primary responsibility for the patient management and as such is held accountable for the coordination, continuation, and progression of the plan of care. This patient?s care and PT of record will be transferred from (Maria Victoria Salazar PT, DPT, Karen DN) to (Cora Hanson PT, DPT) as of (11/15/21). Onset Date: 2020 Medicare Certification Period: Beginnin2021 Endin2021 Subjective Patient reports:. Patient reports that he has been compliant with HEP but is not sure he is doing technique correctly. Otherwise notes that the foam roll stretches continue to feel easier. Patient would like to reach behind his back easier. Patient identified by name and date of . Home program performing as directed: Partially. Precautions: Fall Risk: low Cristobal Hx Skin Cancer removed (more content not included)... Normal [facility] PT Progress Noteon PT Progress Note Therapy Diagnosis Assessed Bilateral rotator cuff dysfunction (726.10) (M67.911,M67.912) Stiffness of right shoulder, not elsewhere classified (719.51) (M25.611) Chronic right shoulder pain (719.41,338.29) (M25.511,G89.29) Plan Goals: Goals set and discussed today. Pt will demo and report compliance with HEP in order to augment POC goals and progression toward independence with symptom management for better outcomes once D/C from POC. 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 , by week 5 Strength: Pt will demo improved MMT by >/= 1 point on 0-5 point scale in BUE's for improved strength and stability, and improved ease with lifting, carrying, and proper mechanics with ADL?s AND IADL?s. , by week 5 QuickDASH, Pt will report subjective improvement with score on QuickDASH improved by >/= 5 points for return to PLOF, improved QOL, and improved ease with ADL?s AND IADL?s. , by week 5 Planned interventions include: aquatic therapy, cryotherapy, dry needling, education/instructi on, electrical stimulation, home program, hot pack, kinesiotaping, manual therapy, neuromuscular re-education, self care/home management, therapeutic exercises and IASTM/CUPPING . Heavy focus on manual techniques included continued joint mobs to GH, scapula, and thoracic spine; Progress with proximal stabilization exercises. Frequency and duration: 2 time(s) a week, for 6 weeks, for 12 visits . Recheck with PT at 10th visit. Potential to achieve rehab goals is excellent Will continue with ROM and add postural strength as able. Progress with POC, as tolerated. Assessment Was able to progress strength this date by adding resisted extension and progressing to active IR/ER. Progressed instead taking 2 steps d/t improved control. Response to treatment: no change in pain. Adult Risk Screening There are no spiritual/cultural practices/values/ne eds that are important to know Initial Fall Risk Screening: KRISTIAN has not fallen in the last 6 months. KRISTIAN does not have a fear of falling. He does not need assistance with sitting, standing or walking. Does not need assistance walking in his home. He does not need assistance in an unfamiliar setting. The patient is not using an assistive device. Fall Risk Screening: Patient is identified as a fall risk. Care Plan: Low Risk: Environmental for all patients and low risk patients: Offer assistance as needed or requested, keep environment free of obstacles, keep floor clean and dry, keep room lighting, wheelchair brakes on, bed/ stretcher locked and in low position if applicable, non-slip footwear if applicable, walker/cane available if needed, side rails up if applicable and pre-emptive toileting. Please identify location of pain: Right shoulder. Pain Quality: aching, dull, tightness and throbbing. The pain makes it hard for the patient to do these things: exercise, sleep, work, house work and self-care (bathing, dressing, eating). Domestic Violence Screen: Does not feel threatened or abused physically, emotionally or sexually. Do you feel UNSAFE? The patient feels safe in the home. Depression/Suicide Screening: During the past 2 weeks, the patient has not felt down, depressed or hopeless. During the past 2 weeks, the patient has not felt little interest or pleasure in doing things. Insurance Insurance reviewed Visit number: 6 Authorization not required after evaluation POC: 10/23 Medicare PT Dx: M25.511; M25.611; M67.911 Supervising PT: Maria Victoria Salazar PT, DPT, Cert DN The Physical Therapist (PT) of record is the therapist who assumes primary responsibility for the patient management and as such is held accountable for the coordination, continuation, and progression of the plan of care. This patient?s care and PT of record will be transferred from (Maria Victoria Salazar PT, DPT, Cert DN) to (Cora Hanson PT, DPT) as of (11/15/21). Onset Date: 2020 Medicare Certification Period: Beginnin2021 Endin2021 Subjective Patient reports:. Patient reports that he has gained ROM with foam roll stretches. Patient identified by name and date of . Home program performing as directed: Partially. Precautions: Fall Risk: low Cristobal Hx Skin Cancer removed anterior/superior Right shoulder/clavicle region; RA. Treatment Time in clinic started at 2:00 Time in clinic ended at 2:45 Total time in clinic is 45 minutes. Total timed code time is 44 minutes. Therapeutic exercise (24041): timed minutes 30, units 2 . UBE 3? fwd 3? bwd Wall flexion with eccentric lowering 2 x 10 (N) (more content not included)... Normal [facility]works PT Progress Noteon 2 PT Progress Note Therapy Diagnosis Assessed Bilateral rotator cuff dysfunction (726.10) (M67.911,M67.912) Stiffness of right shoulder, not elsewhere classified (719.51) (M25.611) Chronic right shoulder pain (719.41,338.29) (M25.511,G89.29) Plan Goals: Goals set and discussed today. Pt will demo and report compliance with HEP in order to augment POC goals and progression toward independence with symptom management for better outcomes once D/C from POC. 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 , by week 5 Strength: Pt will demo improved MMT by >/= 1 point on 0-5 point scale in BUE's for improved strength and stability, and improved ease with lifting, carrying, and proper mechanics with ADL?s AND IADL?s. , by week 5 QuickDASH, Pt will report subjective improvement with score on QuickDASH improved by >/= 5 points for return to PLOF, improved QOL, and improved ease with ADL?s AND IADL?s. , by week 5 Planned interventions include: aquatic therapy, cryotherapy, dry needling, education/instructi on, electrical stimulation, home program, hot pack, kinesiotaping, manual therapy, neuromuscular re-education, self care/home management, therapeutic exercises and IASTM/CUPPING . Heavy focus on manual techniques included continued joint mobs to GH, scapula, and thoracic spine; Progress with proximal stabilization exercises. Frequency and duration: 2 time(s) a week, for 6 weeks, for 12 visits . Recheck with PT at 10th visit. Potential to achieve rehab goals is excellent Will continue with ROM and add postural strength as able. Progress with POC, as tolerated. Assessment Added resisted shoulder rows today with cues needed d/t leaning entire body. Improvement after cues given. Updated HEP this date (see below) with blue tband and theraloop. Improved ROM with ABC's in supine. Decreased end range tightness with passive flexion and ABD. Response to treatment: no change in pain. Adult Risk Screening There are no spiritual/cultural practices/values/ne eds that are important to know Initial Fall Risk Screening: KRISTIAN has not fallen in the last 6 months. KRISTIAN does not have a fear of falling. He does not need assistance with sitting, standing or walking. Does not need assistance walking in his home. He does not need assistance in an unfamiliar setting. The patient is not using an assistive device. Fall Risk Screening: Patient is identified as a fall risk. Care Plan: Low Risk: Environmental for all patients and low risk patients: Offer assistance as needed or requested, keep environment free of obstacles, keep floor clean and dry, keep room lighting, wheelchair brakes on, bed/ stretcher locked and in low position if applicable, non-slip footwear if applicable, walker/cane available if needed, side rails up if applicable and pre-emptive toileting. Please identify location of pain: Right shoulder. Pain Quality: aching, dull, tightness and throbbing. The pain makes it hard for the patient to do these things: exercise, sleep, work, house work and self-care (bathing, dressing, eating). Domestic Violence Screen: Does not feel threatened or abused physically, emotionally or sexually. Do you feel UNSAFE? The patient feels safe in the home. Depression/Suicide Screening: During the past 2 weeks, the patient has not felt down, depressed or hopeless. During the past 2 weeks, the patient has not felt little interest or pleasure in doing things. Insurance Insurance reviewed Visit number: 5 Authorization not required after evaluation POC: 10/23 Medicare PT Dx: M25.511; M25.611; M67.911 Supervising PT: Maria Victoria Salazar PT, DPT, Karen DN The Physical Therapist (PT) of record is the therapist who assumes primary responsibility for the patient management and as such is held accountable for the coordination, continuation, and progression of the plan of care. This patient?s care and PT of record will be transferred from (Maria Victoria Salazar PT, DPT, Karen DN) to (Cora Hanson PT, DPT) as of (11/15/21). Onset Date: 2020 Medicare Certification Period: Beginnin2021 Endin2021 Subjective Patient reports:. Patient reports that his pain is different since starting therapy. States that he can not tell a difference with using the shoulder d/t when it would bother him it was more manual heavy work, which he has not done or attempted recently. States that he has slept better the last few nights. Patient identified by name and date of . Home program performing as directed: Yes. Precautions: Fall Risk: low Cristobal Hx Skin Cancer removed anteri (more content not included)... Normal [facility] PT Progress Noteon PT Progress Note Therapy Diagnosis Assessed Bilateral rotator cuff dysfunction (726.10) (M67.911,M67.912) Chronic right shoulder pain (719.41,338.29) (M25.511,G89.29) Stiffness of right shoulder, not elsewhere classified (719.51) (M25.611) Plan Goals: Goals set and discussed today. Pt will demo and report compliance with HEP in order to augment POC goals and progression toward independence with symptom management for better outcomes once D/C from POC. 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 , by week 5 Strength: Pt will demo improved MMT by >/= 1 point on 0-5 point scale in BUE's for improved strength and stability, and improved ease with lifting, carrying, and proper mechanics with ADL?s AND IADL?s. , by week 5 QuickDASH, Pt will report subjective improvement with score on QuickDASH improved by >/= 5 points for return to PLOF, improved QOL, and improved ease with ADL?s AND IADL?s. , by week 5 Planned interventions include: aquatic therapy, cryotherapy, dry needling, education/instructi on, electrical stimulation, home program, hot pack, kinesiotaping, manual therapy, neuromuscular re-education, self care/home management, therapeutic exercises and IASTM/CUPPING . Heavy focus on manual techniques included continued joint mobs to GH, scapula, and thoracic spine; Progress with proximal stabilization exercises. Frequency and duration: 2 time(s) a week, for 6 weeks, for 12 visits . Recheck with PT at 10th visit. Potential to achieve rehab goals is excellent Will continue with ROM and add postural strength as able. Progress with POC, as tolerated. Assessment GH elevation on the R with standing shoulder flexion. End range tightness with passive flexion and ER. Tightness along UT and deltoid during STW. Adult Risk Screening There are no spiritual/cultural practices/values/ne eds that are important to know Initial Fall Risk Screening: KRISTIAN has not fallen in the last 6 months. KRISTIAN does not have a fear of falling. He does not need assistance with sitting, standing or walking. Does not need assistance walking in his home. He does not need assistance in an unfamiliar setting. The patient is not using an assistive device. Fall Risk Screening: Patient is identified as a fall risk. Care Plan: Low Risk: Environmental for all patients and low risk patients: Offer assistance as needed or requested, keep environment free of obstacles, keep floor clean and dry, keep room lighting, wheelchair brakes on, bed/ stretcher locked and in low position if applicable, non-slip footwear if applicable, walker/cane available if needed, side rails up if applicable and pre-emptive toileting. Please identify location of pain: Right shoulder. Pain Quality: aching, dull, tightness and throbbing. The pain makes it hard for the patient to do these things: exercise, sleep, work, house work and self-care (bathing, dressing, eating). Domestic Violence Screen: Does not feel threatened or abused physically, emotionally or sexually. Do you feel UNSAFE? The patient feels safe in the home. Depression/Suicide Screening: During the past 2 weeks, the patient has not felt down, depressed or hopeless. During the past 2 weeks, the patient has not felt little interest or pleasure in doing things. Insurance Insurance reviewed Visit number: 4 Authorization not required after evaluation POC: 10/23 Medicare PT Dx: M25.511; M25.611; M67.911 Supervising PT: Maria Victoria Salazar PT, MITCHELT, Karen DN The Physical Therapist (PT) of record is the therapist who assumes primary responsibility for the patient management and as such is held accountable for the coordination, continuation, and progression of the plan of care. This patient?s care and PT of record will be transferred from (Maria Victoria Salazar PT, DPT, Cert DN) to (Cora Hanson PT, DPT) as of (11/15/21). Onset Date: 2020 Medicare Certification Period: Beginnin2021 Endin2021 Subjective Patient reports:. Patient reports that he has been compliant with HEP with no issues. States that he had to scrape ice off of his car prior to coming to PT today, so the arm in a little sore. Patient reports that he is having soreness in his muscles in new places, like he is doing something. Patient identified by name and date of . Home program performing as directed: Yes. Precautions: Fall Risk: low Cristobal Hx Skin Cancer removed anterior/superior Right shoulder/clavicle region; RA. Treatment Time in clinic started at 1:15 Time in clinic ended at 02:00 Total time in clinic is 45 minutes. Total timed (more content not included)... Normal [facility] PT Progress Noteon 2 PT Progress Note Therapy Diagnosis Assessed Bilateral rotator cuff dysfunction (726.10) (M67.911,M67.912) Chronic right shoulder pain (719.41,338.29) (M25.511,G89.29) Stiffness of right shoulder, not elsewhere classified (719.51) (M25.611) Plan Goals: Goals set and discussed today. Pt will demo and report compliance with HEP in order to augment POC goals and progression toward independence with symptom management for better outcomes once D/C from POC. 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 , by week 5 Strength: Pt will demo improved MMT by >/= 1 point on 0-5 point scale in BUE's for improved strength and stability, and improved ease with lifting, carrying, and proper mechanics with ADL?s AND IADL?s. , by week 5 QuickDASH, Pt will report subjective improvement with score on QuickDASH improved by >/= 5 points for return to PLOF, improved QOL, and improved ease with ADL?s AND IADL?s. , by week 5 Planned interventions include: aquatic therapy, cryotherapy, dry needling, education/instructi on, electrical stimulation, home program, hot pack, kinesiotaping, manual therapy, neuromuscular re-education, self care/home management, therapeutic exercises and IASTM/CUPPING . Heavy focus on manual techniques included continued joint mobs to GH, scapula, and thoracic spine; Progress with proximal stabilization exercises. Frequency and duration: 2 time(s) a week, for 6 weeks, for 12 visits . Recheck with PT at 10th visit. Potential to achieve rehab goals is excellent Will continue with ROM and add postural strength as able. Progress with POC, as tolerated. Assessment Answered all questions at beginning of session regarding HEP. Added 1/2 foam roll stretches today for continued improved shoulder mobility. Patient had difficulty at first but then felt relief. Added these to HEP today. Tightness along the UT this date. Adult Risk Screening There are no spiritual/cultural practices/values/ne eds that are important to know Initial Fall Risk Screening: KRISTIAN has not fallen in the last 6 months. KRISTIAN does not have a fear of falling. He does not need assistance with sitting, standing or walking. Does not need assistance walking in his home. He does not need assistance in an unfamiliar setting. The patient is not using an assistive device. Fall Risk Screening: Patient is identified as a fall risk. Care Plan: Low Risk: Environmental for all patients and low risk patients: Offer assistance as needed or requested, keep environment free of obstacles, keep floor clean and dry, keep room lighting, wheelchair brakes on, bed/ stretcher locked and in low position if applicable, non-slip footwear if applicable, walker/cane available if needed, side rails up if applicable and pre-emptive toileting. Please identify location of pain: Right shoulder. Pain Quality: aching, dull, tightness and throbbing. The pain makes it hard for the patient to do these things: exercise, sleep, work, house work and self-care (bathing, dressing, eating). Domestic Violence Screen: Does not feel threatened or abused physically, emotionally or sexually. Do you feel UNSAFE? The patient feels safe in the home. Depression/Suicide Screening: During the past 2 weeks, the patient has not felt down, depressed or hopeless. During the past 2 weeks, the patient has not felt little interest or pleasure in doing things. Insurance Insurance reviewed Visit number: 3 Authorization not required after evaluation POC: 10/23 Medicare PT Dx: M25.511; M25.611; M67.911 Supervising PT: Maria Victoria Salazar PT, DPT, Karen DN The Physical Therapist (PT) of record is the therapist who assumes primary responsibility for the patient management and as such is held accountable for the coordination, continuation, and progression of the plan of care. This patient?s care and PT of record will be transferred from (Maria Victoria Salazar PT, DPT, Cert DN) to (Cora Hanson PT, DPT) as of (11/15/21). Onset Date: 2020 Medicare Certification Period: Beginnin2021 Endin2021 Subjective Patient reports:. Patient has trouble reaching out to the side and/or back. Denies any pain currently. Has questions regarding HEP. Patient identified by name and date of . Home program performing as directed: Yes. Precautions: Fall Risk: low Cristobal Hx Skin Cancer removed anterior/superior Right shoulder/clavicle region; RA. Treatment Time in clinic started at 02:00 Time in clinic ended at 02:52 Total time in clinic is 52 minutes. Total timed code time is 48 minutes. Therapeutic exercise (9711 (more content not included)... Normal [facility] [employer] PT Progress Noteon 2 PT Progress Note Therapy Diagnosis Assessed Chronic right shoulder pain (719.41,338.29) (M25.511,G89.29) Stiffness of right shoulder, not elsewhere classified (719.51) (M25.611) Bilateral rotator cuff dysfunction (726.10) (M67.911,M67.912) Plan Goals: Goals set and discussed today. Pt will demo and report compliance with HEP in order to augment POC goals and progression toward independence with symptom management for better outcomes once D/C from POC. 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 , by week 5 Strength: Pt will demo improved MMT by >/= 1 point on 0-5 point scale in BUE's for improved strength and stability, and improved ease with lifting, carrying, and proper mechanics with ADL?s AND IADL?s. , by week 5 QuickDASH, Pt will report subjective improvement with score on QuickDASH improved by >/= 5 points for return to PLOF, improved QOL, and improved ease with ADL?s AND IADL?s. , by week 5 Planned interventions include: aquatic therapy, cryotherapy, dry needling, education/instructi on, electrical stimulation, home program, hot pack, kinesiotaping, manual therapy, neuromuscular re-education, self care/home management, therapeutic exercises and IASTM/CUPPING . Heavy focus on manual techniques included continued joint mobs to GH, scapula, and thoracic spine; Progress with proximal stabilization exercises. Frequency and duration: 2 time(s) a week, for 6 weeks, for 12 visits . Recheck with PT at 10th visit. Potential to achieve rehab goals is excellent Progress with STW and ROM with strengthening for increased ease with ADL's. AW . Progress with POC, as tolerated. Assessment Patient identified by name and date of . Patient brought a box with him with exercises/massage equipment and previous exercises to review. Reviewed previous HEP with patient, he required cues for form and technique with stretches and to maintain hold times. He presented with firm end fell with ER with PROM. He presented with palpable tension in pec and scap boarder with STW. Adult Risk Screening There are no spiritual/cultural practices/values/ne eds that are important to know Initial Fall Risk Screening: KRISTIAN has not fallen in the last 6 months. KRISTIAN does not have a fear of falling. He does not need assistance with sitting, standing or walking. Does not need assistance walking in his home. He does not need assistance in an unfamiliar setting. The patient is not using an assistive device. Fall Risk Screening: Patient is identified as a fall risk. Care Plan: Low Risk: Environmental for all patients and low risk patients: Offer assistance as needed or requested, keep environment free of obstacles, keep floor clean and dry, keep room lighting, wheelchair brakes on, bed/ stretcher locked and in low position if applicable, non-slip footwear if applicable, walker/cane available if needed, side rails up if applicable and pre-emptive toileting. Pain Scale: On a scale of 0 to 10, the patient rates the pain at 0. Please identify location of pain: Right shoulder. Pain Quality: aching, dull, tightness and throbbing. The pain makes it hard for the patient to do these things: exercise, sleep, work, house work and self-care (bathing, dressing, eating). Domestic Violence Screen: Does not feel threatened or abused physically, emotionally or sexually. Do you feel UNSAFE? The patient feels safe in the home. Depression/Suicide Screening: During the past 2 weeks, the patient has not felt down, depressed or hopeless. During the past 2 weeks, the patient has not felt little interest or pleasure in doing things. Insurance Insurance reviewed Visit number: 2 Authorization not required after evaluation POC: 10/23 Medicare PT Dx: M25.511; M25.611; M67.911 Supervising PT: Maria Victoria Salazar PT, DPT, Karen DN The Physical Therapist (PT) of record is the therapist who assumes primary responsibility for the patient management and as such is held accountable for the coordination, continuation, and progression of the plan of care. This patient?s care and PT of record will be transferred from (Maria Victoria Salazar PT, MITCHELT, Karen DN) to (Cora Hanson PT, DPT) as of (11/15/21). Onset Date: 2020 Medicare Certification Period: Beginnin2021 Endin2021 Subjective Patient reports:. He reported 0/10 pain but with ext or ER will progress to 7/10 pain. Home program performing as directed: Yes. Precautions: Fall Risk: low Cristobal Hx Skin Cancer removed anterior/superior Right shoulder/clavicle region; RA. Treatment Time in clinic started at 02:00 Time in cl (more content not included)... Normal [facility] PT Initial Evaluationon 10-12 PT Initial Evaluation Therapy Diagnosis Assessed Chronic right shoulder pain (719.41,338.29) (M25.511,G89.29) Stiffness of right shoulder, not elsewhere classified (719.51) (M25.611) Bilateral rotator cuff dysfunction (726.10) (M67.911,M67.912) Plan of Care Goals: Goals set and discussed today. Pt will demo and report compliance with HEP in order to augment POC goals and progression toward independence with symptom management for better outcomes once D/C from POC. 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 , by week 5 Strength: Pt will demo improved MMT by >/= 1 point on 0-5 point scale in BUE's for improved strength and stability, and improved ease with lifting, carrying, and proper mechanics with ADL?s AND IADL?s. , by week 5 QuickDASH, Pt will report subjective improvement with score on QuickDASH improved by >/= 5 points for return to PLOF, improved QOL, and improved ease with ADL?s AND IADL?s. , by week 5 Planned interventions include: aquatic therapy, cryotherapy, dry needling, education/instructi on, electrical stimulation, home program, hot pack, kinesiotaping, manual therapy, neuromuscular re-education, self care/home management, therapeutic exercises and IASTM/CUPPING . Heavy focus on manual techniques included continued joint mobs to GH, scapula, and thoracic spine; Progress with proximal stabilization exercises. Frequency and duration: 2 time(s) a week, for 6 weeks, for 12 visits . Recheck with PT at 10th visit. Potential to achieve rehab goals is excellent Plan of care was developed with input and agreement by the patient. Assessment Mr. GUTIERREZ presents with signs and symptoms consistent with Bilateral shoulder impingement AND rotator cuff dysfunction as medical diagnosis and PT diagnosis of Right shoulder pain and stiffness of Right shoulder and demonstrates impairments/limitat ions in Shoulder AROM and PROM mildly, significant [...] throughout POC to progress towards independence with ADL?s/IADL?s and return to PLOF. Clinical Presentation: Stable and/or uncomplicated characteristics. Level of Complexity: low Problem List: activity limitations, ADLs/IADLs/self care skills, decreased functional level, flexibility, motor function/control/to ne, pain, participation restrictions, posture, range of motion/joint mobility and strength. Reason For Visit Initial Evaluation . RIght Shoulder Impingement. Referred by: Chey Wolff Adult Risk Screening There are no spiritual/cultural practices/values/ne eds that are important to know Initial Fall Risk Screening: KRISTIAN has not fallen in the last 6 months. KRISTIAN does not have a fear of falling. He does not need assistance with sitting, standing or walking. Does not need assistance walking in his home. He does not need assistance in an unfamiliar setting. The patient is not using an assistive device. Fall Risk Screening: Patient is identified as a fall risk. Care Plan: Low Risk: Environmental for all patients and low risk patients: Offer assistance as needed or requested, keep environment free of obstacles, keep floor clean and dry, keep room lighting, wheelchair brakes on, bed/ stretcher locked and in low position if applicable, non-slip footwear if applicable, walker/cane available if needed, side rails up if applicable and pre-emptive toileting. Pain Scale: On a scale of 0 to 10, the patient rates the pain at 0. Please identify location of pain: Right shoulder. Pain Quality: aching, dull, tightness and throbbing. The pain makes it hard for the patient to do these things: exercise, sleep, work, house work and self-care (bathing, dressing, eating). Domestic Violence Screen: Does not feel threatened or abused physically, emotionally or sexually. Do you feel UNSAFE? The patient feels safe in the home. Depression/Suicide Screening: During the past 2 weeks, the patient has not felt down, depressed or hopeless. (more content not included)... Normal Touchworks Complete Blood Count + Diffe elysiaon 10-18-2021 Basophils/100 WBC (Bld) 0.5 % 0.0 - 2.0 [facility] [place] Work Phone: Erythrocyte distribution width (RBC) [Ratio] 14.0 % See Below [facility] [place] Work Phone: Comment on above: Reference Range: 11. 5 - 14.5 Hematocrit (Bld) [Volume fraction] 45.3 % [facility] Below [facility] Work Phone: Comment on above: Reference Range: 41. 0 - 52.0 Hemoglobin (Bld) [Mass/Vol] 15.6 g/dL See Below [facility] Work Phone: Comment on above: Reference Range: 13. 5 - 17.5 Lymphocytes/100 WBC (Bld) 16.0 % See Below [facility] Work Phone: Comment on above: Reference Range: 13. 0 - 44.0 MCHC (RBC) [Mass/Vol] 34.5 g/dL See Below [facility] [place] Work Phone: Comment on above: Reference Range: 32. 0 - 36.0 MCV (RBC) [Entitic vol] 97 fL 80 - 100 [facility] Work Phone: Monocytes/100 WBC (Bld) 7.8 % 2.0 - 10.0 [facility] Work Phone: Neutrophils/100 WBC (Bld) 73.6 % See Below [facility] Work Phone: Comment on above: Reference Range: 40. 0 - 80.0 Platelets (Bld) [#/Vol] 257 10*3/uL 150 - 450 [facility] Work Phone: RBC (Bld) [#/Vol] 4.67 {x10E12/L} See Below [facility] Work Phone: Comment on above: Reference Range: 4.5 0 - 5.90 WBC (Bld) [#/Vol] 4.9 10*3/uL 4.4 - 11.3 [facility] Work Phone: Complete Blood Count + Differential 0.00 {x10E9/L} See Below [facility] [place] Work Phone: Comment on above: Reference Range: 0.0 0 - 0.10 Complete Blood Count + Differential 0.10 {x10E9/L} See Below [facility] [place] Work Phone: Comment on above: Reference Range: 0.0 0 - 0.70 Complete Blood Count + Differential 0.40 {x10E9/L} See Below [facility] [place] Work Phone: Comment on above: Reference Range: 0.1 0 - 1.00 Complete Blood Count + Differential 0.80 {x10E9/L} below low threshold See Below [facility] Work Phone: Comment on above: Reference Range: 1.2 0 - 4.80 Complete Blood Count + Differential 3.60 {x10E9/L} See Below [facility] [place] Work Phone: Comment on above: Reference Range: 1.2 0 - 7.70 Percent differential counts (%) should be interpreted in the context of the absolute cell counts (cells/L). Complete Blood Count + Differential 2.1 % 0.0 - 6.0 [facility] [place] Work Phone: Complete Blood Count + Differential 0.1 {/100_WBC} [facility] Work Phone: Laboratory - Chemistry and C hemistry - challengeon 10-18-2021 Albumin BCP dye [Mass/Vol] 4.4 g/dL 3.4 - 5.0 [facility] [place] Work Phone: ALP [Catalytic activity/Vol] 69 U/L 33 - 136 [facility] [place] Work Phone: ALT With P-5'-P [Catalytic activity/Vol] 31 U/L 10 - 52 [facility] [place] Work Phone: Comment on above: Patients treated wit h Sulfasalazine may generate falsely decreased results for ALT. Anion gap [Moles/Vol] 9 mmol/L below low threshold 10 - 20 [facility] [place] Work Phone: AST With P-5'-P [Catalytic activity/Vol] 23 U/L 9 - 39 [facility] [place] Work Phone: Bilirubin [Mass/Vol] 0.9 mg/dL 0.0 - 1.2 [facility] [facility] [place] Work Phone: Calcium [Mass/Vol] 9.5 mg/dL 8.6 - 10.3 [facility] [facility] [place] Work Phone: Chloride [Moles/Vol] 102 mmol/L 98 - 107 [facility] [facility] [place] Work Phone: CO2 [Moles/Vol] 33 mmol/L above high threshold 21 - 32 [facility] [facility] [place] Work Phone: Creatinine [Mass/Vol] 0.95 mg/dL See Below [facility] [facility] [place] Work Phone: Comment on above: Reference Range: 0.5 0 - 1.30 Glucose [Mass/Vol] 102 mg/dL above high threshold 74 - 99 [facility] [facility] [place] Work Phone: Potassium [Moles/Vol] 4.3 mmol/L 3.5 - 5.3 [facility] [facility] [place] Work Phone: Protein [Mass/Vol] 6.8 g/dL 6.4 - 8.2 [facility] [place] Work Phone: Sodium [Moles/Vol] 140 mmol/L 136 - 145 [facility] Work Phone: Urea nitrogen [Mass/Vol] 20 mg/dL 6 - 23 [facility] [facility] [place] Work Phone: No Panel Informationon 10-18 87 {mL/min/1.73m2} >90 [facility] Work Phone: Comment on above: CALCULATIONS OF CORY MATED GFR ARE PERFORMED USING THE 2020 CKD-EPI STUDY REFIT EQUATION WITHOUT THE RACE VARIABLE FOR THE IDMS-TRACEABLE CREATININE METHODS.https://jasn.asnjournals.org/content// N.0944660903 CBC AND DIFFERENTIALon 04-12 Basophils (Bld) [#/Vol] 0.00 10*3/uL Normal 0.00 - 0.10 [facility] Comment on above: Performed By: #### C BCDF #### [address] [address] Basophils/100 WBC (Bld) 0.7 % Normal 0.0 - 2.0 [facility] Comment on above: Performed By: #### C BCDF #### [address] [address] Eosinophils (Bld) [#/Vol] 0.10 10*3/uL Normal 0.00 - 0.70 [facility] Comment on above: Performed By: #### C BCDF #### [address] [address] Eosinophils/100 WBC (Bld) 1.8 % Normal 0.0 - 6.0 [facility] Comment on above: Performed By: #### C BCDF #### [address] [address] Erythrocyte distribution width (RBC) [Ratio] 14.0 % Normal 11.5 - 14.5 [facility] Comment on above: Performed By: #### C BCDF #### [address] [address] Hematocrit (Bld) [Volume fraction] 43.0 % Normal 41.0 - 52.0 [facility] Comment on above: Performed By: #### C BCDF #### [address] [address] Hemoglobin (Bld) [Mass/Vol] 14.3 g/dL Normal 13.5 - 17.5 [facility] Comment on above: Performed By: #### C BCDF #### [address] [address] Lymphocytes (Bld) [#/Vol] 0.90 10*3/uL Low 1.20 - 4.80 [facility] Comment on above: Performed By: #### C BCDF #### [address] [address] Lymphocytes/100 WBC (Bld) 18.0 % Normal 13.0 - 44.0 [facility] Comment on above: Performed By: #### C BCDF #### [address] [address] MCHC (RBC) [Mass/Vol] 33.3 g/dL Normal 32.0 - 36.0 [facility] Comment on above: Performed By: #### C BCDF #### [address] [address] MCV (RBC) [Entitic vol] 98 fL Normal 80 - 100 [facility] Comment on above: Performed By: #### C BCDF #### [address] [address] Monocytes (Bld) [#/Vol] 0.30 10*3/uL Normal 0.10 - 1.00 [facility] Comment on above: Performed By: #### C BCDF #### [address] [address] Monocytes/100 WBC (Bld) 6.3 % Normal 2.0 - 10.0 [facility] Comment on above: Performed By: #### C BCDF #### [address] [address] Neutrophils (Bld) [#/Vol] 3.70 10*3/uL Normal 1.20 - 7.70 [facility] Comment on above: Result Comment: Perc ent differential counts (%) should be interpreted in the context of the absolute cell counts (cells/L). Performed By: #### C BCDF #### [address] [address] Neutrophils/100 WBC (Bld) 73.2 % Normal 40.0 - 80.0 [facility] Comment on above: Performed By: #### C BCDF #### [address] [address] NUCLEATED RBC 0.1 /100 WBC Normal [facility] Comment on above: Performed By: #### C BCDF #### [place] [id number] Platelets (Bld) [#/Vol] 238 10*3/uL Normal 150 - 450 [facility] Comment on above: Performed By: #### C BCDF #### [address] [address] RBC 4.37 x10E12/L Low 4.50 - 5.90 [facility] Comment on above: Performed By: #### C BCDF #### [address] [address] WBC (Bld) [#/Vol] 5.0 10*3/uL Normal 4.4 - 11.3 [facility] Comment on above: Performed By: #### C BCDF #### [address] [address] COMPREHENSIVE PANELon 2020 Albumin [Mass/Vol] 4.4 g/dL Normal 3.4 - 5.0 [facility] Comment on above: Performed By: #### C MP #### [place] [id number] ALP [Catalytic activity/Vol] 55 U/L Normal 33 - 136 [facility] Comment on above: Performed By: #### C MP #### [address] [address] ALT [Catalytic activity/Vol] 25 U/L Normal 10 - 52 [facility] Comment on above: Result Comment: Birdie ents treated with Sulfasalazine may generate falsely decreased results for ALT. Performed By: #### C MP #### [address] [address] Anion gap [Moles/Vol] 8 mmol/L Low 10 - 20 [facility] Comment on above: Performed By: #### C MP #### [address] [address] AST [Catalytic activity/Vol] 24 U/L Normal 9 - 39 [facility] Comment on above: Performed By: #### C MP #### [address] [address] Bilirubin [Mass/Vol] 0.9 mg/dL Normal 0.0 - 1.2 [facility] Comment on above: Performed By: #### C MP #### [address] [address] Calcium [Mass/Vol] 9.3 mg/dL Normal 8.6 - 10.3 [facility] Comment on above: Performed By: #### C MP #### [address] [address] Chloride [Moles/Vol] 104 mmol/L Normal 98 - 107 [facility] Comment on above: Performed By: #### C MP #### [address] [address] Creatinine [Mass/Vol] 0.97 mg/dL Normal 0.50 - 1.30 [facility] Comment on above: Performed By: #### C MP #### [address] [address] GFR- AM. >60 Normal >60 [facility] Comment on above: Result Comment: CALC ULATIONS OF ESTIMATED GFR ARE PERFORMED USING THE MDRD STUDY EQUATION FOR THE IDMS-TRACEABLE CREATININE METHODS. CLIN CHEM 2007;53:766-72 Performed By: #### C MP #### [address] [address] GFR-NON AM. >60 Normal >60 [facility] Comment on above: Performed By: #### C MP #### [address] [address] Glucose [Mass/Vol] 119 mg/dL High 74 - 99 [facility] Comment on above: Performed By: #### C MP #### [address] [address] HCO3 (Bld) [Moles/Vol] 32 mmol/L Normal 21 - 32 [facility] Comment on above: Performed By: #### C MP #### [address] [address] Potassium [Moles/Vol] 4.4 mmol/L Normal 3.5 - 5.3 [facility] Comment on above: Performed By: #### C MP #### [address] [address] Protein [Mass/Vol] 6.5 g/dL Normal 6.4 - 8.2 [facility] Comment on above: Performed By: #### C MP #### [address] [address] Sodium [Moles/Vol] 140 mmol/L Normal 136 - 145 [facility] Comment on above: Performed By: #### C MP #### [address] [address] Urea nitrogen [Mass/Vol] 18 mg/dL Normal 6 - 23 [facility] Comment on above: Performed By: #### C MP #### [address] [address] PROSTATE SPECIFIC AGon 03-11 Prostate specific Ag [Mass/Vol] 4.66 ng/mL High 0.00 - 4.00 [facility] Comment on above: Order Comment: Phys Name LIZANDRO GARCIA MD Phys Address Phone # Fax #[phone] Result Comment: The FDA requires that the method used for PSA assay be reported to the physician. Values obtained with different assay methods must not be used interchangeably. This test was performed at [facility] using the Access AmpIdeach PSA assay is a two-site immunoenzymatic sandwich assay. The assay is approved for measurement of prostate-specific antigen (PSA)in serum and may be used in conjunction with a digital rectal examination in men 50 years and older as an aid in detection of prostate cancer. 8-Szbyu-krmztqwzv inhibitors (e.g. Proscar, Finasteride, Avodart, Dutasteride and Judy) for the treatment of BPH have been shown to lower PSA levels by an average of 50% after 6 months of treatment. Performed By: #### P SA #### [address] [address] CBC AND DIFFERENTIALon 01-25 Basophils (Bld) [#/Vol] 0.00 10*3/uL Normal 0.00 - 0.10 [facility] Comment on above: Performed By: #### C BCDF #### [place] [id number] Basophils/100 WBC (Bld) 0.5 % Normal 0.0 - 2.0 [facility] Comment on above: Performed By: #### C BCDF #### [address] [address] Eosinophils (Bld) [#/Vol] 0.10 10*3/uL Normal 0.00 - 0.70 [facility] Comment on above: Performed By: #### C BCDF #### [place] [id number] Eosinophils/100 WBC (Bld) 1.3 % Normal 0.0 - 6.0 [facility] Comment on above: Performed By: #### C BCDF #### [address] [address] Erythrocyte distribution width (RBC) [Ratio] 13.2 % Normal 11.5 - 14.5 [facility] Comment on above: Performed By: #### C BCDF #### [address] [address] Hematocrit (Bld) [Volume fraction] 44.0 % Normal 41.0 - 52.0 [facility] Comment on above: Performed By: #### C BCDF #### [address] [address] Hemoglobin (Bld) [Mass/Vol] 14.6 g/dL Normal 13.5 - 17.5 [facility] Comment on above: Performed By: #### C BCDF #### [address] [address] Lymphocytes (Bld) [#/Vol] 1.10 10*3/uL Low 1.20 - 4.80 [facility] Comment on above: Performed By: #### C BCDF #### [address] [address] Lymphocytes/100 WBC (Bld) 17.8 % Normal 13.0 - 44.0 [facility] Comment on above: Performed By: #### C BCDF #### [address] [address] MCHC (RBC) [Mass/Vol] 33.3 g/dL Normal 32.0 - 36.0 [facility] Comment on above: Performed By: #### C BCDF #### [address] [address] MCV (RBC) [Entitic vol] 99 fL Normal 80 - 100 [facility] Comment on above: Performed By: #### C BCDF #### [address] [address] Monocytes (Bld) [#/Vol] 0.40 10*3/uL Normal 0.10 - 1.00 [facility] Comment on above: Performed By: #### C BCDF #### [address] [address] Monocytes/100 WBC (Bld) 7.0 % Normal 2.0 - 10.0 [facility] Comment on above: Performed By: #### C BCDF #### [address] [address] Neutrophils (Bld) [#/Vol] 4.40 10*3/uL Normal 1.20 - 7.70 [facility] Comment on above: Result Comment: Perc ent differential counts (%) should be interpreted in the context of the absolute cell counts (cells/L). Performed By: #### C BCDF #### [address] [address] Neutrophils/100 WBC (Bld) 73.4 % Normal 40.0 - 80.0 [facility] Comment on above: Performed By: #### C BCDF #### [address] [address] NUCLEATED RBC 0.2 /100 WBC Normal [facility] Comment on above: Performed By: #### C BCDF #### [address] [address] Platelets (Bld) [#/Vol] 266 10*3/uL Normal 150 - 450 [facility] Comment on above: Performed By: #### C BCDF #### [address] [address] RBC 4.44 x10E12/L Low 4.50 - 5.90 [facility] Comment on above: Performed By: #### C BCDF #### [address] [address] WBC (Bld) [#/Vol] 6.0 10*3/uL Normal 4.4 - 11.3 [facility] Comment on above: Performed By: #### C BCDF #### [address] [address] COMPREHENSIVE PANELon 2020 Albumin [Mass/Vol] 4.4 g/dL Normal 3.4 - 5.0 [facility] Comment on above: Performed By: #### C MP #### [address] [address] ALP [Catalytic activity/Vol] 56 U/L Normal 33 - 136 [facility] Comment on above: Performed By: #### C MP #### [address] [address] ALT [Catalytic activity/Vol] 24 U/L Normal 10 - 52 [facility] Comment on above: Result Comment: Birdie ents treated with Sulfasalazine may generate falsely decreased results for ALT. Performed By: #### C MP #### [address] [address] Anion gap [Moles/Vol] 11 mmol/L Normal 10 - 20 [facility] Comment on above: Performed By: #### C MP #### [address] [address] AST [Catalytic activity/Vol] 24 U/L Normal 9 - 39 [facility] Comment on above: Performed By: #### C MP #### [address] [address] Bilirubin [Mass/Vol] 0.8 mg/dL Normal 0.0 - 1.2 [facility] Comment on above: Performed By: #### C MP #### [address] [address] Calcium [Mass/Vol] 9.1 mg/dL Normal 8.6 - 10.3 [facility] Comment on above: Performed By: #### C MP #### [address] [address] Chloride [Moles/Vol] 106 mmol/L Normal 98 - 107 [facility] Comment on above: Performed By: #### C MP #### [address] [address] Creatinine [Mass/Vol] 0.91 mg/dL Normal 0.50 - 1.30 [facility] Comment on above: Performed By: #### C MP #### [address] [address] GFR- AM. >60 Normal >60 Located Within [facility] Comment on above: Result Comment: CALC ULATIONS OF ESTIMATED GFR ARE PERFORMED USING THE MDRD STUDY EQUATION FOR THE IDMS-TRACEABLE CREATININE METHODS. CLIN CHEM 2007;53:766-72 Performed By: #### C MP #### [address] [address] GFR-NON AM. >60 Normal >60 [facility] Comment on above: Performed By: #### C MP #### [address] [address] Glucose [Mass/Vol] 79 mg/dL Normal 74 - 99 [facility] Comment on above: Performed By: #### C MP #### [address] [address] HCO3 (Bld) [Moles/Vol] 26 mmol/L Normal 21 - 32 [facility] Comment on above: Performed By: #### C MP #### [address] [address] Potassium [Moles/Vol] 3.9 mmol/L Normal 3.5 - 5.3 [facility] Comment on above: Performed By: #### C MP #### [address] [address] Protein [Mass/Vol] 6.9 g/dL Normal 6.4 - 8.2 [facility] Comment on above: Performed By: #### C MP #### [address] [address] Sodium [Moles/Vol] 139 mmol/L Normal 136 - 145 [facility] Comment on above: Performed By: #### C MP #### [address] [address] Urea nitrogen [Mass/Vol] 23 mg/dL Normal 6 - 23 [facility] Comment on above: Performed By: #### C MP #### [address] [address] CBC + DIFFon 12-24-2019 Basophils (Bld) [#/Vol] 0.00 x10EE3/UL Normal 0.00 - 0.10 [facility] Comment on above: Performed By: #### 2 38700 #### [facility],[address] [place] [address] Basophils/100 WBC (Bld) 0.5 % Normal 0.0 - 2.0 [facility] Comment on above: Performed By: #### 2 44549 #### [facility],[address] [place] [address] CBC + DIFF Normal [facility] Comment on above: Result Comment: CBC- COMPLETE BLOOD COUNT Performed By: #### 2 46259 #### [facility],[address] [place] [address] Eosinophils (Bld) [#/Vol] 0.10 x10EE3/UL Normal 0.00 - 0.50 [facility] Comment on above: Performed By: #### 2 19364 #### [facility],[address] [place] [address] Eosinophils/100 WBC (Bld) 3.2 % Normal 0.0 - 7.0 [facility] Comment on above: Performed By: #### 2 64615 #### [facility],[address] [place] [address] Erythrocyte distribution width (RBC) [Ratio] 14.1 % Normal 12.0 - 15.6 [facility] Comment on above: Performed By: #### 2 98516 #### [facility],[address] [place], [place] [address] Hematocrit (Bld) [Volume fraction] 44.5 % Normal 40.0 - 52.0 [facility] Comment on above: Performed By: #### 2 31236 #### [facility],[address] [place] [address] Hemoglobin (Bld) [Mass/Vol] 15.2 g/dL Normal 13.0 - 17.5 [facility] Comment on above: Performed By: #### 2 41206 #### [facility],[address] [place] [address] Lymphocytes (Bld) [#/Vol] 0.80 x10EE3/UL Normal 0.80 - 2.80 [facility] Comment on above: Performed By: #### 2 52292 #### [facility],[address] [place] [address] 19858 Lymphocytes/100 WBC (Bld) 18.7 % Low 20.0 - 45.0 [facility] Comment on above: Performed By: #### 2 54249 #### [facility],[address] [place] [address] MANUAL DIFF N/A Normal [facility] Comment on above: Performed By: #### 2 57588 #### [facility],[address] [place] [address] MCH (RBC) [Entitic mass] 33 pg Normal 27 - 33 [facility] Comment on above: Performed By: #### 2 26857 #### [facility],[address] [place] [address] MCHC (RBC) [Mass/Vol] 34 X10 3 Normal 32 - 36 [facility] Comment on above: Performed By: #### 2 01808 #### [facility],[address] [place] [address] MCV (RBC) [Entitic vol] 97 fL Normal 81 - 98 [facility] Comment on above: Performed By: #### 2 85728 #### [facility],[address] [place] [address] Monocytes (Bld) [#/Vol] 0.40 x10EE3/UL Normal 0.20 - 1.00 [facility] Comment on above: Performed By: #### 2 97472 #### [facility],[address] [place] [address] MONOS % 8.9 % Normal 0.0 - 10.0 [facility] Comment on above: Performed By: #### 2 39848 #### [facility],[address] [place] [address] Morphology Camacho (Bld) [Interp] N/A Normal [facility] Comment on above: Performed By: #### 2 30811 #### [facility],[address] [place] [address] Neutrophils (Bld) [#/Vol] 3.10 x10EE3/UL Normal 1.50 - 7.10 [facility] Comment on above: Performed By: #### 2 09683 #### [facility],[address] [place] [address] Neutrophils/100 WBC (Bld) 68.7 % Normal 46.0 - 76.0 [facility] Comment on above: Performed By: #### 2 51316 #### [facility],[address] [place] [address] Platelet mean volume (Bld) [Entitic vol] 7.4 fL Normal 6.4 - 10.5 [facility] Comment on above: Result Comment: AUTO MATED DIFFERENTIAL Performed By: #### 2 47157 #### [facility],[address] [place] [address] Platelets (Bld) [#/Vol] 265 x10EE3/UL Normal 150 - 450 [facility] Comment on above: Performed By: #### 2 11009 #### [facility],[address] [place] [address] RBC (Bld) [#/Vol] 4.58 x 10EE6/UL Normal 4.50 - 6.00 [facility] Comment on above: Performed By: #### 2 99454 #### [facility],[address] [place] [address] WBC (Bld) [#/Vol] 4.5 x 10EE3/UL Normal 4.5 - 10.8 [facility] Comment on above: Performed By: #### 2 61326 #### [facility],[address] [place] [address] CMP with eGFRon 12-24-2019 Age - Reported 64 years Normal [facility] Comment on above: Performed By: #### 2 60662 #### [facility],[address] [place] [address] Albumin [Mass/Vol] 4.7 g/dL Normal 3.4 - 4.8 [facility] Comment on above: Performed By: #### 2 14802 #### [facility],[address] [place] [address] Albumin/Globulin [Mass ratio] 2.1 {ratio} High 0.9 - 1.6 [facility] Comment on above: Performed By: #### 2 39315 #### [facility],[address] [place] [address] ALK PHOS 52 U/L Normal 38 - 126 [facility] Comment on above: Performed By: #### 2 05980 #### [facility],[address] [place] [address]9999 ALT/SGPT 29 U/L Normal 10 - 40 [facility] Comment on above: Performed By: #### 2 06604 #### [facility],[address] [place] [address]253 Anion gap [Moles/Vol] 10 mmol/L Normal 10 - 20 [facility] Comment on above: Performed By: #### 2 25967 #### [facility],[address] [place] [address] AST/SGOT 27 U/L Normal 13 - 39 [facility] Comment on above: Performed By: #### 2 66100 #### [facility],[address] [place] [address] B/C RATIO 18 ratio Normal 0 - 30 [facility] Comment on above: Performed By: #### 2 79534 #### [facility],[address] [place] [address] Bilirubin [Mass/Vol] 0.8 mg/dL Normal 0.0 - 1.5 [facility] Comment on above: Performed By: #### 2 97396 #### [facility],[address] [place] [address] Calcium [Mass/Vol] 9.4 mg/dL Normal 8.6 - 10.2 [facility] Comment on above: Performed By: #### 2 48346 #### [facility],[address] [place] [address] Chloride [Moles/Vol] 102 mmol/L Normal 98 - 107 [facility] Comment on above: Performed By: #### 2 70665 #### [facility],[address] [place] [address] CO2 [Moles/Vol] 30.9 mmol/L Normal 21.0 - 31.0 [facility] Comment on above: Performed By: #### 2 86722 #### [facility],[address] [place] [address]27 Creatinine [Mass/Vol] 0.9 mg/dL Normal 0.7 - 1.3 [facility] Comment on above: Performed By: #### 2 68548 #### [facility],[address] [place], [place] [address] GFR/1.73 sq M predicted among non-blacks MDRD (S/P/Bld) [Vol rate/Area] mL/min/{1.73_m2} Normal 60 - 999 [facility] Comment on above: Performed By: #### 2 71406 #### [facility],[address] [place], [place] [address] Result Comment: ACCO RDING TO THE NATIONAL KIDNEY DISEASE EDUCATION PROGRAM(NKDE), A NORMAL eGFR IS A VALUE GREATER THAN OR EQUAL TO 60 ML/MIN/1.73 SQ METERS. CHRONIC KIDNEY DISEASE: <60mL/MIN/1.73 SQ METERS KIDNEY FAILURE: <15mL/MIN/1.73 SQ METERS THIS TEST SHOULD ONLY BE USED FOR PATIENTS 18 YEARS OF AGE AND OLDER. GFR/1.73 sq M predicted among non-blacks MDRD (S/P/Bld) [Vol rate/Area] Normal [facility] Comment on above: Result Comment: COMP REHENSIVE METABOLIC PANEL Performed By: #### 2 49547 #### [facility],[address] [place] [address] Globulin (S) [Mass/Vol] 2.2 g/dL Normal 1.5 - 3.8 [facility] Comment on above: Performed By: #### 2 48363 #### [facility],[address] [place] [address] Glucose [Mass/Vol] 93 mg/dL Normal 74 - 106 [facility] Comment on above: Performed By: #### 2 31791 #### [facility],[address] [place] [address] Potassium [Moles/Vol] 4.7 mmol/L Normal 3.5 - 5.1 [facility] Comment on above: Performed By: #### 2 36223 #### [address] [address] Protein [Mass/Vol] 6.9 g/dL Normal 6.4 - 8.3 [facility] Comment on above: Performed By: #### 2 88026 #### [facility],[address] [place] [address] Sodium [Moles/Vol] 138 mmol/L Normal 136 - 145 [facility] Comment on above: Performed By: #### 2 97417 #### [address] [address] Urea nitrogen [Mass/Vol] 16 mg/dL Normal 6 - 20 [facility] Comment on above: Performed By: #### 2 76306 #### [facility],[address] [place] [address] Auto Diffon 03-25-2019 Basophils (Bld) [#/Vol] 0.0 E3/mcL Normal 0.0-0.2 [facility] Comment on above: Order Comment: Order Added by Discern Expert. Performed By: #### 2 125207 #### SUNNI CortesHemchristopher [address] [place] [address] Basophils/100 WBC (Bld) 0.7 % Normal 0.0-2.0 [facility] Comment on above: Order Comment: Order Added by Discern Expert. Performed By: #### 2 102698 #### SUNNI RemHemo [address] [place] [address] Eos Absolute 0.1 E3/mcL Normal 0.0-0.7 [facility] Comment on above: Order Comment: Order Added by Discern Expert. Performed By: #### 2 694532 #### SUNNI RemHemo [address] [place] [address] Eosinophils/100 WBC (Bld) 3.4 % Normal 0.0-11.0 [facility] Comment on above: Order Comment: Order Added by Discern Expert. Performed By: #### 2 715354 #### SUNNI RemHemo [address] [place] [address] Lymphocytes (Bld) [#/Vol] 0.9 E3/mcL Low 1.2-3.4 [facility] Comment on above: Order Comment: Order Added by Discern Expert. Performed By: #### 2 022788 #### SUNNI RemHemo [address] [place] [address] Lymphocytes/100 WBC (Bld) 20.3 % Normal 20.0-55.0 [facility] Comment on above: Order Comment: Order Added by Discern Expert. Performed By: #### 2 866833 #### SUNNI RemHemo [address] [place] [address] Lasalle Absolute 0.4 E3/mcL Normal 0.0-0.7 [facility] Comment on above: Order Comment: Order Added by Discern Expert. Performed By: #### 2 702333 #### SUNNI RemHemo [address] [place] [address] Monocytes/100 WBC (Bld) 9.9 % Normal 0.0-10.0 [facility] Comment on above: Order Comment: Order Added by Discern Expert. Performed By: #### 2 412963 #### SUNNI RemHemo [address] [place] [address] Neutro Absolute 2.8 E3/mcL Normal 1.4-6.5 [facility] Comment on above: Order Comment: Order Added by Discern Expert. Performed By: #### 2 102136 #### SUNNI RemHemo [address] [place] [address] Neutro Auto 65.7 % Normal 37.0-75.0 [facility] Comment on above: Order Comment: Order Added by Discern Expert. Performed By: #### 2 946517 #### SUNNI CortesHemo [facility] [place] [address] CBC w/ Auto Diffon 9 Erythrocyte distribution width (RBC) [Ratio] 13.5 % Normal 11.5-14.5 [facility] Comment on above: Performed By: #### 2 910755 #### SUNNI RemHemo [facility] [place] [address] Hematocrit (Bld) [Volume fraction] 46.0 % Normal 42.0-52.0 [facility] Comment on above: Performed By: #### 2 127232 #### SUNNI CortesHemo [facility] [place] [address] Hemoglobin (Bld) [Mass/Vol] 15.4 g/dL Normal 13.5-18.0 [facility] Comment on above: Performed By: #### 2 319222 #### SUNNI RemHemo [address] [place] [address] MCH (RBC) [Entitic mass] 33.3 pg High 27.0-31.0 [facility] Comment on above: Performed By: #### 2 304327 #### SUNNI RemHemo [facility] [place] [address] MCHC (RBC) [Mass/Vol] 33.5 g/dL Normal 33.0-37.0 [facility] Comment on above: Performed By: #### 2 189179 #### SUNNI RemHemo [facility] [place] [address] MCV (RBC) [Entitic vol] 99.4 fL Normal 78.0-100.0 [facility] Comment on above: Performed By: #### 2 370242 #### SUNNI RemHemo [facility] [place] [address] Platelet mean volume (Bld) [Entitic vol] 8.1 fL Normal 7.4-11.0 [facility] Comment on above: Performed By: #### 2 127698 #### SUNNI CortesHemo [address] [place] [address] Platelets (Bld) [#/Vol] 234 E3/mcL Normal 130-400 [facility] Comment on above: Performed By: #### 2 318864 #### SUNNI Liceao [address] [place] [address] RBC (Bld) [#/Vol] 4.63 E6/mcL Normal 3.90-6.10 [facility] Comment on above: Performed By: #### 2 650414 #### SUNNI CortesHemo [facility] [place] [address] WBC (Bld) [#/Vol] 4.2 E3/mcL Normal 3.6-11.0 [facility] Comment on above: Performed By: #### 2 536298 #### SUNNI Liceao [facility] [place] [address] CMPon 03-25-2019 Albumin [Mass/Vol] 4.1 g/dL Normal 3.4-5.0 [facility] Comment on above: Performed By: #### 2 246189 #### SUNNI CortesHemo [address] [place] [address] Albumin/Globulin [Mass ratio] 1.9 {ratio} Normal 1.1-1.9 [facility] Comment on above: Performed By: #### 2 580432 #### SUNNI CortesHemo [facility] [place] [address] Alk Phos 59 Int._Unit/L Normal 33-136 [facility] Comment on above: Performed By: #### 2 001585 #### SUNNI CortesHemo [address] [place] [address] ALT [Catalytic activity/Vol] 21 Int._Unit/L Normal 10-52 [facility] Comment on above: Performed By: #### 2 103243 #### SUNNI CortesHemo [address] [place] [address] Anion gap [Moles/Vol] 9 mmol/L Low 10-20 [facility] Comment on above: Performed By: #### 2 871936 #### SUNNI CortesHemo [address] [place] [address] AST [Catalytic activity/Vol] 24 Int._Unit/L Normal 9-39 [facility] Comment on above: Performed By: #### 2 566326 #### SUNNI CortesHemo [address] [place] [address] Bili Total 0.69 mg/dL Normal 0.00-1.20 [facility] Comment on above: Performed By: #### 2 886652 #### SUNNI RemHemo [address] [place] [address] Calcium [Mass/Vol] 9.2 mg/dL Normal 8.6-10.3 [facility] Comment on above: Performed By: #### 2 351192 #### SUNNI RemHemo [address] [place] [address] Chloride [Moles/Vol] 105 mmol/L Normal 98-107 [facility] Comment on above: Performed By: #### 2 562596 #### SUNNI RemHemo [address] [place] [address] CO2 [Moles/Vol] 31.0 mmol/L Normal 21.0-32.0 [facility] Comment on above: Performed By: #### 2 774362 #### SUNNI RemHemo [address] [place] [address] Creatinine [Mass/Vol] 0.9 mg/dL Normal 0.5-1.3 [facility] Comment on above: Performed By: #### 2 648575 #### SUNNI RemHemo [address] [place] [address] Globulin (S) [Mass/Vol] 2.0 g/dL Normal 2.0-4.0 [facility] Comment on above: Performed By: #### 2 977437 #### SUNNI RemHemo [address] [place] [address] Glucose [Mass/Vol] 98 mg/dL Normal 70-99 [facility] Comment on above: Performed By: #### 2 520888 #### SUNNI RemHemo [address] [place] [address] Potassium [Moles/Vol] 4.4 mmol/L Normal 3.5-5.3 [facility] Comment on above: Performed By: #### 2 537888 #### SUNNI CortesHemo [address] [place] [address] Protein [Mass/Vol] 6.3 g/dL Low 6.4-8.2 [facility] Comment on above: Performed By: #### 2 089115 #### SUNNI Liceao [address] [place] [address] Sodium [Moles/Vol] 141 mmol/L Normal 136-145 [facility] Comment on above: Performed By: #### 2 466333 #### SUNNI CortesHemo [facility] [place] [address] Urea nitrogen [Mass/Vol] 19 mg/dL Normal 6-23 [facility] Comment on above: Performed By: #### 2 760365 #### SUNNI Liceao [facility] [place] [address] Urea nitrogen/Creatinine [Mass ratio] 21.1 ratio Normal 5.4-30.0 [facility] Comment on above: Performed By: #### 2 960016 #### SUNNI CortesHemo [address] [place] [address] eGFRon 03-25-2019 GFR/1.73 sq M predicted among non-blacks MDRD (S/P/Bld) [Vol rate/Area] mL/min/{1.73_m2} Normal [facility] Comment on above: Order Comment: Order Added by Discern Expert. Performed By: #### 2 717429 #### SUNNI CortesHemo [address] [place] [address] Auto Diffon 12-31-2018 Basophils (Bld) [#/Vol] 0.0 E3/mcL Normal 0.0-0.2 [facility] Comment on above: Order Comment: Order Added by Discern Expert. Performed By: #### 2 606750 #### SUNNI Liceao [address] [place] [address] Basophils/100 WBC (Bld) 0.6 % Normal 0.0-2.0 [facility] Comment on above: Order Comment: Order Added by Discern Expert. Performed By: #### 2 576829 #### SUNNI CortesHemo [address] [place] [address] Eos Absolute 0.1 E3/mcL Normal 0.0-0.7 [facility] Comment on above: Order Comment: Order Added by Discern Expert. Performed By: #### 2 282429 #### SUNNI RemHemo [address] [place] [address] Eosinophils/100 WBC (Bld) 2.5 % Normal 0.0-11.0 [facility] Comment on above: Order Comment: Order Added by Discern Expert. Performed By: #### 2 016719 #### SUNNI RemHemo [address] [place] [address] Lymphocytes (Bld) [#/Vol] 1.0 E3/mcL Low 1.2-3.4 [facility] Comment on above: Order Comment: Order Added by Discern Expert. Performed By: #### 2 960261 #### SUNNI RemHemo [address] [place] [address] Lymphocytes/100 WBC (Bld) 22.5 % Normal 20.0-55.0 [facility] Comment on above: Order Comment: Order Added by Discern Expert. Performed By: #### 2 299599 #### SUNNI RemHemo [address] [place] [address] Lasalle Absolute 0.4 E3/mcL Normal 0.0-0.7 [facility] Comment on above: Order Comment: Order Added by Discern Expert. Performed By: #### 2 408029 #### SUNNI RemHemo [address] [place] [address] Monocytes/100 WBC (Bld) 8.1 % Normal 0.0-10.0 [facility] Comment on above: Order Comment: Order Added by Discern Expert. Performed By: #### 2 258034 #### SUNNI RemHemo [address] [place] [address] Neutro Absolute 2.9 E3/mcL Normal 1.4-6.5 [facility] Comment on above: Order Comment: Order Added by Discern Expert. Performed By: #### 2 945662 #### SUNNI RemHemo [address] [place] [address] Neutro Auto 66.3 % Normal 37.0-75.0 [facility] Comment on above: Order Comment: Order Added by Discern Expert. Performed By: #### 2 799823 #### SUNNI CortesHemo [facility] [place] [address] CBC w/ Auto Diffon Erythrocyte distribution width (RBC) [Ratio] 14.0 % Normal 11.5-14.5 [facility] Comment on above: Performed By: #### 2 691081 #### SUNNI Liceao [facility] [place] [id number] Hematocrit (Bld) [Volume fraction] 45.0 % Normal 42.0-52.0 [facility] Comment on above: Performed By: #### 2 477465 #### [place] [id number] Hemoglobin (Bld) [Mass/Vol] 15.6 g/dL Normal 13.5-18.0 [facility] Comment on above: Performed By: #### 2 795230 #### SUNNI CortesHemo [address] [place], [place] [address] MCH (RBC) [Entitic mass] 34.8 pg High 27.0-31.0 [facility] Comment on above: Performed By: #### 2 214387 #### [place] [id number] MCHC (RBC) [Mass/Vol] 34.7 g/dL Normal 33.0-37.0 [facility] Comment on above: Performed By: #### 2 319710 #### SUNNI CortesHemo [address] [place] [address] MCV (RBC) [Entitic vol] 100.4 fL High 78.0-100.0 [facility] Comment on above: Performed By: #### 2 209801 #### SUNNI CortesHemo [facility] [place] [address] Platelet mean volume (Bld) [Entitic vol] 7.5 fL Normal 7.4-11.0 [facility] Comment on above: Performed By: #### 2 290477 #### SUNNI CortesHemo [address] [place] [address] Platelets (Bld) [#/Vol] 250 E3/mcL Normal 130-400 [facility] Comment on above: Performed By: #### 2 651579 #### SUNNI Liceao [facility] [place] [address] RBC (Bld) [#/Vol] 4.49 E6/mcL Normal 3.90-6.10 [facility] Comment on above: Performed By: #### 2 649540 #### SUNNI Liceao [facility] [place] [address] WBC (Bld) [#/Vol] 4.4 E3/mcL Normal 3.6-11.0 [facility] Comment on above: Performed By: #### 2 506239 #### SUNNI Liceao [facility] [place] [address] CMPon 12-31-2018 Albumin [Mass/Vol] 4.2 g/dL Normal 3.4-5.0 [facility] Comment on above: Performed By: #### 2 850031 #### SUNNI CortesHemo [address] [place] [address] Albumin/Globulin [Mass ratio] 1.9 {ratio} Normal 1.1-1.9 [facility] Comment on above: Performed By: #### 2 929420 #### SUNNI CortesHemo [address] [place] [address] Alk Phos 64 Int._Unit/L Normal 33-136 [facility] Comment on above: Performed By: #### 2 815860 #### SUNNI CortesHemo [facility] [place] [address] ALT [Catalytic activity/Vol] 18 Int._Unit/L Normal 10-52 [facility] Comment on above: Performed By: #### 2 912283 #### SUNNI CortesHemo [address] [place] [address] Anion gap [Moles/Vol] 7 mmol/L Low 10-20 [facility] Comment on above: Performed By: #### 2 712499 #### SUNNI SophiaHemo [address] [place] [address] AST [Catalytic activity/Vol] 20 Int._Unit/L Normal 9-39 [facility] Comment on above: Performed By: #### 2 252652 #### SUNNI RemHemo [address] [place] [address] Bili Total 0.58 mg/dL Normal 0.00-1.20 [facility] Comment on above: Performed By: #### 2 171050 #### SUNNI RemHemo [address] [place] [address] Calcium [Mass/Vol] 9.1 mg/dL Normal 8.6-10.3 [facility] Comment on above: Performed By: #### 2 218243 #### SUNNI RemHemo [address] [place] [address] Chloride [Moles/Vol] 105 mmol/L Normal 98-107 [facility] Comment on above: Performed By: #### 2 357039 #### SUNNI RemHemo [address] [place] [address] CO2 [Moles/Vol] 32.0 mmol/L Normal 21.0-32.0 [facility] Comment on above: Performed By: #### 2 497780 #### SUNNI RemHemo [address] [place] [address] Creatinine [Mass/Vol] 0.8 mg/dL Normal 0.5-1.3 [facility] Comment on above: Performed By: #### 2 144098 #### SUNNI RemHemo [address] [place] [address] Globulin (S) [Mass/Vol] 2.0 g/dL Normal 2.0-4.0 [facility] Comment on above: Performed By: #### 2 987724 #### SUNNI RemHemo [address] [place] [address] Glucose [Mass/Vol] 114 mg/dL High 70-99 [facility] Comment on above: Performed By: #### 2 956410 #### SUNNI RemHemo [address] [place] [address] Potassium [Moles/Vol] 4.1 mmol/L Normal 3.5-5.3 [facility] Comment on above: Performed By: #### 2 486290 #### SUNNI RemHemo [address] [place] [address] Protein [Mass/Vol] 6.4 g/dL Normal 6.4-8.2 [facility] Comment on above: Performed By: #### 2 457178 #### SUNNI Liceao [address] [place], [place] [address] Sodium [Moles/Vol] 140 mmol/L Normal 136-145 [facility] Comment on above: Performed By: #### 2 066144 #### SUNNI Licea[address] [address] Urea nitrogen [Mass/Vol] 15 mg/dL Normal 6-23 [facility] Comment on above: Performed By: #### 2 [id number] #### SUNNI [address] [address] Urea nitrogen/Creatinine [Mass ratio] 18.8 ratio Normal 5.4-30.0 [facility] Comment on above: Performed By: #### 2 [id number] #### [place] [id number] eGFRon 12-31-2018 GFR/1.73 sq M predicted among non-blacks MDRD (S/P/Bld) [Vol rate/Area] mL/min/{1.73_m2} Normal [facility] Comment on above: Order Comment: Order Added by Discern Expert. Performed By: #### 2 [id number] #### SUNNI Liceao [address] [place] [address] Auto Diffon 10-03-2018 Basophils (Bld) [#/Vol] 0.0 E3/mcL Normal 0.0-0.2 [facility] Comment on above: Order Comment: Order Added by Discern Expert. Performed By: #### 2 517134 #### SUNNI CortesHemo [facility] [place] [address] Basophils/100 WBC (Bld) 0.7 % Normal 0.0-2.0 [facility] Comment on above: Order Comment: Order Added by Discern Expert. Performed By: #### 2 259624 #### SUNNI CortesHemo [facility] [place] [address] Eos Absolute 0.0 E3/mcL Normal 0.0-0.7 [facility] Comment on above: Order Comment: Order Added by Discern Expert. Performed By: #### 2 147737 #### SUNNI RemHemo [address] [place] [address] Eosinophils/100 WBC (Bld) 0.8 % Normal 0.0-11.0 [facility] Comment on above: Order Comment: Order Added by Discern Expert. Performed By: #### 2 657645 #### SUNNI RemHemo [address] [place] [address] Lymphocytes (Bld) [#/Vol] 1.0 E3/mcL Low 1.2-3.4 [facility] Comment on above: Order Comment: Order Added by Discern Expert. Performed By: #### 2 530790 #### SUNNI RemHemo [address] [place] [address] Lymphocytes/100 WBC (Bld) 19.3 % Low 20.0-55.0 [facility] Comment on above: Order Comment: Order Added by Discern Expert. Performed By: #### 2 441429 #### SUNNI RemHemo [address] [place] [address] Lasalle Absolute 0.4 E3/mcL Normal 0.0-0.7 [facility] Comment on above: Order Comment: Order Added by Discern Expert. Performed By: #### 2 434586 #### SUNNI RemHemo [address] [place] [address] Monocytes/100 WBC (Bld) 7.0 % Normal 0.0-10.0 [facility] Comment on above: Order Comment: Order Added by Discern Expert. Performed By: #### 2 058134 #### SUNNI RemHemo [address] [place] [address] Neutro Absolute 3.7 E3/mcL Normal 1.4-6.5 [facility] Comment on above: Order Comment: Order Added by Discern Expert. Performed By: #### 2 408867 #### SUNNI RemHemo [address] [place] [address] Neutro Auto 72.2 % Normal 37.0-75.0 [facility] Comment on above: Order Comment: Order Added by Discern Expert. Performed By: #### 2 257832 #### SUNNI RemHemo [address] [place] [address] CBC w/ Auto Diffon Erythrocyte distribution width (RBC) [Ratio] 14.3 % Normal 11.5-14.5 [facility] Comment on above: Performed By: #### 2 937275 #### SUNNI CortesHemo [address] [place] [address] Hematocrit (Bld) [Volume fraction] 47.0 % Normal 42.0-52.0 [facility] Comment on above: Performed By: #### 2 507495 #### SUNNI RemHemo [address] [place] [address] Hemoglobin (Bld) [Mass/Vol] 15.9 g/dL Normal 13.5-18.0 [facility] Comment on above: Performed By: #### 2 076274 #### SUNNI RemHemo [address] [place] [address] MCH (RBC) [Entitic mass] 33.7 pg High 27.0-31.0 [facility] Comment on above: Performed By: #### 2 141634 #### SUNNI RemHemo [address] [place] [address] MCHC (RBC) [Mass/Vol] 33.9 g/dL Normal 33.0-37.0 [facility] Comment on above: Performed By: #### 2 772292 #### SUNNI RemHemo [address] [place] [address] MCV (RBC) [Entitic vol] 99.5 fL Normal 78.0-100.0 [facility] Comment on above: Performed By: #### 2 205881 #### SUNNI RemHemo [address] [place] [address] Platelet mean volume (Bld) [Entitic vol] 7.7 fL Normal 7.4-11.0 [facility] Comment on above: Performed By: #### 2 483642 #### SUNNI RemHemo [address] [place] [address] Platelets (Bld) [#/Vol] 274 E3/mcL Normal 130-400 [facility] Comment on above: Performed By: #### 2 800984 #### SUNNI CortesHemo [address] [place] [address] RBC (Bld) [#/Vol] 4.73 E6/mcL Normal 3.90-6.10 [facility] Comment on above: Performed By: #### 2 659745 #### SUNNI CortesHemo [address] [place] [address] WBC (Bld) [#/Vol] 5.2 E3/mcL Normal 3.6-11.0 [facility] Comment on above: Performed By: #### 2 812150 #### SUNNI CortesHemo [address] [place] [address] CMPon 10-03-2018 Albumin [Mass/Vol] 4.7 g/dL Normal 3.4-5.0 [facility] Comment on above: Performed By: #### 2 777564 #### SUNNI CortesHemo [address] [place] [address] Albumin/Globulin [Mass ratio] 2.0 {ratio} High 1.1-1.9 [facility] Comment on above: Performed By: #### 2 604239 #### SUNNI CortesHemo [address] [place] [address] Alk Phos 64 Int._Unit/L Normal 33-136 [facility] Comment on above: Performed By: #### 2 200485 #### SUNNI CortesHemo [address] [place] [address] ALT [Catalytic activity/Vol] 18 Int._Unit/L Normal 10-52 [facility] Comment on above: Performed By: #### 2 492311 #### SUNNI RemHemo [address] [place] [address] Anion gap [Moles/Vol] 9 mmol/L Low 10-20 [facility] Comment on above: Performed By: #### 2 514268 #### SUNNI RemHemo [address] [place] [address] AST [Catalytic activity/Vol] 19 Int._Unit/L Normal 9-39 [facility] Comment on above: Performed By: #### 2 237832 #### SUNNI RemHemo [address] [place] [address] Bili Total 0.68 mg/dL Normal 0.00-1.20 [facility] Comment on above: Performed By: #### 2 266486 #### SUNNI CortesHemo [address] [place] [address] Calcium [Mass/Vol] 9.9 mg/dL Normal 8.6-10.3 [facility] Comment on above: Performed By: #### 2 562423 #### SUNNI CortesHemo [address] [place] [address] Chloride [Moles/Vol] 105 mmol/L Normal 98-107 [facility] Comment on above: Performed By: #### 2 616932 #### SUNNI CortesHemo [address] [place] [address] CO2 [Moles/Vol] 32.0 mmol/L Normal 21.0-32.0 [facility] Comment on above: Performed By: #### 2 281095 #### SUNNI CortesHemo [address] [place] [address] Creatinine [Mass/Vol] 0.9 mg/dL Normal 0.5-1.3 [facility] Comment on above: Performed By: #### 2 037795 #### SUNNI CortesHemo [address] [place] [address] Globulin (S) [Mass/Vol] 2.0 g/dL Normal 2.0-4.0 [facility] Comment on above: Performed By: #### 2 632235 #### SUNNI CortesHemo [address] [place] [address] Glucose [Mass/Vol] 72 mg/dL Normal 70-99 [facility] Comment on above: Performed By: #### 2 332508 #### SUNNI RemHemo [address] [place] [address] Potassium [Moles/Vol] 4.5 mmol/L Normal 3.5-5.3 [facility] Comment on above: Performed By: #### 2 122617 #### SUNNI CortesHemo [address] [place] [address] Protein [Mass/Vol] 7.1 g/dL Normal 6.4-8.2 [facility] Comment on above: Performed By: #### 2 933791 #### SUNNI Liceao [facility]5 [place] [address] Sodium [Moles/Vol] 141 mmol/L Normal 136-145 [facility] Comment on above: Performed By: #### 2 597959 #### SUNNI Liceao [address] [place] [address] Urea nitrogen [Mass/Vol] 16 mg/dL Normal 6-23 [facility] Comment on above: Performed By: #### 2 213711 #### SUNNI Liceao [address] [place] [address] Urea nitrogen/Creatinine [Mass ratio] 17.8 ratio Normal 5.4-30.0 [facility] Comment on above: Performed By: #### 2 713163 #### SUNNI Cortes[address] [address] eGFRon 10-03-2018 GFR/1.73 sq M predicted among non-blacks MDRD (S/P/Bld) [Vol rate/Area] mL/min/{1.73_m2} Normal [facility] Comment on above: Order Comment: Order Added by Discern Expert. Performed By: #### 2 066629 #### SUNNI Liceao [address] [place] [address] Auto Diffon 07-04-2018 Basophils (Bld) [#/Vol] 0.0 E3/mcL Normal 0.0-0.2 [facility] Comment on above: Order Comment: Order Added by Discern Expert. Performed By: #### 2 429313 #### SUNNI CortesHemo [facility]5 [place] [address] Basophils/100 WBC (Bld) 0.6 % Normal 0.0-2.0 [facility] Comment on above: Order Comment: Order Added by Discern Expert. Performed By: #### 2 624075 #### SUNNI Liceao [address] [place] [address] Eos Absolute 0.1 E3/mcL Normal 0.0-0.7 [facility] Comment on above: Order Comment: Order Added by Discern Expert. Performed By: #### 2 069522 #### SUNNI RemHemo [address] [place] [address] Eosinophils/100 WBC (Bld) 2.1 % Normal 0.0-11.0 [facility] Comment on above: Order Comment: Order Added by Discern Expert. Performed By: #### 2 255962 #### SUNNI CortesHemo [address] [place] [address] Lymphocytes (Bld) [#/Vol] 1.0 E3/mcL Low 1.2-3.4 [facility] Comment on above: Order Comment: Order Added by Discern Expert. Performed By: #### 2 294950 #### SUNNI RemHemo [address] [place] [address] Lymphocytes/100 WBC (Bld) 21.6 % Normal 20.0-55.0 [facility] Comment on above: Order Comment: Order Added by Discern Expert. Performed By: #### 2 046835 #### SUNNI RemHemo [address] [place] [address] Lasalle Absolute 0.4 E3/mcL Normal 0.0-0.7 [facility] Comment on above: Order Comment: Order Added by Discern Expert. Performed By: #### 2 447922 #### SUNNI CortesHemo [address] [place] [address] Monocytes/100 WBC (Bld) 8.3 % Normal 0.0-10.0 [facility] Comment on above: Order Comment: Order Added by Discern Expert. Performed By: #### 2 067356 #### SUNNI RemHemo [address] [place] [address] Neutro Absolute 3.0 E3/mcL Normal 1.4-6.5 [facility] Comment on above: Order Comment: Order Added by Discern Expert. Performed By: #### 2 577852 #### SUNNI RemHemo [address] [place] [address] Neutro Auto 67.4 % Normal 37.0-75.0 [facility] Comment on above: Order Comment: Order Added by Discern Expert. Performed By: #### 2 263184 #### SUNNI RemHemo [address] [place] [address] CBC w/ Auto Diffon 8 Erythrocyte distribution width (RBC) [Ratio] 13.9 % Normal 11.5-14.5 [facility] Comment on above: Performed By: #### 2 956882 #### SUNNI CortesHemo [facility] [place] [address] Hematocrit (Bld) [Volume fraction] 45.5 % Normal 42.0-52.0 [facility] Comment on above: Performed By: #### 2 105721 #### SUNNI CortesHemo [facility] [place] [address] Hemoglobin (Bld) [Mass/Vol] 15.6 g/dL Normal 13.5-18.0 [facility] Comment on above: Performed By: #### 2 979414 #### SUNNI CortesHemo [address] [place] [address] MCH (RBC) [Entitic mass] 34.4 pg High 27.0-31.0 [facility] Comment on above: Performed By: #### 2 078443 #### SUNNI CortesHemo [address] [place] [address] MCHC (RBC) [Mass/Vol] 34.4 g/dL Normal 33.0-37.0 [facility] Comment on above: Performed By: #### 2 390961 #### SUNNI CortesHemo [address] [place] [address] MCV (RBC) [Entitic vol] 100.1 fL High 78.0-100.0 [facility] Comment on above: Performed By: #### 2 471791 #### SUNNI CortesHemo [facility] [place] [address] Platelet mean volume (Bld) [Entitic vol] 7.6 fL Normal 7.4-11.0 [facility] Comment on above: Performed By: #### 2 606202 #### SUNNI CortesHemo [facility] [place] [address] Platelets (Bld) [#/Vol] 259 E3/mcL Normal 130-400 [facility] Comment on above: Performed By: #### 2 757494 #### SUNNI CortesHemo [address] [place] [address] RBC (Bld) [#/Vol] 4.54 E6/mcL Normal 3.90-6.10 [facility] Comment on above: Performed By: #### 2 995259 #### SUNNI CortesHemo [address] [place] [address] WBC (Bld) [#/Vol] 4.5 E3/mcL Normal 3.6-11.0 [facility] Comment on above: Performed By: #### 2 415222 #### SUNNI RemHemo [address] [place] [address] CMPon 07-04-2018 Anion gap [Moles/Vol] 10 mmol/L Normal 10-20 [facility] Comment on above: Performed By: #### 2 726425 #### SUNNI [employer] [address] [place] [address] Albumin [Mass/Vol] 4.3 g/dL Normal 3.4-5.0 [facility] Comment on above: Performed By: #### 2 696685 #### SUNNI [employer] [address] [place] [address] Albumin/Globulin [Mass ratio] 2.0 {ratio} High 1.1-1.9 [facility] Comment on above: Performed By: #### 2 759829 #### SUNNI [employer] [address] [place] [address] Alk Phos 59 Int._Unit/L Normal 33-136 [facility] Comment on above: Performed By: #### 2 958718 #### SUNNI [employer] [address] [place] [address] ALT [Catalytic activity/Vol] 23 Int._Unit/L Normal 10-52 [facility] Comment on above: Performed By: #### 2 073123 #### USNNI [employer] [address] [place] [address] AST [Catalytic activity/Vol] 27 Int._Unit/L Normal 9-39 [facility] Comment on above: Performed By: #### 2 064279 #### SUNNI [employer] [address] [place] [address] Bili Total 0.9 mg/dL Normal 0.0-1.2 [facility] Comment on above: Performed By: #### 2 238171 #### SUNNI [employer] [address] [place] [address] Calcium [Mass/Vol] 9.4 mg/dL Normal 8.6-10.3 [facility] Comment on above: Performed By: #### 2 991384 #### SUNNI [employer] [address] [place] [address] Chloride [Moles/Vol] 103 mmol/L Normal 98-107 [facility] Comment on above: Performed By: #### 2 180072 #### SUNNI [employer]ink [address] [place] [address] CO2 [Moles/Vol] 31.0 mmol/L Normal 21.0-32.0 [facility] Comment on above: Performed By: #### 2 761169 #### SUNNI [employer] [address] [place] [address] Creatinine [Mass/Vol] 0.9 mg/dL Normal 0.6-1.3 [facility] Comment on above: Performed By: #### 2 567041 #### SUNNI [employer] [address] [place] [address] Globulin (S) [Mass/Vol] 2.0 g/dL Normal 2.0-4.0 [facility] Comment on above: Performed By: #### 2 403744 #### SUNNI [employer] [address] [place] [address] Glucose [Mass/Vol] 112 mg/dL High 70-99 [facility] Comment on above: Performed By: #### 2 136561 #### SUNNI [employer] [address] [place] [address] Potassium [Moles/Vol] 4.1 mmol/L Normal 3.5-5.3 [facility] Comment on above: Performed By: #### 2 002075 #### SUNNI [employer] [address] [place] [address] Protein [Mass/Vol] 6.5 g/dL Normal 6.4-8.2 [facility] Comment on above: Performed By: #### 2 383408 #### SUNNI [employer] [address] [place] [address] Sodium [Moles/Vol] 140 mmol/L Normal 136-145 [facility] Comment on above: Performed By: #### 2 273668 #### SUNNI [employer]ink [address] [place], [place] [address] Urea nitrogen [Mass/Vol] 17 mg/dL Normal 6-23 [facility] Comment on above: Performed By: #### 2 463191 #### SUNNI [employer]ink [address] [place], [place] [address] Urea nitrogen/Creatinine [Mass ratio] 18.9 ratio Normal 5.4-30.0 [facility] Comment on above: Performed By: #### 2 237804 #### SUNNI [employer]atalink [address] [place], [place] [address] eGFRon 07-04-2018 GFR/1.73 sq M predicted among non-blacks MDRD (S/P/Bld) [Vol rate/Area] mL/min/{1.73_m2} Normal [facility] Comment on above: Order Comment: Order added by Discern Expert. Performed By: #### 1 [id number] #### SUNNI [employer] [address] [place] [address] Auto Diffon 04-05-2018 Basophils (Bld) [#/Vol] 0.1 E3/mcL Normal 0.0-0.2 [facility] Comment on above: Order Comment: Order Added by Discern Expert. Performed By: #### 2 789460 #### SUNNI RemHemo [address] [place] [address] Basophils/100 WBC (Bld) 1.0 % Normal 0.0-2.0 [facility] Comment on above: Order Comment: Order Added by Discern Expert. Performed By: #### 2 623783 #### SUNNI RemHemo [address] [place] [address] Eos Absolute 0.1 E3/mcL Normal 0.0-0.7 [facility] Comment on above: Order Comment: Order Added by Discern Expert. Performed By: #### 2 577262 #### SUNNI RemHemo [address] [place] [address] Eosinophils/100 WBC (Bld) 2.6 % Normal 0.0-11.0 [facility] Comment on above: Order Comment: Order Added by Discern Expert. Performed By: #### 2 577100 #### SUNNI CortesHemo [address] [place] [address] Lymphocytes (Bld) [#/Vol] 1.1 E3/mcL Low 1.2-3.4 [facility] Comment on above: Order Comment: Order Added by Discern Expert. Performed By: #### 2 973319 #### SUNNI CortesHemo [address] [place] [address] Lymphocytes/100 WBC (Bld) 20.8 % Normal 20.0-55.0 [facility] Comment on above: Order Comment: Order Added by Discern Expert. Performed By: #### 2 636182 #### SUNNI CortesHemo [address] [place] [address] Lasalle Absolute 0.5 E3/mcL Normal 0.0-0.7 [facility] Comment on above: Order Comment: Order Added by Discern Expert. Performed By: #### 2 070997 #### SUNNI CortesHemo [address] [place] [address] Monocytes/100 WBC (Bld) 8.5 % Normal 0.0-10.0 [facility] Comment on above: Order Comment: Order Added by Discern Expert. Performed By: #### 2 019712 #### SUNNI CortesHemo [address] [place] [address] Neutro Absolute 3.7 E3/mcL Normal 1.4-6.5 [facility] Comment on above: Order Comment: Order Added by Discern Expert. Performed By: #### 2 162704 #### SUNNI RemHemo [address] [place] [address] Neutro Auto 67.1 % Normal 37.0-75.0 [facility] Comment on above: Order Comment: Order Added by Discern Expert. Performed By: #### 2 491922 #### SUNNI RemHemo [address] [place] [address] CBC w/ Auto Diffon 8 Erythrocyte distribution width (RBC) [Ratio] 13.4 % Normal 11.5-14.5 [facility] Comment on above: Performed By: #### 2 772541 #### SUNNI RemHemo [address] [place] [address] Hematocrit (Bld) [Volume fraction] 46.7 % Normal 42.0-52.0 [facility] Comment on above: Performed By: #### 2 605209 #### SUNNI RemHemo [address] [place] [address] Hemoglobin (Bld) [Mass/Vol] 16.1 g/dL Normal 13.5-18.0 [facility] Comment on above: Performed By: #### 2 641519 #### SUNNI RemHemo [address] [place] [address] MCH (RBC) [Entitic mass] 33.5 pg High 27.0-31.0 [facility] Comment on above: Performed By: #### 2 098037 #### SUNNI RemHemo [address] [place] [address] MCHC (RBC) [Mass/Vol] 34.4 g/dL Normal 33.0-37.0 [facility] Comment on above: Performed By: #### 2 882582 #### SUNNI RemHemo [address] [place] [address] MCV (RBC) [Entitic vol] 97.4 fL Normal 78.0-100.0 [facility] Comment on above: Performed By: #### 2 318797 #### SUNNI RemHemo [address] [place] [address] Platelet mean volume (Bld) [Entitic vol] 8.0 fL Normal 7.4-11.0 [facility] Comment on above: Performed By: #### 2 333413 #### SUNNI RemHemo [address] [place] [address] Platelets (Bld) [#/Vol] 277 E3/mcL Normal 130-400 [facility] Comment on above: Performed By: #### 2 204313 #### SUNNI RemHemo [address] [place] [address] RBC (Bld) [#/Vol] 4.80 E6/mcL Normal 3.90-6.10 [facility] Comment on above: Performed By: #### 2 127260 #### SUNNI RemHemo [address] [place] [address] WBC (Bld) [#/Vol] 5.5 E3/mcL Normal 3.6-11.0 [facility] Comment on above: Performed By: #### 2 179121 #### SUNNI CortesHemo [address] [place] [address] CMPon 04-05-2018 Albumin [Mass/Vol] 4.5 g/dL Normal 3.2-5.0 [facility] Comment on above: Performed By: #### 2 485869 #### SUNNI [employer] [address] [place] [address] Albumin/Globulin [Mass ratio] 1.6 {ratio} Normal 1.1-1.9 [facility] Comment on above: Performed By: #### 2 426136 #### SUNNI [employer] [address] [place] [address] Alk Phos 54 Int._Unit/L Normal 42-121 [facility] Comment on above: Performed By: #### 2 931758 #### SUNNI [employer] [address] [place] [address] ALT [Catalytic activity/Vol] 28 Int._Unit/L Normal 10-40 [facility] Comment on above: Performed By: #### 2 496407 #### SUNNI [employer] [address] [place] [address] AST [Catalytic activity/Vol] 30 Int._Unit/L Normal 10-42 [facility] Comment on above: Performed By: #### 2 721233 #### SUNNI [employer] [address] [place] [address] Bili Total 1.2 mg/dL High 0.2-1.0 [facility] Comment on above: Performed By: #### 2 340260 #### SUNNI [employer] [address] [place] [address] Calcium [Mass/Vol] 9.3 mg/dL Normal 8.4-10.2 [facility] Comment on above: Performed By: #### 2 938184 #### SUNNI [employer] [address] [place] [address] Chloride [Moles/Vol] 100 mmol/L Normal 98-107 [facility] Comment on above: Performed By: #### 2 034872 #### SUNNI [employer] [address] [place] [address] CO2 [Moles/Vol] 27.0 mmol/L Normal 24.0-30.0 [facility] Comment on above: Performed By: #### 2 382559 #### SUNNI [employer] [address] [place] [address] Creatinine [Mass/Vol] 0.8 mg/dL Normal 0.6-1.3 [facility] Comment on above: Performed By: #### 2 781848 #### SUNNI [employer] [address] [place] [address] Globulin (S) [Mass/Vol] 2.8 g/dL Normal 2.0-4.0 [facility] Comment on above: Performed By: #### 2 157598 #### SUN[employer] [address] [place] [address] Glucose [Mass/Vol] 103 mg/dL High 70-99 [facility] Comment on above: Performed By: #### 2 563254 #### SUNNI [employer] [address] [place] [address] Potassium [Moles/Vol] 4.3 mmol/L Normal 3.5-5.1 [facility] Comment on above: Performed By: #### 2 767812 #### SUN[employer] [address] [place] [address] Protein [Mass/Vol] 7.3 g/dL Normal 6.4-8.3 [facility] Comment on above: Performed By: #### 2 557929 #### SUN[employer] [address] [place] [address] Sodium [Moles/Vol] 136 mmol/L Normal 136-145 [facility] Comment on above: Performed By: #### 2 273201 #### [employer] [address] [place] [address] Urea nitrogen [Mass/Vol] 20 mg/dL High 7-18 [facility] Comment on above: Performed By: #### 2 968839 #### [employer] [address] [place] [address] Urea nitrogen/Creatinine [Mass ratio] 25.0 ratio Normal 5.4-30.0 [facility] Comment on above: Performed By: #### 2 736923 #### SUNNI [employer] [address] [place] [address] eGFRon 04-05-2018 GFR/1.73 sq M predicted among non-blacks MDRD (S/P/Bld) [Vol rate/Area] mL/min/{1.73_m2} Normal [facility] Comment on above: Order Comment: Order added by Discern Expert. Performed By: #### 1 [id number] #### SUNNI [employer] [address] [place] [address] Vital Signs Date Time Vital Sign Value Performing Clinician Brigido dwyer 02-09-2024 09:19-0400 Body temperature 97.39 [degF] Thuan beach MD Work Phone: [facility] 02-09-2024 09:19-0400 Diastolic blood pressure 82 mm[Hg] Thuan Elliott MD Work Phone: [facility] 02-09-2024 09:19-0400 Heart rate 85 /min Thuan beach MD Work Phone: [facility] 02-09-2024 09:19-0400 Respiratory rate 16 /min Thuan beach MD Work Phone: [facility] 02-09-2024 09:19-0400 SaO2% (BldA) [Mass fraction] 99 % Thuan Elliott MD Work Phone: [facility] 02-09-2024 09:19-0400 Systolic blood pressure 125 mm[Hg] Thuan bruce MD Work Phone: [facility] 01-29-2024 21:54-0400 Body height 170.2 cm Thuan beach MD Work Phone: [facility] 01-29-2024 21:54-0400 Body mass index (BMI) [Ratio] 21.61 kg/m2 Thuan Elliott MD Work Phone: [facility] 01-29-2024 21:54-0400 Body weight 62.6 kg Thuan beach MD Work Phone: [facility] Encounters Encounter Date Encounter Type Care Provider Facility Start: 05-20-2024 End: 05-20-2024 ambulatory BEN Bajwa [facility] [place] Start: 02-19-2024 End: 02-19-2024 ambulatory [facility]aj[facility] [facility] [place] Start: 01-29-2024 End: 02-09-2024 Evaluation and management of inpatient Jessica Corrigan DO Work Phone: [facility] Start: 01-05-2024 End: 01-05-2024 ambulatory BEN Bajwa [facility] [place] Start: 11-27-2023 End: 11-27-2023 ambulatory BEN Bajwa [facility] [place] Start: 09-08-2023 End: 09-08-2023 ambulatory BEN Bajwa [facility] [place] Start: 06-12-2023 End: 06-12-2023 ambulatory BEN Bajwa [facility] [place] Start: 12-08-2022 Telephone encounter Debbie abraham PA-C Work Phone: General Surgery Comment on above: Medical Records Start: 05-04-2022 Patient encounter procedure Ben Nath Work Phone: [facility] [place] Work Phone: Start: 11-29-2021 Patient encounter procedure Ben Nath Work Phone: [facility] [place] Work Phone: Start: 11-26-2021 Patient encounter procedure Ben Nath Work Phone: [facility] [place] Work Phone: Start: 11-22-2021 Patient encounter procedure Ben Nath Work Phone: [facility] [place] Work Phone: Start: 11-19-2021 Patient encounter procedure Ben Nath Work Phone: [facility] [place] Work Phone: Start: 11-15-2021 Patient encounter procedure Ben Nath Work Phone: [facility] [place] Work Phone: Start: 11-12-2021 Patient encounter procedure Ben Nath Work Phone: [facility] [place] Work Phone: Start: 11-08-2021 Patient encounter procedure Ben Nath Work Phone: [facility] [place] Work Phone: Start: 11-05-2021 Patient encounter procedure Ben Nath Work Phone: [facility] [place] Work Phone: Start: 11-01-2021 Patient encounter procedure Ben Nath Work Phone: [facility] [place] Work Phone: Start: 10-25-2021 Patient encounter procedure Ben Nath Work Phone: [facility] [place] Work Phone: Start: 12-24-2019 End: 12-24-2019 Patient encounter procedure [facility]Y [facility] Start: 04-09-2012 End: 04-09-2012 Telephone encounter Bartolome Dimas Work Phone: General Surgery Comment on above: Outpatient [place] py Procedures Date Procedure Procedure Detail Performing Clinician Start: 02-04-2024 Urnls dip stick/tabl et reagent auto microscopy Thuan Elliott MD Work Phone: Start: 02-04-2024 Assay of ammonia Thuan Elliott MD Work Phone: Start: 02-01-2024 Cyanocobalamin vitamin b-12 Thuan Elliott MD Work Phone: Start: 01-30-2024 Drug tst prsmv instr mnt chem analyzers pr date Jessica Philipdrmary DO Work Phone: Start: 01-29-2024 Basic metabolic pane l calcium total Thuan Elliott MD Work Phone: Start: 01-29-2024 Blood ethanol measurement Jessica Corrigan DO Work Phone: Start: 01-29-2024 LEDEZMA TOP Jessica diaz Wodrich DO Work Phone: Start: 01-29-2024 LAVENDER TOP Jessica diaz Wodrich DO Work Phone: Start: 01-29-2024 LIGHT BLUE TOP Jessica turk Wodrich DO Work Phone: Start: 01-29-2024 LIGHT GREEN TOP Jessica Mcbride edericjosh Wodrich DO Work Phone: Start: 01-29-2024 Lipid panel Thuan Elliott MD Work Phone: Start: 01-29-2024 MINT GREEN TOP Jessica turk Wodrich DO Work Phone: Start: 01-29-2024 RAINBOW DRAW Jessica diaz Wodrich DO Work Phone: Start: 01-05-2024 TESTOSTERONE,FREE AND TOTAL BEN NATH Start: 11-27-2023 CBC W Auto Different ial panel - Blood BEN NATH Start: 11-27-2023 Comprehensive metabo lic 1999 panel - Serum or Plasma BEN NATH Start: 09-08-2023 CBC W Auto Different ial panel - Blood BEN NATH Start: 09-08-2023 Comprehensive metabo lic 2000 panel - Serum or Plasma BEN NATH Start: 09-08-2023 PROSTATE SPECIFIC ANTIGEN BEN SIERRAJosh Start: 06-12-2023 CBC W Auto Different ial panel - Blood BEN SIERRAJosh Start: 06-12-2023 Comprehensive metabo lic 2000 panel - Serum or Plasma BEN SIERRAJosh Start: 05-01-2012 Colonoscopy Bartolome berkowitz Work Phone: Plan of Treatment Date Care Activity Detail Author Start: 03-04-2024 End: 03-04-2024 Patient encounter procedure 03/04/2024 11:00 AM EDT Initial consult [facility] [address] [place] [id number] Thuan Garcia MD [address] [place] [address] [facility] Start: 09-11-2022 ADVANCE DIRECTIVE DISCUSSION ADVANCE DIRECTIVE DISCUSSION [facility] Start: 09-11-2022 DEPRESSION ASSESSMENT DEPRESSION ASSESSMENT [facility] Start: 05-12-2022 Influenza vaccination INFLUENZA (#1) [facility] Start: 05-01-2022 Colonoscopy COLONOSCOPY [facility] Start: 05-01-2022 COLORECTAL CANCER SCREENING COLORECTAL CANCER SCREENING [facility] Start: 05-01-2022 Screening for malignant neoplasm of colon [facility] Start: 01-03-2022 PTRCHAPARRO, Provider: Cora Hanson, Status: Pen, Time: 2:45 PM MATTHEW, Provider: Cora Hanson, Status: Pen, Time: 2:45 PM [facility] [place] Work Phone: Start: 12-20-2021 [email or web address], Provider: Mirtha Herron, Status: Pen, Time: 2:45 PM [email or web address], Provider: Mirtha Herron, Status: Pen, Time: 2:45 PM [facility] [place] Work Phone: Start: 12-03-2021 [email or web address], Provider: Mirtha Herron, Status: Pen, Time: 2:00 PM [email or web address], Provider: Mirtha Herron, Status: Pen, Time: 2:00 PM [facility] [place] Work Phone: Start: 11-29-2021 PTRECHAIDA, Provider: Cora Hanson, Status: Pen, Time: 2:15 PM PTRECHECKMary, Provider: Cora Hanson, Status: Pen, Time: 2:15 PM [facility] [place] Work Phone: Start: 11-26-2021 [email or web address], Provider: Mirtha Herron, Status: Pen, Time: 2:00 PM [email or web address], Provider: Mirtha Herron, Status: Pen, Time: 2:00 PM [facility] [place] Work Phone: Start: 11-22-2021 PTRECHECKMary, Provider: Cora Hanson, Status: Pen, Time: 2:00 PM PTRECHECKMary, Provider: Cora Hanson, Status: Pen, Time: 2:00 PM [facility] [place] Work Phone: Start: 11-19-2021 [email or web address], Provider: Mirtha Herron, Status: Pen, Time: 2:00 PM [email or web address], Provider: Mirtha Herron, Status: Pen, Time: 2:00 PM [facility] [place] Work Phone: Start: 11-15-2021 [email or web address], Provider: Mirtha Herron, Status: Pen, Time: 2:00 PM [email or web address], Provider: Mirtha Herron, Status: Pen, Time: 2:00 PM [facility] Work Phone: Start: 11-12-2021 [email or web address], Provider: Mirtha Herron, Status: Pen, Time: 2:00 PM [email or web address], Provider: Mirtha Herron, Status: Pen, Time: 2:00 PM [facility] [place] Work Phone: Start: 11-08-2021 [email or web address], Provider: Mirtha Herron, Status: Pen, Time: 2:00 PM [email or web address], Provider: Mirtha Herron, Status: Pen, Time: 2:00 PM [facility] [place] Work Phone: Start: 11-05-2021 [email or web address], Provider: Mirtha Herron, Status: Pen, Time: 2:00 PM [email or web address], Provider: Mirtha Herron, Status: Pen, Time: 2:00 PM [facility] [place] Work Phone: Start: 11-01-2021 [email or web address], Provider: Mirtha Herron, Status: Pen, Time: 2:00 PM [email or web address], Provider: Mirtha Herron, Status: Pen, Time: 2:00 PM [facility] [place] Work Phone: Start: 10-29-2021 [email or web address], Provider: Mirtha Herron, Status: Pen, Time: 2:00 PM [email or web address], Provider: Mirtha Herron, Status: Pen, Time: 2:00 PM [facility] [place] Work Phone: Start: 05-12-2021 Influenza vaccination INFLUENZA (Season Ended) [facility] Start: 2018 ADVANCE DIRECTIVE DISCUSSION ADVANCE DIRECTIVE DISCUSSION [facility] Start: 2018 PNEUMOCOCCAL: 65+ (1 - PCV) PNEUMOCOCCAL: 65+ (1 - PCV) [facility] Start: 2018 PNEUMOVAX AGE 65 AND OVER WITH 5YR LOOKBACK (#1) PNEUMOVAX AGE 65 AND OVER WITH 5YR LOOKBACK (#1) [facility] Start: 03-26-2017 PROSTATE CANCER SCREENING DISCUSSION PROSTATE CANCER SCREENING DISCUSSION [facility] Start: 05-25-2015 LIPID SCREEN LIPID SCREEN [facility] Start: 05-25-2013 DIABETES SCREEN DIABETES SCREEN [facility] Start: 2003 Screening for malignant neoplasm of colon [facility] Start: 2003 SHINGRIX VACCINE (1 of 2) SHINGRIX VACCINE (1 of 2) [facility] Start: 1998 COLOGUARD (FIT-DNA) COLOGUARD (FIT-DNA) [facility] Start: [address] COLONOGRAPHY [facility] Start: 1998 FECAL OCCULT BLOOD FECAL OCCULT BLOOD [facility] Start: 1998 SIGMOIDOSCOPY SIGMOIDOSCOPY [facility] Start: 01-20-1972 Urine microalbumin profile DTAP,TDAP,TD (1 - Tdap) [facility] Start: 1971 HEPATITIS C SCREENING HEPATITIS C SCREENING [facility] Start: 1965 Adult depression screening assessment DEPRESSION SCREENING [facility] Start: 1953 COVID-19 VACCINE (#1) COVID-19 VACCINE (#1) [facility] Payers Date Payer Category Payer Unknown 2021 Unknown [id number] 2018 Medicare [id number] 2018 Medicare [id number] 2011 Unknown MMO [employer]ZZ[employer] PLUS [id number] 2011-2015 PPO [id number] 1953 Unknown [id number] 1953 Unknown [id number] 1953 Unknown [id number] 1953 Unknown [id number] 1953 Unknown [id number] 1953 Unknown [id number] 1953 Unknown [id number] 1953 Unknown [id number] Social History Date Type Detail Facility Start: 04-09-2012 Tobacco smoking stat us NHIS Unknown if ever smoked [facility] Start: 1955 Sex Assigned At Not on file [facility] Start: 11-25-2015 End: 01-29-2024 Tobacco smoking status NHIS Never smoked tobacco [facility] Start: 09-21-2016 Alcohol intake 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) [facility] Start: 01-29-2024 Tobacco use and exposure Smoke less tobacco non-user [facility] Start: 01-30-2024 Alcohol intake Lifetime non-d marsha (finding) [facility] Start: 01-30-2024 History of Social function [facility] Start: 01-30-2024 Tobacco use panel [facility] Start: 01-30-2024 Gender identity Identifies as male gender (finding) [facility] Start: 01-30-2024 Sexual orientation Heterosexual (fin ding) [facility] Clinical Notes 04-09-2012 to 02-09-2024 Plan of Care - Saira Esposito RN - 02/09/2024 12:03 PM EDTPlan of Care - Saira Esposito RN - 02/09/2024 12:03 PM EDTPlan of Care - Sarah Jacobo RN - 02/08/2024 10:07 PM EDT Note Date & Type Note Facility 02-09-2024 Note Formatting of this n ote might be different from the original. Problem: Anxiety Goal: Alleviation of anxiety Outcome: Completed Problem: Health Maintenance - Impaired Goal: Improvement or maintenance of mental/physical health, relationships, and responsibilities Outcome: Completed Goal: Nutrition intake to meet estimated needs Outcome: Completed Problem: Mood - Altered Goal: Mood stable Outcome: Completed Goal: Knowledge of medication management Outcome: Completed Problem: Self-esteem - Low Goal: Improved self-esteem Outcome: Completed Problem: Thought Process - Altered Goal: Demonstration of organized thought processes Outcome: Completed Problem: Transition Readiness Goal: Able to safely transition to next level of care Outcome: Completed Goal: Knowledge of care transition plan Outcome: Completed Goal: Knowledge of medication management Outcome: Completed Goal: Knowledge of need for follow-up care Outcome: Completed Goal: Participation in care planning Outcome: Completed [facility] 02-09-2024 Miscellaneous Notes Problem: Anxiety Goal: Alleviation of anxiety Outcome: Completed Problem: Health Maintenance - Impaired Goal: Improvement or maintenance of mental/physical health, relationships, and responsibilities Outcome: Completed Goal: Nutrition intake to meet estimated needs Outcome: Completed Problem: Mood - Altered Goal: Mood stable Outcome: Completed Goal: Knowledge of medication management Outcome: Completed Problem: Self-esteem - Low Goal: Improved self-esteem Outcome: Completed Problem: Thought Process - Altered Goal: Demonstration of organized thought processes Outcome: Completed Problem: Transition Readiness Goal: Able to safely transition to next level of care Outcome: Completed Goal: Knowledge of care transition plan Outcome: Completed Goal: Knowledge of medication management Outcome: Completed Goal: Knowledge of need for follow-up care Outcome: Completed Goal: Participation in care planning Outcome: Completed Problem: Anxiety Goal: Alleviation of anxiety Outcome: Partially Met Problem: Health Maintenance - Impaired Goal: Improvement or maintenance of mental/physical health, relationships, and responsibilities Outcome: Partially Met Goal: Nutrition intake to meet estimated needs Outcome: Partially Met Problem: Mood - Altered Goal: Mood stable Outcome: Partially Met Goal: Knowledge of medication management Outcome: Partially Met Problem: Self-esteem - Low Goal: Improved self-esteem Outcome: Partially Met Problem: Thought Process - Altered Goal: Demonstration of organized thought processes Outcome: Partially Met Problem: Transition Readiness Goal: Able to safely transition to next level of care Outcome: Partially Met Goal: Knowledge of care transition plan Outcome: Partially Met Goal: Knowledge of medication management Outcome: Partially Met Goal: Knowledge of need for follow-up care Outcome: Partially Met Goal: Participation in care planning Outcome: Partially Met Problem: Health Maintenance - Impaired Goal: Nutrition intake to meet estimated needs Outcome: Met Problem: Anxiety Goal: Alleviation of anxiety Outcome: Not Met Problem: Health Maintenance - Impaired Goal: Improvement or maintenance of mental/physical health, relationships, and responsibilities Outcome: Partially Met Problem: Mood - Altered Goal: Mood stable Outcome: Partially Met Goal: Knowledge of medication management Outcome: Partially Met Problem: Self-esteem - Low Goal: Improved self-esteem Outcome: Partially Met Problem: Thought Process - Altered Goal: Demonstration of organized thought processes Outcome: Partially Met Problem: Transition Readiness Goal: Able to safely transition to next level of care Outcome: Partially Met Goal: Knowledge of care transition plan Outcome: Partially Met Goal: Knowledge of medication management Outcome: Partially Met Goal: Knowledge of need for follow-up care Outcome: Partially Met Goal: Participation in care planning Outcome: Partially Met Problem: Anxiety Goal: Alleviation of anxiety Outcome: Not Met Problem: Health Maintenance - Impaired Goal: Improvement or maintenance of mental/physical health, relationships, and responsibilities Outcome: Partially Met Goal: Nutrition intake to meet estimated needs Outcome: Partially Met Problem: Mood - Altered Goal: Mood stable Outcome: Partially Met Goal: Knowledge of medication management Outcome: Partially Met Problem: Self-esteem - Low Goal: Improved self-esteem Outcome: Partially Met Problem: Thought Process - Altered Goal: Demonstration of organized thought processes Outcome: Partially Met Problem: Transition Readiness Goal: Able to safely transition to next level of care Outcome: Partially Met Goal: Knowledge of care transition plan Outcome: Partially Met Goal: Knowledge of medication management Outcome: Partially Met Goal: Knowledge of need for follow-up care Outcome: Partially Met Goal: Participation in care planning Outcome: Partially Met Problem: Anxiety Goal: Alleviation of anxiety Outcome: Partially Met Problem: Health Maintenance - Impaired Goal: Improvement or maintenance of mental/physical health, relationships, and responsibilities Outcome: Partially Met Goal: Nutrition intake to meet estimated needs Outcome: Partially Met Problem: Mood - Altered Goal: Mood stable Outcome: Partially Met Goal: Knowledge of medication management Outcome: Partially Met Problem: Self-esteem - Low Goal: Improved self-esteem Outcome: Partially Met Problem: Thought Process - Altered Goal: Demonstration of organized thought processes Outcome: Partially Met Problem: Transition Readiness Goal: Able to safely transition to next level of care Outcome: Not Addressed Goal: Knowledge of care transition plan Outcome: Not Addressed Goal: Knowledge of medication management Outcome: Partially Met Goal: Knowledge of need for follow-up care Outcome: Not Addressed Goal: Participation in care planning Outcome: Not Addressed Problem: Anxiety Goal: Alleviation of anxiety Outcome: Partially Met Problem: Health Maintenance - Impaired Goal: Improvement or maintenance of mental/physical health, relationships, and responsibilities Outcome: Partially Met Goal: Nutrition intake to meet estimated needs Outcome: Partially Met Problem: Mood - Altered Goal: Mood stable Outcome: Partially Met Goal: Knowledge of medication management Outcome: Partially Met Problem: Self-esteem - Low Goal: Improved self-esteem Outcome: Partially Met Problem: Thought Process - Altered Goal: Demonstration of organized thought processes Outcome: Partially Met Problem: Transition Readiness Goal: Able to safely transition to next level of care Outcome: Partially Met Goal: Knowledge of care transition plan Outcome: Partially Met Goal: Knowledge of medication management Outcome: Partially Met Goal: Knowledge of need for follow-up care Outcome: Partially Met Goal: Participation in care planning Outcome: Partially Met Problem: Anxiety Goal: Alleviation of anxiety Outcome: Partially Met Problem: Health Maintenance - Impaired Goal: Improvement or maintenance of mental/physical health, relationships, and responsibilities Outcome: Partially Met Goal: Nutrition intake to meet estimated needs Outcome: Partially Met Problem: Mood - Altered Goal: Mood stable Outcome: Met Goal: Knowledge of medication management Outcome: Partially Met Problem: Self-esteem - Low Goal: Improved self-esteem Outcome: Met Problem: Thought Process - Altered Goal: Demonstration of organized thought processes Outcome: Met Problem: Transition Readiness Goal: Able to safely transition to next level of care Outcome: Met Problem: Anxiety Goal: Alleviation of anxiety Outcome: Met Problem: Mood - Altered Goal: Mood stable Outcome: Met Problem: Transition Readiness Goal: Able to safely transition to next level of care Outcome: Met Goal: Knowledge of care transition plan Outcome: Met Goal: Participation in care planning Outcome: Met Problem: Health Maintenance - Impaired Goal: Improvement or maintenance of mental/physical health, relationships, and responsibilities Outcome: Partially Met Goal: Nutrition intake to meet estimated needs Outcome: Partially Met Problem: Mood - Altered Goal: Knowledge of medication management Outcome: Partially Met Problem: Self-esteem - Low Goal: Improved self-esteem Outcome: Partially Met Problem: Thought Process - Altered Goal: Demonstration of organized thought processes Outcome: Partially Met Problem: Transition Readiness Goal: Knowledge of medication management Outcome: Partially Met Goal: Knowledge of need for follow-up care Outcome: Partially Met Problem: Actual or potential alteration in health Goal: Knowledge of Interdisciplinary Plan of Care Outcome: Completed Goal: Knowledge of Enviroment Outcome: Completed Problem: Actual or potential alteration in health Goal: Knowledge of Interdisciplinary Plan of Care Outcome: Partially Met Goal: Knowledge of Enviroment Outcome: Partially Met Problem: Anxiety Goal: Alleviation of anxiety Outcome: Partially Met Problem: Health Maintenance - Impaired Goal: Improvement or maintenance of mental/physical health, relationships, and responsibilities Outcome: Partially Met Goal: Nutrition intake to meet estimated needs Outcome: Partially Met Problem: Mood - Altered Goal: Mood stable Outcome: Partially Met Goal: Knowledge of medication management Outcome: Partially Met Problem: Self-esteem - Low Goal: Improved self-esteem Outcome: Partially Met Problem: Thought Process - Altered Goal: Demonstration of organized thought processes Outcome: Partially Met Problem: Transition Readiness Goal: Able to safely transition to next level of care Outcome: Partially Met Goal: Knowledge of care transition plan Outcome: Partially Met Goal: Knowledge of medication management Outcome: Partially Met Goal: Knowledge of need for follow-up care Outcome: Partially Met Goal: Participation in care planning Outcome: Partially Met Problem: Actual or potential alteration in health Goal: Knowledge of Interdisciplinary Plan of Care Outcome: Partially Met Goal: Knowledge of Enviroment Outcome: Partially Met Problem: Anxiety Goal: Alleviation of anxiety Outcome: Partially Met Problem: Health Maintenance - Impaired Goal: Improvement or maintenance of mental/physical health, relationships, and responsibilities Outcome: Partially Met Goal: Nutrition intake to meet estimated needs Outcome: Partially Met Problem: Mood - Altered Goal: Mood stable Outcome: Partially Met Goal: Knowledge of medication management Outcome: Partially Met Problem: Self-esteem - Low Goal: Improved self-esteem Outcome: Partially Met Problem: Thought Process - Altered Goal: Demonstration of organized thought processes Outcome: Partially Met Problem: Transition Readiness Goal: Able to safely transition to next level of care Outcome: Partially Met Goal: Knowledge of care transition plan Outcome: Partially Met Goal: Knowledge of medication management Outcome: Partially Met Goal: Knowledge of need for follow-up care Outcome: Partially Met Goal: Participation in care planning Outcome: Partially Met Problem: Actual or potential alteration in health Goal: Knowledge of Interdisciplinary Plan of Care Outcome: Partially Met Goal: Knowledge of Enviroment Outcome: Partially Met Problem: Anxiety Goal: Alleviation of anxiety Outcome: Partially Met Problem: Health Maintenance - Impaired Goal: Improvement or maintenance of mental/physical health, relationships, and responsibilities Outcome: Partially Met Goal: Nutrition intake to meet estimated needs Outcome: Partially Met Problem: Mood - Altered Goal: Mood stable Outcome: Partially Met Goal: Knowledge of medication management Outcome: Partially Met Problem: Self-esteem - Low Goal: Improved self-esteem Outcome: Partially Met Problem: Transition Readiness Goal: Able to safely transition to next level of care Outcome: Partially Met Goal: Knowledge of care transition plan Outcome: Partially Met Goal: Knowledge of medication management Outcome: Partially Met Goal: Knowledge of need for follow-up care Outcome: Partially Met Goal: Participation in care planning Outcome: Partially Met Problem: Actual or potential alteration in health Goal: Knowledge of Interdisciplinary Plan of Care Outcome: Partially Met Goal: Knowledge of Enviroment Outcome: Partially Met Problem: Anxiety Goal: Alleviation of anxiety Outcome: Partially Met Problem: Health Maintenance - Impaired Goal: Improvement or maintenance of mental/physical health, relationships, and responsibilities Outcome: Partially Met Goal: Nutrition intake to meet estimated needs Outcome: Partially Met Problem: Mood - Altered Goal: Mood stable Outcome: Partially Met Goal: Knowledge of medication management Outcome: Partially Met Problem: Self-esteem - Low Goal: Improved self-esteem Outcome: Partially Met Problem: Thought Process - Altered Goal: Demonstration of organized thought processes Outcome: Partially Met Problem: Transition Readiness Goal: Able to safely transition to next level of care Outcome: Partially Met Goal: Knowledge of care transition plan Outcome: Partially Met Goal: Knowledge of medication management Outcome: Partially Met Goal: Knowledge of need for follow-up care Outcome: Partially Met Goal: Participation in care planning Outcome: Partially Met Problem: Actual or potential alteration in health Goal: Knowledge of Interdisciplinary Plan of Care Outcome: Partially Met Goal: Knowledge of Enviroment Outcome: Partially Met Problem: Anxiety Goal: Alleviation of anxiety Outcome: Partially Met Problem: Health Maintenance - Impaired Goal: Improvement or maintenance of mental/physical health, relationships, and responsibilities Outcome: Partially Met Goal: Nutrition intake to meet estimated needs Outcome: Partially Met Problem: Mood - Altered Goal: Mood stable Outcome: Partially Met Goal: Knowledge of medication management Outcome: Partially Met Problem: Self-esteem - Low Goal: Improved self-esteem Outcome: Partially Met Problem: Transition Readiness Goal: Able to safely transition to next level of care Outcome: Partially Met Goal: Knowledge of care transition plan Outcome: Partially Met Goal: Knowledge of medication management Outcome: Partially Met Goal: Knowledge of need for follow-up care Outcome: Partially Met Goal: Participation in care planning Outcome: Partially Met Problem: Actual or potential alteration in health Goal: Knowledge of Interdisciplinary Plan of Care Outcome: Partially Met Goal: Knowledge of Enviroment Outcome: Partially Met Problem: Anxiety Goal: Alleviation of anxiety Outcome: Partially Met Problem: Health Maintenance - Impaired Goal: Improvement or maintenance of mental/physical health, relationships, and responsibilities Outcome: Partially Met Goal: Nutrition intake to meet estimated needs Outcome: Partially Met Problem: Mood - Altered Goal: Mood stable Outcome: Partially Met Goal: Knowledge of medication management Outcome: Partially Met Problem: Self-esteem - Low Goal: Improved self-esteem Outcome: Partially Met Problem: Thought Process - Altered Goal: Demonstration of organized thought processes Outcome: Partially Met Problem: Transition Readiness Goal: Able to safely transition to next level of care Outcome: Partially Met Goal: Knowledge of care transition plan Outcome: Partially Met Goal: Knowledge of medication management Outcome: Partially Met Goal: Knowledge of need for follow-up care Outcome: Partially Met Goal: Participation in care planning Outcome: Partially Met Problem: Actual or potential alteration in health Goal: Knowledge of Interdisciplinary Plan of Care Outcome: Partially Met Goal: Knowledge of Enviroment Outcome: Partially Met Problem: Anxiety Goal: Alleviation of anxiety Outcome: Partially Met Problem: Health Maintenance - Impaired Goal: Improvement or maintenance of mental/physical health, relationships, and responsibilities Outcome: Partially Met Goal: Nutrition intake to meet estimated needs Outcome: Partially Met Problem: Mood - Altered Goal: Mood stable Outcome: Partially Met Goal: Knowledge of medication management Outcome: Partially Met Problem: Self-esteem - Low Goal: Improved self-esteem Outcome: Partially Met Problem: Thought Process - Altered Goal: Demonstration of organized thought processes Outcome: Partially Met Problem: Transition Readiness Goal: Able to safely transition to next level of care Outcome: Partially Met Goal: Knowledge of care transition plan Outcome: Partially Met Goal: Knowledge of medication management Outcome: Partially Met Goal: Knowledge of need for follow-up care Outcome: Partially Met Goal: Participation in care planning Outcome: Partially Met Behavioral Health Treatment Plan Update Date: 02/02/2024 Time: 8:30 AM Patient Name: Kristian Gutierrez Date of : 1955 Sex: Male Diagnosis [place] I: Major Depression, Rec M[place] II: Deferred [place] IV: economic problems and other psychosocial or environmental problems M[place] V: 21-30 behavior considerably influenced by delusions or hallucinations OR serious impairment in judgment, communication OR inability to function in almost all areas Expected Discharge Date: TBD ELOS: 3-5 Days Precautions Precautions: Suicide, Unpredictable Patient Presenting Issues: Patient's Primary Presenting Issue Patient's Primary Presenting Issue: Suicidal Suicidal Symptoms: Ideation Suicidal Goals: resolve Days To Improvement Of Goal: 7-9 Suicidal Treatment Interventions: Medication management/evaluation, Pain and symptom management, Medication education, Group psychoeduction, Handouts psychoeducation, Individual psychoeducation, Family education/meeting, Develop personal safety plan Status Of Goal: Unchanged Precautions Precautions: Suicide, Unpredictable Seclusion/Restraint Date: N/A Interventions to reduce Seclusion/Restraint N/A Patient Strengths Patient Strengths: Family/friends, Housing Patient Limitations Patient Limitations: Lack of financial means, Lack of stable employment, Low self esteem, No/Few hobbies or interests, Lack of mental health linkage, Lack of stable housing, Patient is unwilling to work on problems Discharge Needs Anticipated Facility Type: [facility], [facility], Outpatient clinic, [facility] Criteria For Discharge Criteria For Discharge: Maximum benefit obtained, Goals met Additional Comments: Patient's case discussed with Tx Team. His sleep remains inconsistent, and he exhibits increased agitation and bizarre behaviors in the evening. Patient to remain admitted at this time for further psychiatric stabilization. Physician, Registered Nurse, Residential Builder, Adjunct Therapist included in treatment team discussion. Treatment team members present Jeana Lerma, Nathalia Montenegro RN, GRIND OPERATOR, Radha KOEHLER RN Patient Signature Date Patient's Response To Treatment Plan: Residential Builder's Signature Date Problem: Anxiety Goal: Alleviation of anxiety Outcome: Not Met Problem: Health Maintenance - Impaired Goal: Nutrition intake to meet estimated needs Outcome: Not Met Problem: Actual or potential alteration in health Goal: Knowledge of Enviroment Outcome: Partially Met Problem: Health Maintenance - Impaired Goal: Improvement or maintenance of mental/physical health, relationships, and responsibilities Outcome: Partially Met Problem: Mood - Altered Goal: Mood stable Outcome: Partially Met Problem: Self-esteem - Low Goal: Improved self-esteem Outcome: Partially Met Problem: Thought Process - Altered Goal: Demonstration of organized thought processes Outcome: Partially Met Problem: Transition Readiness Goal: Knowledge of medication management Outcome: Partially Met Problem: Actual or potential alteration in health Goal: Knowledge of Interdisciplinary Plan of Care Outcome: Not Addressed Problem: Mood - Altered Goal: Knowledge of medication management Outcome: Not Addressed Problem: Transition Readiness Goal: Able to safely transition to next level of care Outcome: Not Addressed Goal: Knowledge of care transition plan Outcome: Not Addressed Goal: Knowledge of need for follow-up care Outcome: Not Addressed Goal: Participation in care planning Outcome: Not Addressed Problem: Actual or potential alteration in health Goal: Knowledge of Interdisciplinary Plan of Care Outcome: Partially Met Goal: Knowledge of Enviroment Outcome: Met Problem: Anxiety Goal: Alleviation of anxiety Outcome: Partially Met Problem: Health Maintenance - Impaired Goal: Improvement or maintenance of mental/physical health, relationships, and responsibilities Outcome: Partially Met Goal: Nutrition intake to meet estimated needs Outcome: Partially Met Problem: Mood - Altered Goal: Mood stable Outcome: Partially Met Goal: Knowledge of medication management Outcome: Partially Met Problem: Self-esteem - Low Goal: Improved self-esteem Outcome: Partially Met Problem: Thought Process - Altered Goal: Demonstration of organized thought processes Outcome: Partially Met Problem: Anxiety Goal: Alleviation of anxiety Outcome: Not Met Problem: Health Maintenance - Impaired Goal: Improvement or maintenance of mental/physical health, relationships, and responsibilities Outcome: Not Met Goal: Nutrition intake to meet estimated needs Outcome: Not Met Problem: Mood - Altered Goal: Knowledge of medication management Outcome: Not Met Problem: Self-esteem - Low Goal: Improved self-esteem Outcome: Not Met Problem: Thought Process - Altered Goal: Demonstration of organized thought processes Outcome: Not Met Problem: Actual or potential alteration in health Goal: Knowledge of Enviroment Outcome: Partially Met Problem: Mood - Altered Goal: Mood stable Outcome: Partially Met Problem: Transition Readiness Goal: Knowledge of medication management Outcome: Partially Met Problem: Actual or potential alteration in health Goal: Knowledge of Interdisciplinary Plan of Care Outcome: Not Addressed Problem: Transition Readiness Goal: Able to safely transition to next level of care Outcome: Not Addressed Goal: Knowledge of care transition plan Outcome: Not Addressed Goal: Knowledge of need for follow-up care Outcome: Not Addressed Goal: Participation in care planning Outcome: Not Addressed Problem: Actual or potential alteration in health Goal: Knowledge of Interdisciplinary Plan of Care Outcome: Partially Met Goal: Knowledge of Enviroment Outcome: Partially Met Problem: Anxiety Goal: Alleviation of anxiety Outcome: Partially Met Problem: Health Maintenance - Impaired Goal: Improvement or maintenance of mental/physical health, relationships, and responsibilities Outcome: Partially Met Goal: Nutrition intake to meet estimated needs Outcome: Partially Met Problem: Mood - Altered Goal: Mood stable Outcome: Partially Met Goal: Knowledge of medication management Outcome: Partially Met Problem: Self-esteem - Low Goal: Improved self-esteem Outcome: Partially Met Problem: Thought Process - Altered Goal: Demonstration of organized thought processes Outcome: Partially Met Problem: Transition Readiness Goal: Able to safely transition to next level of care Outcome: Partially Met Goal: Knowledge of care transition plan Outcome: Partially Met Goal: Knowledge of medication management Outcome: Partially Met Goal: Knowledge of need for follow-up care Outcome: Partially Met Goal: Participation in care planning Outcome: Partially Met Problem: Transition Readiness Goal: Knowledge of need for follow-up care Outcome: Not Met Problem: Actual or potential alteration in health Goal: Knowledge of Interdisciplinary Plan of Care Outcome: Partially Met Goal: Knowledge of Enviroment Outcome: Partially Met Problem: Anxiety Goal: Alleviation of anxiety Outcome: Partially Met Problem: Health Maintenance - Impaired Goal: Improvement or maintenance of mental/physical health, relationships, and responsibilities Outcome: Partially Met Goal: Nutrition intake to meet estimated needs Outcome: Partially Met Problem: Mood - Altered Goal: Mood stable Outcome: Partially Met Goal: Knowledge of medication management Outcome: Partially Met Problem: Self-esteem - Low Goal: Improved self-esteem Outcome: Partially Met Problem: Thought Process - Altered Goal: Demonstration of organized thought processes Outcome: Partially Met Problem: Transition Readiness Goal: Knowledge of medication management Outcome: Partially Met Goal: Participation in care planning Outcome: Partially Met Problem: Transition Readiness Goal: Able to safely transition to next level of care Outcome: Not Addressed Goal: Knowledge of care transition plan Outcome: Not Addressed Problem: Actual or potential alteration in health Goal: Absence of healthcare acquired conditions Outcome: Completed Problem: Health Maintenance - Impaired Goal: Able to sleep without medication for appropriate length of time Outcome: Completed Problem: Violence, Self/Other-Directed, Risk of Goal: Absence of violence Outcome: Completed Goal: Absence of self-harm Outcome: Completed Associated Problem(s): Episode of recurrent major depressive disorder (HCC) Kristian, a 69-year-old male, is being admitted to the inpatient psychiatric unit due to concerns of increased depression, anxiety, insomnia, and recent suicidal ideation. Despite being financially stable, he has been increasingly focused on financial issues, exhibiting feelings of hopelessness and worthlessness, and verbalizing suicidal thoughts without a specific plan. He denies any current suicidal ideation or history of attempts, self-harm, homicidal ideation, auditory or visual hallucinations, and substance use. His symptoms have been exacerbated over the past few months, particularly following his mother's and the stress of being the executor of her will. Despite being on a regimen of psychiatric medications, his mental health continues to deteriorate, causing significant concern for his sisters who believe he cannot be left alone safely. He will be hospitalized for safety and stabilization, with further psychiatric evaluation and treatment planning to be determined by the treatment team. Physical examination Lab testing as appropriate Precautions -suicide PRN medications for agitation Collateral history from family/friends/providers Request/review prior records telephone services sales representative assessment/linkage/care coordination Group participation/[facility] Supportive psychotherapy/structured supportive care Ambien 10 mg by mouth at bedtime as needed insomnia Increase Mirtazapine to 15 mg by mouth at bedtime Aftercare planning once stable Behavioral Health Initial Treatment Plan Date: 01/30/2024 Time: 10:18 PM Patient Name: Kristian Gutierrez Date of : 1955 Sex: Male Admit Date/Time: 01/29/2024 9:48 PM Patient Active Problem List Diagnosis Date Noted Unspecified Depressive Disorder 01/30/2024 Unspecified Anxiety Disorder 01/30/2024 Major depression, single episode 01/30/2024 Suicidal behavior without attempted self-injury 01/29/2024 Episode of recurrent major depressive disorder (HCC) 01/29/2024 Diagnosis M[place] I: Major Depression, Rec [place] II: Deferred M[place] III: Patient Active Problem List Diagnosis Date Noted Unspecified Depressive Disorder 01/30/2024 Unspecified Anxiety Disorder 01/30/2024 Major depression, single episode 01/30/2024 Suicidal behavior without attempted self-injury 01/29/2024 Episode of recurrent major depressive disorder (HCC) 01/29/2024 [place] IV: other psychosocial or environmental problems M[place] V: 41-50 serious symptoms Reason for Hospitalization Reason for Hospitalization: Suicidal ideation Expected Discharge Date: ELOS: 03-19 Precautions Precautions: Suicide, Unpredictable Patient Presenting Issues: Patient's Primary Presenting Issue Patient's Primary Presenting Issue: Suicidal Suicidal Symptoms: Ideation Suicidal Goals: resolve Days To Improvement Of Goal: 7-9 Suicidal Treatment Interventions: Medication management/evaluation, Pain and symptom management, Medication education, Group psychoeduction, Handouts psychoeducation, Individual psychoeducation, Family education/meeting, Develop personal safety plan Status Of Goal: Unchanged Precautions Precautions: Suicide, Unpredictable Seclusion/Restraint Date none so far Interventions to reduce Seclusion/Restraint medications as needed for agitation and de escalation techniques Patient Strengths Patient Strengths: Family/friends, Housing Patient Limitations Patient Limitations: Lack of financial means, Lack of stable employment, Low self esteem, No/Few hobbies or interests, Lack of mental health linkage, Lack of stable housing, Patient is unwilling to work on problems Discharge Needs Anticipated Facility Type: [facility], [facility] resource information, Outpatient clinic, [facility] Criteria For Discharge Criteria For Discharge: Maximum benefit obtained, Goals met Additional Comments:n/a Physician, Registered Nurse, Residential Builder, Adjunct Therapist included in treatment team discussion. Treatment team members present Thuan Abdalla Patient Signature Date Patient's Response To Treatment Plan: Physician Signature Date Behavioral Health Inpatient Social Work Psychosocial Assessment Date: 01/30/2024 Time: 3:58 PM Patient Name: Kristian Gutierrez Date of : 1955 Sex: Male Admit Date/Time: 01/29/2024 9:48 PM CURRENT HOSPITALIZATION: Current Hospitalization [facility] Needs: Not needed Chief Complaint: Psychiatric Evaluation History of Current Hospitalization : Patient was brought to the ED by his sisters for psychiatric evaluation, due to concerns of increased depression, anxiety, insomnia and recent suicidal ideation that patient verbalized. MARITAL STATUS: Marital Status Marital Status : SEXUAL ORIENTATION: Sexual Orientation Sexual Orientation: Heterosexual FAMILY INFORMATION: Family Information Number of Pregnancies: N/A Children: Yes How many children?: 3 Pertinent Family Information : Patient has support from and sisters LIVING ARRANGEMENTS: Living Arrangements Current Living Arrangements: Patient lives with and [id number] however recently has been staying with sister. 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 Source Of Income: Social security Are There Any Financial Concerns?: Yes Desire For Vocational or Eduational Training?: No SERVICE: Service Service: No LEGAL HISTORY: Legal History Legal History: None ANABAPTISM/SPIRITUAL BELIEFS: Evangelical/Spiritual Beliefs Evangelical/Spiritual Beliefs: Yes Yes: L[employer] ETHNIC/RACE: Ethnic/Race Ethnic/Race: FAMILY HISTORY: Family History Family Psychiatric History: Yes Family Psychiatric History: Patient reports a paternal uncle who completed suicide Family History Of Substance Abuse: No PATIENT HISTORY: Patient History Patient Psychiatric History: No prior psychiatric admisisons, SIB, or attempts Patient Psychiatric Treatment: See above ^ Patient Substance Abuse History: UDS positive for Benzodiazepines Brief Intervention Done: No Why Brief Intervention Not Done?: (Does not meet AUDIT-C criteria) Patient Substance Abuse Treatment History: None reported Significant Childhood Events (Positive and Negative Events): None reported ABUSE: Abuse Child/Adult/Neglect Issues: None reported CURRENT STRESSORS: Current Stressors Current Stressors: Difficulty with finances STRENGTHS AND LIMITATIONS: Strengths and Limitations Patient Strengths: Basic self-care skills, Family/friends, Housing, Motivation to change, Spiritual beliefs Patient Limitations: Low self esteem, Lack of financial means SUPPORT SYSTEMS: Support Systems Support Systems: Family Collateral Contacts: Sisters Name and Contact of Collateral Provider: Patients sister'desi Clement and Louann. Racquel ([phone]) PATIENT GOALS FOR TREATMENT: Patient stated goals for treatment are feel better. CLINICAL SUMMARY: Patient is admitted for suicidal ideation with no plan and worsening depression. Due to concerns for safety and patient's decompensation in mental status and risk for suicidal ideation, patient would benefit from further psychiatric hospitalization at this time. Services provided throughout admission are: psychiatry/medication management, social service discharge planning, direct nursing care with 15min precaution checks, and group therapy. Interventions provided throughout admission are: safety planning, trigger identification, and coping skill development. BHT assessment: PT out walking slowly in hallway when approached to complete assessment. PT willing to meet with keno writer and did so at table. PT dressed in street clothes, clean, no body odor detected. Hair disheveled. Affect flat, sullen, indifferent and depressed. BEH controlled, but depressed. PT did not maintain much eye contact with keno writer. PT very soft spoken, vague and superficial with responses at times, as well as slow to respond at times also. PT denied SI, HI, AH, VH currently or CRISIS NURSE, to which chart stated that he was having SI CRISIS NURSE. PT lacked confidence when citing goal of I would like to get better . Please refer to Adjunctive Therapy Flowsheet for further information. REASON FOR ADMISSION: just insomnia PT was asked as to how long he was experiencing such, to which he cited 3 weeks . PT was then asked how many hours of sleep nightly he was getting, to which he cited just a handful . PT voiced that this is the first time that he has experienced this. PT was asked if he was experiencing any depression, anxiety or paranoia from the lack of sleep, to which he cited depression . PT denied the others, despite chart stating that he voiced anxiety and family voiced paranoia. CHANGES/STRESSORS: taking care of my [id number] for some time . PT would not elaborate as to how long or to what extent he takes care of. PT denied any other stressors despite chart stating pt has major worries about finances, to which family says is not necessary, and concerned with not being able to support adult sons any longer. Later pt did ask questions of what do you do when you and your hospital bill was so high you can't pay to bury yourself . Support and encouragement provided to focus on his TX needs and not focus on the bill do to there being payment plans and assistance once DC. COPING SKILLS: I have a cassette player that I listen to nature sounds on PT was asked if he is currently taking medications, to which he cited that he is compliant with. TYPICAL DAY: PT had been living with his and [id number], but currently was staying with sisters, do to not feeling safe at home, per chart. Pt is a retired senior accountant. PT has 3 children. Pt has not been active with daily routine as in the past. LEISURE INTERESTS: gardening and sports BARRIERS/LIMITATIONS: arthritis SUPPORTS: my sisters and my PT denied that he has a counselor, charting stating that he does. Getting Rx from PCP. STRENGTHS: PT uncertain at this time. TX GOAL: I would like to get better, but honestly I would rather be home with my to tell you the Gods truth. TX PLAN: Pt will participate in goal group, warm up, life skills, and recreation therapy groups, to increase communication skills, coping skills, emotion management, health and wellness and healthy leisure skills. Patient is medically stable at this time. Hospital medicine will sign off. Please call with any questions or concerns. Problem: Actual or potential alteration in health Goal: Absence of healthcare acquired conditions Outcome: Partially Met Goal: Knowledge of Interdisciplinary Plan of Care Outcome: Partially Met Goal: Knowledge of Enviroment Outcome: Partially Met Problem: Anxiety Goal: Alleviation of anxiety Outcome: Partially Met Problem: Health Maintenance - Impaired Goal: Improvement or maintenance of mental/physical health, relationships, and responsibilities Outcome: Partially Met Goal: Able to sleep without medication for appropriate length of time Outcome: Partially Met Goal: Nutrition intake to meet estimated needs Outcome: Partially Met Problem: Mood - Altered Goal: Mood stable Outcome: Partially Met Goal: Knowledge of medication management Outcome: Partially Met Problem: Self-esteem - Low Goal: Improved self-esteem Outcome: Partially Met Problem: Thought Process - Altered Goal: Demonstration of organized thought processes Outcome: Partially Met Problem: Violence, Self/Other-Directed, Risk of Goal: Absence of violence Outcome: Partially Met Goal: Absence of self-harm Outcome: Partially Met Problem: Transition Readiness Goal: Able to safely transition to next level of care Outcome: Partially Met Goal: Knowledge of care transition plan Outcome: Partially Met Goal: Knowledge of medication management Outcome: Partially Met Goal: Knowledge of need for follow-up care Outcome: Partially Met Goal: Participation in care planning Outcome: Partially Met Problem: Actual or potential alteration in health Goal: Absence of healthcare acquired conditions Outcome: Partially Met Goal: Knowledge of Interdisciplinary Plan of Care Outcome: Partially Met Goal: Knowledge of Enviroment Outcome: Partially Met Problem: Anxiety Goal: Alleviation of anxiety Outcome: Partially Met Problem: Actual or potential alteration in health Goal: Absence of healthcare acquired conditions Outcome: Partially Met Goal: Knowledge of Interdisciplinary Plan of Care Outcome: Partially Met Goal: Knowledge of Enviroment Outcome: Partially Met Problem: Anxiety Goal: Alleviation of anxiety Outcome: Partially Met Behavioral Health Pre Admission Screening Tool Date: 01/30/2024 Time: 2:04 AM Patient Name: Kristian Gutierrez Date of : 1955 Sex: Male Voluntary Prescreener Caller Information: Mirtha Rogers M.S., [facility] Referral Source: [facility] Diagnosis: F32.9 Unspecified Depressive Disorder Presenting Problem/Chief Complaint: Depression, Anxiety and Insomnia Medical Status: Stable Functional Status: Independent Medication Compliant: Yes Insurance Information/Precertification Completed: Yes Case Reveiwed With: (Dr. Abdalla) Accepted for Admission: Yes Admitting Physician: (Dr. Abdalla) Risk Factors Recent Psychological Experiences: (Loss of mother in July. Financial loss in .) Current Suicidal Ideation: No Previous Suicidal Ideation: Yes Describe Previous Suicidal Ideation: Patient reported sister says he mentioned suicidal ideation recently. Sisters state he reported suicidal ideation yesterday. Current Suicide Attempt: No Previous Suicide Attempt: No Current Self Harm Behavior: No Previous Self Harm Behavior: No Current Plans to Harm Another: No Previous Plans to Harm Another: No History of Attempts to Harm Another: No Access to Weapons: No Violent Episode: No Previous Violent Episode: No Family History of Suicide: Yes Describe Family History of Suicide : Patient reports a paternal uncle who completed. Family History of Mental Illness: Yes Describe Family History of Mental Illness: Patients brothers both have Bipolar and father and paternal grandfather both had depression. Family History of Substance Abuse: No Elopement: No risk Methods to Calm Down: No preference Restraint Risk Factors: Age Patient presented for increased depression, anxiety and insomnia that is currently interfering with his functioning. Family reports recent suicidal ideation and concerns for the patient being delusional about money issues and belief that he is dying. Family has concerns for being able to keep the patient safe. Case discussed with Dr. Abdalla who approved admission at this time. Mirtha Rogers M.S., [facility] documented in this encounter [facility] 02-09-2024 Note Inpatient Psychiatry Discharge Summary Patient Name: Kristian Gutierrez MR #: [id number] : 1955 Admit Date: [id number] Discharge Date/Time: 02/09/2024 3:15 PM Clinical Summary Reason for Hospitalization: For safety and stabilization Discharge Diagnoses and Associated Hospital Course: Episode of recurrent major depressive disorder (HCC) Assessment & Plan Kristian, a 69-year-old male, is being admitted to the inpatient psychiatric unit due to concerns of increased depression, anxiety, insomnia, and recent suicidal ideation. Despite being financially stable, he has been increasingly focused on financial issues, exhibiting feelings of hopelessness and worthlessness, and verbalizing suicidal thoughts without a specific plan. He denies any current suicidal ideation or history of attempts, self-harm, homicidal ideation, auditory or visual hallucinations, and substance use. His symptoms have been exacerbated over the past few months, particularly following his mother's and the stress of being the executor of her will. Despite being on a regimen of psychiatric medications, his mental health continues to deteriorate, causing significant concern for his sisters who believe he cannot be left alone safely. He will be hospitalized for safety and stabilization, with further psychiatric evaluation and treatment planning to be determined by the treatment team. Physical examination Lab testing as appropriate Precautions -suicide PRN medications for agitation Collateral history from family/friends/providers Request/review prior records telephone services sales representative assessment/linkage/care coordination [facility] Supportive psychotherapy/structured supportive care Ambien 10 mg by mouth at bedtime as needed insomnia Increase Mirtazapine to 15 mg by mouth at bedtime Aftercare planning once stable Mr. Gutierrez was initially admitted due to concerns of increased depression, anxiety, insomnia, and suicidal ideation. He came on a regimen of psychiatric medications, including Wellbutrin, Lexapro, Ambien, and Xanax, with brief relief noted with Xanax. During his stay, his medication regimen was adjusted, with an increased dose of Mirtazapine and the introduction of Olanzapine (Zydis). Mr. Gutierrez participated in group therapy sessions and was closely monitored for any escalation in behavior. He was also provided with a structured environment for his recovery. Mr. Gutierrez's initial state was marked by severe depressive symptoms, anxiety, paranoia, and insomnia. His mental status initially deteriorated, displaying agitation and resistance to treatment. However, over the course of his hospitalization, he showed significant improvement. He became calmer, more logical in his thought processes, and his communication improved. He consistently denied any hallucinations, suicidal ideations, and homicidal ideations, a change from his initial presentation. His compliance with the medication regimen, particularly Olanzapine (Zydis), was consistent. His anxiety symptoms lessened, and he expressed belief that the medication was aiding his recovery process. By the end of his hospitalization, Mr. Gutierrez reported feeling generally improved and less anxious. He still harbored some anticipatory anxiety about the future, but it was significantly less intense than before. His sleep quality had improved, but he expressed a desire for further enhancement. Mr. Gutierrez is to continue with the prescribed medication regimen and to follow up with his primary care physician within one week of discharge for medication management. He is encouraged to join outpatient group therapy sessions, which will provide additional support and help in managing his symptoms. He should continue to focus on improving his sleep quality and managing his anxiety levels. Mr. Gutierrez has been scheduled for a follow-up appointment with his psychiatrist in two weeks. Mr. Gutierrez has shown significant improvement in his mental state and behavior during his hospitalization. On discharge, he denied any suicidal or homicidal ideations. His persistent feelings of anxiety, though less intense, remain a focus for continued treatment. His sleep quality has improved, but he expresses a desire for further enhancement. Overall, the course of treatment and the patient's response to it have been positive, and he is being discharged in an improved state. Consults placed Procedures ED Consult to PSYCH - Marriage And Family Social Worker (PSS) Hospitalize Patient To:____ Inpatient consult to Hospitalist Allergies Trazodone Procedures performed No orders of the defined types were placed in this encounter. Other tests No orders of the defined types were placed in this encounter. Studies pending at discharge None Laboratory Results: Results from last 7 days Lab Units 02/04/24 1520 AMMONIA micromol/L 13 Lab Results Component V (more content not included)... [facility] 02-09-2024 Hospital course Narrative Inpatient Psychiatry Discharge Summary Patient Name: Kristian Gutierrez MR #: [id number] : 1955 Admit Date: [id number] Discharge Date/Time: 02/09/2024 3:15 PM Clinical Summary Reason for Hospitalization: For safety and stabilization Discharge Diagnoses and Associated Hospital Course: Episode of recurrent major depressive disorder (HCC) Assessment & Plan Kristian, a 69-year-old male, is being admitted to the inpatient psychiatric unit due to concerns of increased depression, anxiety, insomnia, and recent suicidal ideation. Despite being financially stable, he has been increasingly focused on financial issues, exhibiting feelings of hopelessness and worthlessness, and verbalizing suicidal thoughts without a specific plan. He denies any current suicidal ideation or history of attempts, self-harm, homicidal ideation, auditory or visual hallucinations, and substance use. His symptoms have been exacerbated over the past few months, particularly following his mother's and the stress of being the executor of her will. Despite being on a regimen of psychiatric medications, his mental health continues to deteriorate, causing significant concern for his sisters who believe he cannot be left alone safely. He will be hospitalized for safety and stabilization, with further psychiatric evaluation and treatment planning to be determined by the treatment team. Physical examination Lab testing as appropriate Precautions -suicide PRN medications for agitation Collateral history from family/friends/providers Request/review prior records telephone services sales representative assessment/linkage/care coordination Group participation/[facility] Supportive psychotherapy/structured supportive care Ambien 10 mg by mouth at bedtime as needed insomnia Increase Mirtazapine to 15 mg by mouth at bedtime Aftercare planning once stable Mr. Gutierrez was initially admitted due to concerns of increased depression, anxiety, insomnia, and suicidal ideation. He came on a regimen of psychiatric medications, including Wellbutrin, Lexapro, Ambien, and Xanax, with brief relief noted with Xanax. During his stay, his medication regimen was adjusted, with an increased dose of Mirtazapine and the introduction of Olanzapine (Zydis). Mr. Gutierrez participated in group therapy sessions and was closely monitored for any escalation in behavior. He was also provided with a structured environment for his recovery. Mr. Gutierrez's initial state was marked by severe depressive symptoms, anxiety, paranoia, and insomnia. His mental status initially deteriorated, displaying agitation and resistance to treatment. However, over the course of his hospitalization, he showed significant improvement. He became calmer, more logical in his thought processes, and his communication improved. He consistently denied any hallucinations, suicidal ideations, and homicidal ideations, a change from his initial presentation. His compliance with the medication regimen, particularly Olanzapine (Zydis), was consistent. His anxiety symptoms lessened, and he expressed belief that the medication was aiding his recovery process. By the end of his hospitalization, Mr. Gutierrez reported feeling generally improved and less anxious. He still harbored some anticipatory anxiety about the future, but it was significantly less intense than before. His sleep quality had improved, but he expressed a desire for further enhancement. Mr. Gutierrez is to continue with the prescribed medication regimen and to follow up with his primary care physician within one week of discharge for medication management. He is encouraged to join outpatient group therapy sessions, which will provide additional support and help in managing his symptoms. He should continue to focus on improving his sleep quality and managing his anxiety levels. Mr. Gutierrez has been scheduled for a follow-up appointment with his psychiatrist in two weeks. Mr. Gutierrez has shown significant improvement in his mental state and behavior during his hospitalization. On discharge, he denied any suicidal or homicidal ideations. His persistent feelings of anxiety, though less intense, remain a focus for continued treatment. His sleep quality has improved, but he expresses a desire for further enhancement. Overall, the course of treatment and the patient's response to it have been positive, and he is being discharged in an improved state. Consults placed Procedures ED Consult to PSYCH - Marriage And Family Social Worker (PSS) Hospitalize Patient To:____ Inpatient consult to Hospitalist Allergies Trazodone Procedures performed No orders of the defined types were placed in this encounter. Other tests No orders of the defined types were placed in this encounter. Studies pending at discharge None Laboratory Results: Results from last 7 days Lab Units 02/04/24 1520 AMMONIA micromol/L 13 Lab Results Component Value Date CHOL 120 01/29/2024 HDL 58 01/29/2024 LDLCALC 46 01/29/2024 TRIG 79 01/29/2024 No results found for: HGBA1C Lab Results Component Value Date TSH 4.81 (H) 01/29/2024 Review of Systems: Constitutional:No fever, no weight loss Eyes:No diplopia ENT:No sinus drainage CV:No chest pain. No ankle swelling Resp:No dyspnea. No wheezing GI:No abdominal pain.No abdominal distention :No dysuria Neuro:No headache Integumentary:No skin rash MuscSkel:No arthralgias Endo:No polyuria Heme/lymphatic:No apparent lymphadenopathy Allergic/Immunologic:No hives Mental Status Evaluation: General Appearance & Behavior: age appropiate Grooming & Hygiene: street clothes Psychomotor Activity: no psychomotor abnormalities or muscle atrophy noted Gait & Station stable gait Speech: soft spoken Flow of Thought: linear and goal directed Thought Associations: Intact Content of Thought: No evidence of suicidal ideations/homicidal ideations/psychosis Mood: fine Affect: euthymic Insight: fair Judgment: fair Orientation: alert and oriented to person, place, time, and circumstances Memory: intact recent and remote Attention: intact Concentration: intact Language: fluent Fund of Knowledge: estimated average intelligence Discharge Information PRINCIPAL DIAGNOSIS at Discharge: 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 Start taking on: February 10, 2024 melatonin 1 mg Tab Take 2 (two) tablets (2 mg total) by mouth nightly . mirtazapine 15 MG tablet Commonly known as: REMERON Take 1 (one) tablet (15 mg total) by mouth nightly . OLANZapine 5 MG tablet Commonly known as: ZYPREXA Take 0.5 (one-half) tablet (2.5 mg total) by mouth nightly . CONTINUE taking these medications atorvastatin 10 MG tablet Commonly known as: LIPITOR folic acid 1 MG tablet Commonly known as: FOLVITE Take 2 (two) tablets (2 mg total) by mouth daily . hydroxychloroquine 200 mg tablet Commonly known as: PLAQUENIL leucovorin 5 mg tablet Commonly known as: WELLCOVORIN methoTREXate 2.5 MG tablet Commonly known as: TREXALL multivitamin per tablet Commonly known as: THERAGRAN tamsulosin 0.4 mg capsule Commonly known as: FLOMAX STOP taking these medications ALPRAZolam 0.5 MG 24 hr tablet Commonly known as: XANAX XR buPROPion 150 MG 24 hr tablet Commonly known as: WELLBUTRIN XL escitalopram oxalate 10 MG tablet Commonly known as: LEXAPRO zolpidem 10 mg tablet Commonly known as: AMBIEN Where to Get Your Medications These medications were sent to [facility] [address] [place] [id number] Hours: 8:30 AM to 5:00 PM Mon-Mon cyanocobalamin 1000 MCG tablet folic acid 1 MG tablet mirtazapine 15 MG tablet OLANZapine 5 MG tablet These medications were sent to [facility] [id number] melatonin 1 mg Tab This patient is being discharged on one antipsychotic. Diagnostic work up including: BMI, blood pressure, hemoglobin A1c or blood glucose, and lipid panel have been completed in the past year performed within [facility] and available in [facility]. Glucose >126mg/dL, HgbA1c not done. Tobacco cessation medication not indicated; Patient is only a someday tobacco user or doesn't use currently. Disposition: Home Follow Up: [facility] Address: [address], [place] [address] Go on 02/14/2024 Intake appointment for psychiatry services with Cora Mathis CNP on February 13 at 2:30pm. Please call the number above with any questions, or if you need to re-schedule your appointment. [facility] - Counseling Services [address] [place] [address] Follow up on 02/12/2024 Counseling appointment with Cristina on February 11 at 1:00pm. Please call the number above with any questions, or if you need to re-schedule your appointment. Discharge Diet: Resume home diet Additional Information: n/a Provider(s): Primary Care: No primary care provider on file. Phone: None Address: No primary physician on file. To contact Thuan Elliott MD or business education instructor physician, call [phone] ([place]) for 24 hour/7 day for emergencies related to inpatient stay or to obtain results of studies pending at discharge. Patient instructions, including activity, were given to the patient/family at discharge. Please see the After Visit Summary in the medical record for details. Time spent on discharge: > 30 minutes Completed by: Thuan Elliott MD on 02/09/24, 4:47 PM documented in this encounter [facility] 02-09-2024 History of Present illness Narrative Goal Group/ Life Skills [id number] Pt found at nurse's station, dressed in his own clothing with appropriate hygiene. Pt affect dull and flat. Pt completed writing on goal worksheet and vocalizes negatively I crossed out so many things on here already . Pt continues on to state that's the thing about insomnia, I just don't know. They said I slept last night, and I did dream so I must have gotten a few hours of sleep. Pt reports he continues to feel tired this morning. Pt writes on goal sheet the following: Pt goal from yesterday was to talk with the doctor Was the goal met Doctor feels I can go home, added melatonin A word to describe how they are feeling today is good because I dreamt and actually got some sleep . The Pt goal for today is Be more positive towards my , don't sound like a broken record about my troubles and don't worry about the future . Pt had crossed this out on goal sheet. The steps and behaviors they will take to accomplish goal: do not repeat the past The Pt feel this goal is important to them because my is under severe pressure to care for 2 people who need a lot of care . Discussed the importance of positive thinking and expressing feelings with pt. Pt discusses support he receives from his siblings and feeling like a burden to them and his with his repeated worries. Life Skills Pt presented with 5 Factors worksheet exploring points in life that contribute to vulnerabilities of increased depression. Pt writes points to combat factors of low self-esteem, negative thinking, difficulty expressing feelings, having a limited support system and poor stress management. Pt discusses looking forward to going home and being able to spend time outside. Pt does not offer much discussion while going through this worksheet. 0725: Assumed care of patient. Pt resting in bed with eyes closed, respirations even and unlabored until 829. 0919: Vitals obtained, pt cooperative. 0923: Took morning medications without incident, mouth check completed. Affect is full and pt is pleasant and completing hygiene. 1025: Participated appropriately in morning therapy group. 1055: Called Tiffanie to verify 3pm pickup and states she will bring money for 15.99 copay. Pt is asking this nurse how much medicare will cover and how much he has to pay for stay. Pt dressed appropriately in street clothes. Patient is alert and oriented. Affect is flat, pt maintains good eye contact. Speech is appropriate. Pt is able to perform ADLs. Pt reports 0/10 depression and some anxiety. Pt denies any SI/HI/AH/VH and agrees to come to staff if any of these occur. Pt denies any thoughts of self harm. Pt denies pain. Patient reports they slept Good, they tell me I slept good and has adequate appetite. Patient has been cooperative so far this shift. 1215: Pt states he feels ready to discharge and says I'm just nervous for the future states he has good supports denies need for prn anxiety medication at this time. 1515 :After visit summary, including discharge medications list and follow up appointments, thoroughly discussed with pt and pt verbalized understanding and denied any questions. Pt left with a copy of the after visit summary, copy of the safety plan, and all personal belongings. Pt denies any suicidal or homicidal ideation. Pt discharged home with . 1938- Client at nurse's station for help completing his menu. Assisted client in filling out menu. Client fretful and asks the same questions over and over. Faxed client menu down to dietary. Introduced self to client. Client dressed casually in own clothing. Client appears disheveled with no body odor noted. Client makes fair eye contact and responds with fretfulness and need for repeated reassurance in conversation. Client is social with peers and spends time in room as well. Client is independent with ADLs and has a good appetite though needs to be reminded that the food here is included in the charge for his stay as he thought he had to pay for it like a restaurant as he ordered it and was fretful that he didn't have any money. Client denies SI/HI/AVH/SIB and verbalizes ability to keep self safe on the unit and tell staff if that changes. Client denies depression and anxiety. Client denies any further needs at this time. Client left in lounge. 2046- Knocked on client's door. Client asleep. Awakened client. Identified client by name, , and wristband. Administered medication as per physician order. Client tolerated medication with a cup of water. No medication noted upon inspection of oral cavity. Client denies any further needs at this time. Client left resting comfortably with adequate linen. 2100- Client resting comfortably with deep and even respirations. 2200- Client resting comfortably with deep and even respirations. 0000- Client resting comfortably with deep and even respirations. 0200- Client resting comfortably with deep and even respirations. 0400- Client resting comfortably with deep and even respirations. 0600- Client resting comfortably with deep and even respirations. Psychiatry Progress Note Patient Name: Kristian Gutierrez Admit Date: [id number] MR #: [id number] : 1955 Perpetual Assessment Kristian Gutierrez is a 69 y.o. 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 Despite being financially stable, he has been increasingly focused on financial issues, exhibiting feelings of hopelessness and worthlessness, and verbalizing suicidal thoughts without a specific plan. He denies any current suicidal ideation or history of attempts, self-harm, homicidal ideation, auditory or visual hallucinations, and substance use. His symptoms have been exacerbated over the past few months, particularly following his mother's and the stress of being the executor of her will. Despite being on a regimen of psychiatric medications, his mental health continues to deteriorate, causing significant concern for his sisters who believe he cannot be left alone safely. He will be hospitalized for safety and stabilization, with further psychiatric evaluation and treatment planning to be determined by the treatment team. Physical examination Lab testing as appropriate Precautions -suicide PRN medications for agitation Collateral history from family/friends/providers Request/review prior records telephone services sales representative assessment/linkage/care coordination Group participation/[facility] Supportive psychotherapy/structured supportive care Ambien 10 mg by mouth at bedtime as needed insomnia Increase Mirtazapine to 15 mg by mouth at bedtime Aftercare planning once stable Comorbid issues impacting my care plan include none . Following for depression and suicidal ideations Interval History: Patient reports feeling generally improved and less anxious compared to the initial stages of his hospitalization. He still harbors some anticipatory anxiety about the future, but it is significantly less intense than before. Mr. Gutierrez denies experiencing any hallucinations, suicidal ideations, and homicidal ideations. He has expressed concerns about his sleep quality, noting that while it has improved, he is interested in further enhancement. He worries that poor sleep may negatively impact his mental health. Mr. Gutierrez appears more calm, clear, and logical in his thought processes compared to his initial presentation. He is more engaging during conversations and maintains respectful interactions with staff and other patients. He has shown no signs of confusion, a significant improvement from his initial presentation. His compliance with the prescribed medication, Olanzapine (Zydis), remains consistent. He has shown significant improvement in his mental state and behavior. He demonstrates a positive response to the current treatment plan, particularly the medication regimen and group therapy sessions. His anticipatory anxiety about the future remains, but it is less intense than before. His sleep quality has improved, but he expresses a desire for further improvement. We will continue the current treatment plan, including medication and group therapy sessions. Address Mr. Gutierrez's concerns about his sleep quality and explore options for further improvement. Maintain close monitoring of his mental state and behavior to ensure sustained progress and further stabilization. Continue to provide ongoing support to his , Tiffanie, and keep her informed about Mr. Gutierrez's progress. Review of Systems: Constitutional:No fever, no weight loss Eyes:No diplopia ENT:No sinus drainage CV:No chest pain. No ankle swelling Resp:No dyspnea. No wheezing GI:No abdominal pain.No abdominal distention :No dysuria Neuro:No headache Integumentary:No skin rash MuscSkel:No arthralgias Endo:No polyuria Heme/lymphatic:No apparent lymphadenopathy Allergic/Immunologic:No hives Physical Examination: Vital Signs: BP 131/74 Pulse 70 Temp 97.6 F (36.4 C) (Oral) Resp 16 Ht 5' 7 Wt 62.6 kg (138 lb) SpO2 98% BMI 21.61 kg/m Mental Status Evaluation: General Appearance & Behavior: older than stated age Grooming & Hygiene: street clothes Psychomotor Activity: psychomotor retardation Gait & Station stable gait Speech: Improved rate Flow of Thought: concrete Thought Associations: Intact Content of Thought: Preoccupations Mood: alright Affect: Mobilizing better Insight: fair Judgment: fair Orientation: alert and oriented to person, place, time, and circumstances Memory: impaired short term, intact remote Attention: improved Concentration: improved Language: fluent Fund of Knowledge: estimated average intelligence Laboratory and Additional Data Reviewed: Laboratory 02/08/24 5:01 PM Medications 02/08/24 5:01 PM Treatment options and alternatives reviewed with patient. Risks, benefits, side effects of all psychiatric medications discussed with patient and informed consent obtained. All questions were answered. Thuan Ellitot MD 02/08/2024 5:01 PM Time in Group: 1500 - 1550 Recreation Therapy: Pt participated in learning a new leisure board game called Sequence which emphasizes scanning, strategy, problem solving, decision making and teamwork. Group discussed the purpose and benefits of having an active leisure lifestyle. Pt appeared miffed while learning this game though he was able to scan the board and look for plays that were appropriate. After playing one game states I prefer not to play a second game. When the offer to go to the exercise room was presented pt states yes, I would like to go. Exercise: Pt engaged in playing [employer] pong with peer for 20 minutes. His mood improved, he appeared less anxious and voiced hope stating this is the first time I have felt this good in 3 years. We discussed the benefits of exercise in aiding to reduce depression. Pt enjoyed the physical movement an the challenge that it brought to him. [id number] Pt agreeable to attend [facility] educational session for additional community resources for discharge planning at this time. 1230: Met with patient who reports he would like to follow with Dr. Abdalla at discharge. Patient is encouraged to try his provider at [facility], and Dr. Abdalla can be scheduled in case things do not work out with his [place] provider. Patient remains preoccupied with anxious thoughts about returning home and how he will maintain himself. Patient is reminded of the conversation this keno writer had with him yesterday about distracting himself and utilizing his coping skills. Spoke with patient's , Tiffanie Gutierrez, and updated her on patient's discharge for tomorrow. Patient's plans to pick patient up for discharge around 3:00pm tomorrow. telephone services sales representative to follow. GREY Huber 0730 - at the beginning of the shift the pt found resting in the pt room 0915 - The pt found in room and the pt agrees to interaction and the pt denies pain and the pt denies other needs and the pt is able to take all scheduled medication without difficulty and mouth check performed and cheeking not evinced and the pt reports appetite good and the pt reports sleep good and the pt denies si and the pt denies hi and the pt agrees to seek staff intervention should si / hi become pervasive and the pt rates anxiety 7/10 and pt rates depression 5/10 and the pt denies hallucinations and pt eye contact fair and affect flat during interaction 1830 - the pt has been cooperative and has spent much of the day outside of his room in common areas and he has showered after supper this evening and is resting in bed eyes closed and easy resp at the time of this writing Goal Group/ Life Skills [id number] Pt [place] [facility] [place], agreeable to attend group. Pt dressed in his own clothing, hair disheveled, appropriate hygiene. Pt presents to group with calm and pleasant affect. When presented with Goal worksheet pt affect changes to depressed and negative. This staff offered encouragement and pt was able to complete worksheet. Pt did not recall his goal from yesterday. Per charting pt goal focused on improving his sleep. Pt reports in group he feels he did not sleep well, nursing charting records pt slept for 8 hours. Pt states I really don't think I slept that much. I find myself looking at the clock a lot as I just lay there and try to sleep but I just don't fall asleep . A word to describe how they are feeling today is anxious . Pt voices I feel like I say that all of the time but I just can't shake it, I have so much on my mind . The Pt goal for today is review medications with doctor and discuss with Kris the ROSALINO . The steps and behaviors they will take to accomplish goal: quit thinking about future negative thoughts The Pt feel this goal is important to them because I want to go home . Life Skills Patients discussed the benefits of positive thinking and practicing self talk. Pts instructed to utilize sticky notes to write positive affirmations to themselves. Pts then wrote an affirmation to each other. Pt struggled to write positive affirmations to himself. Pt did write suggested statements from this staff with much hesitation and thinking. Pt was able to write positive notes to peers without difficulty. Lastly pts instructed to write a negative thought to let go of, which they then returned to their rooms to flush the negative thought and to read and hang up positive affirmations in their rooms. Pt returned to his room and put unread positive notes on his side table and threw negative thought note into trash can. Pt returned to nurse's station to talk with nursing staff with tense and depressed affect. 20:15 patient has been resting in bed awake or wandering in hallway so far this shift. He appears tense and voices concerns of insomnia. He shares that he has tried multiple medications and states nothing helps. He states he has been caring for his elderly mother and states this has burned me. He states now his is caring for her. He asks questions about the medications he is taking and is concerned that he will go home and continue to have sleep issues. He states he is planning to see Dr. Abdalla outpatient because he states this is way out of his league- in reference to his family doctor. Patient asking where he can go if he starts to have weeks or two months of insomnia. Encouraged patient not to wait a number of months before addressing the issue. We discussed the importance of frequent follow up visits to address medication concerns and avoid rehospitalization. Patient seems very convinced that his problem cannot be helped and will continue. He states he does follow a bed time routine such as bathing and reading to calm himself down and prepare for sleep. Patient was adamant that this nurse add Trazodone to allergy list stating he never wants to take it again. He states he gets dizzy and disoriented from it. Explained what a true allergy is such as rash, hives, or SOB. Patient still wants it added to allergy list. 22:[address] and seems confused or lost at times. 23:00 Patient resting in bed with eyes closed and even respirations. 02:00 patient continues resting in bed with even respirations. 06:30 patient resting overnight for around 8.5 hours 1700 Patient in group. 1800 Patient sitting in the dining room playing cards with peer. Recreation [id number] Pt found ambulatory in lounge after finishing dinner. Pt dressed in his own clothing, appropriate hygiene. Pt escorted to [facility] for group. Pt affect is pleasant and smiling, sociable with peers and staff and reports feeling much better . Pt participated in playing Savelli. This was pt's first time playing this ketan system and was able to catch on quickly. Pt vocalized negative thinking at first, with encouragement from peers and staff pt was able to break 100 points bowling on his first game and vocalized excitement I'm going to have to tell my about this with wide smile. Pt participated well throughout the group. Pt had been transferred to [facility] while in group. This staff assisted orienting pt to unit and to room, pt voiced gratefulness and given phone to call his . Psychiatry Progress Note Patient Name: Kristian Gutierrez Admit Date: [id number] MR #: [id number] : 1955 Perpetual Assessment Kristian Gutierrez is a 69 y.o. 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 Despite being financially stable, he has been increasingly focused on financial issues, exhibiting feelings of hopelessness and worthlessness, and verbalizing suicidal thoughts without a specific plan. He denies any current suicidal ideation or history of attempts, self-harm, homicidal ideation, auditory or visual hallucinations, and substance use. His symptoms have been exacerbated over the past few months, particularly following his mother's and the stress of being the executor of her will. Despite being on a regimen of psychiatric medications, his mental health continues to deteriorate, causing significant concern for his sisters who believe he cannot be left alone safely. He will be hospitalized for safety and stabilization, with further psychiatric evaluation and treatment planning to be determined by the treatment team. Physical examination Lab testing as appropriate Precautions -suicide PRN medications for agitation Collateral history from family/friends/providers Request/review prior records telephone services sales representative assessment/linkage/care coordination [facility] Supportive psychotherapy/structured supportive care Ambien 10 mg by mouth at bedtime as needed insomnia Increase Mirtazapine to 15 mg by mouth at bedtime Aftercare planning once stable Comorbid issues impacting my care plan include none . Following for depression and suicidal ideations Interval History: Mr. Gutierrez, a 69-year-old male currently admitted to the inpatient psychiatric unit, has shown significant improvement over the past few days. He presents as calmer, more logical in his thought processes, and appears to be developing a sense of appreciation for the care being provided. His communication has improved, he is more engaging during conversations, and has been respectful and polite to staff and other patients. Mr. Gutierrez has reported a notable improvement in his mental state, expressing that he feels better now than he has in the past two months. He has shown no signs of hallucinations and has consistently denied any suicidal or homicidal ideations. This is a significant change from his initial presentation, indicating a positive response to the current treatment plan. His compliance with the medication regimen, particularly Olanzapine (Zydis), has been consistent. He has expressed belief that the medication is aiding his recovery process, and the lessening of his anxiety symptoms supports this. Mr. Gutierrez's engagement in group therapy sessions has been beneficial, as he has found them helpful and has been more interactive. His understanding and perception of the structured environment of the inpatient unit have improved, further aiding his recovery. His , Tiffanie, has been kept informed about Mr. Gutierrez's progress and will continue to be provided with ongoing support. The treatment team will continue to work collaboratively to monitor Mr. Gutierrez's progress, ensure his safety, and address his persistent feelings of anxiety. In conclusion, Mr. Gutierrez's overall progress is encouraging. He has shown significant improvement in his mental state and behavior, and has responded positively to the treatment plan. Continued observation and therapy are necessary to ensure sustained progress and further stabilization. Review of Systems: Constitutional:No fever, no weight loss Eyes:No diplopia ENT:No sinus drainage CV:No chest pain. No ankle swelling Resp:No dyspnea. No wheezing GI:No abdominal pain.No abdominal distention :No dysuria Neuro:No headache Integumentary:No skin rash MuscSkel:No arthralgias Endo:No polyuria Heme/lymphatic:No apparent lymphadenopathy Allergic/Immunologic:No hives Physical Examination: Vital Signs: BP (!) 151/81 Pulse 71 Temp 97.5 F (36.4 C) (Oral) Resp 16 Ht 5' 7 Wt 62.6 kg (138 lb) SpO2 100% BMI 21.61 kg/m Mental Status Evaluation: General Appearance & Behavior: older than stated age Grooming & Hygiene: street clothes Psychomotor Activity: psychomotor retardation Gait & Station stable gait Speech: soft spoken, slowed, and hesitant Flow of Thought: concrete Thought Associations: Intact Content of Thought: Preoccupations Mood: depressed Affect: depressed Insight: limited Judgment: limited Orientation: alert and oriented to person, place, time, and circumstances Memory: impaired short term, intact remote Attention: distracted Concentration: reduced Language: fluent Fund of Knowledge: estimated average intelligence Laboratory and Additional Data Reviewed: Laboratory 02/07/24 2:37 PM Medications 02/07/24 2:37 PM Treatment options and alternatives reviewed with patient. Risks, benefits, side effects of all psychiatric medications discussed with patient and informed consent obtained. All questions were answered. Thuan Elliott MD 02/07/2024 2:37 PM [id number] Life Skills: PT and keno writer met in group room. PT asked to talk with keno writer 1:1 but only if others were not going to be in group with him. PT was informed that he was in fact the only person that agreed to attend. PT spoke to keno writer about his concerns with improvement, DC, follow up care and his future . PT was able to see small improvements in self since admission, to which keno writer pointed out many more improvements, to which pt was not aware and voiced appreciation for the support. PT shared that he was to be DC by the end of the week, per his admitting doctor. PT asked questions about follow up care to which he voiced had not been discussed with him to this point by his marriage and family social worker. PT was honest that if it was earlier in his admission he may have forgotten. PT shared that he would like to follow with Dr. Abdalla and asked questions about medication management outside of the hospital, to which keno writer answered what questions I could then referred pt to speak directly with his doctor. PT shared concerned that he had not his future and many of the centered around his ability to care for my and kids . PT shared that his kids are 2 adult males, but pt voiced that he had to help supports them because it is a long story that is hard for others to understand because only my and I know what it is all about . In Store Representative provided active listening, validation, rational thinking and support to pt. PT voiced appreciation for time spent and cited that he was feeling a little better about things , but was honest that he still had concerns and doubts , to which keno writer encouraged that pt share with family or staff so that they/we could help him process them, agreed to try . 1055: Met with rafa for daily rounds. He is resting lightly on approach, and easily wakes when addressed by this keno writer. He appears slightly anxious, but is overall controlled. He reports he did not sleep well last night, although nursing charting indicates he slept for 7.40 hours. Positive encouragement provided to patient for his progress he has made throughout the course of his admission. He otherwise denies any further questions, concerns, or discharge needs at this time. Patient overall appears much improved than when he first arrived for admission. telephone services sales representative to follow. GREY Huber [id number] Goal Group: Pt out walking in [place] when keno writer entered unit. PT aware of group time and brought self to group room. PT shared with keno writer that he was going to continue to walk while keno writer gathered others for group, to which keno writer permitted. PT brought self again to group room when keno writer arrived there. PT dressed in street clothes. Affect flat. BEH controlled and cooperative. PT able to address keno writer by name, hold eye contact more then previous contact, pt quicker with responses and slightly less hopeless and negative then previous contact. PT shared that it has been helpful for him to see that others are struggling with their mental health as well, but that he is worried and concerned for some of them, to which keno writer spoke to pt about trying to focus on self and allow the staff and doctor to care for peers, to which he agreed. PT cited that he was feeling thankful this date do to I am thankful for my family that brought me here to get the help that I needed and for everyone up here for giving me the help . PT set goal for the day of get better with the insomnia . PT voiced that he did sleep more then CRISIS NURSE but that he is still not sleeping well for prolonged periods of time. PT feels that he is starting to make it back up the hill, since it seems like everything has gone straight down hill so quickly, but it is going to be long . PT praised for seeing progress in self and was encouraged to try and focus more on positives then negatives, to which pt cited that he would try. 0732: Patient laying in bed, resting with eyes closed, even and unlabored respirations, patient laying in prone position, patient repositions self at this time. 0850: Administered morning medications per scheduled orders to patient standing at the nurse's station, patient tolerated fairly well, oral cavity check cleared. Patient agreeable to interaction, patient states I appreciate all you do for me here , patient states anxiety 7 out of 10 , patient denies depression, patient denies suicidal/homicidal ideations, patient denies auditory/visual disturbances, patient appetite is good, sleep pattern reportedly okay. Patient has been somewhat isolative to room, attends groups, independent with ADLs, patient denies physical pain at present. 0920: Patient attending morning goal group therapy session in the conference room, patient is appropriate with the discussion/activity, peers and staff, lead by FRANCIA Pacheco. 1011: Patient has returned to laying in bed, sleeping intermittently, even and unlabored respirations, patient repositions self at this time. 1144: Patient retrieved lunch tray from the dietary window, now seated with peers in the lounge, watching television and eating lunch, patient denies further needs. 1333: Patient attending group therapy session in the conference room, appropriate with activity, peers and staff, lead by 1407: Administered folic acid per scheduled orders at patient's bedside, patient tolerated well, oral cavity check cleared. 1648: Patient's spouse called in for an update and to express concerns for patient's phone calls today to family members, expressing similar statements of anxiety regarding financial woes. Patient's Tiffanie Gutierrez expressed concern, emotional support provided. 1655: Patient cooperative to attend group therapy session on B33B, appropriate with activity, peers and staff, lead by Irma Abreu, group wire transfer clerk. Nurse to nurse report called to Humble Peterson LPN, patient transferred to [facility]. 1929 Report received progress notes ,labs and orders reviewed patient dressed casually controlled and cooperative 2044 Patient lying in bed awake denies hallucinations states I only had that happen once rates depression 5 and anxiety 4 denies SI patient concerned about sleeping better and hopes to be discharged soon denies pain took scheduled med's oral check done 2230 Resting quietly in bed resp unlabored 2300 Resting quietly resp unlabored 0200 Remains in bed resting quietly resp unlabored 0540 Patient has slept approx 7hrs and 40min and remains in bed resting quietly at this time [id number] Life Skills Pt found resting in bed awake, agreeable to attend group. Pt dressed in his own clothing, neat and clean, with calm and flat affect. Pt participated in playing Path to Self-Acceptance. The board game includes cards covering topics of Self- Doubt, Self- Acceptance, Comparison, Affirmations and topics of abilities and things liked. Pt voices he dislikes answering the Self-Acceptance questions they're hard and I don't feel like I can think that deeply to share anything good . Pt provided positive affirmations by this staff and peers, pt accepting and thankful. Pt participated well throughout the game. Pt returned to [facility] without incident. Psychiatry Progress Note Patient Name: Kristian Gutierrez Admit Date: [id number] MR #: [id number] : 1955 Perpetual Assessment Kristian Gutierrez is a 69 y.o. 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 Despite being financially stable, he has been increasingly focused on financial issues, exhibiting feelings of hopelessness and worthlessness, and verbalizing suicidal thoughts without a specific plan. He denies any current suicidal ideation or history of attempts, self-harm, homicidal ideation, auditory or visual hallucinations, and substance use. His symptoms have been exacerbated over the past few months, particularly following his mother's and the stress of being the executor of her will. Despite being on a regimen of psychiatric medications, his mental health continues to deteriorate, causing significant concern for his sisters who believe he cannot be left alone safely. He will be hospitalized for safety and stabilization, with further psychiatric evaluation and treatment planning to be determined by the treatment team. Physical examination Lab testing as appropriate Precautions -suicide PRN medications for agitation Collateral history from family/friends/providers Request/review prior records telephone services sales representative assessment/linkage/care coordination Group participation/mileau Supportive psychotherapy/structured supportive care Ambien 10 mg by mouth at bedtime as needed insomnia Increase Mirtazapine to 15 mg by mouth at bedtime Aftercare planning once stable Comorbid issues impacting my care plan include none . Following for depression and suicidal ideations Interval History: Mr. Gutierrez, a 69-year-old male, currently admitted to the inpatient psychiatric unit, exhibited some improvement today. He was more engaged and clearer in his communication. He reported attending group sessions and found them helpful. He also expressed a newfound understanding that he was not enrolled in any program. Mr. Gutierrez has been compliant with his medication regimen and expressed belief that the medications are aiding his recovery. Upon observation, Mr. Gutierrez appears less anxious and more oriented than previous days. He was found to be more interactive in his group sessions and responsive to the therapeutic interventions. His affect was more stable, and he seemed less overwhelmed. Mr. Gutierrez continues to respond well to the medication adjustments, particularly Olanzapine (Zydis), which has noticeably lessened his anxiety. His engagement in group sessions and improved clarity indicate a positive response to the supportive psychotherapy and structured environment of the inpatient unit. However, he continues to harbor feelings of hopelessness and guilt related to his financial situation. he current treatment plan will continue with the administration of the Olanzapine (Zydis) and supportive psychotherapy. Continued observation is necessary to ensure safety and further stabilization. The therapeutic benefits of the group sessions are evident and will be encouraged. Further discussions to address his misconceptions about his financial situation will be incorporated into his psychotherapy sessions. His , Tiffanie, will be kept informed and provided with ongoing support as well. The team will work collaboratively to address Mr. Gutierrez's persistent feelings of hopelessness and anxiety. Review of Systems: Constitutional:No fever, no weight loss Eyes:No diplopia ENT:No sinus drainage CV:No chest pain. No ankle swelling Resp:No dyspnea. No wheezing GI:No abdominal pain.No abdominal distention :No dysuria Neuro:No headache Integumentary:No skin rash MuscSkel:No arthralgias Endo:No polyuria Heme/lymphatic:No apparent lymphadenopathy Allergic/Immunologic:No hives Physical Examination: Vital Signs: BP 133/80 Pulse 78 Temp 97.9 F (36.6 C) (Oral) Resp 16 Ht 5' 7 Wt 62.6 kg (138 lb) SpO2 98% BMI 21.61 kg/m Mental Status Evaluation: General Appearance & Behavior: older than stated age Grooming & Hygiene: street clothes Psychomotor Activity: psychomotor retardation Gait & Station stable gait Speech: soft spoken, slowed, and hesitant Flow of Thought: concrete Thought Associations: Intact Content of Thought: Preoccupations Mood: depressed Affect: depressed Insight: limited Judgment: limited Orientation: alert and oriented to person, place, time, and circumstances Memory: impaired short term, intact remote Attention: distracted Concentration: reduced Language: fluent Fund of Knowledge: estimated average intelligence Laboratory and Additional Data Reviewed: Laboratory 02/06/24 3:00 PM Medications 02/06/24 3:00 PM Treatment options and alternatives reviewed with patient. Risks, benefits, side effects of all psychiatric medications discussed with patient and informed consent obtained. All questions were answered. Thuan Elliott MD 02/06/2024 3:00 PM [id number] [phone] [phone] Recreation Therapy: Pt participated in a social activity called 'Let's Talk.' Pt pulled cards that asked questions pertaining to past experiences, preference, and hopes/dreams for the future. Pt shares he got when he was 25 years old and has been for 42 years. Pt talks highly of his stating that she is the most caring person he knows and at this time is caring for her elderly mother. 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 States he does not like driving in [place] or [place] stating all I want [place] the [place] with [place] few animals and live the quiet life. 0913 In bed, resp even and unlabored, in safe stable condition, no behaviors noted at this time, no s/sx of discomfort/distress, states that mood is feeling like my medication is really working over the last 3 days , denies depression/anxiety at this time, pt was able to sleep poorly per pt, per pt hx of insomnia, appetite is good, pt denies thoughts to harm self or others, medication compliant mouth check completed, denies side effects, no s/sx of adverse reactions r/t medication administration noted at this time, mask offered and benefits explained and pt acknowledged understanding, denies mask at this time. 0930 In group at this time. 1430 Resting peacefully eyes closed. 1852 In lounge visiting with Daughter and at this time, resp even and unlabored, in safe stable condition, no complications noted at this time, able to make needs known. 1044: Spoke with patient's , Tiffanie Gutierrez ([phone]) via phone call. Patient's reports she feels patient is doing a little better when she last visited with him. She reports he has been sleeping better and seems more like himself. She reports patient is still having some anxious thoughts, but she has been helping him work through these thoughts to sort them out, and determine which thoughts are true vs. untrue. Patient's reports she has been working to provide re-assurance to patient when he starts to have anxious thoughts. Reviewed patient's follow-up care with . 1556: Met with patient for daily rounds. Patient is less disorganized during this encounter. He is more calm and less fretful, but does verbalizes anxious thoughts he is having. He reports he is worried about how he will maintain his stability after discharge. Encouraged patient to be aware of his symptoms, and remain in compliance with his outpatient treatment. Discussed activities such a, gardening, that patient can pursue to help distract him from his anxious thoughts. Patient acknowledges this and thanks this keno writer for the conversation with him. Reviewed patient's follow-up appointments with him, which he expresses worry about remembering all of his appointments. Discussed option of patient getting a tool planner to help him write everything down to remember. telephone services sales representative to follow. [facility] Care Follow up Monitoring and Evaluation: Meal rounds Nutrition Diagnosis: No Nutrition Diagnosis at this time (takes 50-60%) of meals Nutrition Intervention: Continue meal rounds Nutrition Goals: Tolerate diet with PO intakes >75% most meals Start Date:02/06/2024 Expected End Date:02/12/2024 Nutrition Education: No needs at this time Assessment: Pertinent clinical information: major depression Height: 5' 7 Current weight: 62.6 kg (138 lb) BMI Body mass index is 21.61 kg/m . Weight hx: stable Wt Readings from Last 10 Encounters: 01/29/24 62.6 kg (138 lb) Significant Weight Change: No Current diet order: Diet: Regular Recent intake: 60% Current intake meets estimated needs. Barriers to adequate p.o. intakes: No barriers identified Patient/family comments: selects menu Difficulty Chewing or Swallowing: No Skin Integrity: Intact GI Function: WDL Fluid Status: WNL Physical Appearance: No signs and symptoms of malnutrition noted Labs: No results for input(s): NA , K , BICARB , CL , GLUCOSE , BUN , CREATININE , MG , PHOS , TRIG , PREALBUMIN , ALBUMIN , LIPASE , CRP in the last 72 hours. No results for input(s): GLUCOSE in the last 72 hours. No results found for: HGBA1C Scheduled Meds: atorvastatin 10 mg Oral Daily cyanocobalamin 1,000 mcg Oral Daily folic acid 2 mg Oral Once per day on Monday hydroxychloroquine 300 mg Oral Daily leucovorin 15 mg Oral Weekly methoTREXate 10 mg Oral Weekly methoTREXate 10 mg Oral Weekly mirtazapine 15 mg Oral Nightly multivitamin 1 tablet Oral Daily OLANZapine 2.5 mg Oral Nightly tamsulosin 0.8 mg Oral Daily Continuous Infusions: Estimated Energy Needs Total Energy Estimated Needs: 8008-7071 kcal/d Method for Estimating Needs: 25-30 kcal/kg current wt Total Protein Estimated Needs: 65 g/d Method for Estimating Needs: 1 g/kg current wt [address] 917 28 Goal Group Pt found laying in bed talking with RN, pt agreeable to attend group. Pt dressed in his own clothing, neat and clean. Pt affect is dull and flat. Pt brightens when interacting with peers. Pt reports a fact to share about himself I enjoy time gardening, I was the one to be up at 5am so I could be in the garden for a bit before work . Pt discusses his favorite plants and how gardening relaxes him and he misses it. Pt reports today he is feeling I'm always anxious . Pt reports he is anxious about what the future will hold for me . Pt discusses he has always struggled with insomnia and has not been sleeping well. Pt reports he is unsure of plans after being here I don't know if I'll be sent somewhere else, but I really just need to go home to my family . Pt reports his goal for today is to get some honest answers . Pt reports he will do this by talking with his doctor and marriage and family social worker. Pt encouraged to write down questions that are important to him. 1927 Received report resumed care. Client in lounge watching tv. 2199 Client in room resting in bed. Client arouses easily to name. Client rises to edge of bed without difficulty. Client A&O x 3. Client makes good eye contact and speech is clear. Client denies SI/HI. Client denies self harm thoughts and agrees to alert staff if symptoms begin. Client denies hallucinations, states sometimes I'm not sure if this is really happening, like a dream Client reports anxiety 8/10 and 0/10 depression. Client states he feels regret . Client appears depressed. Client is cooperative. Client states appetite has been good. Denies pain while using the restroom. Client reports he has some difficulty with sleeping. 2219 Client requesting snack. Client in room lying in bed. 0100 Client in bed resting with eyes closed. Client breathing regular. 0315 Client in bed resting with eyes closed, breathing regular 0618 Client resting in bed with eyes closed, breathing regular. Spiritual Care Progress Note Completed by: [facility] Person(s) Present During this Visit: Patient Time Spent in Direct Patient Care: 45 Narrative: Spiritual Assessment completed this patient who grew up Latter-Day but does not consider himself confucianist. He is in distress with physical, emotional, mental and spiritual concerns. A routine rounding visit to determine patient's emotional/spiritual needs was made. Pastoral care services were introduced. Regular Senior Care Provider explained that nursing will call kiln transfer operator if a visit is desired for emotional or spiritual support. Currently patient expresses spiritual needs of peace and redemption/confession. Regular Senior Care Provider provided reflective listening and spiritual guidance. Nursing aware of kiln transfer operator presence on unit. For a requested pastoral care follow-up visit please, matt On-call day kiln transfer operator or call . Thank you, for your collaborative care. Patients Response to Pastoral Care: Appeared to be well-engaged Planning for Future Visits: PRN, Pt aware to contact Regular Senior Care Provider as needed 02/05/24 1400 Visit Background Visit With Patient Visit By Staff Regular Senior Care Provider Visit Progression Introduction Visit Requested By Regular Senior Care Provider Initiated Visit Source Regular Senior Care Provider Initiated Visit Type Inpatient;Behavioral Health Visit Circumstances and Events Emotional/Spiritual Assessment Visit Length (minutes) 45 Patient's Response to Pastoral Care Appeared to be well-engaged Visit Planning PRN;Pt aware to contact Regular Senior Care Provider as needed Spiritual Assessment Assessed during this visit Cheondoism Assessment Not assessed during this visit Family assessment provided? Unable to asess during this visit Patient Spiritual Needs Assessment Sources of Connection Mother;Spouse Belief Practices Healing Prayer;Sacred Texts/Scripture Image of the Divine Creator Role of the Divine in Pt's Illness Feel Judged/Condemned Spiritual Wellness Activies and Resources Communing with the Divine Outdoors/In Nature;Other (Please Specify) (gratitude reflections and breathing) Spiritual Issues / Opportunities Moral Distress (unattached, generalized distress) Grief Assessment Appropriately Grieving (mother recently ) Expressed / Stated Feelings Despair Attitude Toward Illness Overwhelmed Coping Mechanisms Expressing Feelings;Deep Breathing Techniques;Prayer/Spiritual Practices Caregive / Family Spiritual Issues Relieve Spiritual Suffering Spiritual Diagnosis Guilt/Shame Facilitated Interventions Explored thoughts/feelings associated with current hospitalization;Explored Patient's Spirituality Spiritual/Emotional Outcomes Appreciative;Growing Awareness;Meaning/Hope Increased Spiritual Plan of Care Continue Healing Process;Receive Comfort Regular Senior Care Provider [facility] Hip Hop Dancer Number: [facility] PROGRESS NOTE Patient Name: Kristian Gutierrez : 1955 MR #: [id number] Admit Date: 5191015 Physicians: System, Provider Not In (Family); No ref. provider found (Referring) Kristian Gutierrez is a 69 y.o. male patient of System, Provider Not In with history of rheumatoid arthritis, BPH, melanoma of neck s/p surgical excision, anxiety who has been admitted to [facility] inpatient behavioral health unit 01/29/2024. Depression Management per primary Hyperlipidemia Statin Rheumatoid arthritis Takes methotrexate once weekly resume Continue folic acid Continue home Plaquenil BPH Chart reports history of possible prostate cancer, but patient denies this; endorses BPH Continue tamsulosin Medication Reconciliation: Verified Code Status: Full Code - Unverified Will sign off after today. Discussed home medications with spouse and pharmacy and resumed RA medications Quality Measures DVT Prophylaxis: Ambulation Schulz Catheter: Absent Subjective: I dont know why I have not been getting all of my medications for RA Review Of Systems All relevant systems have been reviewed and are negative except as noted in HPI or below Physical Examination BP 129/65 Pulse 73 Temp 98.1 F (36.7 C) (Oral) Resp 16 Ht 5' 7 Wt 62.6 kg (138 lb) SpO2 97% BMI 21.61 kg/m General Appearance: alert, well appearing, and in no acute distress HEENT: Head- normocephalic; Eyes- PERRLA, EOMI; Ears- external auditory canals clear, hearing intact; Nose- no nasal discharge; Throat- oropharynx normal Cardiovascular: regular rate and rhythm; normal S1, S2; no murmurs, rubs, clicks or gallops; no peripheral edema Respiratory: lungs clear to auscultation; without wheezes, rales or rhonchi Abdomen: soft, non-tender, non-distended; positive bowel sounds Neurological: alert, oriented x 3, normal speech; no focal findings or movement disorder noted Cranial Nerves: II: visual richard full. III, IV, : extraocular range intact. V: sensation intact. VII: facial symmetric with 5/5 strength. VIII: hearing intact to voice and finger rub. IX, X: palate elevates symmetrically. XI: shrugs shoulders 5/5 strength bilaterally. XII: tongue protrudes in midline. Sensation -grossly symmetrical. Motor strength 5/5 all over. DTR 2+ in the UE and LE bilaterally. Musculoskeletal: no significant deformity or tenderness to palpation Skin: normal coloration, texture and turgor; no lesions or eruptions Psych: normal mood and affect Laboratory and Additional Data Reviewed Laboratory 02/05/24 2:12 PM Microbiology 02/05/24 2:12 PM Radiology 02/05/24 2:12 PM Cardiology 02/05/24 2:12 PM Medications 02/05/24 2:12 PM Transcriptions 02/05/24 2:12 PM Psychiatry Progress Note Patient Name: Kristian Gutierrez Admit Date: [id number] MR #: [id number] : 1955 Perpetual Assessment Kristian Gutierrez is a 69 y.o. 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 Despite being financially stable, he has been increasingly focused on financial issues, exhibiting feelings of hopelessness and worthlessness, and verbalizing suicidal thoughts without a specific plan. He denies any current suicidal ideation or history of attempts, self-harm, homicidal ideation, auditory or visual hallucinations, and substance use. His symptoms have been exacerbated over the past few months, particularly following his mother's and the stress of being the executor of her will. Despite being on a regimen of psychiatric medications, his mental health continues to deteriorate, causing significant concern for his sisters who believe he cannot be left alone safely. He will be hospitalized for safety and stabilization, with further psychiatric evaluation and treatment planning to be determined by the treatment team. Physical examination Lab testing as appropriate Precautions -suicide PRN medications for agitation Collateral history from family/friends/providers Request/review prior records telephone services sales representative assessment/linkage/care coordination Group participation/mileau Supportive psychotherapy/structured supportive care Ambien 10 mg by mouth at bedtime as needed insomnia Increase Mirtazapine to 15 mg by mouth at bedtime Aftercare planning once stable Comorbid issues impacting my care plan include none . Following for depression and suicidal ideations Interval History: The patient, Mr. Kristian Gutierrez, a 69 y.o. male, was found in his room today. He appeared anxious and expressed several questions and concerns about his current situation. He reported feelings of hopelessness and being overwhelmed. Mr. Gutierrez received Olanzapine (Zydis) yesterday, which resulted in good response. His anxiety was lessened, and he reported feeling more rested and less tense. After discussing the benefits of continuing this treatment, he agreed to repeat the dose today. Despite the improvement, he still expresses concern about his financial situation. He continues to feel hopeless and harbors feelings of guilt. Today, I also had the opportunity to speak with his , Tiffanie, over the phone. Tiffanie expressed being overwhelmed and concerned about her 's mental state. She reported that Mr. Gutierrez has no previous psychiatric history and that his current symptoms began after a significant financial loss in the stock market. She confirmed that although the loss was substantial, it did not result in bankruptcy as Mr. Gutierrez believes. Extensive supportive psychotherapy was provided to Tiffanie to help her cope with the current situation. She was reassured that Mr. Gutierrez is in a safe environment and that the treatment plan is designed to stabilize his condition. She was also informed about the support available to her and the family during this time. Mr. Matt is responding well to the medication adjustments, but his anxiety and feelings of hopelessness persist. Continued observation, medication adjustments, and supportive psychotherapy will be necessary for his safety and stabilization. Review of Systems: Constitutional:No fever, no weight loss Eyes:No diplopia ENT:No sinus drainage CV:No chest pain. No ankle swelling Resp:No dyspnea. No wheezing GI:No abdominal pain.No abdominal distention :No dysuria Neuro:No headache Integumentary:No skin rash MuscSkel:No arthralgias Endo:No polyuria Heme/lymphatic:No apparent lymphadenopathy Allergic/Immunologic:No hives Physical Examination: Vital Signs: BP 129/65 Pulse 73 Temp 98.1 F (36.7 C) (Oral) Resp 16 Ht 5' 7 Wt 62.6 kg (138 lb) SpO2 97% BMI 21.61 kg/m Mental Status Evaluation: General Appearance & Behavior: older than stated age Grooming & Hygiene: street clothes Psychomotor Activity: psychomotor retardation Gait & Station stable gait Speech: soft spoken, slowed, and hesitant Flow of Thought: concrete Thought Associations: Intact Content of Thought: Preoccupations Mood: depressed Affect: depressed Insight: limited Judgment: limited Orientation: alert and oriented to person, place, time, and circumstances Memory: impaired short term, intact remote Attention: distracted Concentration: reduced Language: fluent Fund of Knowledge: estimated average intelligence Laboratory and Additional Data Reviewed: Laboratory 02/05/24 12:01 PM Medications 02/05/24 12:01 PM Treatment options and alternatives reviewed with patient. Risks, benefits, side effects of all psychiatric medications discussed with patient and informed consent obtained. All questions were answered. Thuan Elliott MD 02/05/2024 12:01 PM 0751: VS obtained. Pt is alert and oriented awake in bed. Calm and cooperative. Maintains good eye contact. Flat affect. Pt is dressed in street clothes. Pt denies SI/HI/AH/VH. Pt agrees to use coping skills and alert staff if SI/HI occurs. No delusions observed. Pt rates anxiety as some and depression 0/10. Pt states reports fair sleep and has a good appetite. Pt received scheduled medication and took without difficulty. No medication noted upon oral cavity inspection. Pt verbalizes name and use of medications. Encouraged pt to express needs to staff. 1000: Pt sitting in lounge eating snack and watching tv. Calm and controlled. 1145: Pt eating dinner in dining room. Calm and controlled. 1330: Pt moving to room 3309. Pt questions this RN about going home. Pt states that he doesn't think he will be going home and that he will keep moving to different units. Reoriented and assured pt. 1444: Pt signed for new medication orders. Pt received scheduled medication and took without difficulty. No medication noted upon oral cavity inspection. 1630: Pt on phone in room. 1830: Pt on phone in room at this time, talking to . Socially appropriate. 2019 Patient is friendly and cooperative. Patient reports he is worried about his adult children and some financial things. Patient reports his is now caring for her mother. Patient reports that he and his have been caring for his 's mother for the past 8 yrs. RN gave active listening and emotional support to patient. Patient reports depression is 4/10 and anxiety is 5/10. Patient's affect is flat. Patient denies any AH/VH. Patient denies any suicidal ideations. Patient denies any pain. 6 Patient is cooperative, medication compliant. Patient was asking for MethoTREXate and reports they take 8 pills every Monday. Patient reports this medication is for their Rheumatoid Arthritis. 2230 Patient resting quietly in bed, respirations normal 0043 Patient resting quietly in bed, respirations normal 0255 Patient resting quietly in bed, respirations normal 0502 Patient resting quietly in bed, respirations normal 0630 Patient slept 8 hrs uninterrupted 13:00 - 13:35 Recreation Therapy - Pt in his room upon approach and he was receptive to joining group. Pt engaged in coping bingo to explore personal strengths, personal interests and healthy methods of coping with anger, stress and depression. Pt spoke of many positives in his life but voiced he is too overwhelmed with depression to focus on these things and he voices hopelessness that his situation will improve. He remains depressed and worrisome about when he will get to leave. Much support and encouragement offered. Psychiatry Progress Note Patient Name: Kristian Gutierrez Admit Date: [id number] MR #: [id number] : 1955 Perpetual Assessment Kristian Gutierrez is a 69 y.o. 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 Despite being financially stable, he has been increasingly focused on financial issues, exhibiting feelings of hopelessness and worthlessness, and verbalizing suicidal thoughts without a specific plan. He denies any current suicidal ideation or history of attempts, self-harm, homicidal ideation, auditory or visual hallucinations, and substance use. His symptoms have been exacerbated over the past few months, particularly following his mother's and the stress of being the executor of her will. Despite being on a regimen of psychiatric medications, his mental health continues to deteriorate, causing significant concern for his sisters who believe he cannot be left alone safely. He will be hospitalized for safety and stabilization, with further psychiatric evaluation and treatment planning to be determined by the treatment team. Physical examination Lab testing as appropriate Precautions -suicide PRN medications for agitation Collateral history from family/friends/providers Request/review prior records telephone services sales representative assessment/linkage/care coordination Group participation/[facility] Supportive psychotherapy/structured supportive care Ambien 10 mg by mouth at bedtime as needed insomnia Increase Mirtazapine to 15 mg by mouth at bedtime Aftercare planning once stable Comorbid issues impacting my care plan include none . Following for depression and suicidal ideations Interval History: Charts were reviewed, updates obtained from designated nursing staff and marriage and family social worker. Patient was interviewed and discussed with team Patient did better after he received 1 time dose of Zydis Zyprexa and Klonopin. Staff reported he was was more controlled and less anxious last evening. Patient reported he slept really well last night and feels more rested today. He is less tense and less restless as compared to yesterday. He is also not confused. Patient realizes that he has been in the hospital for just a few days and not months like he was thinking yesterday. He reports he is feeling less down and depressed and wanted to get discharged but was reassured that he would treat a few more days of adjustments in his medications and observation before that discharge planning is initiated. Anxiety is still elevated but not as much as yesterday. Patient is still preoccupied about finances and somehow believes that he is was going to go to long term. Patient was reassured but continues to worry. I offered him 1 time dose of Zydis and Klonopin today but he refused. His appetite is fair. Patient continues to feel hopeless and has unusual feelings of guilt. He is also less irritable as compared to yesterday. He was also preoccupied by how things are going to work out once he is discharged from the hospital. Patient was reassured and advised that appropriate counseling appointments and medication appointments will be made for him. Review of Systems: Constitutional:No fever, no weight loss Eyes:No diplopia ENT:No sinus drainage CV:No chest pain. No ankle swelling Resp:No dyspnea. No wheezing GI:No abdominal pain.No abdominal distention :No dysuria Neuro:No headache Integumentary:No skin rash MuscSkel:No arthralgias Endo:No polyuria Heme/lymphatic:No apparent lymphadenopathy Allergic/Immunologic:No hives Physical Examination: Vital Signs: BP (!) 143/87 Pulse 87 Temp 98 F (36.7 C) (Oral) Resp 16 Ht 5' 7 Wt 62.6 kg (138 lb) SpO2 98% BMI 21.61 kg/m Mental Status Evaluation: General Appearance & Behavior: older than stated age he is slightly better engaged and makes better eye contact but still needs reassurances Grooming & Hygiene: street clothes adequate hygiene and grooming Psychomotor Activity: Less restless Gait & Station stable gait Speech: Clear and coherent and less delayed Flow of Thought: concrete Thought Associations: Intact Content of Thought: Denies any suicidal ideation today, does have some paranoid ideations but no franklin delusions Mood: Anxious Affect: Worried Insight: limited Judgment: limited Orientation: alert and oriented to person, place, time, and circumstances Memory: impaired short term, intact remote Attention: distracted Concentration: reduced Language: fluent Fund of Knowledge: estimated average intelligence Laboratory and Additional Data Reviewed: Laboratory 02/04/24 11:26 AM Medications 02/04/24 11:26 AM Treatment options and alternatives reviewed with patient. Risks, benefits, side effects of all psychiatric medications discussed with patient and informed consent obtained. All questions were answered. Physical examination Lab testing as appropriate Precautions -suicide PRN medications for agitation Collateral history from family/friends/providers Request/review prior records telephone services sales representative assessment/linkage/care coordination Group participation/[facility] Supportive psychotherapy/structured supportive care Continue Remeron 15 mg p.o. daily at bedtime Aftercare planning once stable Lino Tapia MD 02/04/2024 11:26 AM 0832 Patient provided routine medication at this time, Patient has no issues with administration. Patient states when asked about sleep, I slept. I actually slept! Patient is still guarded and preoccupied with discharging but less irritable than previous day. Patient rates depression 0/10 and reports anxiety about a 5/10, but that will be better [place]. Patient meal tray removed from room. Patient denies SI Hi AH VH. Denies pain. Agrees to come to staff if thoughts change. Denies any additional needs. 1000 Patient in room, using phone appropriately. 1015 Patient Tiffanie calls nurse's station. Tearful. Reports patient to be preoccupied with finances and going to long term. unable to reorient patient. calling to make us aware of situation. Patient seated, quietly in room writing when this nurse approaches. 1130 Patient resting in bed, awake, eyes open. Writing on paper provided. 1300 Patient attending group with peers, participating actively. 1345 Patient calls this keno writer into room and asks her, What do I do when I leave here? I know I can't go home. Not after what happened here. Patient reports police coming into room and getting a shot a few days ago. Patient fearful that actions may result in long term time for him so he is unable to go home with family. This keno writer reorients patient and provides emotional support. Patient asks for phone at this time to hear my say she wants me home. Phone provided at this time as well as education regarding excessive phone use. Patient encouraged to make his call and then attempt to relax and clear thoughts without phone use for the remainder of afternoon. Patient agreeable. 1500 Patient in bed resting with eyes closed. Breathing is even and unlabored. 1600 Patient resting in bed with eyes open. Breathing is even and unlabored. 1732 Patient provided flomax PO, routine. No issues. At this time, patient shares concerns that his phone calls to and family are being recorded and will be subpoenaed. Patient reoriented. 1750 Tornado warning initiated/ Protocol began. Patient in lounge area. 1804 Patient seated in lounge with peers, calm and controlled. 1900 Report provided to oncoming shift 09:05 - 09:35 Goal Group and AM Warm Up - Pt in bed upon approach, he woke when his name was called and he was receptive to joining group. His affect was flat and sullen. Pt is worried he is not ever going to get discharged. Reassured pt that this is a short term care setting and that he will get to go home once he is more stable. Encouraged pt that coming to group, taking his medications, talking to staff and support and staying out of his room more are all things that are going to help him get better and go home sooner. Goal Group Identified Feeling: Worried. Pt wants to be home caring for his family and responsibilities. Pt Identified Daily Goal: To get out. AM Warm Up - Pt was encouraged to follow along to deep breathing exercises and ROM stretches. Pt was able to follow along and he completed all exercises WFL. The benefits of deep breathing and regular exercise were discussed. Patient's affect remained flat and depressed. 1930: Patient was calm, quiet, cooperative. Used phone appropriately. 1999: Patient has drink and snack. 2100: Patient resting in bed quietly, eyes closed, respirations even and unlabored. 2200: Patient is resting in bed quietly, refused medication, due to resting. He was medicated earlier in the day and has not been sleeping well. 0000: Patient is resting in bed quietly, eyes closed, respirations even and unlabored. 0200: Patient is resting in bed quietly, eyes closed, respirations even and unlabored. 0400: Patient is resting in bed quietly, eyes closed, respirations even and unlabored. 0600: Patient is resting in bed quietly, eyes closed, respirations even and unlabored. Psychiatry Progress Note Patient Name: Kristian Gutierrez Admit Date: [id number] MR #: [id number] : 1955 Perpetual Assessment Kristian Gutierrez is a 69 y.o. male is being admitted to the inpatient psychiatric unit due to increased depression, anxiety, insomnia, and recent suicidal ideation, exacerbated by financial stress and recent bereavement, despite his stable financial situation and ongoing psychiatric medication regimen Diagnosis & Plan/Recommendations PRINCIPAL DIAGNOSIS: Episode of recurrent major depressive disorder (HCC) * Episode of recurrent major depressive disorder (HCC) Assessment & Plan Kristian, a 69-year-old male, is being admitted to the inpatient psychiatric unit due to concerns of increased depression, anxiety, insomnia, and recent suicidal ideation. Despite being financially stable, he has been increasingly focused on financial issues, exhibiting feelings of hopelessness and worthlessness, and verbalizing suicidal thoughts without a specific plan. He denies any current suicidal ideation or history of attempts, self-harm, homicidal ideation, auditory or visual hallucinations, and substance use. His symptoms have been exacerbated over the past few months, particularly following his mother's and the stress of being the executor of her will. Despite being on a regimen of psychiatric medications, his mental health continues to deteriorate, causing significant concern for his sisters who believe he cannot be left alone safely. He will be hospitalized for safety and stabilization, with further psychiatric evaluation and treatment planning to be determined by the treatment team. Physical examination Lab testing as appropriate Precautions -suicide PRN medications for agitation Collateral history from family/friends/providers Request/review prior records telephone services sales representative assessment/linkage/care coordination Group participation/[facility] Supportive psychotherapy/structured supportive care Ambien 10 mg by mouth at bedtime as needed insomnia Increase Mirtazapine to 15 mg by mouth at bedtime Aftercare planning once stable Comorbid issues impacting my care plan include none . Following for depression and suicidal ideations Interval History: Charts were reviewed, updates obtained from designated nursing staff and marriage and family social worker. Patient was interviewed and discussed with team Patient's moods and behaviors have declined since December. And he presented with depressed mood, insomnia, low appetite, paranoid ideations to the hospital. Patient reported that he also started talking about suicide ideation. He continues to endorse passive suicidal ideation. He still not able to understand why all of this has changed for him. At times he has been getting confused and asked me why he has been in the hospital for months though he has been here just for a couple of days. Patient states he has not been able to fall asleep and stay asleep. He does not like the bed and the blanket he has been provided. His responses are delayed. His recent memory seems to be impaired though remote is intact. He is able to tell me his birthday, but there for his children. His educational and occupational experience. His mood is depressed, affect is flat. He reports elevated anxiety. There is no evidence of any franklin delusions or perceptual disturbances. His appetite is so-so. His attention span and concentration is poor. Review of Systems: Constitutional:No fever, no weight loss Eyes:No diplopia ENT:No sinus drainage CV:No chest pain. No ankle swelling Resp:No dyspnea. No wheezing GI:No abdominal pain.No abdominal distention :No dysuria Neuro:No headache Integumentary:No skin rash MuscSkel:No arthralgias Endo:No polyuria Heme/lymphatic:No apparent lymphadenopathy Allergic/Immunologic:No hives Physical Examination: Vital Signs: BP 138/79 Pulse 90 Temp 98.3 F (36.8 C) (Oral) Resp 16 Ht 5' 7 Wt 62.6 kg (138 lb) SpO2 99% BMI 21.61 kg/m Mental Status Evaluation: General Appearance & Behavior: older than stated age needs encouragement and redirections to engage Grooming & Hygiene: street clothes Psychomotor Activity: psychomotor retardation Gait & Station stable gait Speech: Slowed speech, delayed responses Flow of Thought: concrete Thought Associations: Intact Content of Thought: Passive suicidal ideation Mood: depressed Affect: Flat Insight: limited Judgment: limited Orientation: alert and oriented to person, place, time, and circumstances Memory: impaired short term, intact remote Attention: distracted Concentration: reduced Language: fluent Fund of Knowledge: estimated average intelligence Laboratory and Additional Data Reviewed: Laboratory 02/03/24 1:33 PM Medications 02/03/24 1:33 PM Treatment options and alternatives reviewed with patient. Risks, benefits, side effects of all psychiatric medications discussed with patient and informed consent obtained. All questions were answered. Lino Tapia MD 02/03/2024 1:33 PM 13:00 Recreation Therapy - Pt in his room speaking with RN upon approach. He was not available for group at this time. 0730 Assumed care of patient from previous shift. Report obtained. Patient lying in bed with eyes closed. Breathing is even and unlabored. 0808 Patient vitals obtained, patient in bed awake. Calm and controlled. 0811 This keno writer enters room. Patient found lying in bed. Patient preoccupied with discharge and financial burdens outside the hospital. Patient shares frustration with this keno writer about not seeing a Dr since I've been here or a marriage and family social worker. This keno writer informs patient that marriage and family social worker has met with him multiple times, however once patient was sleeping and SW didn't awaken and once patient was in group. Patient sits silently for a moment before stating, I've been here for months as it is. I have to get out of here. What's the plan? Patient educated that the Dr would be in for a daily assessment and encouraged patient to address these questions with him. Patient frustrated and slightly agitated but agreeable. Patient denies pain at this time. When asked about depression and anxiety, patient becomes tangential speaking about his dislike for hospital blankets and pillows. Patient provided emotional support and educates on reason for policy in place. Patient provided routine medication in which he takes without issue. Patient denies SI HI AH VH and agrees to come to staff if this changes. Patient denies any additional needs at this time. 1005 This keno writer speaks to Sister, Edith Castillo on phone. Sister notified that no ABELARDO for her currently. This keno writer approaches patient to obtain ABELARDO to which he is agreeable to. ABELARDO obtained, co signed with ROSE Serna. Patient smiles and jumps out of bed stating, That's just who I need to talk to, thank you! Additional phone number obtained from Edith to provide to social work and Provider. Sister reports, was unaware of missed phone calls from hospital staff until recently as she has been providing care for her mother. Sister stresses multiple times that this behavior from patient is new and concerning for the family, presenting initially in December of 2023. Patient following up outpatient with counseling, a sleep study , and psychiatry. 1100 Patient lying in bed, calm and controlled. 1215 Patient calm and composed, seated on bed using phone. 1300 Patient fretful in room. Reports to this keno writer, I have 3 million dollars but I support my two sons and financially 100%. This money is not going to last and there is just a lot going on. I am fuzzy on the papers I signed. I was somewhere and signed a paper to be cured in 24 hours. Was that here? This keno writer shares that patient signed consents and voluntary form. Educated on those specific forms. Patient preoccupied with books and papers in room getting to family if something goes bad with him. Patient assured that staff is here to support and keep him safe. Patient nods in acknowledgement. 1351 Patient meeting with provider in conference room. Provider verbally orders 1x dose of Klonopin and dissolvable zyprexa. Consent signed. Patient agreeable. Education provided on purpose and how to properly take dissolvable zyprexa. Patient requests some blank paper to make notes on. Asks this keno writer to write down the two medications he just took. This nurse does as asked. 1415 Patient calm and controlled, seated on bed. 1500 Patient calm and controlled, seated on bed, writing on paper quietly. 1615 Patient pacing in hallway, walks up ramp, stops at door to another patient room, turns around and comes back down ramp to own room. This keno writer follows patient into person room to notify him that meal trays are here and finds patient kneeling at bedside, feverishly writing on paper. Acknowledges this nurse and states, I'll be out in a minute. 1730 Patient in room, lying on bed, using phone and writing. 1751 Patient provided routine flomax at this time. Visiting with on unit. Calm and controlled. 1800 Patient seated in dining area, calm and controlled, Visiting with . 1900 Care transferred to oncoming shift. Report provided. 1930 Assumed care of patient ,progress notes ,labs and orders reviewed ,patient dressed casually pacing around in room ,patient states I am going to long term this nurse offered support and informed patient that he is not going to long term patient given a snack and encouraged to try and relax . 2052 Patient took scheduled Remeron and Lipitor oral check done patient kneeling on floor against bed going through paperwork when asked about anxiety and depression states terrible patient states I am in big trouble ,I have not done my taxes in 7 years support offered to patient and encouraged him to relax .eye contact poor continues to go through paperwork and writing things down on paper . 2220 Patient remains awake in room denies needs 0115 Resting quietly resp unlabored 0300 Resting quietly resp unlabored 0500 As of this time patient has slept approx 5hrs and remains resting quietly Psychiatry Progress Note Patient Name: Kristian Gutierrez Admit Date: [id number] MR #: [id number] : 1955 Perpetual Assessment Kristian Gutierrez is a 69 y.o. male is being admitted to the inpatient psychiatric unit due to increased depression, anxiety, insomnia, and recent suicidal ideation, exacerbated by financial stress and recent bereavement, despite his stable financial situation and ongoing psychiatric medication regimen Diagnosis & Plan/Recommendations PRINCIPAL DIAGNOSIS: Episode of recurrent major depressive disorder (HCC) * Episode of recurrent major depressive disorder (HCC) Assessment & Plan Kristian, a 69-year-old male, is being admitted to the inpatient psychiatric unit due to concerns of increased depression, anxiety, insomnia, and recent suicidal ideation. Despite being financially stable, he has been increasingly focused on financial issues, exhibiting feelings of hopelessness and worthlessness, and verbalizing suicidal thoughts without a specific plan. He denies any current suicidal ideation or history of attempts, self-harm, homicidal ideation, auditory or visual hallucinations, and substance use. His symptoms have been exacerbated over the past few months, particularly following his mother's and the stress of being the executor of her will. Despite being on a regimen of psychiatric medications, his mental health continues to deteriorate, causing significant concern for his sisters who believe he cannot be left alone safely. He will be hospitalized for safety and stabilization, with further psychiatric evaluation and treatment planning to be determined by the treatment team. Physical examination Lab testing as appropriate Precautions -suicide PRN medications for agitation Collateral history from family/friends/providers Request/review prior records telephone services sales representative assessment/linkage/care coordination Group participation/[facility] Supportive psychotherapy/structured supportive care Ambien 10 mg by mouth at bedtime as needed insomnia Increase Mirtazapine to 15 mg by mouth at bedtime Aftercare planning once stable Comorbid issues impacting my care plan include none . Following for depression and suicidal ideations Interval History: The patient reports ongoing depressive symptoms, including persistent low mood, poor concentration, insomnia, and decreased appetite. He continues to struggle with sleep, reporting only 5 hours of sleep last night. He has been preoccupied with his financial situation, exhibiting paranoia towards hospital staff, accusing them of theft and conspiracy against him. The patient was agitated, attempting to force entry into the nursing station and refusing oral medications. He has been observed to be tense, pacing the hallways, and expressing distressed thoughts about his identity being taken from him. The patient did not attend group therapy and has been irritable, threatening self-discharge. Attempts to engage the patient in a discussion about treatment have been met with resistance. Physical examination reveals a patient who appears depressed, with delayed responses and soft speech. His affect is congruent with his mood. His concentration during the interview was poor. Mr. Gutierrez's mental status has not improved, but rather worsened. He continues to struggle with severe depressive symptoms, anxiety, paranoia, and insomnia. His symptoms have been exacerbated by recent stressors, including the of his mother and ongoing care of his [id number]. Efforts to communicate with the patient's have been unsuccessful, with multiple unanswered calls and a full voicemail inbox. We will continue to attempt to reach her to discuss the patient's condition and progress. The treatment plan for cat includes increasing the dose of Mirtazapine to aid in managing his sleep difficulties, depression, and anxiety. We are also considering the introduction of a second-generation antipsychotic, such as Risperidone, depending on his progress and response to the current treatment. The patient will continue to be closely monitored for any further escalation in his behavior and adjustment to his medication regimen will be made accordingly. The patient's safety remains our top priority, and we will continue to employ de-escalation techniques and closely monitor his behavior to ensure a safe treatment environment. A comprehensive risk assessment will be completed considering the patient's recent agitated behavior. Review of Systems: Constitutional:No fever, no weight loss Eyes:No diplopia ENT:No sinus drainage CV:No chest pain. No ankle swelling Resp:No dyspnea. No wheezing GI:No abdominal pain.No abdominal distention :No dysuria Neuro:No headache Integumentary:No skin rash MuscSkel:No arthralgias Endo:No polyuria Heme/lymphatic:No apparent lymphadenopathy Allergic/Immunologic:No hives Physical Examination: Vital Signs: BP 129/81 Pulse 92 Temp 98 F (36.7 C) (Oral) Resp 16 Ht 5' 7 Wt 62.6 kg (138 lb) SpO2 97% BMI 21.61 kg/m Mental Status Evaluation: General Appearance & Behavior: older than stated age Grooming & Hygiene: street clothes Psychomotor Activity: psychomotor retardation Gait & Station stable gait Speech: soft spoken, slowed, and hesitant Flow of Thought: concrete Thought Associations: Intact Content of Thought: Preoccupations Mood: depressed Affect: depressed Insight: limited Judgment: limited Orientation: alert and oriented to person, place, time, and circumstances Memory: impaired short term, intact remote Attention: distracted Concentration: reduced Language: fluent Fund of Knowledge: estimated average intelligence Laboratory and Additional Data Reviewed: Laboratory 02/02/24 8:14 PM Medications 02/02/24 8:14 PM Treatment options and alternatives reviewed with patient. Risks, benefits, side effects of all psychiatric medications discussed with patient and informed consent obtained. All questions were answered. Thuan Elliott MD 02/02/2024 8:14 PM 13:00 Recreation Therapy - Pt at the nurses station upon approach. Invited pt to join group after he was done getting his medications but he did not join group. 0913: Attempted to meet with patient this morning for daily rounds, but was advised by nursing staff that patient had not slept well last night, and he is catching up on sleep this morning. Will continue to let him rest at this time. 1438: Attempted to call patient's , Tiffanie, again with Dr. Abdalla present to attempt to hold a family meeting, but was unable to reach her live still. No option to leave a VM at this time as the mailbox is full. If patient's comes to visit this evening, she is encouraged to leave a different phone number with staff that she can be reached at. Due to patient's increase in confusion and agitation, he is not appropriate to review Tx Plan Update with at this time. Noted on Tx Plan and placed on chart. Update due: 02/08. telephone services sales representative to follow. GREY Huber 09:00 Goal Group and AM Warm Up - Pt resting in bed at this time and he was not disturbed. Per report pt had a restless evening wit periods of confusion and agitation. 0730: Assumed care of patient. Pt is pacing in the hallways. Breathing is even and unlabored. 0817: Patient is up at the nurses station for morning medications. Pt is compliant and mouth check completed. Pt is preoccupied with going home. Pt was asking to see the agreement documentation's that I signed to be here. This nurse showed the pt the voluntary form and pt said oh my. I don't want to be here. I never meant to sign to be up here. 1030: Patient is resting in bed with eyes closed. Breathing even and unlabored. 1145: Patient resting in bed with eyes closed. Breathing is even and unlabored. 1256: Patient walking past nurses station, so this nurse stopped pt for medication. Pt is paranoid that this nurse gave him the wrong medication. Pt said this is not folic acid. It does not look like this. This nurse showed pt the package. Pt started at the package for a couple minutes and said I don't believe you, but I guess I can take it. Mouth check completed. Pt then began rambling about how I moved to [place] to sign my son up for courses and somehow I ended up here. Emotional support provided. Pt irritable at this time. 1400: Patient is resting in bed with eyes closed. Breathing is even and unlabored. 1500: Patient is pacing in the hallways. 1600: Patient is standing in the doorway of his room. Pt is being watchful of the unit. \ 1700: Patient is sitting in bed talking on the phone. Pt is calm and cooperative. 1825: Patient is sitting in the dinning area visiting with . Pt is calm and cooperative. Breathing is even and unlabored. 2000 orders and labs reviewed, patient is out of room and walking the halls at time of this note, casual attire, controlled, quiet 2100 Spending time in the hallway, has several papers written that he is reviewing, is obsessively preoccupied with bills and money, demanding that I promise to show him the numbers , possibly referring to the hospital charges. Patient displays paranoid thinking toward staff and hospital regarding this admission, support offered. 2300 completed shower after encouragement 0610 appeared to sleep 5 hours overnight, now awake and walking the halls periods of confusion and agitation, thoughts are obsessively concerning money, how people may be stealing from him, and about what the hospital charges 0645 patient is displaying extreme paranoia and agitation, calling the police to report that staff are conspiring to steal his life savings, had attempted to push his way into nurse station and other patient rooms. Becoming more resistive to being redirected. Verbally hostile,displaying verbal and physical agitation. Patient refuses offered PO medication, is medicated haldol 5 IM , left delt with protective services present, patient refers to this RN as evil and shouts armageddon , continues to claim that this was all set up by this RN when he came in, resistive to be reoriented to reality at this time. 0715 to nurse station, continues to verbalize beliefs that staff and hospital are abusing him financially, does not respond to explanations of procedure. Returns to room 1445: Met with patient for daily rounds. He is sitting calmly in the lounge on approach. When meeting with patient, he appears somewhat confused, and has difficulties forming thoughts and sentences. He is fixated on somatic complaints and voices concerns with red spots on his skin. He inquires if this is from his medications. He also reports his mouth is feeling dry from his medications. Attempted to discuss coordinating follow-up care for patient, which he does not show an understanding towards at this time. Will re-visit coordinating follow-up care when patient is more stable. 1520: Attempted to call patient's back again, but was unable to reach her live. VM's have been left. telephone services sales representative to follow. GREY Huber Psychiatry Progress Note Patient Name: Kristian Gutierrez Admit Date: [id number] MR #: [id number] : 1955 Perpetual Assessment Kristian Gutierrez is a 69 y.o. male is being admitted to the inpatient psychiatric unit due to increased depression, anxiety, insomnia, and recent suicidal ideation, exacerbated by financial stress and recent bereavement, despite his stable financial situation and ongoing psychiatric medication regimen Diagnosis & Plan/Recommendations PRINCIPAL DIAGNOSIS: Episode of recurrent major depressive disorder (HCC) * Episode of recurrent major depressive disorder (HCC) Assessment & Plan Kristian, a 69-year-old male, is being admitted to the inpatient psychiatric unit due to concerns of increased depression, anxiety, insomnia, and recent suicidal ideation. Despite being financially stable, he has been increasingly focused on financial issues, exhibiting feelings of hopelessness and worthlessness, and verbalizing suicidal thoughts without a specific plan. He denies any current suicidal ideation or history of attempts, self-harm, homicidal ideation, auditory or visual hallucinations, and substance use. His symptoms have been exacerbated over the past few months, particularly following his mother's and the stress of being the executor of her will. Despite being on a regimen of psychiatric medications, his mental health continues to deteriorate, causing significant concern for his sisters who believe he cannot be left alone safely. He will be hospitalized for safety and stabilization, with further psychiatric evaluation and treatment planning to be determined by the treatment team. Physical examination Lab testing as appropriate Precautions -suicide PRN medications for agitation Collateral history from family/friends/providers Request/review prior records telephone services sales representative assessment/linkage/care coordination Group participation/[facility] Supportive psychotherapy/structured supportive care Ambien 10 mg by mouth at bedtime as needed insomnia Start Mirtazapine 7.5 mg by mouth at bedtime Aftercare planning once stable Comorbid issues impacting my care plan include none . Following for depression and suicidal ideations Interval History: The patient reports ongoing feelings of depression, anxiety, and insomnia. He states that his energy levels are low and he continues to have difficulty in getting a good night's sleep. He reports poor concentration and a lack of motivation. He also states that his appetite has been poor in recent months. He has somatic complaints, delayed responses, and reports anxiety and feeling tired. However, he believes he is starting to feel better. On examination, Mr. Gutierrez appears depressed. His responses are delayed, and his speech is soft. His affect is congruent with his mood. His concentration during the interview was poor. Laboratory tests for vitamin D, folate, and Vitamin B12 all returned within normal ranges. Mr. Gutierrez's depressive symptoms persist, including low mood, poor concentration, insomnia, and decreased appetite. His anxiety and paranoia regarding his financial situation continue to be a concern. His symptoms have been exacerbated by recent stressors, including the of his mother and the ongoing care of his [id number]. There is still no noticeable major improvement in his mental status. Review of Systems: Constitutional:No fever, no weight loss Eyes:No diplopia ENT:No sinus drainage CV:No chest pain. No ankle swelling Resp:No dyspnea. No wheezing GI:No abdominal pain.No abdominal distention :No dysuria Neuro:No headache Integumentary:No skin rash MuscSkel:No arthralgias Endo:No polyuria Heme/lymphatic:No apparent lymphadenopathy Allergic/Immunologic:No hives Physical Examination: Vital Signs: BP (!) 155/92 Pulse 90 Temp 98 F (36.7 C) (Oral) Resp 15 Ht 5' 7 Wt 62.6 kg (138 lb) SpO2 98% BMI 21.61 kg/m Mental Status Evaluation: General Appearance & Behavior: older than stated age Grooming & Hygiene: street clothes Psychomotor Activity: psychomotor retardation Gait & Station stable gait Speech: soft spoken, slowed, and hesitant Flow of Thought: concrete Thought Associations: Intact Content of Thought: Preoccupations Mood: depressed Affect: depressed Insight: limited Judgment: limited Orientation: alert and oriented to person, place, time, and circumstances Memory: impaired short term, intact remote Attention: distracted Concentration: reduced Language: fluent Fund of Knowledge: estimated average intelligence Laboratory and Additional Data Reviewed: Laboratory 02/01/24 2:38 PM Medications 02/01/24 2:38 PM Treatment options and alternatives reviewed with patient. Risks, benefits, side effects of all psychiatric medications discussed with patient and informed consent obtained. All questions were answered. Thuan Elliott MD 02/01/2024 2:38 PM Recreation [id number] Pt found sitting up in bed, agreeable to attend group and greeted this staff with a smile. Pt dressed in his own clothing, calm and pleasant affect. Patients presented with the game That's It . Each player takes turns reading a description from a card and peers try to guess the listed word first. Pt demonstrated understanding and participated well throughout the group.Pt was quick to respond to almost every card description with correct answers and came in second place for the game points. Goal Group/ AM Warm Up [id number] Pt found resting in bed awake, easily alerted to voice. Pt encouraged to group and pt immediately sits up from bed and states alrighty and smiles at this staff. Pt presents wearing his own clothing, appropriate hygiene. Pt affect is calm and pleasant. Pt noted to be much more social with brighter affect than his demeanor in group yesterday afternoon. Pt reports I've been up since about 5:30 this morning . Pt smiling states It's been a good morning thought I talked with my on the phone and it was so nice to hear her voice . Pt reports today he is feeling sleepy, a little anxious pt states this with appropriate eye contact and continues smiling. Pt goal for today get my mind at ease . Pt reports walking helps this. A positive for the day pt reports thinking about happy memories like when my kids were little, watching my who was an artillery officer play with them and teach the things . Pt participates in morning stretches appropriately. 0730: Assumed care of patient. Pt sitting awake in bed. 0741: Pt cooperative with vital taking. Requesting breakfast in room. Provided to pt. 0832: Pt cooperative with medication administration, mouth check completed. Pt dressed appropriately in street clothes. Slightly unkempt. Encouraged pt to shower and perform ADLs but refused at this time said I don't think I really need a shower. Affect is flat, pt maintains good eye contact. Speech is delayed, fragmented at times. Pt reports 0/10 depression and 0/10 anxiety. States I'm feeling way better today than I have been. I think maybe they did something this morning... (pt then gestures to area where lab ghassan blood). Told pt it is possible his medication is working well and pt said No... I don't think it's that. Pt denies any SI/HI/AH/VH and agrees to come to staff if any of these occur. Pt denies any thoughts of self harm. Pt denies pain. Pt slept poor (1 hr per nursing) and fair appetite but pt is eating breakfast well this morning. 0845: Debbie SHEYLA on unit notified of high blood pressures and BP 155/92. 0915: Pt participated in therapy group and therapist states pt appeared brighter and more engaged than previous shifts. 1145: Pt provided with lunch tray requesting it in room. Pt has been isolative and encouraged to spend time in common areas. 1315: Pt is participating in group therapy session. 1500: Pt provided with sprite drink, states the medications give him dry mouth. 1600: Pt at nurses station slightly confused, states he is being discharged tomorrow and he knows this d/t the schedule on the wall. This RN looks at schedule and educated pt that this is the group schedule and does not indicate a discharge date. 1730: Took flomax without incident, said Will I get any more medications tomorrow? 1815: Pt visiting appropriately in common areas. 2000 orders and labs reviewed, patient is walking the halls at time of introduction, casual attire, quiet, delayed in responses, appears preoccupied with worried expression on face, attempt interaction to offer drink snack or to see if patient has any questions or needs orientation to unit or expectations, patient denies all at present 2100 this RN provided patient clothes from laundry, patient carries them with him instead of taking them to room, they end up placed on railing, this RN puts them away. Is very delayed and fragmented in thought process and in conversation, medication compliant, declined offered medication for sleep, denies pin, is dressed casual disheveled, at times wandering to other patient rooms, is redirectable. 2300 offered patient medication to facilitate sleep, patient declines, has been sitting in hallway, facial expression appearing anxious, patient has difficulty finding words or finishing a sentence in a meaningful way. 0100 remains in chair hallway, is shown back to room and encouraged to get rest, soon comes out and is sitting back in the hallway 0300 remains sitting in the chair in the front hallway, passively resistive to going to bed, quiet, watchful 0630 rested poor overnight, appeared to sleep 0 to 1 hour Psychiatry Progress Note Patient Name: Kristian Gutierrez Admit Date: [id number] MR #: [id number] : 1955 Perpetual Assessment Kristian Gutierrez is a 69 y.o. male is being admitted to the inpatient psychiatric unit due to increased depression, anxiety, insomnia, and recent suicidal ideation, exacerbated by financial stress and recent bereavement, despite his stable financial situation and ongoing psychiatric medication regimen Diagnosis & Plan/Recommendations PRINCIPAL DIAGNOSIS: Episode of recurrent major depressive disorder (HCC) * Episode of recurrent major depressive disorder (HCC) Assessment & Plan Kristian, a 69-year-old male, is being admitted to the inpatient psychiatric unit due to concerns of increased depression, anxiety, insomnia, and recent suicidal ideation. Despite being financially stable, he has been increasingly focused on financial issues, exhibiting feelings of hopelessness and worthlessness, and verbalizing suicidal thoughts without a specific plan. He denies any current suicidal ideation or history of attempts, self-harm, homicidal ideation, auditory or visual hallucinations, and substance use. His symptoms have been exacerbated over the past few months, particularly following his mother's and the stress of being the executor of her will. Despite being on a regimen of psychiatric medications, his mental health continues to deteriorate, causing significant concern for his sisters who believe he cannot be left alone safely. He will be hospitalized for safety and stabilization, with further psychiatric evaluation and treatment planning to be determined by the treatment team. Physical examination Lab testing as appropriate Precautions -suicide PRN medications for agitation Collateral history from family/friends/providers Request/review prior records telephone services sales representative assessment/linkage/care coordination Group participation/[facility] Supportive psychotherapy/structured supportive care Ambien 10 mg by mouth at bedtime as needed insomnia Start Mirtazapine 7.5 mg by mouth at bedtime Aftercare planning once stable Comorbid issues impacting my care plan include none . Following for depression and suicidal ideations Interval History: Mr. Gutierrez reports ongoing feelings of depression, anxiety, and insomnia. He states that his energy levels are low and he continues to have difficulty in getting a good night's sleep despite nursing staff observations of him sleeping. He reports poor concentration and a lack of motivation. He also states that his appetite has been poor in recent months. On examination, Mr. Gutierrez appears depressed. His responses are delayed and his speech is soft. His affect is congruent with his mood. His concentration during the interview was poor. Mr. Gutierrez's depressive symptoms persist, including low mood, poor concentration, insomnia, and decreased appetite. His anxiety and paranoia regarding his financial situation continue to be a concern. His symptoms have been exacerbated by recent stressors, including the of his mother and the ongoing care of his [id number]. Review of Systems: Constitutional:No fever, no weight loss Eyes:No diplopia ENT:No sinus drainage CV:No chest pain. No ankle swelling Resp:No dyspnea. No wheezing GI:No abdominal pain.No abdominal distention :No dysuria Neuro:No headache Integumentary:No skin rash MuscSkel:No arthralgias Endo:No polyuria Heme/lymphatic:No apparent lymphadenopathy Allergic/Immunologic:No hives Physical Examination: Vital Signs: BP (!) 153/100 Pulse 87 Temp 97.7 F (36.5 C) (Oral) Resp 16 Ht 5' 7 Wt 62.6 kg (138 lb) SpO2 98% BMI 21.61 kg/m Mental Status Evaluation: General Appearance & Behavior: older than stated age Grooming & Hygiene: street clothes Psychomotor Activity: psychomotor retardation Gait & Station stable gait Speech: soft spoken, slowed, and hesitant Flow of Thought: concrete Thought Associations: Intact Content of Thought: Preoccupations Mood: depressed Affect: depressed Insight: limited Judgment: limited Orientation: alert and oriented to person, place, time, and circumstances Memory: impaired short term, intact remote Attention: distracted Concentration: reduced Language: fluent Fund of Knowledge: estimated average intelligence Laboratory and Additional Data Reviewed: Laboratory 01/31/24 9:18 PM Medications 01/31/24 9:18 PM Treatment options and alternatives reviewed with patient. Risks, benefits, side effects of all psychiatric medications discussed with patient and informed consent obtained. All questions were answered. Thuan Elliott MD 01/31/2024 2:12 PM 1300: Attempted to meet with patient for daily rounds and review Initial Tx Plan, but he is currently attending group at this time. Noted on Tx Plan and placed on chart. Update due: 02/01. Will attempt to see him later when he is available. telephone services sales representative to follow. GREY Huber Recreation [phone] Pt found ambulatory in room, dressed casually in his own clothing, neat and clean. Pt affect is scared, dull, depressed. Pt and RN provided much encouragement for pt to attend group. Pt offered instructions for the Game Of Things, before attempting to play pt states I don't know if I can do this . Pt encouraged to stay in group and this staff will assist. Pt demonstrates ability to read cards out loud to peers. Pt offers very delayed responses to peers cards and several times states I am having a hard time focusing . Pt takes about a minute before offering very literal and concrete answers to cards such as Things you shouldn't say to your grandmother pt responds Tell her she can't drive anymore . Pt left group to talk with Dr. Abdalla and returns to complete game with peers. Collateral Phone Call: Relationship/Contact with Patient: Patient's , Tiffanie Gutierrez ([phone]) Spoke with patient's at length for collateral. Introduced myself, and educated her to SW role, patient's ELOS, and psychiatric treatment that will be provided to patient during admission. We reviewed patient's current status/progress and discussed coordinating follow-up care at discharge. Patient's expresses concerns that patient is not able to get into a psychiatric provider with [facility] in [place] until 02/2024. Discussed other options of referring patient to [facility] if they have sooner availability. Patient's reports patient sees a counselor at [facility] in [place], but notes that when patient went in for his last appointment, he told the counselor that counseling was not necessary, and he needed to talk to an portfolio manager instead to get his living will and legal documentation into place because he is going to . Patient's verbalizes worry that patient is not participating in his treatment at the hospital. She states, I am hopeful that the staff can encourage him to go to his groups and participate in treatment because I feel that would be helpful for him. This is not like him at all. He is used to being active and on the go all the time, and now you can barely get a word out of him and he's seclusive and forgetting to eat at home. He's a different person. Educated patient's to [facility], and the services they provide for additional community support. During collateral call, the call dropped. Attempted to call patient's back, but was unable to reach her live. VM left. Awaiting return call to finish collateral call. GREY [facility] Nutrition Care Initial Assessment Reason for visit: Dietitian Screen: BMI less than 23 in persons over 65 years of age Nutrition Diagnosis: No Nutrition Diagnosis at this time Nutrition Intervention Continue Meals and Snacks Nutrition Prescription: Diet:Continue Regular Nutrition Goals: Tolerate diet with PO intakes >75% most meals Start Date:01/31/2024 Expected End Date:02/06/2024 Nutrition Education: No needs at this time Assessment: Pertinent clinical information: pt presented with SI. Past Medical History: Diagnosis Date Anxiety Arthritis Cancer (HCC) Depression Insomnia Height: 5' 7 Current weight: 62.6 kg (138 lb) BMI Body mass index is 21.61 kg/m . Weight hx: Wt Readings from Last 10 Encounters: 01/29/24 62.6 kg (138 lb) Current diet order: Diet: Regular Recent intake: 75-100% of 1 meal recorded on 01/29. Current intake likely meets estimated needs. Barriers to adequate p.o. intakes: No barriers identified Nutrition Related Allergies/Intolerances: No Nutrition Related Allergies noted Cultural or Cheondoism Dietary Needs :No Cultural or Cheondoism Dietary needs noted Patient/family comments: RDN team to remain available in interim. Difficulty Chewing or Swallowing: No Skin Integrity: Intact GI Function: WDL Fluid Status: WNL Physical Appearance: Unable to assess at this time Labs: Recent Labs 01/29/24 2219 NA 137 137 K 4.4 4.4 BICARB 26 26 CL 102 102 GLUCOSE 159* 159* BUN 22 22 CREATININE 1.02 1.02 TRIG 79 ALBUMIN 3.9 Recent Labs 01/29/24 2219 GLUCOSE 159* 159* No results found for: HGBA1C Home Medications Reviewed: Yes Scheduled Meds: atorvastatin 10 mg Oral Nightly folic acid 1 mg Oral Daily hydroxychloroquine 300 mg Oral Daily mirtazapine 7.5 mg Oral Nightly tamsulosin 0.8 mg Oral After evening meal Nutrient Depleting Medications: No chronic use of nutrient depleting medications noted. Estimated Energy Needs Total Energy Estimated Needs: 1437-4689 kcal/d Method for Estimating Needs: 25-30 kcal/kg current wt Total Protein Estimated Needs: 65 g/d Method for Estimating Needs: 1 g/kg current wt Saira Quigley RDN, LD, CLC Dietitian Office: [phone] PT was approached in his room to attend group. PT was slowly pacing back and forth in the room, while holding cordless phone in hand in front of him without speaking to anyone at the time. Pt then sat on edge of bed and stared off, while continuing to hold the phone. PT declined to attend, taking prolonged time to answer keno writer and then spoke very softly, difficult to hear. 0730: report given by security shift supervisor staff. Assumed patient care 0900: patient in room wearing street clothes. Pt is delayed in response and soft spoken. Patient states mood not good . Rates anxiety 10, rates depression 04/20 RN discusses coping skills and educated on PRN medication. Pt non receptive of medication at this time. Patient denies SI/HI/AH/VH. Patient sates appetite has decreased . Patient states I have insomnia I don't get much sleep . No voiced concerns at this time. 1245: patient pacing in front of nurses station. Patients states anxiety is real bad 10/10 . PRN atarax 25mg PO given. 1315: patient attended group therapy. 1345: patient pacing in front of nurses station. Patient states I am not okay the RN asked pt what wasn't okay, patient stares past nurse with no response. VS taken BP 153/100. Contacted debbie christianson CNP. No new orders given 1615: patient in dining area eating dinner with peers. 1830: patient in dining area visiting with . No s/s of distress/discomfort noted. 19:30 Assumed care of pt after receiving report from day shift . Special precaution checks every fifteen minutes maintained for safety see for additional documentation [facility] relocated to room 3307 , personal belongings moved in locker and from room . OOS 1950 one on one interaction takes place [place] [facility] [place] Patient (pt) is casually dressed. Pt states sleep was not good . Pt states appetite was fair . Pt denies SI/HI/voices. Pt rates anxiety a 5 / 10 and depression a 3 / 10. Agrees to come to staff with any questions or concerns Pt spends time in and out of room walking in hallway . Pt completes ADL's-showers and brushes teeth. Pt makes fair eye contact when speaking. Emotional support given instructed to come to nurses with any questions or concerns , he agreed 0615 rested approximately 7 hours as of this time 0655 given clothes to wash carryin around book and several papers denies needs at this time 0730: Assumed care of pt. Pt seen lying in bed with eyes closed. Respirations equal and unlabored. 0745: Pt eating breakfast in room. Appetite appears good. 0830: Pt lying in bed with eyes closed. Respirations equal and unlabored. 0930: Pt continues to lie in bed with eyes closed. Respirations equal and unlabored. 1130: Pt eating lunch in room. Appetite appears good. Pt rates anxiety 3/10 and depression 6/10. Pt denies SI/HI, pt agreeable to alert staff if ideations occur. 1235: Pt taking scheduled medication. Mouth check completed for medication compliance. Pt denies needs. 1330: Pt sitting in hallway talking on unit portable phone. Pt appears calm and friendly. 1430: Pt talking on phone in room. Pt denies needs. 1630: Pt sitting in room on bed. Pt denies needs. 1730: Pt sitting in dining room eating dinner. Appetite appears good. 1830: Pt visiting with visitor in dining room. Pt denies needs. 1900: Patient handoff given to oncoming shift. Pt remained calm and pleasant throughout this shift. Pt denies SI/HI, no ideations occurring this shift. Pt denies needs. 0400 Received report from Monalisa ROSE at this time 0416 Arrived to Unit Height 5'7 weight -133 lbs No concerns with skin ,no open areas noted ,gown changed with Marissa Hatch RN present 0436 B/P 177/99 Pulse 71 Resp 17 Pulse Ox 99% per patient issues with B/P since he started having insomnia ,notified Dr. Abdalla of increased B/P states Re-check in the morning when he wakes up This nurse also messaged Reji CARRION at this time regarding elevated B/P Why were they admitted: Patient having increased depression and thoughts of suicide no plan per family patient is fixated on financial issues per patient I am trying to support two grown kids and you want to do the best for your children but its hard From:[facility] ED Admitting physician and diagnosis:Rm ,Christie Behavior, thought process, SI/HI/AH/VH, mood, affect:Patient denies Depression or Anxiety at present time denies Hallucinations Socioeconomic history: caring for her mother with Alzheimer's patient currently residing with sister Stressors:Patient fixated on financial issues per family Physical assessment findings:None other than patient wears glasses Psychiatric history:Depression ,Anxiety Insomnia Family history:Patient has a paternal uncle that completed suicide Emotional, physical, sexual abuse: No Sleep, nutrition, ADL's: Sleeping 3-4 hrs a night patient has insomnia appetite good no concerns regarding ADLS Limitations:Reoccupied on financial issues per family Taking medications as directed:yes Lexapro and Ambien Abnormal labs:Positive for Benzos Tobacco, substance abuse, alcohol use:none patient on xanax has script Contraband search:yes Tour of unit:yes Orders:yes -Abdalla Paperwork signed: No placed on chart patient falling to sleep Patient's goal for stay: States : Too calm down Where will patient stay at discharge:Private residence Ride:yes Woody score:low risk 0615 Patient has slept approx 1 hr as of this time,late to bed due to admission process documented in this encounter [facility] 02-08-2024 Note Formatting of this n ote might be different from the original. Problem: Anxiety Goal: Alleviation of anxiety Outcome: Partially Met Problem: Health Maintenance - Impaired Goal: Improvement or maintenance of mental/physical health, relationships, and responsibilities Outcome: Partially Met Goal: Nutrition intake to meet estimated needs Outcome: Partially Met Problem: Mood - Altered Goal: Mood stable Outcome: Partially Met Goal: Knowledge of medication management Outcome: Partially Met Problem: Self-esteem - Low Goal: Improved self-esteem Outcome: Partially Met Problem: Thought Process - Altered Goal: Demonstration of organized thought processes Outcome: Partially Met Problem: Transition Readiness Goal: Able to safely transition to next level of care Outcome: Partially Met Goal: Knowledge of care transition plan Outcome: Partially Met Goal: Knowledge of medication management Outcome: Partially Met Goal: Knowledge of need for follow-up care Outcome: Partially Met Goal: Participation in care planning Outcome: Partially Met [facility] 02-08-2024 Note Psychiatry Progress Note Patient Name: Kristian Gutierrez Admit Date: [id number] MR #: [id number] : 1955 Perpetual Assessment Kristian Gutierrez is a 69 y.o. 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 Despite being financially stable, he has been increasingly focused on financial issues, exhibiting feelings of hopelessness and worthlessness, and verbalizing suicidal thoughts without a specific plan. He denies any current suicidal ideation or history of attempts, self-harm, homicidal ideation, auditory or visual hallucinations, and substance use. His symptoms have been exacerbated over the past few months, particularly following his mother's and the stress of being the executor of her will. Despite being on a regimen of psychiatric medications, his mental health continues to deteriorate, causing significant concern for his sisters who believe he cannot be left alone safely. He will be hospitalized for safety and stabilization, with further psychiatric evaluation and treatment planning to be determined by the treatment team. Physical examination Lab testing as appropriate Precautions -suicide PRN medications for agitation Collateral history from family/friends/providers Request/review prior records telephone services sales representative assessment/linkage/care coordination Group participation/[facility] Supportive psychotherapy/structured supportive care Ambien 10 mg by mouth at bedtime as needed insomnia Increase Mirtazapine to 15 mg by mouth at bedtime Aftercare planning once stable Comorbid issues impacting my care plan include none . Following for depression and suicidal ideations Interval History: Patient reports feeling generally improved and less anxious compared to the initial stages of his hospitalization. He still harbors some anticipatory anxiety about the future, but it is significantly less intense than before. Mr. Gutierrez denies experiencing any hallucinations, suicidal ideations, and homicidal ideations. He has expressed concerns about his sleep quality, noting that while it has improved, he is interested in further enhancement. He worries that poor sleep may negatively impact his mental health. Mr. Gutierrez appears more calm, clear, and logical in his thought processes compared to his initial presentation. He is more engaging during conversations and maintains respectful interactions with staff and other patients. He has shown no signs of confusion, a significant improvement from his initial presentation. His compliance with the prescribed medication, Olanzapine (Zydis), remains consistent. He has shown significant improvement in his mental state and behavior. He demonstrates a positive response to the current treatment plan, particularly the medication regimen and group therapy sessions. His anticipatory anxiety about the future remains, but it is less intense than before. His sleep quality has improved, but he expresses a desire for further improvement. We will continue the current treatment plan, including medication and group therapy sessions. Address Mr. Gutierrez's concerns about his sleep quality and explore options for further improvement. Maintain close monitoring of his mental state and behavior to ensure sustained progress and further stabilization. Continue to provide ongoing support to his , Tiffanie, and keep her informed about Mr. Gutierrez's progress. Review of Systems: Constitutional:No fever, no weight loss Eyes:No diplopia ENT:No sinus drainage CV:No chest pain. No ankle swelling Resp:No dyspnea. No wheezing GI:No abdominal pain.No abdominal distention :No dysuria Neuro:No headache Integumentary:No skin rash MuscSkel:No arthralgias Endo:No polyuria Heme/lymphatic:No apparent lymphadenopathy Allergic/Immunologic:No hives Physical Examination: Vital Signs: BP 131/74 Pulse 70 Temp 97.6 degrees F (36.4 degrees C) (Oral) Resp 16 Ht 5' 7 Wt 62.6 kg (138 lb) SpO2 98% BMI 21.61 kg/m Mental Status Evaluation: General Appearance & Behavior: older than stated age Grooming & Hygiene: street clothes Psychomotor Activity: psychomotor retardation Gait & Station stable gait Speech: Improved rate Flow of Thought: concrete Thought Associations: Intact Content of Thought: Preoccupations (more content not included)... [facility] 02-08-2024 Note Formatting of this n ote might be different from the original. Problem: Health Maintenance - Impaired Goal: Nutrition intake to meet estimated needs Outcome: Met Problem: Anxiety Goal: Alleviation of anxiety Outcome: Not Met Problem: Health Maintenance - Impaired Goal: Improvement or maintenance of mental/physical health, relationships, and responsibilities Outcome: Partially Met Problem: Mood - Altered Goal: Mood stable Outcome: Partially Met Goal: Knowledge of medication management Outcome: Partially Met Problem: Self-esteem - Low Goal: Improved self-esteem Outcome: Partially Met Problem: Thought Process - Altered Goal: Demonstration of organized thought processes Outcome: Partially Met Problem: Transition Readiness Goal: Able to safely transition to next level of care Outcome: Partially Met Goal: Knowledge of care transition plan Outcome: Partially Met Goal: Knowledge of medication management Outcome: Partially Met Goal: Knowledge of need for follow-up care Outcome: Partially Met Goal: Participation in care planning Outcome: Partially Met [facility] 02-08-2024 Note Formatting of this n ote might be different from the original. Problem: Anxiety Goal: Alleviation of anxiety Outcome: Not Met Problem: Health Maintenance - Impaired Goal: Improvement or maintenance of mental/physical health, relationships, and responsibilities Outcome: Partially Met Goal: Nutrition intake to meet estimated needs Outcome: Partially Met Problem: Mood - Altered Goal: Mood stable Outcome: Partially Met Goal: Knowledge of medication management Outcome: Partially Met Problem: Self-esteem - Low Goal: Improved self-esteem Outcome: Partially Met Problem: Thought Process - Altered Goal: Demonstration of organized thought processes Outcome: Partially Met Problem: Transition Readiness Goal: Able to safely transition to next level of care Outcome: Partially Met Goal: Knowledge of care transition plan Outcome: Partially Met Goal: Knowledge of medication management Outcome: Partially Met Goal: Knowledge of need for follow-up care Outcome: Partially Met Goal: Participation in care planning Outcome: Partially Met [facility] 02-07-2024 Note Psychiatry Progress Note Patient Name: Kristian Gutierrez Admit Date: [id number] MR #: [id number] : 1955 Perpetual Assessment Kristian Gutierrez is a 69 y.o. 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 Despite being financially stable, he has been increasingly focused on financial issues, exhibiting feelings of hopelessness and worthlessness, and verbalizing suicidal thoughts without a specific plan. He denies any current suicidal ideation or history of attempts, self-harm, homicidal ideation, auditory or visual hallucinations, and substance use. His symptoms have been exacerbated over the past few months, particularly following his mother's and the stress of being the executor of her will. Despite being on a regimen of psychiatric medications, his mental health continues to deteriorate, causing significant concern for his sisters who believe he cannot be left alone safely. He will be hospitalized for safety and stabilization, with further psychiatric evaluation and treatment planning to be determined by the treatment team. Physical examination Lab testing as appropriate Precautions -suicide PRN medications for agitation Collateral history from family/friends/providers Request/review prior records telephone services sales representative assessment/linkage/care coordination [facility] Supportive psychotherapy/structured supportive care Ambien 10 mg by mouth at bedtime as needed insomnia Increase Mirtazapine to 15 mg by mouth at bedtime Aftercare planning once stable Comorbid issues impacting my care plan include none . Following for depression and suicidal ideations Interval History: Mr. Gutierrez, a 69-year-old male currently admitted to the inpatient psychiatric unit, has shown significant improvement over the past few days. He presents as calmer, more logical in his thought processes, and appears to be developing a sense of appreciation for the care being provided. His communication has improved, he is more engaging during conversations, and has been respectful and polite to staff and other patients. Mr. Gutierrez has reported a notable improvement in his mental state, expressing that he feels better now than he has in the past two months. He has shown no signs of hallucinations and has consistently denied any suicidal or homicidal ideations. This is a significant change from his initial presentation, indicating a positive response to the current treatment plan. His compliance with the medication regimen, particularly Olanzapine (Zydis), has been consistent. He has expressed belief that the medication is aiding his recovery process, and the lessening of his anxiety symptoms supports this. Mr. Gutierrez's engagement in group therapy sessions has been beneficial, as he has found them helpful and has been more interactive. His understanding and perception of the structured environment of the inpatient unit have improved, further aiding his recovery. His , Tiffanie, has been kept informed about Mr. Gutierrez's progress and will continue to be provided with ongoing support. The treatment team will continue to work collaboratively to monitor Mr. Vazquezs progress, ensure his safety, and address his persistent feelings of anxiety. In conclusion, Mr. Vazquezs overall progress is encouraging. He has shown significant improvement in his mental state and behavior, and has responded positively to the treatment plan. Continued observation and therapy are necessary to ensure sustained progress and further stabilization. Review of Systems: Constitutional:No fever, no weight loss Eyes:No diplopia ENT:No sinus drainage CV:No chest pain. No ankle swelling Resp:No dyspnea. No wheezing GI:No abdominal pain.No abdominal distention :No dysuria Neuro:No headache Integumentary:No skin rash MuscSkel:No arthralgias Endo:No polyuria Heme/lymphatic:No apparent lymphadenopathy Allergic/Immunologic:No hives Physical Examination: Vital Signs: BP (!) 151/81 Pulse 71 Temp 97.5 degrees F (36.4 degrees C) (Oral) Resp 16 Ht 5' 7 Wt 62.6 kg (138 lb) SpO2 100% BMI 21.61 kg/m Mental Status Evaluation: General Appearance & Behavior: older than stated age Grooming & Hygiene: street clothes Psychomotor Activity: psychomotor retarda (more content not included)... [facility] 02-07-2024 Note Formatting of this n ote might be different from the original. Problem: Anxiety Goal: Alleviation of anxiety Outcome: Partially Met Problem: Health Maintenance - Impaired Goal: Improvement or maintenance of mental/physical health, relationships, and responsibilities Outcome: Partially Met Goal: Nutrition intake to meet estimated needs Outcome: Partially Met Problem: Mood - Altered Goal: Mood stable Outcome: Partially Met Goal: Knowledge of medication management Outcome: Partially Met Problem: Self-esteem - Low Goal: Improved self-esteem Outcome: Partially Met Problem: Thought Process - Altered Goal: Demonstration of organized thought processes Outcome: Partially Met Problem: Transition Readiness Goal: Able to safely transition to next level of care Outcome: Not Addressed Goal: Knowledge of care transition plan Outcome: Not Addressed Goal: Knowledge of medication management Outcome: Partially Met Goal: Knowledge of need for follow-up care Outcome: Not Addressed Goal: Participation in care planning Outcome: Not Addressed [facility] 02-06-2024 Note Formatting of this n ote might be different from the original. Problem: Anxiety Goal: Alleviation of anxiety Outcome: Partially Met Problem: Health Maintenance - Impaired Goal: Improvement or maintenance of mental/physical health, relationships, and responsibilities Outcome: Partially Met Goal: Nutrition intake to meet estimated needs Outcome: Partially Met Problem: Mood - Altered Goal: Mood stable Outcome: Partially Met Goal: Knowledge of medication management Outcome: Partially Met Problem: Self-esteem - Low Goal: Improved self-esteem Outcome: Partially Met Problem: Thought Process - Altered Goal: Demonstration of organized thought processes Outcome: Partially Met Problem: Transition Readiness Goal: Able to safely transition to next level of care Outcome: Partially Met Goal: Knowledge of care transition plan Outcome: Partially Met Goal: Knowledge of medication management Outcome: Partially Met Goal: Knowledge of need for follow-up care Outcome: Partially Met Goal: Participation in care planning Outcome: Partially Met [facility] 02-06-2024 Note Psychiatry Progress Note Patient Name: Kristian Gutierrez Admit Date: [id number] MR #: [id number] : 1955 Perpetual Assessment Kristian Gutierrez is a 69 y.o. 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 Despite being financially stable, he has been increasingly focused on financial issues, exhibiting feelings of hopelessness and worthlessness, and verbalizing suicidal thoughts without a specific plan. He denies any current suicidal ideation or history of attempts, self-harm, homicidal ideation, auditory or visual hallucinations, and substance use. His symptoms have been exacerbated over the past few months, particularly following his mother's and the stress of being the executor of her will. Despite being on a regimen of psychiatric medications, his mental health continues to deteriorate, causing significant concern for his sisters who believe he cannot be left alone safely. He will be hospitalized for safety and stabilization, with further psychiatric evaluation and treatment planning to be determined by the treatment team. Physical examination Lab testing as appropriate Precautions -suicide PRN medications for agitation Collateral history from family/friends/providers Request/review prior records telephone services sales representative assessment/linkage/care coordination Group participation/[facility] Supportive psychotherapy/structured supportive care Ambien 10 mg by mouth at bedtime as needed insomnia Increase Mirtazapine to 15 mg by mouth at bedtime Aftercare planning once stable Comorbid issues impacting my care plan include none . Following for depression and suicidal ideations Interval History: Mr. Gutierrez, a 69-year-old male, currently admitted to the inpatient psychiatric unit, exhibited some improvement today. He was more engaged and clearer in his communication. He reported attending group sessions and found them helpful. He also expressed a newfound understanding that he was not enrolled in any program. Mr. Gutierrez has been compliant with his medication regimen and expressed belief that the medications are aiding his recovery. Upon observation, Mr. Gutierrez appears less anxious and more oriented than previous days. He was found to be more interactive in his group sessions and responsive to the therapeutic interventions. His affect was more stable, and he seemed less overwhelmed. Mr. Gutierrez continues to respond well to the medication adjustments, particularly Olanzapine (Zydis), which has noticeably lessened his anxiety. His engagement in group sessions and improved clarity indicate a positive response to the supportive psychotherapy and structured environment of the inpatient unit. However, he continues to harbor feelings of hopelessness and guilt related to his financial situation. he current treatment plan will continue with the administration of the Olanzapine (Zydis) and supportive psychotherapy. Continued observation is necessary to ensure safety and further stabilization. The therapeutic benefits of the group sessions are evident and will be encouraged. Further discussions to address his misconceptions about his financial situation will be incorporated into his psychotherapy sessions. His , Tiffanie, will be kept informed and provided with ongoing support as well. The team will work collaboratively to address Mr. Gutierrez's persistent feelings of hopelessness and anxiety. Review of Systems: Constitutional:No fever, no weight loss Eyes:No diplopia ENT:No sinus drainage CV:No chest pain. No ankle swelling Resp:No dyspnea. No wheezing GI:No abdominal pain.No abdominal distention :No dysuria Neuro:No headache Integumentary:No skin rash MuscSkel:No arthralgias Endo:No polyuria Heme/lymphatic:No apparent lymphadenopathy Allergic/Immunologic:No hives Physical Examination: Vital Signs: BP 133/80 Pulse 78 Temp 97.9 degrees F (36.6 degrees C) (Oral) Resp 16 Ht 5' 7 Wt 62.6 kg (138 lb) SpO2 98% BMI 21.61 kg/m Mental Status Evaluation: General Appearance & Behavior: older than stated age Grooming & Hygiene: street clothes Psychomotor Activity: psychomotor retardation Gait & Station stable gait Speech: soft spoken, slowed, and hesitant Flow of Thought: concrete Thought Associations: Intact Cont (more content not included)... [facility] 02-06-2024 Note Formatting of this n ote might be different from the original. Problem: Anxiety Goal: Alleviation of anxiety Outcome: Partially Met Problem: Health Maintenance - Impaired Goal: Improvement or maintenance of mental/physical health, relationships, and responsibilities Outcome: Partially Met Goal: Nutrition intake to meet estimated needs Outcome: Partially Met Problem: Mood - Altered Goal: Mood stable Outcome: Met Goal: Knowledge of medication management Outcome: Partially Met Problem: Self-esteem - Low Goal: Improved self-esteem Outcome: Met Problem: Thought Process - Altered Goal: Demonstration of organized thought processes Outcome: Met Problem: Transition Readiness Goal: Able to safely transition to next level of care Outcome: Met [facility] 02-06-2024 Hospital Discharge instructions Jeana Kennedy MSW LSW - 02/06/2024 10:40 AM EDT If you would like to obtain records from this hospitalization, please go to the second floor of the hospital in medical records and registration, and request records from your dates of admission. Phone number for medical records is: [phone]. Financial Department for [facility]: [phone] For questions about local resources near you, please dial [facility]: [phone] [facility]: [phone] National Hotlines: National Suicide Prevention Hotline Call: Rape, Abuse and Incest National Network: 651.768.9215 Veterans Crisis Hotline: 932.938.6001 press 1 Veterans Crisis Text Line: Text 847819 National Domestic Violence Hotline: 546.632.2611 National Domestic Violence Text Line: Text Keyword START to 1252 National [facility]ANESA HelpLine can be reached at: , Monday through Monday, 10 a.m. - 10 p.m., ET. National Youth Crisis Hotline: 860.249.7874 Maternal Mental Health Hotline: Addiction Hotline: 750.650.2151 Local/[facility] Hotlines & Helplines: [facility] [employer] Crisis Helpline: 448.232.6280 [facility] Life Services Warmline (Non-Crisis Supportive Talk Line): 723.613.8775 [facility] Domestic Violence Longterm Hotline: 220.796.3670 [facility] Adult Protective Services Reporting Line: 277.744.7401 [facility] Child Abuse & Neglect Hotline: 634.236.3495 [facility] Suicide Prevention Coalition: 185.597.4142 [facility] NetCare Crisis Link: 109.324.2125 [facility] Youth Psychiatric Crisis Line: 452.339.7702 [facility] Crisis Now Hotline: 703.535.1345 [facility] 03/04 Crisis Hotline: 964.727.4634 [facility] Crisis Hotline: 890.696.7040 [facility], [facility] [place], [place], [place], & [facility] Crisis Hotline: [phone] [facility] Providers Crisis Line: 118.348.6294 Community Counseling Crisis Hotline of [facility] (Business Hour Line): 276.625.2918 Community Counseling Crisis Hotline of [facility] (After Business Hours, Holidays, & Weekend Line): 139.488.1874 HelpLine Crisis Line of [place], [place], [place], [place], [place], [facility], [place] & [facility]: Call or text helpline to 898564 Kayla Hinojosa, & Maru [facility] Crisis Hotline: 494.917.5276 [facility], [place] Crisis Hotline: Ady, Ranjit, & [facility] Crisis Hotline: [facility] Crisis Hotline: [place], [place], [place], [place], [place], [place] and [facility] Crisis Hotline: [facility] Crisis Hotline: [phone] Crisis Hotline of [facility] & [place]: [phone] Crisis Hotline of [facility]: [phone] [place] Crisis Text Line: Text Keyword 4HOPE to 590 990 Sexual Assault Response Network [facility] 24-Hour Rape Helpline: 305.616.6270 [place] Sexual Violence Helpline: 570.405.9200 [place] CareLine: [phone] [facility] [place] [facility] Helpline/Admissions Line: [phone] [employer]: [phone] [place] Medicaid Consumer Hotline: 158.621.5529 [place] Department of Disabilities: documented in this encounter [facility] 02-06-2024 Note Formatting of this n ote might be different from the original. Problem: Anxiety Goal: Alleviation of anxiety Outcome: Met Problem: Mood - Altered Goal: Mood stable Outcome: Met Problem: Transition Readiness Goal: Able to safely transition to next level of care Outcome: Met Goal: Knowledge of care transition plan Outcome: Met Goal: Participation in care planning Outcome: Met Problem: Health Maintenance - Impaired Goal: Improvement or maintenance of mental/physical health, relationships, and responsibilities Outcome: Partially Met Goal: Nutrition intake to meet estimated needs Outcome: Partially Met Problem: Mood - Altered Goal: Knowledge of medication management Outcome: Partially Met Problem: Self-esteem - Low Goal: Improved self-esteem Outcome: Partially Met Problem: Thought Process - Altered Goal: Demonstration of organized thought processes Outcome: Partially Met Problem: Transition Readiness Goal: Knowledge of medication management Outcome: Partially Met Goal: Knowledge of need for follow-up care Outcome: Partially Met Problem: Actual or potential alteration in health Goal: Knowledge of Interdisciplinary Plan of Care Outcome: Completed Goal: Knowledge of Enviroment Outcome: Completed [facility] 02-05-2024 Note HMS PROGRESS NOTE Patient Name: Kristian Gutierrez : 1955 MR #: [id number] Admit Date: 5191015 Physicians: System, Provider Not In (Family); No ref. provider found (Referring) Kristian Gutierrez is a 69 y.o. male patient of System, Provider Not In with history of rheumatoid arthritis, BPH, melanoma of neck s/p surgical excision, anxiety who has been admitted to [facility] inpatient behavioral health unit 01/29/2024. Depression Management per primary Hyperlipidemia Statin Rheumatoid arthritis Takes methotrexate once weekly resume Continue folic acid Continue home Plaquenil BPH Chart reports history of possible prostate cancer, but patient denies this; endorses BPH Continue tamsulosin Medication Reconciliation: Verified Code Status: Full Code - Unverified Will sign off after today. Discussed home medications with spouse and pharmacy and resumed RA medications Quality Measures DVT Prophylaxis: Ambulation Schulz Catheter: Absent Subjective: I dont know why I have not been getting all of my medications for RA Review Of Systems All relevant systems have been reviewed and are negative except as noted in HPI or below Physical Examination BP 129/65 Pulse 73 Temp 98.1 degrees F (36.7 degrees C) (Oral) Resp 16 Ht 5' 7 Wt 62.6 kg (138 lb) SpO2 97% BMI 21.61 kg/m General Appearance: alert, well appearing, and in no acute distress HEENT: Head- normocephalic; Eyes- PERRLA, EOMI; Ears- external auditory canals clear, hearing intact; Nose- no nasal discharge; Throat- oropharynx normal Cardiovascular: regular rate and rhythm; normal S1, S2; no murmurs, rubs, clicks or gallops; no peripheral edema Respiratory: lungs clear to auscultation; without wheezes, rales or rhonchi Abdomen: soft, non-tender, non-distended; positive bowel sounds Neurological: alert, oriented x 3, normal speech; no focal findings or movement disorder noted Cranial Nerves: II: visual richard full. III, IV, : extraocular range intact. V: sensation intact. VII: facial symmetric with 5/5 strength. VIII: hearing intact to voice and finger rub. IX, X: palate elevates symmetrically. XI: shrugs shoulders 5/5 strength bilaterally. XII: tongue protrudes in midline. Sensation -grossly symmetrical. Motor strength 5/5 all over. DTR 2+ in the UE and LE bilaterally. Musculoskeletal: no significant deformity or tenderness to palpation Skin: normal coloration, texture and turgor; no lesions or eruptions Psych: normal mood and affect Laboratory and Additional Data Reviewed Laboratory 02/05/24 2:12 PM Microbiology 02/05/24 2:12 PM Radiology 02/05/24 2:12 PM Cardiology 02/05/24 2:12 PM Medications 02/05/24 2:12 PM Transcriptions 02/05/24 2:12 PM AUTHENTICATED BY ALMA MARINO, ON 02/05/2024 14:14:26 [facility] 02-05-2024 Note Psychiatry Progress Note Patient Name: Kristian Gutierrez Admit Date: 5191015 MR #: [id number] : 1955 Perpetual Assessment Kristian Gutierrez is a 69 y.o. 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 Despite being financially stable, he has been increasingly focused on financial issues, exhibiting feelings of hopelessness and worthlessness, and verbalizing suicidal thoughts without a specific plan. He denies any current suicidal ideation or history of attempts, self-harm, homicidal ideation, auditory or visual hallucinations, and substance use. His symptoms have been exacerbated over the past few months, particularly following his mother's and the stress of being the executor of her will. Despite being on a regimen of psychiatric medications, his mental health continues to deteriorate, causing significant concern for his sisters who believe he cannot be left alone safely. He will be hospitalized for safety and stabilization, with further psychiatric evaluation and treatment planning to be determined by the treatment team. Physical examination Lab testing as appropriate Precautions -suicide PRN medications for agitation Collateral history from family/friends/providers Request/review prior records telephone services sales representative assessment/linkage/care coordination Group participation/[facility] Supportive psychotherapy/structured supportive care Ambien 10 mg by mouth at bedtime as needed insomnia Increase Mirtazapine to 15 mg by mouth at bedtime Aftercare planning once stable Comorbid issues impacting my care plan include none . Following for depression and suicidal ideations Interval History: The patient, Mr. Kristian Gutierrez, a 69 y.o. male, was found in his room today. He appeared anxious and expressed several questions and concerns about his current situation. He reported feelings of hopelessness and being overwhelmed. Mr. Gutierrez received Olanzapine (Zydis) yesterday, which resulted in good response. His anxiety was lessened, and he reported feeling more rested and less tense. After discussing the benefits of continuing this treatment, he agreed to repeat the dose today. Despite the improvement, he still expresses concern about his financial situation. He continues to feel hopeless and harbors feelings of guilt. Today, I also had the opportunity to speak with his , Tiffanie, over the phone. Tiffanie expressed being overwhelmed and concerned about her 's mental state. She reported that Mr. Gutierrez has no previous psychiatric history and that his current symptoms began after a significant financial loss in the stock market. She confirmed that although the loss was substantial, it did not result in bankruptcy as Mr. Gutierrez believes. Extensive supportive psychotherapy was provided to Tiffanie to help her cope with the current situation. She was reassured that Mr. Gutierrez is in a safe environment and that the treatment plan is designed to stabilize his condition. She was also informed about the support available to her and the family during this time. Mr. Gutierrez is responding well to the medication adjustments, but his anxiety and feelings of hopelessness persist. Continued observation, medication adjustments, and supportive psychotherapy will be necessary for his safety and stabilization. Review of Systems: Constitutional:No fever, no weight loss Eyes:No diplopia ENT:No sinus drainage CV:No chest pain. No ankle swelling Resp:No dyspnea. No wheezing GI:No abdominal pain.No abdominal distention :No dysuria Neuro:No headache Integumentary:No skin rash MuscSkel:No arthralgias Endo:No polyuria Heme/lymphatic:No apparent lymphadenopathy Allergic/Immunologic:No hives Physical Examination: Vital Signs: BP 129/65 Pulse 73 Temp 98.1 degrees F (36.7 degrees C) (Oral) Resp 16 Ht 5' 7 Wt 62.6 kg (138 lb) SpO2 97% BMI 21.61 kg/m Mental Status Evaluation: General Appearance & Behavior: older than stated age Grooming & Hygiene: street clothes Psychomotor Activity: psychomotor retardation Gait & Station stable gait Speech: soft spoken, slowed, and hesitant Flow of Thought: concrete Thought Associations: Intact Content of Thought: Preoccupations Mood: depressed Affect: depressed Insight: limited Judgment (more content not included)... [facility] 02-05-2024 Note Formatting of this n ote might be different from the original. Problem: Actual or potential alteration in health Goal: Knowledge of Interdisciplinary Plan of Care Outcome: Partially Met Goal: Knowledge of Enviroment Outcome: Partially Met Problem: Anxiety Goal: Alleviation of anxiety Outcome: Partially Met Problem: Health Maintenance - Impaired Goal: Improvement or maintenance of mental/physical health, relationships, and responsibilities Outcome: Partially Met Goal: Nutrition intake to meet estimated needs Outcome: Partially Met Problem: Mood - Altered Goal: Mood stable Outcome: Partially Met Goal: Knowledge of medication management Outcome: Partially Met Problem: Self-esteem - Low Goal: Improved self-esteem Outcome: Partially Met Problem: Thought Process - Altered Goal: Demonstration of organized thought processes Outcome: Partially Met Problem: Transition Readiness Goal: Able to safely transition to next level of care Outcome: Partially Met Goal: Knowledge of care transition plan Outcome: Partially Met Goal: Knowledge of medication management Outcome: Partially Met Goal: Knowledge of need for follow-up care Outcome: Partially Met Goal: Participation in care planning Outcome: Partially Met [facility] 02-04-2024 Note Formatting of this n ote might be different from the original. Problem: Actual or potential alteration in health Goal: Knowledge of Interdisciplinary Plan of Care Outcome: Partially Met Goal: Knowledge of Enviroment Outcome: Partially Met Problem: Anxiety Goal: Alleviation of anxiety Outcome: Partially Met Problem: Health Maintenance - Impaired Goal: Improvement or maintenance of mental/physical health, relationships, and responsibilities Outcome: Partially Met Goal: Nutrition intake to meet estimated needs Outcome: Partially Met Problem: Mood - Altered Goal: Mood stable Outcome: Partially Met Goal: Knowledge of medication management Outcome: Partially Met Problem: Self-esteem - Low Goal: Improved self-esteem Outcome: Partially Met Problem: Thought Process - Altered Goal: Demonstration of organized thought processes Outcome: Partially Met Problem: Transition Readiness Goal: Able to safely transition to next level of care Outcome: Partially Met Goal: Knowledge of care transition plan Outcome: Partially Met Goal: Knowledge of medication management Outcome: Partially Met Goal: Knowledge of need for follow-up care Outcome: Partially Met Goal: Participation in care planning Outcome: Partially Met [facility] 02-04-2024 Note Psychiatry Progress Note Patient Name: Kristian Gutierrez Admit Date: [id number] MR #: [id number] : 1955 Perpetual Assessment Kristian Gutierrez is a 69 y.o. 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 Despite being financially stable, he has been increasingly focused on financial issues, exhibiting feelings of hopelessness and worthlessness, and verbalizing suicidal thoughts without a specific plan. He denies any current suicidal ideation or history of attempts, self-harm, homicidal ideation, auditory or visual hallucinations, and substance use. His symptoms have been exacerbated over the past few months, particularly following his mother's and the stress of being the executor of her will. Despite being on a regimen of psychiatric medications, his mental health continues to deteriorate, causing significant concern for his sisters who believe he cannot be left alone safely. He will be hospitalized for safety and stabilization, with further psychiatric evaluation and treatment planning to be determined by the treatment team. Physical examination Lab testing as appropriate Precautions -suicide PRN medications for agitation Collateral history from family/friends/providers Request/review prior records telephone services sales representative assessment/linkage/care coordination Group participation/[place] Supportive psychotherapy/structured supportive care Ambien 10 mg by mouth at bedtime as needed insomnia Increase Mirtazapine to 15 mg by mouth at bedtime Aftercare planning once stable Comorbid issues impacting my care plan include none . Following for depression and suicidal ideations Interval History: Charts were reviewed, updates obtained from designated nursing staff and marriage and family social worker. Patient was interviewed and discussed with team Patient did better after he received 1 time dose of Zydis Zyprexa and Klonopin. Staff reported he was was more controlled and less anxious last evening. Patient reported he slept really well last night and feels more rested today. He is less tense and less restless as compared to yesterday. He is also not confused. Patient realizes that he has been in the hospital for just a few days and not months like he was thinking yesterday. He reports he is feeling less down and depressed and wanted to get discharged but was reassured that he would treat a few more days of adjustments in his medications and observation before that discharge planning is initiated. Anxiety is still elevated but not as much as yesterday. Patient is still preoccupied about finances and somehow believes that he is was going to go to long term. Patient was reassured but continues to worry. I offered him 1 time dose of Zydis and Klonopin today but he refused. His appetite is fair. Patient continues to feel hopeless and has unusual feelings of guilt. He is also less irritable as compared to yesterday. He was also preoccupied by how things are going to work out once he is discharged from the hospital. Patient was reassured and advised that appropriate counseling appointments and medication appointments will be made for him. Review of Systems: Constitutional:No fever, no weight loss Eyes:No diplopia ENT:No sinus drainage CV:No chest pain. No ankle swelling Resp:No dyspnea. No wheezing GI:No abdominal pain.No abdominal distention :No dysuria Neuro:No headache Integumentary:No skin rash MuscSkel:No arthralgias Endo:No polyuria Heme/lymphatic:No apparent lymphadenopathy Allergic/Immunologic:No hives Physical Examination: Vital Signs: BP (!) 143/87 Pulse 87 Temp 98 degrees F (36.7 degrees C) (Oral) Resp 16 Ht 5' 7 Wt 62.6 kg (138 lb) SpO2 98% BMI 21.61 kg/m Mental Status Evaluation: General Appearance & Behavior: older than stated age he is slightly better engaged and makes better eye contact but still needs reassurances Grooming & Hygiene: street clothes adequate hygiene and grooming Psychomotor Activity: Less restless Gait & Station stable gait Speech: Clear and coherent and less delayed Flow of Thought: concrete Thought Associations: Intact Content of Thought: Denies any suicidal ideation today, does have some paranoid ideations but no franklin delusions Mood: Anxious Affect: Worried Insight: limited Anika (more content not included)... [facility] 02-04-2024 Note Formatting of this n ote might be different from the original. Problem: Actual or potential alteration in health Goal: Knowledge of Interdisciplinary Plan of Care Outcome: Partially Met Goal: Knowledge of Enviroment Outcome: Partially Met Problem: Anxiety Goal: Alleviation of anxiety Outcome: Partially Met Problem: Health Maintenance - Impaired Goal: Improvement or maintenance of mental/physical health, relationships, and responsibilities Outcome: Partially Met Goal: Nutrition intake to meet estimated needs Outcome: Partially Met Problem: Mood - Altered Goal: Mood stable Outcome: Partially Met Goal: Knowledge of medication management Outcome: Partially Met Problem: Self-esteem - Low Goal: Improved self-esteem Outcome: Partially Met Problem: Transition Readiness Goal: Able to safely transition to next level of care Outcome: Partially Met Goal: Knowledge of care transition plan Outcome: Partially Met Goal: Knowledge of medication management Outcome: Partially Met Goal: Knowledge of need for follow-up care Outcome: Partially Met Goal: Participation in care planning Outcome: Partially Met T [facility] 02-03-2024 Note Formatting of this n ote might be different from the original. Problem: Actual or potential alteration in health Goal: Knowledge of Interdisciplinary Plan of Care Outcome: Partially Met Goal: Knowledge of Enviroment Outcome: Partially Met Problem: Anxiety Goal: Alleviation of anxiety Outcome: Partially Met Problem: Health Maintenance - Impaired Goal: Improvement or maintenance of mental/physical health, relationships, and responsibilities Outcome: Partially Met Goal: Nutrition intake to meet estimated needs Outcome: Partially Met Problem: Mood - Altered Goal: Mood stable Outcome: Partially Met Goal: Knowledge of medication management Outcome: Partially Met Problem: Self-esteem - Low Goal: Improved self-esteem Outcome: Partially Met Problem: Thought Process - Altered Goal: Demonstration of organized thought processes Outcome: Partially Met Problem: Transition Readiness Goal: Able to safely transition to next level of care Outcome: Partially Met Goal: Knowledge of care transition plan Outcome: Partially Met Goal: Knowledge of medication management Outcome: Partially Met Goal: Knowledge of need for follow-up care Outcome: Partially Met Goal: Participation in care planning Outcome: Partially Met [facility] 02-03-2024 Note Psychiatry Progress Note Patient Name: Kristian Gutierrez Admit Date: [id number] MR #: [id number] : 1955 Perpetual Assessment Kristian Gutierrez is a 69 y.o. male is being admitted to the inpatient psychiatric unit due to increased depression, anxiety, insomnia, and recent suicidal ideation, exacerbated by financial stress and recent bereavement, despite his stable financial situation and ongoing psychiatric medication regimen Diagnosis & Plan/Recommendations PRINCIPAL DIAGNOSIS: Episode of recurrent major depressive disorder (HCC) * Episode of recurrent major depressive disorder (HCC) Assessment & Plan Kristian, a 69-year-old male, is being admitted to the inpatient psychiatric unit due to concerns of increased depression, anxiety, insomnia, and recent suicidal ideation. Despite being financially stable, he has been increasingly focused on financial issues, exhibiting feelings of hopelessness and worthlessness, and verbalizing suicidal thoughts without a specific plan. He denies any current suicidal ideation or history of attempts, self-harm, homicidal ideation, auditory or visual hallucinations, and substance use. His symptoms have been exacerbated over the past few months, particularly following his mother's and the stress of being the executor of her will. Despite being on a regimen of psychiatric medications, his mental health continues to deteriorate, causing significant concern for his sisters who believe he cannot be left alone safely. He will be hospitalized for safety and stabilization, with further psychiatric evaluation and treatment planning to be determined by the treatment team. Physical examination Lab testing as appropriate Precautions -suicide PRN medications for agitation Collateral history from family/friends/providers Request/review prior records telephone services sales representative assessment/linkage/care coordination Group participation/[place] Supportive psychotherapy/structured supportive care Ambien 10 mg by mouth at bedtime as needed insomnia Increase Mirtazapine to 15 mg by mouth at bedtime Aftercare planning once stable Comorbid issues impacting my care plan include none . Following for depression and suicidal ideations Interval History: Charts were reviewed, updates obtained from designated nursing staff and marriage and family social worker. Patient was interviewed and discussed with team Patient's moods and behaviors have declined since December. And he presented with depressed mood, insomnia, low appetite, paranoid ideations to the hospital. Patient reported that he also started talking about suicide ideation. He continues to endorse passive suicidal ideation. He still not able to understand why all of this has changed for him. At times he has been getting confused and asked me why he has been in the hospital for months though he has been here just for a couple of days. Patient states he has not been able to fall asleep and stay asleep. He does not like the bed and the blanket he has been provided. His responses are delayed. His recent memory seems to be impaired though remote is intact. He is able to tell me his birthday, but there for his children. His educational and occupational experience. His mood is depressed, affect is flat. He reports elevated anxiety. There is no evidence of any franklin delusions or perceptual disturbances. His appetite is so-so. His attention span and concentration is poor. Review of Systems: Constitutional:No fever, no weight loss Eyes:No diplopia ENT:No sinus drainage CV:No chest pain. No ankle swelling Resp:No dyspnea. No wheezing GI:No abdominal pain.No abdominal distention :No dysuria Neuro:No headache Integumentary:No skin rash MuscSkel:No arthralgias Endo:No polyuria Heme/lymphatic:No apparent lymphadenopathy Allergic/Immunologic:No hives Physical Examination: Vital Signs: BP 138/79 Pulse 90 Temp 98.3 degrees F (36.8 degrees C) (Oral) Resp 16 Ht 5' 7 Wt 62.6 kg (138 lb) SpO2 99% BMI 21.61 kg/m Mental Status Evaluation: General Appearance & Behavior: older than stated age needs encouragement and redirections to engage Grooming & Hygiene: street clothes Psychomotor Activity: psychomotor retardation Gait & Station stable gait Speech: Slowed speech, delayed responses Flow of Thought: concrete Thought Associations: Intact Content of Thought: Passive suicidal ideation Mood: depressed Affect: Flat Insight: limited Judgment: limited Orientation: alert and oriented to person, place, time, and circumstances Memory: impaired short term, intact remote Attention: distracted Concentration: reduced Language: fluent Fund of Knowledge: estimated average intelligence Laboratory and Additional Data Reviewed: Laboratory 02/03/24 1:33 PM Medications 02/03/24 1:33 PM Treatment options and alternatives reviewed with patient. Risks, benefits, side effects of all psychiatri (more content not included)... [facility] 02-03-2024 Note Formatting of this n ote might be different from the original. Problem: Actual or potential alteration in health Goal: Knowledge of Interdisciplinary Plan of Care Outcome: Partially Met Goal: Knowledge of Enviroment Outcome: Partially Met Problem: Anxiety Goal: Alleviation of anxiety Outcome: Partially Met Problem: Health Maintenance - Impaired Goal: Improvement or maintenance of mental/physical health, relationships, and responsibilities Outcome: Partially Met Goal: Nutrition intake to meet estimated needs Outcome: Partially Met Problem: Mood - Altered Goal: Mood stable Outcome: Partially Met Goal: Knowledge of medication management Outcome: Partially Met Problem: Self-esteem - Low Goal: Improved self-esteem Outcome: Partially Met Problem: Transition Readiness Goal: Able to safely transition to next level of care Outcome: Partially Met Goal: Knowledge of care transition plan Outcome: Partially Met Goal: Knowledge of medication management Outcome: Partially Met Goal: Knowledge of need for follow-up care Outcome: Partially Met Goal: Participation in care planning Outcome: Partially Met [facility] 02-02-2024 Note Formatting of this n ote might be different from the original. Problem: Actual or potential alteration in health Goal: Knowledge of Interdisciplinary Plan of Care Outcome: Partially Met Goal: Knowledge of Enviroment Outcome: Partially Met Problem: Anxiety Goal: Alleviation of anxiety Outcome: Partially Met Problem: Health Maintenance - Impaired Goal: Improvement or maintenance of mental/physical health, relationships, and responsibilities Outcome: Partially Met Goal: Nutrition intake to meet estimated needs Outcome: Partially Met Problem: Mood - Altered Goal: Mood stable Outcome: Partially Met Goal: Knowledge of medication management Outcome: Partially Met Problem: Self-esteem - Low Goal: Improved self-esteem Outcome: Partially Met Problem: Thought Process - Altered Goal: Demonstration of organized thought processes Outcome: Partially Met Problem: Transition Readiness Goal: Able to safely transition to next level of care Outcome: Partially Met Goal: Knowledge of care transition plan Outcome: Partially Met Goal: Knowledge of medication management Outcome: Partially Met Goal: Knowledge of need for follow-up care Outcome: Partially Met Goal: Participation in care planning Outcome: Partially Met [facility] 02-02-2024 Note Psychiatry Progress Note Patient Name: Kristian Gutierrez Admit Date: [id number] MR #: [id number] : 1955 Perpetual Assessment Kristian Gutierrez is a 69 y.o. male is being admitted to the inpatient psychiatric unit due to increased depression, anxiety, insomnia, and recent suicidal ideation, exacerbated by financial stress and recent bereavement, despite his stable financial situation and ongoing psychiatric medication regimen Diagnosis & Plan/Recommendations PRINCIPAL DIAGNOSIS: Episode of recurrent major depressive disorder (HCC) * Episode of recurrent major depressive disorder (HCC) Assessment & Plan Kristian, a 69-year-old male, is being admitted to the inpatient psychiatric unit due to concerns of increased depression, anxiety, insomnia, and recent suicidal ideation. Despite being financially stable, he has been increasingly focused on financial issues, exhibiting feelings of hopelessness and worthlessness, and verbalizing suicidal thoughts without a specific plan. He denies any current suicidal ideation or history of attempts, self-harm, homicidal ideation, auditory or visual hallucinations, and substance use. His symptoms have been exacerbated over the past few months, particularly following his mother's and the stress of being the executor of her will. Despite being on a regimen of psychiatric medications, his mental health continues to deteriorate, causing significant concern for his sisters who believe he cannot be left alone safely. He will be hospitalized for safety and stabilization, with further psychiatric evaluation and treatment planning to be determined by the treatment team. Physical examination Lab testing as appropriate Precautions -suicide PRN medications for agitation Collateral history from family/friends/providers Request/review prior records telephone services sales representative assessment/linkage/care coordination Group participation/[place] Supportive psychotherapy/structured supportive care Ambien 10 mg by mouth at bedtime as needed insomnia Increase Mirtazapine to 15 mg by mouth at bedtime Aftercare planning once stable Comorbid issues impacting my care plan include none . Following for depression and suicidal ideations Interval History: The patient reports ongoing depressive symptoms, including persistent low mood, poor concentration, insomnia, and decreased appetite. He continues to struggle with sleep, reporting only 5 hours of sleep last night. He has been preoccupied with his financial situation, exhibiting paranoia towards hospital staff, accusing them of theft and conspiracy against him. The patient was agitated, attempting to force entry into the nursing station and refusing oral medications. He has been observed to be tense, pacing the hallways, and expressing distressed thoughts about his identity being taken from him. The patient did not attend group therapy and has been irritable, threatening self-discharge. Attempts to engage the patient in a discussion about treatment have been met with resistance. Physical examination reveals a patient who appears depressed, with delayed responses and soft speech. His affect is congruent with his mood. His concentration during the interview was poor. Mr. Gutierrez's mental status has not improved, but rather worsened. He continues to struggle with severe depressive symptoms, anxiety, paranoia, and insomnia. His symptoms have been exacerbated by recent stressors, including the of his mother and ongoing care of his [id number]. Efforts to communicate with the patient's have been unsuccessful, with multiple unanswered calls and a full voicemail inbox. We will continue to attempt to reach her to discuss the patient's condition and progress. The treatment plan for renaldoight includes increasing the dose of Mirtazapine to aid in managing his sleep difficulties, depression, and anxiety. We are also considering the introduction of a second-generation antipsychotic, such as Risperidone, depending on his progress and response to the current treatment. The patient will continue to be closely monitored for any further escalation in his behavior and adjustment to his medication regimen will be made accordingly. The patient's safety remains our top priority, and we will continue to employ de-escalation techniques and closely monitor his behavior to ensure a safe treatment environment. A comprehensive risk assessment will be completed considering the patient's recent agitated behavior. Review of Systems: Constitutional:No fever, no weight loss Eyes:No diplopia ENT:No sinus drainage CV:No chest pain. No ankle swelling Resp:No dyspnea. No wheezing GI:No abdominal pain.No abdominal distention :No dysuria Neuro:No headache Integumentary:No skin rash MuscSkel:No arthralgias Endo:No polyuria Heme/lymphatic:No apparent lymphadenopathy Allergic/Immunologic:No hives Physic (more content not included)... [facility] 02-02-2024 Note Formatting of this n ote might be different from the original. Problem: Actual or potential alteration in health Goal: Knowledge of Interdisciplinary Plan of Care Outcome: Partially Met Goal: Knowledge of Enviroment Outcome: Partially Met Problem: Anxiety Goal: Alleviation of anxiety Outcome: Partially Met Problem: Health Maintenance - Impaired Goal: Improvement or maintenance of mental/physical health, relationships, and responsibilities Outcome: Partially Met Goal: Nutrition intake to meet estimated needs Outcome: Partially Met Problem: Mood - Altered Goal: Mood stable Outcome: Partially Met Goal: Knowledge of medication management Outcome: Partially Met Problem: Self-esteem - Low Goal: Improved self-esteem Outcome: Partially Met Problem: Thought Process - Altered Goal: Demonstration of organized thought processes Outcome: Partially Met Problem: Transition Readiness Goal: Able to safely transition to next level of care Outcome: Partially Met Goal: Knowledge of care transition plan Outcome: Partially Met Goal: Knowledge of medication management Outcome: Partially Met Goal: Knowledge of need for follow-up care Outcome: Partially Met Goal: Participation in care planning Outcome: Partially Met T [facility] 02-02-2024 Note Formatting of this n ote might be different from the original. Behavioral Health Treatment Plan Update Date: 02/02/2024 Time: 8:30 AM Patient Name: Kristian Gutierrez Date of : 1955 Sex: Male Diagnosis [place] I: Major Depression, Rec [place] II: Deferred [place] IV: economic problems and other psychosocial or environmental problems [place] V: 21-30 behavior considerably influenced by delusions or hallucinations OR serious impairment in judgment, communication OR inability to function in almost all areas Expected Discharge Date: TBD ELOS: 3-5 Days Precautions Precautions: Suicide, Unpredictable Patient Presenting Issues: Patient's Primary Presenting Issue Patient's Primary Presenting Issue: Suicidal Suicidal Symptoms: Ideation Suicidal Goals: resolve Days To Improvement Of Goal: 7-9 Suicidal Treatment Interventions: Medication management/evaluation, Pain and symptom management, Medication education, Group psychoeduction, Handouts psychoeducation, Individual psychoeducation, Family education/meeting, Develop personal safety plan Status Of Goal: Unchanged Precautions Precautions: Suicide, Unpredictable Seclusion/Restraint Date: N/A Interventions to reduce Seclusion/Restraint N/A Patient Strengths Patient Strengths: Family/friends, Housing Patient Limitations Patient Limitations: Lack of financial means, Lack of stable employment, Low self esteem, No/Few hobbies or interests, Lack of mental health linkage, Lack of stable housing, Patient is unwilling to work on problems Discharge Needs Anticipated Facility Type: [facility], [facility], Outpatient clinic, [facility] Criteria For Discharge Criteria For Discharge: Maximum benefit obtained, Goals met Additional Comments: Patient's case discussed with Tx Team. His sleep remains inconsistent, and he exhibits increased agitation and bizarre behaviors in the evening. Patient to remain admitted at this time for further psychiatric stabilization. Physician, Registered Nurse, Residential Builder, Adjunct Therapist included in treatment team discussion. Treatment team members present Jeana Lerma, Nathalia Montenegro RN, GRIND OPERATOR, Radha KOEHLER RN Patient Signature Date Patient's Response To Treatment Plan: Residential Builder's Signature Date [facility] 02-01-2024 Note Formatting of this n ote might be different from the original. Problem: Anxiety Goal: Alleviation of anxiety Outcome: Not Met Problem: Health Maintenance - Impaired Goal: Nutrition intake to meet estimated needs Outcome: Not Met Problem: Actual or potential alteration in health Goal: Knowledge of Enviroment Outcome: Partially Met Problem: Health Maintenance - Impaired Goal: Improvement or maintenance of mental/physical health, relationships, and responsibilities Outcome: Partially Met Problem: Mood - Altered Goal: Mood stable Outcome: Partially Met Problem: Self-esteem - Low Goal: Improved self-esteem Outcome: Partially Met Problem: Thought Process - Altered Goal: Demonstration of organized thought processes Outcome: Partially Met Problem: Transition Readiness Goal: Knowledge of medication management Outcome: Partially Met Problem: Actual or potential alteration in health Goal: Knowledge of Interdisciplinary Plan of Care Outcome: Not Addressed Problem: Mood - Altered Goal: Knowledge of medication management Outcome: Not Addressed Problem: Transition Readiness Goal: Able to safely transition to next level of care Outcome: Not Addressed Goal: Knowledge of care transition plan Outcome: Not Addressed Goal: Knowledge of need for follow-up care Outcome: Not Addressed Goal: Participation in care planning Outcome: Not Addressed [facility] 02-01-2024 Note Psychiatry Progress Note Patient Name: Kristian Gutierrez Admit Date: [id number] MR #: [id number] : 1955 Perpetual Assessment Kristain Gutierrez is a 69 y.o. male is being admitted to the inpatient psychiatric unit due to increased depression, anxiety, insomnia, and recent suicidal ideation, exacerbated by financial stress and recent bereavement, despite his stable financial situation and ongoing psychiatric medication regimen Diagnosis & Plan/Recommendations PRINCIPAL DIAGNOSIS: Episode of recurrent major depressive disorder (HCC) * Episode of recurrent major depressive disorder (HCC) Assessment & Plan Kristian, a 69-year-old male, is being admitted to the inpatient psychiatric unit due to concerns of increased depression, anxiety, insomnia, and recent suicidal ideation. Despite being financially stable, he has been increasingly focused on financial issues, exhibiting feelings of hopelessness and worthlessness, and verbalizing suicidal thoughts without a specific plan. He denies any current suicidal ideation or history of attempts, self-harm, homicidal ideation, auditory or visual hallucinations, and substance use. His symptoms have been exacerbated over the past few months, particularly following his mother's and the stress of being the executor of her will. Despite being on a regimen of psychiatric medications, his mental health continues to deteriorate, causing significant concern for his sisters who believe he cannot be left alone safely. He will be hospitalized for safety and stabilization, with further psychiatric evaluation and treatment planning to be determined by the treatment team. Physical examination Lab testing as appropriate Precautions -suicide PRN medications for agitation Collateral history from family/friends/providers Request/review prior records telephone services sales representative assessment/linkage/care coordination Group participation/[place]au Supportive psychotherapy/structured supportive care Ambien 10 mg by mouth at bedtime as needed insomnia Start Mirtazapine 7.5 mg by mouth at bedtime Aftercare planning once stable Comorbid issues impacting my care plan include none . Following for depression and suicidal ideations Interval History: The patient reports ongoing feelings of depression, anxiety, and insomnia. He states that his energy levels are low and he continues to have difficulty in getting a good night's sleep. He reports poor concentration and a lack of motivation. He also states that his appetite has been poor in recent months. He has somatic complaints, delayed responses, and reports anxiety and feeling tired. However, he believes he is starting to feel better. On examination, Mr. Gutierrez appears depressed. His responses are delayed, and his speech is soft. His affect is congruent with his mood. His concentration during the interview was poor. Laboratory tests for vitamin D, folate, and Vitamin B12 all returned within normal ranges. Mr. Gutierrez's depressive symptoms persist, including low mood, poor concentration, insomnia, and decreased appetite. His anxiety and paranoia regarding his financial situation continue to be a concern. His symptoms have been exacerbated by recent stressors, including the of his mother and the ongoing care of his [id number]. There is still no noticeable major improvement in his mental status. Review of Systems: Constitutional:No fever, no weight loss Eyes:No diplopia ENT:No sinus drainage CV:No chest pain. No ankle swelling Resp:No dyspnea. No wheezing GI:No abdominal pain.No abdominal distention :No dysuria Neuro:No headache Integumentary:No skin rash MuscSkel:No arthralgias Endo:No polyuria Heme/lymphatic:No apparent lymphadenopathy Allergic/Immunologic:No hives Physical Examination: Vital Signs: BP (!) 155/92 Pulse 90 Temp 98 degrees F (36.7 degrees C) (Oral) Resp 15 Ht 5' 7 Wt 62.6 kg (138 lb) SpO2 98% BMI 21.61 kg/m Mental Status Evaluation: General Appearance & Behavior: older than stated age Grooming & Hygiene: street clothes Psychomotor Activity: psychomotor retardation Gait & Station stable gait Speech: soft spoken, slowed, and hesitant Flow of Thought: concrete Thought Associations: Intact Content of Thought: Preoccupations Mood: depressed Affect: depressed Insight: limited Judgment: limited Orientation: alert and oriented to person, place, time, and circumstances Memory: impaired short term, intact remote Attention: distracted Concentration: reduced Language: fluent Fund of Knowledge: estimated average intelligence Laboratory and Additional Data Reviewed: Laboratory 02/01/24 2:38 PM Medications 02/01/24 2:38 PM Treatment options and alternatives reviewed with patient. Risks, benefits, side effects of all psychiatric medications discussed with patient and informed consent obtained. All questions were answered. (more content not included)... [facility] 02-01-2024 Note Formatting of this n ote might be different from the original. Problem: Actual or potential alteration in health Goal: Knowledge of Interdisciplinary Plan of Care Outcome: Partially Met Goal: Knowledge of Enviroment Outcome: Met Problem: Anxiety Goal: Alleviation of anxiety Outcome: Partially Met Problem: Health Maintenance - Impaired Goal: Improvement or maintenance of mental/physical health, relationships, and responsibilities Outcome: Partially Met Goal: Nutrition intake to meet estimated needs Outcome: Partially Met Problem: Mood - Altered Goal: Mood stable Outcome: Partially Met Goal: Knowledge of medication management Outcome: Partially Met Problem: Self-esteem - Low Goal: Improved self-esteem Outcome: Partially Met Problem: Thought Process - Altered Goal: Demonstration of organized thought processes Outcome: Partially Met [facility] 01-31-2024 Note Formatting of this n ote might be different from the original. Problem: Anxiety Goal: Alleviation of anxiety Outcome: Not Met Problem: Health Maintenance - Impaired Goal: Improvement or maintenance of mental/physical health, relationships, and responsibilities Outcome: Not Met Goal: Nutrition intake to meet estimated needs Outcome: Not Met Problem: Mood - Altered Goal: Knowledge of medication management Outcome: Not Met Problem: Self-esteem - Low Goal: Improved self-esteem Outcome: Not Met Problem: Thought Process - Altered Goal: Demonstration of organized thought processes Outcome: Not Met Problem: Actual or potential alteration in health Goal: Knowledge of Enviroment Outcome: Partially Met Problem: Mood - Altered Goal: Mood stable Outcome: Partially Met Problem: Transition Readiness Goal: Knowledge of medication management Outcome: Partially Met Problem: Actual or potential alteration in health Goal: Knowledge of Interdisciplinary Plan of Care Outcome: Not Addressed Problem: Transition Readiness Goal: Able to safely transition to next level of care Outcome: Not Addressed Goal: Knowledge of care transition plan Outcome: Not Addressed Goal: Knowledge of need for follow-up care Outcome: Not Addressed Goal: Participation in care planning Outcome: Not Addressed [facility] 01-31-2024 Note Psychiatry Progress Note Patient Name: Kristian Gutierrez Admit Date: [id number] MR #: [id number] : 1955 Perpetual Assessment Kristian Gutierrez is a 69 y.o. male is being admitted to the inpatient psychiatric unit due to increased depression, anxiety, insomnia, and recent suicidal ideation, exacerbated by financial stress and recent bereavement, despite his stable financial situation and ongoing psychiatric medication regimen Diagnosis & Plan/Recommendations PRINCIPAL DIAGNOSIS: Episode of recurrent major depressive disorder (HCC) * Episode of recurrent major depressive disorder (HCC) Assessment & Plan Kristian, a 69-year-old male, is being admitted to the inpatient psychiatric unit due to concerns of increased depression, anxiety, insomnia, and recent suicidal ideation. Despite being financially stable, he has been increasingly focused on financial issues, exhibiting feelings of hopelessness and worthlessness, and verbalizing suicidal thoughts without a specific plan. He denies any current suicidal ideation or history of attempts, self-harm, homicidal ideation, auditory or visual hallucinations, and substance use. His symptoms have been exacerbated over the past few months, particularly following his mother's and the stress of being the executor of her will. Despite being on a regimen of psychiatric medications, his mental health continues to deteriorate, causing significant concern for his sisters who believe he cannot be left alone safely. He will be hospitalized for safety and stabilization, with further psychiatric evaluation and treatment planning to be determined by the treatment team. Physical examination Lab testing as appropriate Precautions -suicide PRN medications for agitation Collateral history from family/friends/providers Request/review prior records telephone services sales representative assessment/linkage/care coordination Group participation/[place] Supportive psychotherapy/structured supportive care Ambien 10 mg by mouth at bedtime as needed insomnia Start Mirtazapine 7.5 mg by mouth at bedtime Aftercare planning once stable Comorbid issues impacting my care plan include none . Following for depression and suicidal ideations Interval History: Mr. Gutierrez reports ongoing feelings of depression, anxiety, and insomnia. He states that his energy levels are low and he continues to have difficulty in getting a good night's sleep despite nursing staff observations of him sleeping. He reports poor concentration and a lack of motivation. He also states that his appetite has been poor in recent months. On examination, Mr. Gutierrez appears depressed. His responses are delayed and his speech is soft. His affect is congruent with his mood. His concentration during the interview was poor. Mr. Gutierrez's depressive symptoms persist, including low mood, poor concentration, insomnia, and decreased appetite. His anxiety and paranoia regarding his financial situation continue to be a concern. His symptoms have been exacerbated by recent stressors, including the of his mother and the ongoing care of his [id number]. Review of Systems: Constitutional:No fever, no weight loss Eyes:No diplopia ENT:No sinus drainage CV:No chest pain. No ankle swelling Resp:No dyspnea. No wheezing GI:No abdominal pain.No abdominal distention :No dysuria Neuro:No headache Integumentary:No skin rash MuscSkel:No arthralgias Endo:No polyuria Heme/lymphatic:No apparent lymphadenopathy Allergic/Immunologic:No hives Physical Examination: Vital Signs: BP (!) 153/100 Pulse 87 Temp 97.7 degrees F (36.5 degrees C) (Oral) Resp 16 Ht 5' 7 Wt 62.6 kg (138 lb) SpO2 98% BMI 21.61 kg/m Mental Status Evaluation: General Appearance & Behavior: older than stated age Grooming & Hygiene: street clothes Psychomotor Activity: psychomotor retardation Gait & Station stable gait Speech: soft spoken, slowed, and hesitant Flow of Thought: concrete Thought Associations: Intact Content of Thought: Preoccupations Mood: depressed Affect: depressed Insight: limited Judgment: limited Orientation: alert and oriented to person, place, time, and circumstances Memory: impaired short term, intact remote Attention: distracted Concentration: reduced Language: fluent Fund of Knowledge: estimated average intelligence Laboratory and Additional Data Reviewed: Laboratory 01/31/24 9:18 PM Medications 01/31/24 9:18 PM Treatment options and alternatives reviewed with patient. Risks, benefits, side effects of all psychiatric medications discussed with patient and informed consent obtained. All questions were answered. Thuan Elliott MD 01/31/2024 2:12 PM AUTHENTICATED BY THUAN ELLIOTT, ON 01/31/2024 21:18:36 [facility] 01-31-2024 Note Formatting of this n ote might be different from the original. Problem: Actual or potential alteration in health Goal: Knowledge of Interdisciplinary Plan of Care Outcome: Partially Met Goal: Knowledge of Enviroment Outcome: Partially Met Problem: Anxiety Goal: Alleviation of anxiety Outcome: Partially Met Problem: Health Maintenance - Impaired Goal: Improvement or maintenance of mental/physical health, relationships, and responsibilities Outcome: Partially Met Goal: Nutrition intake to meet estimated needs Outcome: Partially Met Problem: Mood - Altered Goal: Mood stable Outcome: Partially Met Goal: Knowledge of medication management Outcome: Partially Met Problem: Self-esteem - Low Goal: Improved self-esteem Outcome: Partially Met Problem: Thought Process - Altered Goal: Demonstration of organized thought processes Outcome: Partially Met Problem: Transition Readiness Goal: Able to safely transition to next level of care Outcome: Partially Met Goal: Knowledge of care transition plan Outcome: Partially Met Goal: Knowledge of medication management Outcome: Partially Met Goal: Knowledge of need for follow-up care Outcome: Partially Met Goal: Participation in care planning Outcome: Partially Met T [facility] 01-31-2024 Note Formatting of this n ote might be different from the original. Problem: Transition Readiness Goal: Knowledge of need for follow-up care Outcome: Not Met Problem: Actual or potential alteration in health Goal: Knowledge of Interdisciplinary Plan of Care Outcome: Partially Met Goal: Knowledge of Enviroment Outcome: Partially Met Problem: Anxiety Goal: Alleviation of anxiety Outcome: Partially Met Problem: Health Maintenance - Impaired Goal: Improvement or maintenance of mental/physical health, relationships, and responsibilities Outcome: Partially Met Goal: Nutrition intake to meet estimated needs Outcome: Partially Met Problem: Mood - Altered Goal: Mood stable Outcome: Partially Met Goal: Knowledge of medication management Outcome: Partially Met Problem: Self-esteem - Low Goal: Improved self-esteem Outcome: Partially Met Problem: Thought Process - Altered Goal: Demonstration of organized thought processes Outcome: Partially Met Problem: Transition Readiness Goal: Knowledge of medication management Outcome: Partially Met Goal: Participation in care planning Outcome: Partially Met Problem: Transition Readiness Goal: Able to safely transition to next level of care Outcome: Not Addressed Goal: Knowledge of care transition plan Outcome: Not Addressed Problem: Actual or potential alteration in health Goal: Absence of healthcare acquired conditions Outcome: Completed Problem: Health Maintenance - Impaired Goal: Able to sleep without medication for appropriate length of time Outcome: Completed Problem: Violence, Self/Other-Directed, Risk of Goal: Absence of violence Outcome: Completed Goal: Absence of self-harm Outcome: Completed [facility] 01-30-2024 Evaluation + Plan note Associated Problem(s): Episode of recurrent major depressive disorder (HCC) Kristian, a 69-year-old male, is being admitted to the inpatient psychiatric unit due to concerns of increased depression, anxiety, insomnia, and recent suicidal ideation. Despite being financially stable, he has been increasingly focused on financial issues, exhibiting feelings of hopelessness and worthlessness, and verbalizing suicidal thoughts without a specific plan. He denies any current suicidal ideation or history of attempts, self-harm, homicidal ideation, auditory or visual hallucinations, and substance use. His symptoms have been exacerbated over the past few months, particularly following his mother's and the stress of being the executor of her will. Despite being on a regimen of psychiatric medications, his mental health continues to deteriorate, causing significant concern for his sisters who believe he cannot be left alone safely. He will be hospitalized for safety and stabilization, with further psychiatric evaluation and treatment planning to be determined by the treatment team. Physical examination Lab testing as appropriate Precautions -suicide PRN medications for agitation Collateral history from family/friends/providers Request/review prior records telephone services sales representative assessment/linkage/care coordination Group participation/mileau Supportive psychotherapy/structured supportive care Ambien 10 mg by mouth at bedtime as needed insomnia Increase Mirtazapine to 15 mg by mouth at bedtime Aftercare planning once stable [facility] 05-21-2024 Note Formatting of this n ote is different from the original. Behavioral Health Initial Treatment Plan Date: 01/30/2024 Time: 10:18 PM Patient Name: Kristian Gutierrez Date of : 1955 Sex: Male Admit Date/Time: 01/29/2024 9:48 PM Patient Active Problem List Diagnosis Date Noted Unspecified Depressive Disorder 01/30/2024 Unspecified Anxiety Disorder 01/30/2024 Major depression, single episode 01/30/2024 Suicidal behavior without attempted self-injury 01/29/2024 Episode of recurrent major depressive disorder (HCC) 01/29/2024 Diagnosis [place] I: Major Depression, Rec [place] II: Deferred [place] III: Patient Active Problem List Diagnosis Date Noted Unspecified Depressive Disorder 01/30/2024 Unspecified Anxiety Disorder 01/30/2024 Major depression, single episode 01/30/2024 Suicidal behavior without attempted self-injury 01/29/2024 Episode of recurrent major depressive disorder (HCC) 01/29/2024 [place] IV: other psychosocial or environmental problems [place] V: 41-50 serious symptoms Reason for Hospitalization Reason for Hospitalization: Suicidal ideation Expected Discharge Date: ELOS: 03-19 Precautions Precautions: Suicide, Unpredictable Patient Presenting Issues: Patient's Primary Presenting Issue Patient's Primary Presenting Issue: Suicidal Suicidal Symptoms: Ideation Suicidal Goals: resolve Days To Improvement Of Goal: 7-9 Suicidal Treatment Interventions: Medication management/evaluation, Pain and symptom management, Medication education, Group psychoeduction, Handouts psychoeducation, Individual psychoeducation, Family education/meeting, Develop personal safety plan Status Of Goal: Unchanged Precautions Precautions: Suicide, Unpredictable Seclusion/Restraint Date none so far Interventions to reduce Seclusion/Restraint medications as needed for agitation and de escalation techniques Patient Strengths Patient Strengths: Family/friends, Housing Patient Limitations Patient Limitations: Lack of financial means, Lack of stable employment, Low self esteem, No/Few hobbies or interests, Lack of mental health linkage, Lack of stable housing, Patient is unwilling to work on problems Discharge Needs Anticipated Facility Type: [facility], [facility] resource information, Outpatient clinic, [facility] mental health Criteria For Discharge Criteria For Discharge: Maximum benefit obtained, Goals met Additional Comments:n/a Physician, Registered Nurse, Residential Builder, Adjunct Therapist included in treatment team discussion. Treatment team members present Thuan Abdalla Patient Signature Date Patient's Response To Treatment Plan: Physician Signature Date [facility] 01-30-2024 History and physical note Psychiatry History and Physical Patient Name: Kristian Gutierrez MR #: [id number] : 1955 Admit Date: [id number] Primary Care Provider: System, Provider Not In Assessment Kristian Gutierrez is a 69 y.o. male is being admitted to the inpatient psychiatric unit due to increased depression, anxiety, insomnia, and recent suicidal ideation, exacerbated by financial stress and recent bereavement, despite his stable financial situation and ongoing psychiatric medication regimen. Diagnosis & Plan/Recommendations PRINCIPAL DIAGNOSIS: Episode of recurrent major depressive disorder (HCC) Moline I: Major Depression disorder, severe Moline II: Deferred M[place] III: Patient Active Problem List Diagnosis Suicidal behavior without attempted self-injury Episode of recurrent major depressive disorder (HCC) Unspecified Depressive Disorder Unspecified Anxiety Disorder Major depression, single episode M[place] IV: Other psychosocial and environmental problems M[place] V: 41-50: Serious symptoms OR any serious impairment in social, occupational, or school functioning * Episode of recurrent major depressive disorder (HCC) Assessment & Plan Kristian, a 69-year-old male, is being admitted to the inpatient psychiatric unit due to concerns of increased depression, anxiety, insomnia, and recent suicidal ideation. Despite being financially stable, he has been increasingly focused on financial issues, exhibiting feelings of hopelessness and worthlessness, and verbalizing suicidal thoughts without a specific plan. He denies any current suicidal ideation or history of attempts, self-harm, homicidal ideation, auditory or visual hallucinations, and substance use. His symptoms have been exacerbated over the past few months, particularly following his mother's and the stress of being the executor of her will. Despite being on a regimen of psychiatric medications, his mental health continues to deteriorate, causing significant concern for his sisters who believe he cannot be left alone safely. He will be hospitalized for safety and stabilization, with further psychiatric evaluation and treatment planning to be determined by the treatment team. Physical examination Lab testing as appropriate Precautions -suicide PRN medications for agitation Collateral history from family/friends/providers Request/review prior records telephone services sales representative assessment/linkage/care coordination Group participation/milea Supportive psychotherapy/structured supportive care Ambien 10 mg by mouth at bedtime as needed insomnia Start Mirtazapine 7.5 mg by mouth at bedtime Aftercare planning once stable Comorbid issues impacting my care plan include none . Chief Complaint: suicidal History of Present Illness: Kristian Gutierrez is a 69 y.o. male has been admitted to the inpatient psychiatric unit for safety and stabilization. He was brought to the ED by his sisters due to concerns of increased depression, anxiety, insomnia, and recent suicidal ideation. Kristian has been experiencing symptoms of depression, anxiety, and insomnia for the past few months, which have been exacerbated recently. His sisters report that he has been increasingly focused on financial issues, despite being financially stable. They state that he verbalized suicidal thoughts. He is also described as being paranoid about his financial situation and has been sleeping approximately 3-1/2 to 4 hours a night, spending the remaining hours worrying about his finances. He reports feelings of hopelessness and worthlessness. His sisters state that he has been expressing thoughts of letting his family down and not being able to leave anything for them. Kristian has been on a regimen of psychiatric medications, including Wellbutrin, Lexapro, Ambien, and Xanax, prescribed by his PCP for the past 3-4 weeks. His sisters report that the Xanax seems to provide brief relief. He reports financial stress due to his family's reliance on him. His [id number], who has dementia, has been living with him and his for the past eight years. Kristian has a history of Rheumatoid Arthritis and denies any prior head injuries. His mother in July, and he is the executor of her will. His sisters report that his mental health deteriorated after her . Kristian's sisters believe that he needs to be admitted at this time as they do not feel they can keep him safe at home. The patient will be hospitalized in the inpatient psychiatric unit for safety and stabilization. Past Psychiatric History Past diagnoses: depression, anxiety, insomnia Past medications: Ambien, Xanax, Lexapro, Wellbutrin Past hospitalizations: denied Past suicide attempts: denied Past self injurious behavior: denied Outpatient linkage: his PCP The patient otherwise denies any previous psychiatric problems or diagnoses, inpatient or outpatient mental health care, suicide attempts, use of psychotropic medications, or any self injurious behavior. Family Psychiatric History A paternal uncle completed suicide and brother's both have Bipolar The patient otherwise denies any family history of mental illness or treatment, psychiatric hospitalizations, suicide attempts, or substance problems. Social History Living situation: he usually lives in a private residence with his and mother in law but recently has been staying with his sister Employment: retired from being an senior accountant Education: has an associate's degree in [employer] Sexual orientation: heterosexual Marital Status: Children: 3 adult children Legal History: denied Trauma History: denied History: denied Evangelical: Latter-Day Access to firearms: denied Family counseled on removing firearms from the home. Substance use History Nicotine: denied Alcohol: denied Illicit substances: denied Rehab: denied Patient is a Never Tobacco User Tobacco cessation medication not indicated Social History Socioeconomic History Marital status: Tobacco Use Smoking status: Never Smokeless tobacco: Never Vaping Use Vaping Use: Never used Substance and Sexual Activity Alcohol use: Never Drug use: Never Sexual activity: Not Currently Social History Social History Narrative Not on file Medical History: I have reviewed the patient's other history as below: Past Medical History: Diagnosis Date Anxiety Arthritis Cancer (HCC) Depression Insomnia History reviewed. No pertinent surgical history. Family History: History reviewed. No pertinent family history. Allergy Information: I have reviewed the patient's allergies as below: Patient has no known allergies. Home Medications: Outpatient Medications as of 01/30/2024 Medication Sig ALPRAZolam (XANAX XR) 0.5 MG 24 hr tablet Take 1 (one) tablet (0.5 mg total) by mouth 2 (two) times a day as needed . atorvastatin (LIPITOR) 10 MG tablet Take 1 (one) tablet (10 mg total) by mouth daily . buPROPion (WELLBUTRIN XL) 150 MG 24 hr tablet Take 1 (one) tablet (150 mg total) by mouth daily . escitalopram oxalate (LEXAPRO) 10 MG tablet Take 1 (one) tablet (10 mg total) by mouth nightly . folic acid (FOLVITE) 1 MG tablet Take 2 (two) tablets (2 mg total) by mouth daily . hydroxychloroquine (PLAQUENIL) 200 mg tablet Take 1.5 (one and a half) tablets (300 mg total) by mouth daily . leucovorin (WELLCOVORIN) 5 mg tablet Take 3 (three) tablets (15 mg total) by mouth once a week On Sundays Only . methoTREXate (TREXALL) 2.5 MG tablet Take 8 (eight) tablets (20 mg total) by mouth once a week On Saturdays Only . multivitamin (THERAGRAN) per tablet Take 1 (one) tablet by mouth daily . tamsulosin (FLOMAX) 0.4 mg capsule Take 2 (two) capsules (0.8 mg total) by mouth daily . zolpidem (AMBIEN) 10 mg tablet Take 1 (one) tablet (10 mg total) by mouth at bedtime routine . Review of Systems: Constitutional: Denies fever, chills, diaphoresis, malaise Eyes: Denies blurred vision, double vision ENT: Denies nasal congestion, sore throat Neurological: Denies headache, photophobia, weakness, numbness CVS: Denies chest pain or palpitations Respiratory: Denies dyspnea or cough Musculoskeletal: Denies joint pain or muscle aches GI: Denies nausea, vomiting, constipation, or diarrhea : Denies urinary urgency, frequency, or burning Integumentary: Denies itching or rash Endocrine: Denies heat/cold intolerance or weight loss/weight gain Physical Examination: Vital Signs: BP (!) 172/94 Pulse 76 Temp 97.7 F (36.5 C) (Oral) Resp 16 Ht 5' 7 Wt 62.6 kg (138 lb) SpO2 99% BMI 21.61 kg/m Mental Status Evaluation: General Appearance & Behavior: older than stated age Grooming & Hygiene: street clothes Psychomotor Activity: no psychomotor abnormalities or muscle atrophy noted Gait & Station stable gait Speech: soft spoken, slowed, and hesitant Flow of Thought: concrete Thought Associations: Intact Content of Thought: preocuppations Mood: fine Affect: restricted Insight: limited Judgment: limited Orientation: alert and oriented to person, place, time, and circumstances Memory: intact recent and remote Attention: intact Concentration: reduced Language: fluent Fund of Knowledge: estimated average intelligence Laboratory and Additional Data Reviewed: Laboratory 01/30/24 10:28 PM Radiology 01/30/24 10:28 PM Cardiology 01/30/24 10:28 PM Medications 01/30/24 10:28 PM Transcriptions 01/30/24 10:28 PM Treatment options and alternatives reviewed with patient. Risks, benefits, side effects of all psychiatric medications discussed with patient and informed consent obtained. All questions were answered. Thuan Elliott MD 01/30/2024 10:28 PM [facility] 01-30-2024 Note Psychiatry History a nd Physical Patient Name: Kristian Gutierrez MR #: [id number] : 1955 Admit Date: [id number] Primary Care Provider: System, Provider Not In Assessment Kristian Gutierrez is a 69 y.o. male is being admitted to the inpatient psychiatric unit due to increased depression, anxiety, insomnia, and recent suicidal ideation, exacerbated by financial stress and recent bereavement, despite his stable financial situation and ongoing psychiatric medication regimen. Diagnosis & Plan/Recommendations PRINCIPAL DIAGNOSIS: Episode of recurrent major depressive disorder (HCC) Moline I: Major Depression disorder, severe Moline II: Deferred Moline III: Patient Active Problem List Diagnosis Suicidal behavior without attempted self-injury Episode of recurrent major depressive disorder (HCC) Unspecified Depressive Disorder Unspecified Anxiety Disorder Major depression, single episode Moline IV: Other psychosocial and environmental problems Moline V: 41-50: Serious symptoms OR any serious impairment in social, occupational, or school functioning * Episode of recurrent major depressive disorder (HCC) Assessment & Plan Kristian, a 69-year-old male, is being admitted to the inpatient psychiatric unit due to concerns of increased depression, anxiety, insomnia, and recent suicidal ideation. Despite being financially stable, he has been increasingly focused on financial issues, exhibiting feelings of hopelessness and worthlessness, and verbalizing suicidal thoughts without a specific plan. He denies any current suicidal ideation or history of attempts, self-harm, homicidal ideation, auditory or visual hallucinations, and substance use. His symptoms have been exacerbated over the past few months, particularly following his mother's and the stress of being the executor of her will. Despite being on a regimen of psychiatric medications, his mental health continues to deteriorate, causing significant concern for his sisters who believe he cannot be left alone safely. He will be hospitalized for safety and stabilization, with further psychiatric evaluation and treatment planning to be determined by the treatment team. Physical examination Lab testing as appropriate Precautions -suicide PRN medications for agitation Collateral history from family/friends/providers Request/review prior records telephone services sales representative assessment/linkage/care coordination Group participation/[facility] Supportive psychotherapy/structured supportive care Ambien 10 mg by mouth at bedtime as needed insomnia Start Mirtazapine 7.5 mg by mouth at bedtime Aftercare planning once stable Comorbid issues impacting my care plan include none . Chief Complaint: suicidal History of Present Illness: Kristian Gutierrez is a 69 y.o. male has been admitted to the inpatient psychiatric unit for safety and stabilization. He was brought to the ED by his sisters due to concerns of increased depression, anxiety, insomnia, and recent suicidal ideation. Kristian has been experiencing symptoms of depression, anxiety, and insomnia for the past few months, which have been exacerbated recently. His sisters report that he has been increasingly focused on financial issues, despite being financially stable. They state that he verbalized suicidal thoughts. He is also described as being paranoid about his financial situation and has been sleeping approximately 3-1/2 to 4 hours a night, spending the remaining hours worrying about his finances. He reports feelings of hopelessness and worthlessness. His sisters state that he has been expressing thoughts of letting his family down and not being able to leave anything for them. Kristian has been on a regimen of psychiatric medications, including Wellbutrin, Lexapro, Ambien, and Xanax, prescribed by his PCP for the past 3-4 weeks. His sisters report that the Xanax seems to provide brief relief. He reports financial stress due to his family's reliance on him. His [id number], who has dementia, has been living with him and his for the past eight years. Kristian has a history of Rheumatoid Arthritis and denies any prior head injuries. His mother in July, and he is the executor of her will. His sisters report that his mental health deteriorated after her . Kristian's sisters believe that he needs to be admitted at this time as they do not feel they can keep him safe at home. The patient will be hospitalized in the inpatient psychiatric unit for safety and stabilization. Past Psychiatric History Past diagnoses: depression, anxiety, insomnia Past medications: Ambien, Xanax, Lexapro, Wellbutrin Past hospitalizations: denied Past suicide attempts: denied Past self injurious behavior: denied Outpatient linkage: his PCP The patient otherwise denies any previous psychiatric problems or diagnoses, inpatient or outpatient mental health care, suicide (more content not included)... [facility] 01-30-2024 History and physical note Psychiatry History and Physical Patient Name: Kristian Gutierrez MR #: [id number] : 1955 Admit Date: [id number] Primary Care Provider: System, Provider Not In Assessment Kristian Gutierrez is a 69 y.o. male is being admitted to the inpatient psychiatric unit due to increased depression, anxiety, insomnia, and recent suicidal ideation, exacerbated by financial stress and recent bereavement, despite his stable financial situation and ongoing psychiatric medication regimen. Diagnosis & Plan/Recommendations PRINCIPAL DIAGNOSIS: Episode of recurrent major depressive disorder (HCC) Moline I: Major Depression disorder, severe Moline II: Deferred Moline III: Patient Active Problem List Diagnosis Suicidal behavior without attempted self-injury Episode of recurrent major depressive disorder (HCC) Unspecified Depressive Disorder Unspecified Anxiety Disorder Major depression, single episode Moline IV: Other psychosocial and environmental problems Moline V: 41-50: Serious symptoms OR any serious impairment in social, occupational, or school functioning * Episode of recurrent major depressive disorder (HCC) Assessment & Plan Kristian, a 69-year-old male, is being admitted to the inpatient psychiatric unit due to concerns of increased depression, anxiety, insomnia, and recent suicidal ideation. Despite being financially stable, he has been increasingly focused on financial issues, exhibiting feelings of hopelessness and worthlessness, and verbalizing suicidal thoughts without a specific plan. He denies any current suicidal ideation or history of attempts, self-harm, homicidal ideation, auditory or visual hallucinations, and substance use. His symptoms have been exacerbated over the past few months, particularly following his mother's and the stress of being the executor of her will. Despite being on a regimen of psychiatric medications, his mental health continues to deteriorate, causing significant concern for his sisters who believe he cannot be left alone safely. He will be hospitalized for safety and stabilization, with further psychiatric evaluation and treatment planning to be determined by the treatment team. Physical examination Lab testing as appropriate Precautions -suicide PRN medications for agitation Collateral history from family/friends/providers Request/review prior records telephone services sales representative assessment/linkage/care coordination Group participation/[facility] Supportive psychotherapy/structured supportive care Ambien 10 mg by mouth at bedtime as needed insomnia Start Mirtazapine 7.5 mg by mouth at bedtime Aftercare planning once stable Comorbid issues impacting my care plan include none . Chief Complaint: suicidal History of Present Illness: Kristian Gutierrez is a 69 y.o. male has been admitted to the inpatient psychiatric unit for safety and stabilization. He was brought to the ED by his sisters due to concerns of increased depression, anxiety, insomnia, and recent suicidal ideation. Kristian has been experiencing symptoms of depression, anxiety, and insomnia for the past few months, which have been exacerbated recently. His sisters report that he has been increasingly focused on financial issues, despite being financially stable. They state that he verbalized suicidal thoughts. He is also described as being paranoid about his financial situation and has been sleeping approximately 3-1/2 to 4 hours a night, spending the remaining hours worrying about his finances. He reports feelings of hopelessness and worthlessness. His sisters state that he has been expressing thoughts of letting his family down and not being able to leave anything for them. Kristian has been on a regimen of psychiatric medications, including Wellbutrin, Lexapro, Ambien, and Xanax, prescribed by his PCP for the past 3-4 weeks. His sisters report that the Xanax seems to provide brief relief. He reports financial stress due to his family's reliance on him. His [id number], who has dementia, has been living with him and his for the past eight years. Kristian has a history of Rheumatoid Arthritis and denies any prior head injuries. His mother in July, and he is the executor of her will. His sisters report that his mental health deteriorated after her . Kristian's sisters believe that he needs to be admitted at this time as they do not feel they can keep him safe at home. The patient will be hospitalized in the inpatient psychiatric unit for safety and stabilization. Past Psychiatric History Past diagnoses: depression, anxiety, insomnia Past medications: Ambien, Xanax, Lexapro, Wellbutrin Past hospitalizations: denied Past suicide attempts: denied Past self injurious behavior: denied Outpatient linkage: his PCP The patient otherwise denies any previous psychiatric problems or diagnoses, inpatient or outpatient mental health care, suicide attempts, use of psychotropic medications, or any self injurious behavior. Family Psychiatric History A paternal uncle completed suicide and brother's both have Bipolar The patient otherwise denies any family history of mental illness or treatment, psychiatric hospitalizations, suicide attempts, or substance problems. Social History Living situation: he usually lives in a private residence with his and mother in law but recently has been staying with his sister Employment: retired from being an senior accountant Education: has an associate's degree in [employer] Sexual orientation: heterosexual Marital Status: Children: 3 adult children Legal History: denied Trauma History: denied History: denied Evangelical: Latter-Day Access to firearms: denied Family counseled on removing firearms from the home. Substance use History Nicotine: denied Alcohol: denied Illicit substances: denied Rehab: denied Patient is a Never Tobacco User Tobacco cessation medication not indicated Social History Socioeconomic History Marital status: Tobacco Use Smoking status: Never Smokeless tobacco: Never Vaping Use Vaping Use: Never used Substance and Sexual Activity Alcohol use: Never Drug use: Never Sexual activity: Not Currently Social History Social History Narrative Not on file Medical History: I have reviewed the patient's other history as below: Past Medical History: Diagnosis Date Anxiety Arthritis Cancer (HCC) Depression Insomnia History reviewed. No pertinent surgical history. Family History: History reviewed. No pertinent family history. Allergy Information: I have reviewed the patient's allergies as below: Patient has no known allergies. Home Medications: Outpatient Medications as of 01/30/2024 Medication Sig ALPRAZolam (XANAX XR) 0.5 MG 24 hr tablet Take 1 (one) tablet (0.5 mg total) by mouth 2 (two) times a day as needed . atorvastatin (LIPITOR) 10 MG tablet Take 1 (one) tablet (10 mg total) by mouth daily . buPROPion (WELLBUTRIN XL) 150 MG 24 hr tablet Take 1 (one) tablet (150 mg total) by mouth daily . escitalopram oxalate (LEXAPRO) 10 MG tablet Take 1 (one) tablet (10 mg total) by mouth nightly . folic acid (FOLVITE) 1 MG tablet Take 2 (two) tablets (2 mg total) by mouth daily . hydroxychloroquine (PLAQUENIL) 200 mg tablet Take 1.5 (one and a half) tablets (300 mg total) by mouth daily . leucovorin (WELLCOVORIN) 5 mg tablet Take 3 (three) tablets (15 mg total) by mouth once a week On Sundays Only . methoTREXate (TREXALL) 2.5 MG tablet Take 8 (eight) tablets (20 mg total) by mouth once a week On Saturdays Only . multivitamin (THERAGRAN) per tablet Take 1 (one) tablet by mouth daily . tamsulosin (FLOMAX) 0.4 mg capsule Take 2 (two) capsules (0.8 mg total) by mouth daily . zolpidem (AMBIEN) 10 mg tablet Take 1 (one) tablet (10 mg total) by mouth at bedtime routine . Review of Systems: Constitutional: Denies fever, chills, diaphoresis, malaise Eyes: Denies blurred vision, double vision ENT: Denies nasal congestion, sore throat Neurological: Denies headache, photophobia, weakness, numbness CVS: Denies chest pain or palpitations Respiratory: Denies dyspnea or cough Musculoskeletal: Denies joint pain or muscle aches GI: Denies nausea, vomiting, constipation, or diarrhea : Denies urinary urgency, frequency, or burning Integumentary: Denies itching or rash Endocrine: Denies heat/cold intolerance or weight loss/weight gain Physical Examination: Vital Signs: BP (!) 172/94 Pulse 76 Temp 97.7 F (36.5 C) (Oral) Resp 16 Ht 5' 7 Wt 62.6 kg (138 lb) SpO2 99% BMI 21.61 kg/m Mental Status Evaluation: General Appearance & Behavior: older than stated age Grooming & Hygiene: street clothes Psychomotor Activity: no psychomotor abnormalities or muscle atrophy noted Gait & Station stable gait Speech: soft spoken, slowed, and hesitant Flow of Thought: concrete Thought Associations: Intact Content of Thought: preocuppations Mood: fine Affect: restricted Insight: limited Judgment: limited Orientation: alert and oriented to person, place, time, and circumstances Memory: intact recent and remote Attention: intact Concentration: reduced Language: fluent Fund of Knowledge: estimated average intelligence Laboratory and Additional Data Reviewed: Laboratory 01/30/24 10:28 PM Radiology 01/30/24 10:28 PM Cardiology 01/30/24 10:28 PM Medications 01/30/24 10:28 PM Transcriptions 01/30/24 10:28 PM Treatment options and alternatives reviewed with patient. Risks, benefits, side effects of all psychiatric medications discussed with patient and informed consent obtained. All questions were answered. Thuan Elliott MD 01/30/2024 10:28 PM documented in this encounter [facility] 01-30-2024 Initial evaluation note Behavioral Health Inpatient Social Work Psychosocial Assessment Date: 01/30/2024 Time: 3:58 PM Patient Name: Kristian Gutierrez Date of : 1955 Sex: Male Admit Date/Time: 01/29/2024 9:48 PM CURRENT HOSPITALIZATION: Current Hospitalization [facility] Needs: Not needed Chief Complaint: Psychiatric Evaluation History of Current Hospitalization : Patient was brought to the ED by his sisters for psychiatric evaluation, due to concerns of increased depression, anxiety, insomnia and recent suicidal ideation that patient verbalized. MARITAL STATUS: Marital Status Marital Status : SEXUAL ORIENTATION: Sexual Orientation Sexual Orientation: Heterosexual FAMILY INFORMATION: Family Information Number of Pregnancies: N/A Children: Yes How many children?: 3 Pertinent Family Information : Patient has support from and sisters LIVING ARRANGEMENTS: Living Arrangements Current Living Arrangements: Patient lives with and [id number] however recently has been staying with sister. 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 Source Of Income: Social security Are There Any Financial Concerns?: Yes Desire For Vocational or Eduational Training?: No SERVICE: Service Service: No LEGAL HISTORY: Legal History Legal History: None ANABAPTISM/SPIRITUAL BELIEFS: Evangelical/Spiritual Beliefs Evangelical/Spiritual Beliefs: Yes Yes: Latter-Day ETHNIC/RACE: Ethnic/Race Ethnic/Race: FAMILY HISTORY: Family History Family Psychiatric History: Yes Family Psychiatric History: Patient reports a paternal uncle who completed suicide Family History Of Substance Abuse: No PATIENT HISTORY: Patient History Patient Psychiatric History: No prior psychiatric admisisons, SIB, or attempts Patient Psychiatric Treatment: See above ^ Patient Substance Abuse History: UDS positive for Benzodiazepines Brief Intervention Done: No Why Brief Intervention Not Done?: (Does not meet AUDIT-C criteria) Patient Substance Abuse Treatment History: None reported Significant Childhood Events (Positive and Negative Events): None reported ABUSE: Abuse Child/Adult/Neglect Issues: None reported CURRENT STRESSORS: Current Stressors Current Stressors: Difficulty with finances STRENGTHS AND LIMITATIONS: Strengths and Limitations Patient Strengths: Basic self-care skills, Family/friends, Housing, Motivation to change, Spiritual beliefs Patient Limitations: Low self esteem, Lack of financial means SUPPORT SYSTEMS: Support Systems Support Systems: Family Collateral Contacts: Sisters Name and Contact of Collateral Provider: Patients sister'desi Clement and Louann. Racquel ([phone]) PATIENT GOALS FOR TREATMENT: Patient stated goals for treatment are feel better. CLINICAL SUMMARY: Patient is admitted for suicidal ideation with no plan and worsening depression. Due to concerns for safety and patient's decompensation in mental status and risk for suicidal ideation, patient would benefit from further psychiatric hospitalization at this time. Services provided throughout admission are: psychiatry/medication management, social service discharge planning, direct nursing care with 15min precaution checks, and group therapy. Interventions provided throughout admission are: safety planning, trigger identification, and coping skill development. [facility] 01-30-2024 Initial evaluation note [facility] assessment: PT out walking slowly in hallway when approached to complete assessment. PT willing to meet with keno writer and did so at table. PT dressed in street clothes, clean, no body odor detected. Hair disheveled. Affect flat, sullen, indifferent and depressed. BEH controlled, but depressed. PT did not maintain much eye contact with keno writer. PT very soft spoken, vague and superficial with responses at times, as well as slow to respond at times also. PT denied SI, HI, AH, VH currently or CRISIS NURSE, to which chart stated that he was having SI CRISIS NURSE. PT lacked confidence when citing goal of I would like to get better . Please refer to Adjunctive Therapy Flowsheet for further information. REASON FOR ADMISSION: just insomnia PT was asked as to how long he was experiencing such, to which he cited 3 weeks . PT was then asked how many hours of sleep nightly he was getting, to which he cited just a handful . PT voiced that this is the first time that he has experienced this. PT was asked if he was experiencing any depression, anxiety or paranoia from the lack of sleep, to which he cited depression . PT denied the others, despite chart stating that he voiced anxiety and family voiced paranoia. CHANGES/STRESSORS: taking care of my [id number] for some time . PT would not elaborate as to how long or to what extent he takes care of. PT denied any other stressors despite chart stating pt has major worries about finances, to which family says is not necessary, and concerned with not being able to support adult sons any longer. Later pt did ask questions of what do you do when you and your hospital bill was so high you can't pay to bury yourself . Support and encouragement provided to focus on his TX needs and not focus on the bill do to there being payment plans and assistance once DC. COPING SKILLS: I have a cassette player that I listen to nature sounds on PT was asked if he is currently taking medications, to which he cited that he is compliant with. TYPICAL DAY: PT had been living with his and [id number], but currently was staying with sisters, do to not feeling safe at home, per chart. Pt is a retired senior accountant. PT has 3 children. Pt has not been active with daily routine as in the past. LEISURE INTERESTS: gardening and sports BARRIERS/LIMITATIONS: arthritis SUPPORTS: my sisters and my PT denied that he has a counselor, charting stating that he does. Getting Rx from PCP. STRENGTHS: PT uncertain at this time. TX GOAL: I would like to get better, but honestly I would rather be home with my to tell you the Gods truth. TX PLAN: Pt will participate in goal group, warm up, life skills, and recreation therapy groups, to increase communication skills, coping skills, emotion management, health and wellness and healthy leisure skills. [facility] 01-30-2024 Note Formatting of this n ote might be different from the original. Patient is medically stable at this time. Hospital medicine will sign off. Please call with any questions or concerns. [facility] 01-30-2024 Consult note Associated Order (s): IP CONSULT TO HOSPITALIST [facility] CONSULTATION NOTE Patient Name: Kristian Gutierrez : 1955 MR #: [id number] Admit Date: [id number] Physicians: System, Provider Not In (Family); No ref. provider found (Referring) Kristian Gutierrez is a 69 y.o. male patient of System, Provider Not In with history of rheumatoid arthritis, BPH, melanoma of neck s/p surgical excision, anxiety who has been admitted to [facility] inpatient behavioral health unit 01/29/2024. Depression Management per primary Hyperlipidemia Statin Rheumatoid arthritis Takes methotrexate once weekly Continue folic acid Continue home Plaquenil BPH Chart reports history of possible prostate cancer, but patient denies this; endorses BPH Continue tamsulosin Medication Reconciliation: Verified Code Status: Full Code - Unverified Thank you for the consult. We will sign off at this time. Please call with questions or concerns. Quality Measures DVT Prophylaxis: Ambulation Schulz Catheter: Absent Chief Complaint [facility] consulted by Thuan Garcia, * for medical management History of Present Illness Kristian Gutierrez is a 69 y.o. male patient of System, Provider Not In with history of rheumatoid arthritis, prostate cancer, melanoma of neck s/p surgical excision, anxiety who has been admitted to [facility] inpatient behavioral health unit 01/29/2024. Patient confirms past medical history as outlined above. Denies any current medical concerns. Past Medical History Past Medical History: Diagnosis Date Anxiety Arthritis Cancer (HCC) Depression Insomnia Past Surgical History History reviewed. No pertinent surgical history. Family History History reviewed. No pertinent family history. Social History Social History Tobacco Use Smoking Status Never Smokeless Tobacco Never Social History Substance and Sexual Activity Alcohol Use Never Social History Substance and Sexual Activity Drug Use Never Allergy Information I have reviewed the patient's allergies. Patient has no known allergies. Home Medications Home medications were reviewed. Review Of Systems All relevant systems have been reviewed and are negative except as noted in HPI or below Physical Examination BP (!) 177/99 Pulse 71 Temp 97.7 F (36.5 C) (Oral) Resp 16 Ht 5' 7 Wt 62.6 kg (138 lb) SpO2 99% BMI 21.61 kg/m General Appearance: alert, well appearing, and in no acute distress HEENT: Head- normocephalic; Eyes- PERRLA, EOMI; Ears- external auditory canals clear, hearing intact; Nose- no nasal discharge; Throat- oropharynx normal Cardiovascular: regular rate and rhythm; normal S1, S2; no murmurs, rubs, clicks or gallops; no peripheral edema Respiratory: lungs clear to auscultation; without wheezes, rales or rhonchi Abdomen: soft, non-tender, non-distended; positive bowel sounds Neurological: alert, oriented x 3, normal speech; no focal findings or movement disorder noted Cranial Nerves: II: visual richard full. III, IV, : extraocular range intact. V: sensation intact. VII: facial symmetric with 5/5 strength. VIII: hearing intact to voice and finger rub. IX, X: palate elevates symmetrically. XI: shrugs shoulders 5/5 strength bilaterally. XII: tongue protrudes in midline. Sensation -grossly symmetrical. Motor strength 5/5 all over. DTR 2+ in the UE and LE bilaterally. Musculoskeletal: no significant deformity or tenderness to palpation Skin: normal coloration, texture and turgor; no lesions or eruptions Psych: normal mood and affect Laboratory and Additional Data Reviewed Laboratory 01/30/24 8:51 AM Microbiology 01/30/24 8:51 AM Radiology 01/30/24 8:51 AM Cardiology 01/30/24 8:51 AM Medications 01/30/24 8:51 AM Transcriptions 01/30/24 8:51 AM [facility] Phone: 01-30-2024 Note [facility] CONSULTATION NOT E Patient Name: Kristian Gutierrez : 1955 MR #: [id number] Admit Date: [id number] Physicians: System, Provider Not In (Family); No ref. provider found (Referring) Kristian Gutierrez is a 69 y.o. male patient of [facility], Provider Not In with history of rheumatoid arthritis, BPH, melanoma of neck s/p surgical excision, anxiety who has been admitted to [facility] inpatient behavioral health unit 01/29/2024. Depression Management per primary Hyperlipidemia Statin Rheumatoid arthritis Takes methotrexate once weekly Continue folic acid Continue home Plaquenil BPH Chart reports history of possible prostate cancer, but patient denies this; endorses BPH Continue tamsulosin Medication Reconciliation: Verified Code Status: Full Code - Unverified Thank you for the consult. We will sign off at this time. Please call with questions or concerns. Quality Measures DVT Prophylaxis: Ambulation Schulz Catheter: Absent Chief Complaint [facility] consulted by Thuan Garcia, * for medical management History of Present Illness Kristian Gutierrez is a 69 y.o. male patient of [facility], Provider Not In with history of rheumatoid arthritis, prostate cancer, melanoma of neck s/p surgical excision, anxiety who has been admitted to [facility] inpatient [facility] unit 01/29/2024. Patient confirms past medical history as outlined above. Denies any current medical concerns. Past Medical History Past Medical History: Diagnosis Date Anxiety Arthritis Cancer (HCC) Depression Insomnia Past Surgical History History reviewed. No pertinent surgical history. Family History History reviewed. No pertinent family history. Social History Social History Tobacco Use Smoking Status Never Smokeless Tobacco Never Social History Substance and Sexual Activity Alcohol Use Never Social History Substance and Sexual Activity Drug Use Never Allergy Information I have reviewed the patient's allergies. Patient has no known allergies. Home Medications Home medications were reviewed. Review Of Systems All relevant systems have been reviewed and are negative except as noted in HPI or below Physical Examination BP (!) 177/99 Pulse 71 Temp 97.7 degrees F (36.5 degrees C) (Oral) Resp 16 Ht 5' 7 Wt 62.6 kg (138 lb) SpO2 99% BMI 21.61 kg/m General Appearance: alert, well appearing, and in no acute distress HEENT: Head- normocephalic; Eyes- PERRLA, EOMI; Ears- external auditory canals clear, hearing intact; Nose- no nasal discharge; Throat- oropharynx normal Cardiovascular: regular rate and rhythm; normal S1, S2; no murmurs, rubs, clicks or gallops; no peripheral edema Respiratory: lungs clear to auscultation; without wheezes, rales or rhonchi Abdomen: soft, non-tender, non-distended; positive bowel sounds Neurological: alert, oriented x 3, normal speech; no focal findings or movement disorder noted Cranial Nerves: II: visual richard full. III, IV, : extraocular range intact. V: sensation intact. VII: facial symmetric with 5/5 strength. VIII: hearing intact to voice and finger rub. IX, X: palate elevates symmetrically. XI: shrugs shoulders 5/5 strength bilaterally. XII: tongue protrudes in midline. Sensation -grossly symmetrical. Motor strength 5/5 all over. DTR 2+ in the UE and LE bilaterally. Musculoskeletal: no significant deformity or tenderness to palpation Skin: normal coloration, texture and turgor; no lesions or eruptions Psych: normal mood and affect Laboratory and Additional Data Reviewed Laboratory 01/30/24 8:51 AM Microbiology 01/30/24 8:51 AM Radiology 01/30/24 8:51 AM Cardiology 01/30/24 8:51 AM Medications 01/30/24 8:51 AM Transcriptions 01/30/24 8:51 AM AUTHENTICATED BY JAYNA LLOYD ON 01/30/2024 13:37:46 [facility] 01-30-2024 Consult note Associated Order (s): IP CONSULT TO HOSPITALIST [facility] CONSULTATION NOTE Patient Name: Kristian Gutierrez : 1955 MR #: [id number] Admit Date: [id number] Physicians: System, Provider Not In (Family); No ref. provider found (Referring) Kristian Gutierrez is a 69 y.o. male patient of System, Provider Not In with history of rheumatoid arthritis, BPH, melanoma of neck s/p surgical excision, anxiety who has been admitted to [facility] inpatient behavioral health unit 01/29/2024. Depression Management per primary Hyperlipidemia Statin Rheumatoid arthritis Takes methotrexate once weekly Continue folic acid Continue home Plaquenil BPH Chart reports history of possible prostate cancer, but patient denies this; endorses BPH Continue tamsulosin Medication Reconciliation: Verified Code Status: Full Code - Unverified Thank you for the consult. We will sign off at this time. Please call with questions or concerns. Quality Measures DVT Prophylaxis: Ambulation Schulz Catheter: Absent Chief Complaint [facility] consulted by Thuan Garcia, * for medical management History of Present Illness Kristian Gutierrez is a 69 y.o. male patient of System, Provider Not In with history of rheumatoid arthritis, prostate cancer, melanoma of neck s/p surgical excision, anxiety who has been admitted to [facility] inpatient behavioral health unit 01/29/2024. Patient confirms past medical history as outlined above. Denies any current medical concerns. Past Medical History Past Medical History: Diagnosis Date Anxiety Arthritis Cancer (HCC) Depression Insomnia Past Surgical History History reviewed. No pertinent surgical history. Family History History reviewed. No pertinent family history. Social History Social History Tobacco Use Smoking Status Never Smokeless Tobacco Never Social History Substance and Sexual Activity Alcohol Use Never Social History Substance and Sexual Activity Drug Use Never Allergy Information I have reviewed the patient's allergies. Patient has no known allergies. Home Medications Home medications were reviewed. Review Of Systems All relevant systems have been reviewed and are negative except as noted in HPI or below Physical Examination BP (!) 177/99 Pulse 71 Temp 97.7 F (36.5 C) (Oral) Resp 16 Ht 5' 7 Wt 62.6 kg (138 lb) SpO2 99% BMI 21.61 kg/m General Appearance: alert, well appearing, and in no acute distress HEENT: Head- normocephalic; Eyes- PERRLA, EOMI; Ears- external auditory canals clear, hearing intact; Nose- no nasal discharge; Throat- oropharynx normal Cardiovascular: regular rate and rhythm; normal S1, S2; no murmurs, rubs, clicks or gallops; no peripheral edema Respiratory: lungs clear to auscultation; without wheezes, rales or rhonchi Abdomen: soft, non-tender, non-distended; positive bowel sounds Neurological: alert, oriented x 3, normal speech; no focal findings or movement disorder noted Cranial Nerves: II: visual richard full. III, IV, : extraocular range intact. V: sensation intact. VII: facial symmetric with 5/5 strength. VIII: hearing intact to voice and finger rub. IX, X: palate elevates symmetrically. XI: shrugs shoulders 5/5 strength bilaterally. XII: tongue protrudes in midline. Sensation -grossly symmetrical. Motor strength 5/5 all over. DTR 2+ in the UE and LE bilaterally. Musculoskeletal: no significant deformity or tenderness to palpation Skin: normal coloration, texture and turgor; no lesions or eruptions Psych: normal mood and affect Laboratory and Additional Data Reviewed Laboratory 01/30/24 8:51 AM Microbiology 01/30/24 8:51 AM Radiology 01/30/24 8:51 AM Cardiology 01/30/24 8:51 AM Medications 01/30/24 8:51 AM Transcriptions 01/30/24 8:51 AM Associated Order(s): ED CONSULT TO PSYCH - [facility] Initial Assessment Date: 01/30/2024 Time: 12:48 AM Patient Name: Kristian Gutierrez Date of : 1955 Sex: Male Admit Date/Time: 01/29/2024 9:48 PM GENERAL INFORMATION General Information Information Provided By: Patient, Patient's sisters Issaan Patient Support System: Patient has support from and sisters Current Living Arrangements: Patient lives with and tuzvyj-ni-fis however recently has been staying with sister. Type of Residence: Private residence Name and Contact of Collateral Provider: Patients sister's Racquel and Louann. Racquel ([phone]) LEGAL STATUS Medical Hold DIAGNOSIS/ACTIVE PROBLEM LIST Medical Problems Hospital Problem List Codes Unspecified Depressive Disorder ICD-10-CM: F32.9 ICD-9-CM: 296.20 Episode of recurrent major depressive disorder (HCC) ICD-10-CM: F33.9 ICD-9-CM: 296.30 Unspecified Anxiety Disorder ICD-10-CM: F41.9 ICD-9-CM: 300.00 Suicidal behavior without attempted self-injury ICD-10-CM: R45.89 ICD-9-CM: V62.89 CHIEF COMPLAINT/HISTORY OF PRESENT ILLNESS Chief Complaint/History Present Illness Chief Complaint: Depression/Anxiety Current Symptoms: Anxiety, Depression, Sleep disturbance, Suicidal, Psychosis Sleep Disturbance: Insomnia Psychosis: Delusions Delusions: (Per sisters: Patient delusional about current financial situation.) Problems Related to: Economic, Health History of Present Illness: Patient is a 69-year-old male who presented to via his sisters for concerns of increased depression, anxiety, insomnia and recent suicidal ideation. Patient was assessed via [employer]. Patient upon assessment is laying on the bed. He is alert and oriented. He is calm but very flat on presentation. He is delayed in providing responses to which he notes at one point that he is still thinking. He speaks with a very soft tone and difficult to hear as a result. Patient however does complete the assessment process at this time. Patient upon assessment reports having presented to the ED as a result of depression, anxiety and insomnia. He states sisters brought him to the ED. He denied any specific stressors at this time causing such. He however later does identify stress related to sons relying on him financially. Patient denied any issues with his appetite. He reported anxiety related to worry over his family and money. He reports sons as relying on him financially as well as his caring for her elderly mother, further stating lots of things that he worries about. He denied any issues caring for his ADL's. HE reported depression associated with some hopelessness, and worthlessness. He reported insomnia, stating that over the past 2-1/2 weeks he sleeps approximately 3-1/2 hours a night. Patient denied any current suicidal ideation. He stated that sisters reported him as mentioning suicidal ideation recently however he feels this was related to recent medications. He denied any history of attempts or self-harm. He denied any homicidal ideation or history of such. He denied any auditory or visual hallucinations. He denied any alcohol or drug use. Patient denied any prior mental health diagnosis. He states that he however has recently been being treated for depression, anxiety and insomnia. He reports medications for such over the past 3-4 weeks. He denied any prior psychiatric hospitalizations. He denied any outpatient mental health linkage, reporting linked with a PCP who has been prescribing medications. Patient reports that he has been for 42 years. He denied any current issues with the marriage. He reported having three adult children. He denied any history of developmental issues or education problems, reporting to have an Associate's Degree in Accounting. He denied any history. 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 He reports financial stress related to people relying on him. He denied any pending or past legal issues. He reported Latter-Day confucianist beliefs. He denied any history of physical or sexual abuse, domestic violence or other traumatic events. He reported physical health issues related to Rheumatoid Arthritis. He denied any prior head injuries. Phoned sister Racquel ([phone]) Both sisters Racquel and Louann on speaker phone. Sisters reported bringing patient to the ED related to patient having significant depression and anxiety as well as having suicidal ideation yesterday. Sisters state that the patient has been paranoid about money. They state h he has been sleeping approximately 4 hours of sleep a night and then spends the other 20 hours talking or worrying about his money situation. Sister'desi willett patient has made comments about how he is letting everyone down and won't be leaving anything for them. Sister's state patient has a significant amount of money but did lose some money in September/October. Sisters do not feel the patient is able to be left alone at this time. Sister's state patient [id number] has dementia and has lived with patient and for the past 8 years. Sister's state poor sleep related to such, however insomnia started approximately 4 months ago with depression that he hid starting approximately two months ago. Sisters state their mother in July and patient is the executor of the will which he had been caring for until he got worse over the past month. Sisters state the patient is delusional about the money situation and state that he recently has been obsessive with believe that he is dying. Sisters report that they have got him into counseling at [facility] in [place] however he only had the intake and could not be scheduled again for three weeks. They state it would take five weeks to get him in with a psychiatrist. They report they have seen his PCP weekly recently. Sisters reports current medications from PCP as Wellbutrin, Lexapro, Ambien, and Xanax. Sister's state patient recently stating with sister Louann to see it would help. Sisters deny patient as having any mental health history or a history of medications until recently. Sister indicate belief that patient needs to be admitted at this time as they do not feel they can keep the patient safe at home. PAST PSYCHIATRIC HISTORY Past Psychiatric History Previous Psychiatric Diagnosis: Patient recently has been treated for depression, anxiety and insomnia. No prior diagnosis or treatment until recently. Previous Psychiatric Medications: Anti-depressants, Anxiolytics ((Recent medications: No history of psychiatric medications otherwise)) Previous Psychiatric Hospitalizations: Patient has no prior admissions. Current Psychiatric Medications: Sisters report PCP has started patient on various medicatoins: Reporting Wellbutrin, Lexapro, Ambien, and Xanax. ALCOHOL/DRUG ABUSE HISTORY Alcohol/Drug Abuse History Current Alcohol Use (Frequency): Denies Current Drug Use: No MENTAL STATUS EVALUATION Mental Status Evaluation General Appearance: Equal to stated age Orientation: Oriented to person, place, and time Level of Consciousness: Quiet/awake, Alert Mood/Affect: Flat Behavior: Cooperative Remote Memory: WDL Language and Speech Content: (Delayed at times to which he related to still thinking. He speaks in a very soft tone.) Preoccupations: Internal stressors Impulse Control: Shows poor frustration tolerance Insight: Partial awareness Judgment: Poor PATIENT STRENGTHS Patient Strengths Patient Strengths: Basic self-care skills, Family/friends, Housing, Mental health services, Spiritual beliefs RISK ASSESSMENT Risk Factors Recent Psychological Experiences: (Loss of mother in July. Financial loss in .) Current Suicidal Ideation: No Previous Suicidal Ideation: Yes Describe Previous Suicidal Ideation: Patient reported sister says he mentioned suicidal ideation recently. Sisters state he reported suicidal ideation yesterday. Current Suicide Attempt: No Previous Suicide Attempt: No Current Self Harm Behavior: No Previous Self Harm Behavior: No Current Plans to Harm Another: No Previous Plans to Harm Another: No History of Attempts to Harm Another: No Access to Weapons: No Violent Episode: No Previous Violent Episode: No Family History of Suicide: Yes Describe Family History of Suicide : Patient reports a paternal uncle who completed. Family History of Mental Illness: Yes Describe Family History of Mental Illness: Patients brothers both have Bipolar and father and paternal grandfather both had depression. Family History of Substance Abuse: No Elopement: No risk Methods to Calm Down: No preference Restraint Risk Factors: Age PROTECTIVE FACTORS Protective Factors Family and Community Support (Connectedness): Yes Ongoing Medical and Mental Health Services (Community Support): Yes Skills In Problem Solving and Conflict Resolution (Coping Skills): (Limited) Cultural and Cheondoism Beliefs: Yes Access to Weapons: (Denies access to a weapon) TREATMENT RECOMMENDATIONS AND CLINICAL SUMMARY Treatment Recommendations and Clinical Summary Current Recommendations: Psychiatric hospitalization RATIONALE/PLAN FOR TREATMENT: Patient denied any current lethality or psychosis. Patient however is very flat and delayed on presentation, despite his report of still thinking when excessive amount of time is noted for patient to respond. Sister indicate the patient as having been ruminating and obsessing over financial stress recently. Sisters indicate patient as having recent suicidal ideation, and only sleeping 4 hours with medications recently. Sisters do not feel they are able to keep the patient safe at this time. Patient's risk factors include history of suicidal ideation, family history of suicide, psychosocial stressors, chronic illness/pain, and some hopelessness. Patient's protective factors include no current suicidal ideation, no history of suicide attempts, no previous suicide attempts requiring medical intervention, no history of psychiatric hospitalization, primary support, housing, medication compliance, confucianist/spiritual beliefs, willingness to follow-up with outpatient services, and no access to firearms. Given current presentation and concerns addressed by sister, inpatient hospitalization is recommended at this time. Electronically signed by: Mirtha Rogers M.S., [facility] SYSTEM[facility]ie-S documented in this encounter [facility] 01-30-2024 Note Formatting of this n ote might be different from the original. Problem: Actual or potential alteration in health Goal: Absence of healthcare acquired conditions Outcome: Partially Met Goal: Knowledge of Interdisciplinary Plan of Care Outcome: Partially Met Goal: Knowledge of Enviroment Outcome: Partially Met Problem: Anxiety Goal: Alleviation of anxiety Outcome: Partially Met Problem: Health Maintenance - Impaired Goal: Improvement or maintenance of mental/physical health, relationships, and responsibilities Outcome: Partially Met Goal: Able to sleep without medication for appropriate length of time Outcome: Partially Met Goal: Nutrition intake to meet estimated needs Outcome: Partially Met Problem: Mood - Altered Goal: Mood stable Outcome: Partially Met Goal: Knowledge of medication management Outcome: Partially Met Problem: Self-esteem - Low Goal: Improved self-esteem Outcome: Partially Met Problem: Thought Process - Altered Goal: Demonstration of organized thought processes Outcome: Partially Met Problem: Violence, Self/Other-Directed, Risk of Goal: Absence of violence Outcome: Partially Met Goal: Absence of self-harm Outcome: Partially Met Problem: Transition Readiness Goal: Able to safely transition to next level of care Outcome: Partially Met Goal: Knowledge of care transition plan Outcome: Partially Met Goal: Knowledge of medication management Outcome: Partially Met Goal: Knowledge of need for follow-up care Outcome: Partially Met Goal: Participation in care planning Outcome: Partially Met [facility] 01-30-2024 Note Formatting of this n ote might be different from the original. Problem: Actual or potential alteration in health Goal: Absence of healthcare acquired conditions Outcome: Partially Met Goal: Knowledge of Interdisciplinary Plan of Care Outcome: Partially Met Goal: Knowledge of Enviroment Outcome: Partially Met Problem: Anxiety Goal: Alleviation of anxiety Outcome: Partially Met [facility] 01-30-2024 Note Formatting of this n ote might be different from the original. Problem: Actual or potential alteration in health Goal: Absence of healthcare acquired conditions Outcome: Partially Met Goal: Knowledge of Interdisciplinary Plan of Care Outcome: Partially Met Goal: Knowledge of Enviroment Outcome: Partially Met Problem: Anxiety Goal: Alleviation of anxiety Outcome: Partially Met [facility] 01-30-2024 Emergency department Note [facility] WITH PROTECTIVE SERVICES TRANSPORTING TO BED 3300 WITH [place] PSA PT BELONGINGS WITH HIM AND SISTERS X 2 UPDATED THEY WILL UPDATE WHO IS TAKING CARE OF HER MOTHER AT HOME WITH DEMENTIA [facility] 01-30-2024 Emergency department Note [facility] WITH [employer]ECTIVE SERVICES TRANSPORTING TO BED 3300 WITH [place] PSA PT BELONGINGS WITH HIM AND SISTERS X 2 UPDATED THEY WILL UPDATE WHO IS TAKING CARE OF HER MOTHER AT HOME WITH DEMENTIA Rounding: ABCs intact, no c/o. ACTIVITY: Pt resting quietly on cart; patent airway. Spontaneous breathing w/ regular respirations. NEEDS/CONCERNS- none voiced, SAFETY: cart in low position, call light within reach. Pt remains in blue gown with continuous video/sitter monitoring in place for pt safety. No HI/SI attempts, nonviolent at present. This patient was turned over to vt by . Patient was evaluated by behavioral health and the patient will be excepted by Dr. Abdalla for inpatient evaluation for depression. Patient felisa stable while in the ED. Kristian Moulton Jr., PA-C 01/30/24 0330 REPORT REC'D FROM JOSSELIN GILMORE RN PT ON BED WITH SISTERS AT BEDSIDE PT RESTING QUIETLY WITH EYES CLOSED RESP EVEN AND UNLABORED NO NEEDS ASSESSED Suicide Check - Patient Location: In room Room Check: Yes Safety - Precautions: Elopement Interventions: Sitter Visual Checks: Every 15 mins & Breaths even and unlabored Self Injurious Behaviors: None observed Harmful Actions Toward Others: None observed Spoke with patient and sisters who are at beside again. Discussed recommendation for admission. Patient reports willingness to sign in for voluntary admission at this time. Patient advised will still need to provide urine sample. Patient and sisters questions answered. Sisters at this time clarify that it was not five weeks but five months to wait for an appointment with the psychiatrist in [place]. Sisters state was able to get an appointment for the patient with a RETURN CLERK earliest for February 13, however not the actual psychiatrist until June. Cart in room at this time and pt speaking with Residential [facility]. Report received from ROSE Lewis. [facility] EMERGENCY DEPARTMENT ATTENDING NOTE: NAME: Kristian Gutierrez CSN: [id number] 69 y.o. PCP: System, Provider Not In History: Chief Complaint: Psychiatric Evaluation HPI: The history was obtained from the patient and sisters . Kristian is a 69 y.o. male who presents with a chief complaint of Psychiatric Evaluation. Patient brought in for psychiatric valuation. Sister is very concerned about him being increasingly depressed not sleeping very focused on financial issues and they state that he verbalized some suicidal thoughts no plan. Patient is on various psychiatric medications currently he has never been hospitalized for any psychiatric issues in the past. Sister states only thing that seems to help briefly is the Xanax that he takes twice a day otherwise he is hyperfocused on financial issues. Sister states that he does have money is not destitute he can pay all his bills but this is a very pressing concern to the patient. PMHx: Past Medical History: Diagnosis Date Anxiety Arthritis Cancer (HCC) Depression Insomnia PMSx: History reviewed. No pertinent surgical history. FAM. Hx: History reviewed. No pertinent family history. SOC. Hx: Social History Socioeconomic History Marital status: Tobacco Use Smoking status: Never Smokeless tobacco: Never Vaping Use Vaping Use: Never used Substance and Sexual Activity Alcohol use: Never Drug use: Never MEDs: No current outpatient medications on file prior to encounter. ALL: No Known Allergies ROS: Review of Systems Positives and pertinent negatives as per HPI. All other systems were reviewed and are negative. Physical Exam: Patient Vitals for the past 24 hrs: BP Temp Pulse Resp SpO2 Height Weight 01/29/24 2230 (!) 146/87 -- -- -- 96 % -- -- 05/20/24 2215 (!) 163 -- -- -- 98 % -- -- 01/29/242211 (!) 163 98.2 F (36.8 C) 81 18 97 % -- -- 01/29/242153 -- -- -- -- -- 5' 7 62.6 kg (138 lb) Physical Exam Constitutional: Awake, alert, no acute distress Head: Normocephalic/atraumatic Neck: Supple, trachea midline Skin: Warm and dry, no rashes Lungs: No acute respiratory distress Musculoskeletal: Full range of motion all extremities, Neuro: No gross focal neurologic deficits, NIH is 0 Psych: Alert and oriented x 3, no psychosis, Laboratory & Radiological Imaging (if done): Labs Reviewed DRUGS OF ABUSE SCREEN, URINE ALCOHOL, MEDICAL No orders to display Procedures: Procedures ED Course / Medical Decision Making: I did personally review Kristian's past medical history, surgical history, social history, as well as family history (when relevant). In this case, I also oversaw the his drug management by reviewing his medication list, allergy list, as well as the medications that I prescribed during the ED course and/or recommended as an out-patient (including possible OTC medications such as acetaminophen, NSAIDs , etc). His past medical problem list included: Active Ambulatory Problems Diagnosis Date Noted No Active Ambulatory Problems Resolved Ambulatory Problems Diagnosis Date Noted No Resolved Ambulatory Problems Past Medical History: Diagnosis Date Anxiety Arthritis Cancer (HCC) Depression Insomnia ED MEDICATIONS GIVEN: Medications - No data to display After reviewing the items above, I did look at previous medical documentation, such as recent hospitalizations, office visits, and/or recent consultations with PCP/specialist. SDOH: Another factor that I considered in Kristian's care was his Social Determinants of Health (SDOH). During this ED encounter, he did NOT appear to have any significant issues identified. LAB TESTING: Ancillary lab testing: See orders DIFFERENTIAL DIAGNOSES: Depression, psychosis, as well as other etiologies. ED COURSE: I advised the patient. I feel he would benefit from a psychiatric consultation and admission. Discussed this with the patient and sisters at bedside. Patient be endorsed to the oncoming provider . Clinical Impression: 1. Suicidal behavior without attempted self-injury 2. Episode of recurrent major depressive disorder, unspecified depression episode severity (HCC) Disposition: ED Disposition None Jessica Corrigan, ED Attending Physician [facility] EMERGENCY DEPARTMENT Jessica Corrigan DO 01/29/24 3325 Pt states he is financially in trouble and feels like it is affecting his enjoyment of life and financially affecting his family, pt sisters are at his bedside. documented in this encounter [facility] 01-30-2024 Emergency department Note Rounding: ABCs intact, no c/o. ACTIVITY: Pt resting quietly on cart; patent airway. Spontaneous breathing w/ regular respirations. NEEDS/CONCERNS- none voiced, SAFETY: cart in low position, call light within reach. Pt remains in blue gown with continuous video/sitter monitoring in place for pt safety. No HI/SI attempts, nonviolent at present. [facility] 01-30-2024 Physician Emergency department Note This patient was turned over to me by . Patient was evaluated by [facility] and the patient will be excepted by Dr. Abdalla for inpatient evaluation for depression. Patient felisa stable while in the ED. Kristian Moulton Jr., PA-C 01/30/24 0330 [facility] Work Phone: 01-30-2024 Emergency department Note REPORT REC'D FROM JOSSELIN SALINAS. RN PT ON BED WITH SISTERS AT BEDSIDE PT RESTING QUIETLY WITH EYES CLOSED RESP EVEN AND UNLABORED NO NEEDS ASSESSED [facility] 05-21-2024 Emergency department Note Suicide Check - Patient Location: In room Room Check: Yes Safety - Precautions: Elopement Interventions: Sitter Visual Checks: Every 15 mins & Breaths even and unlabored Self Injurious Behaviors: None observed Harmful Actions Toward Others: None observed [facility] 01-30-2024 Note Formatting of this n ote might be different from the original. Behavioral Health Pre Admission Screening Tool Date: 01/30/2024 Time: 2:04 AM Patient Name: Kristian Gutierrez Date of : 1955 Sex: Male Voluntary Prescreener Caller Information: Mirtha Rogers M[facility]S., [facility] Referral Source: [facility] Diagnosis: F32.9 Unspecified Depressive Disorder Presenting Problem/Chief Complaint: Depression, Anxiety and Insomnia Medical Status: Stable Functional Status: Independent Medication Compliant: Yes Insurance Information/Precertification Completed: Yes Case Reveiwed With: (Dr. Abdalla) Accepted for Admission: Yes Admitting Physician: (Dr. Abdalla) Risk Factors Recent Psychological Experiences: (Loss of mother in July. Financial loss in .) Current Suicidal Ideation: No Previous Suicidal Ideation: Yes Describe Previous Suicidal Ideation: Patient reported sister says he mentioned suicidal ideation recently. Sisters state he reported suicidal ideation yesterday. Current Suicide Attempt: No Previous Suicide Attempt: No Current Self Harm Behavior: No Previous Self Harm Behavior: No Current Plans to Harm Another: No Previous Plans to Harm Another: No History of Attempts to Harm Another: No Access to Weapons: No Violent Episode: No Previous Violent Episode: No Family History of Suicide: Yes Describe Family History of Suicide : Patient reports a paternal uncle who completed. Family History of Mental Illness: Yes Describe Family History of Mental Illness: Patients brothers both have Bipolar and father and paternal grandfather both had depression. Family History of Substance Abuse: No Elopement: No risk Methods to Calm Down: No preference Restraint Risk Factors: Age Patient presented for increased depression, anxiety and insomnia that is currently interfering with his functioning. Family reports recent suicidal ideation and concerns for the patient being delusional about money issues and belief that he is dying. Family has concerns for being able to keep the patient safe. Case discussed with Dr. Abdalla who approved admission at this time. Mirtha Rogers M.S., [facility] 01-30-2024 Emergency department Note Spoke with patient and sisters who are at beside again. Discussed recommendation for admission. Patient reports willingness to sign in for voluntary admission at this time. Patient advised will still need to provide urine sample. Patient and sisters questions answered. Sisters at this time clarify that it was not five weeks but five months to wait for an appointment with the psychiatrist in [place]. Sisters state was able to get an appointment for the patient with a RETURN CLERK earliest for February 13, however not the actual psychiatrist until June. [facility] 01-30-2024 Consult note Associated Order (s): ED CONSULT TO PSYCH - SUPERVISOR PERSONNEL CLERKS ED [facility] Initial Assessment Date: 01/30/2024 Time: 12:48 AM Patient Name: Kristian Gutierrez Date of : 1955 Sex: Male Admit Date/Time: 01/29/2024 9:48 PM GENERAL INFORMATION General Information Information Provided By: Patient, Patient's sisters Racquel and Louann Patient Support System: Patient has support from and sisters Current Living Arrangements: Patient lives with and [id number] however recently has been staying with sister. Type of Residence: Private residence Name and Contact of Collateral Provider: Patients sister's Racquel and Louann. Racquel ([phone]) LEGAL STATUS Medical Hold DIAGNOSIS/ACTIVE PROBLEM LIST Medical Problems Hospital Problem List Codes Unspecified Depressive Disorder ICD-10-CM: F32.9 ICD-9-CM: 296.20 Episode of recurrent major depressive disorder (HCC) ICD-10-CM: F33.9 ICD-9-CM: 296.30 Unspecified Anxiety Disorder ICD-10-CM: F41.9 ICD-9-CM: 300.00 Suicidal behavior without attempted self-injury ICD-10-CM: R45.89 ICD-9-CM: V62.89 CHIEF COMPLAINT/HISTORY OF PRESENT ILLNESS Chief Complaint/History Present Illness Chief Complaint: Depression/Anxiety Current Symptoms: Anxiety, Depression, Sleep disturbance, Suicidal, Psychosis Sleep Disturbance: Insomnia Psychosis: Delusions Delusions: (Per sisters: Patient delusional about current financial situation.) Problems Related to: Economic, Health History of Present Illness: Patient is a 69-year-old male who presented to via his sisters for concerns of increased depression, anxiety, insomnia and recent suicidal ideation. Patient was assessed via [employer]. Patient upon assessment is laying on the bed. He is alert and oriented. He is calm but very flat on presentation. He is delayed in providing responses to which he notes at one point that he is still thinking. He speaks with a very soft tone and difficult to hear as a result. Patient however does complete the assessment process at this time. Patient upon assessment reports having presented to the ED as a result of depression, anxiety and insomnia. He states sisters brought him to the ED. He denied any specific stressors at this time causing such. He however later does identify stress related to sons relying on him financially. Patient denied any issues with his appetite. He reported anxiety related to worry over his family and money. He reports sons as relying on him financially as well as his caring for her elderly mother, further stating lots of things that he worries about. He denied any issues caring for his ADL's. HE reported depression associated with some hopelessness, and worthlessness. He reported insomnia, stating that over the past 2-1/2 weeks he sleeps approximately 3-1/2 hours a night. Patient denied any current suicidal ideation. He stated that sisters reported him as mentioning suicidal ideation recently however he feels this was related to recent medications. He denied any history of attempts or self-harm. He denied any homicidal ideation or history of such. He denied any auditory or visual hallucinations. He denied any alcohol or drug use. Patient denied any prior mental health diagnosis. He states that he however has recently been being treated for depression, anxiety and insomnia. He reports medications for such over the past 3-4 weeks. He denied any prior psychiatric hospitalizations. He denied any outpatient mental health linkage, reporting linked with a PCP who has been prescribing medications. Patient reports that he has been for 42 years. He denied any current issues with the marriage. He reported having three adult children. He denied any history of developmental issues or education problems, reporting to have an Associate's Degree in Accounting. He denied any history. 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 He reports financial stress related to people relying on him. He denied any pending or past legal issues. He reported Latter-Day confucianist beliefs. He denied any history of physical or sexual abuse, domestic violence or other traumatic events. He reported physical health issues related to Rheumatoid Arthritis. He denied any prior head injuries. Phoned sister Racquel ([phone]) Both sisters Racquel and Louann on speaker phone. Sisters reported bringing patient to the ED related to patient having significant depression and anxiety as well as having suicidal ideation yesterday. Sisters state that the patient has been paranoid about money. They state h he has been sleeping approximately 4 hours of sleep a night and then spends the other 20 hours talking or worrying about his money situation. Nancy willett patient has made comments about how he is letting everyone down and won't be leaving anything for them. Nancy willett patient has a significant amount of money but did lose some money in September/October. Sisters do not feel the patient is able to be left alone at this time. Nancy willett patient [id number] has dementia and has lived with patient and for the past 8 years. Sister's state poor sleep related to such, however insomnia started approximately 4 months ago with depression that he hid starting approximately two months ago. Sisters state their mother in July and patient is the executor of the will which he had been caring for until he got worse over the past month. Sisters state the patient is delusional about the money situation and state that he recently has been obsessive with believe that he is dying. Sisters report that they have got him into counseling at [facility] in [place] however he only had the intake and could not be scheduled again for three weeks. They state it would take five weeks to get him in with a psychiatrist. They report they have seen his PCP weekly recently. Sisterdesi reports current medications from PCP as Wellbutrin, Lexapro, Ambien, and Xanax. Nancy willett patient recently stating with sister Louann to see it would help. Sisters deny patient as having any mental health history or a history of medications until recently. Sister indicate belief that patient needs to be admitted at this time as they do not feel they can keep the patient safe at home. PAST PSYCHIATRIC HISTORY Past Psychiatric History Previous Psychiatric Diagnosis: Patient recently has been treated for depression, anxiety and insomnia. No prior diagnosis or treatment until recently. Previous Psychiatric Medications: Anti-depressants, Anxiolytics ((Recent medications: No history of psychiatric medications otherwise)) Previous Psychiatric Hospitalizations: Patient has no prior admissions. Current Psychiatric Medications: Sisters report PCP has started patient on various medicatoins: Reporting Wellbutrin, Lexapro, Ambien, and Xanax. ALCOHOL/DRUG ABUSE HISTORY Alcohol/Drug Abuse History Current Alcohol Use (Frequency): Denies Current Drug Use: No MENTAL STATUS EVALUATION Mental Status Evaluation General Appearance: Equal to stated age Orientation: Oriented to person, place, and time Level of Consciousness: Quiet/awake, Alert Mood/Affect: Flat Behavior: Cooperative Remote Memory: WDL Language and Speech Content: (Delayed at times to which he related to still thinking. He speaks in a very soft tone.) Preoccupations: Internal stressors Impulse Control: Shows poor frustration tolerance Insight: Partial awareness Judgment: Poor PATIENT STRENGTHS Patient Strengths Patient Strengths: Basic self-care skills, Family/friends, Housing, Mental health services, Spiritual beliefs RISK ASSESSMENT Risk Factors Recent Psychological Experiences: (Loss of mother in July. Financial loss in .) Current Suicidal Ideation: No Previous Suicidal Ideation: Yes Describe Previous Suicidal Ideation: Patient reported sister says he mentioned suicidal ideation recently. Sisters state he reported suicidal ideation yesterday. Current Suicide Attempt: No Previous Suicide Attempt: No Current Self Harm Behavior: No Previous Self Harm Behavior: No Current Plans to Harm Another: No Previous Plans to Harm Another: No History of Attempts to Harm Another: No Access to Weapons: No Violent Episode: No Previous Violent Episode: No Family History of Suicide: Yes Describe Family History of Suicide : Patient reports a paternal uncle who completed. Family History of Mental Illness: Yes Describe Family History of Mental Illness: Patients brothers both have Bipolar and father and paternal grandfather both had depression. Family History of Substance Abuse: No Elopement: No risk Methods to Calm Down: No preference Restraint Risk Factors: Age PROTECTIVE FACTORS Protective Factors Family and Community Support (Connectedness): Yes Ongoing Medical and Mental Health Services (Community Support): Yes Skills In Problem Solving and Conflict Resolution (Coping Skills): (Limited) Cultural and Cheondoism Beliefs: Yes Access to Weapons: (Denies access to a weapon) TREATMENT RECOMMENDATIONS AND CLINICAL SUMMARY Treatment Recommendations and Clinical Summary Current Recommendations: Psychiatric hospitalization RATIONALE/PLAN FOR TREATMENT: Patient denied any current lethality or psychosis. Patient however is very flat and delayed on presentation, despite his report of still thinking when excessive amount of time is noted for patient to respond. Sister indicate the patient as having been ruminating and obsessing over financial stress recently. Sisters indicate patient as having recent suicidal ideation, and only sleeping 4 hours with medications recently. Sisters do not feel they are able to keep the patient safe at this time. Patient's risk factors include history of suicidal ideation, family history of suicide, psychosocial stressors, chronic illness/pain, and some hopelessness. Patient's protective factors include no current suicidal ideation, no history of suicide attempts, no previous suicide attempts requiring medical intervention, no history of psychiatric hospitalization, primary support, housing, medication compliance, confucianist/spiritual beliefs, willingness to follow-up with outpatient services, and no access to firearms. Given current presentation and concerns addressed by sister, inpatient hospitalization is recommended at this time. Electronically signed by: Mirtha Rogers M.S., [facility] 01-30-2024 Emergency department Note Cart in room at this time and pt speaking with Residential [facility]. [facility] 01-29-2024 Emergency department Note Report received from ROSE Lewis. [facility] 01-29-2024 Physician Emergency department Note [facility] EMERGENCY DEPARTMENT ATTENDING NOTE: NAME: Kristian Gutierrez CSN: [id number] 69 y.o. PCP: System, Provider Not In History: Chief Complaint: Psychiatric Evaluation HPI: The history was obtained from the patient and sisters . Kristian is a 69 y.o. male who presents with a chief complaint of Psychiatric Evaluation. Patient brought in for psychiatric valuation. Sister is very concerned about him being increasingly depressed not sleeping very focused on financial issues and they state that he verbalized some suicidal thoughts no plan. Patient is on various psychiatric medications currently he has never been hospitalized for any psychiatric issues in the past. Sister states only thing that seems to help briefly is the Xanax that he takes twice a day otherwise he is hyperfocused on financial issues. Sister states that he does have money is not destitute he can pay all his bills but this is a very pressing concern to the patient. PMHx: Past Medical History: Diagnosis Date Anxiety Arthritis Cancer (HCC) Depression Insomnia PMSx: History reviewed. No pertinent surgical history. FAM. Hx: History reviewed. No pertinent family history. SOC. Hx: Social History Socioeconomic History Marital status: Tobacco Use Smoking status: Never Smokeless tobacco: Never Vaping Use Vaping Use: Never used Substance and Sexual Activity Alcohol use: Never Drug use: Never MEDs: No current outpatient medications on file prior to encounter. ALL: No Known Allergies ROS: Review of Systems Positives and pertinent negatives as per HPI. All other systems were reviewed and are negative. Physical Exam: Patient Vitals for the past 24 hrs: BP Temp Pulse Resp SpO2 Height Weight 01/29/24 2230 (!) 146/87 -- -- -- 96 % -- -- 01/29/24 2215 (!) 163/83 -- -- -- 98 % -- -- 01/29/24 2212 (!) 163/83 98.2 F (36.8 C) 81 18 97 % -- -- 01/29/24 2154 -- -- -- -- -- 5' 7 62.6 kg (138 lb) Physical Exam Constitutional: Awake, alert, no acute distress Head: Normocephalic/atraumatic Neck: Supple, trachea midline Skin: Warm and dry, no rashes Lungs: No acute respiratory distress Musculoskeletal: Full range of motion all extremities, Neuro: No gross focal neurologic deficits, NIH is 0 Psych: Alert and oriented x 3, no psychosis, Laboratory & Radiological Imaging (if done): Labs Reviewed DRUGS OF ABUSE SCREEN, URINE ALCOHOL, MEDICAL No orders to display Procedures: Procedures ED Course / Medical Decision Making: I did personally review Kristian's past medical history, surgical history, social history, as well as family history (when relevant). In this case, I also oversaw the his drug management by reviewing his medication list, allergy list, as well as the medications that I prescribed during the ED course and/or recommended as an out-patient (including possible OTC medications such as acetaminophen, NSAIDs , etc). His past medical problem list included: Active Ambulatory Problems Diagnosis Date Noted No Active Ambulatory Problems Resolved Ambulatory Problems Diagnosis Date Noted No Resolved Ambulatory Problems Past Medical History: Diagnosis Date Anxiety Arthritis Cancer (HCC) Depression Insomnia ED MEDICATIONS GIVEN: Medications - No data to display After reviewing the items above, I did look at previous medical documentation, such as recent hospitalizations, office visits, and/or recent consultations with PCP/specialist. SDOH: Another factor that I considered in Kristian's care was his Social Determinants of Health (SDOH). During this ED encounter, he did NOT appear to have any significant issues identified. LAB TESTING: Ancillary lab testing: See orders DIFFERENTIAL DIAGNOSES: Depression, psychosis, as well as other etiologies. ED COURSE: I advised the patient. I feel he would benefit from a psychiatric consultation and admission. Discussed this with the patient and sisters at bedside. Patient be endorsed to the oncoming provider . Clinical Impression: 1. Suicidal behavior without attempted self-injury 2. Episode of recurrent major depressive disorder, unspecified depression episode severity (HCC) Disposition: ED Disposition None Jessica Corrigan DO ED Attending Physician [facility] EMERGENCY DEPARTMENT Jessica Corrigan DO 01/29/24 6246 [facility] 01-29-2024 Emergency department Note Pt states he is financially in trouble and feels like it is affecting his enjoyment of life and financially affecting his family, pt sisters are at his bedside. [facility] 12-08-2022 Miscellaneous Notes Received a request from Dr. Ben Nath's office for the consultation note for Kristian's office visit with Debbie Dunn on 10/28/2022. The patient cancelled that visit and did not reschedule. Note faxed to the office, fax confirmation sheet received. Evie Fuchs RN documented in this encounter [facility] 11-01-2021 History of Present illness Narrative Pt is also scheduled for recheck next mon11/01/21 therefore did not perform recheck this date. Pt tolerated session well without c/o pain despite progression and addition of multiple activities. VCs to maintain scapular retraction during TB activities and to keep elbows at sides during TB ER/IR. [facility] Work Phone: 10-25-2021 History of Present illness Narrative Mr. Gutierrez is progressing well [...] you for this referral and please call [phone] with any questions or concerns. [facility] Work Phone: 09-12-2021 History of Present illness Narrative Answered all questions at beginning of session regarding HEP. Added 1/2 foam roll stretches today for continued improved shoulder mobility. Patient had difficulty at first but then felt relief. Added these to HEP today. Tightness along the UT this date. [facility] Work Phone: 04-09-2012 Miscellaneous Notes Patient scheduled as requested [facility] SCHEDULING/PAT Pt informed of colonoscopy procedure, clear liquid diet and bowel prep. Informed pt they will call him the day before the procedure for arrival time. Verbalized understanding. [facility] ENDOSCOPY CURE FORM Patient Name:Cristobal Gutierrez Referring Provider: Ordering provider- Dr.Daniel Dimas / Dr Ben Nath Date and Time of procedure: 05/01/2012 arriving at 6 AM for an 630 AM procedure Procedure: Colonoscopy/Go [facility]yt[facility] Diagnosis Code: V76.51 Does the patient have any of the following: Diabetes: No Pacemaker: No Does patient need antibiotics? No Keyla Eric RN documented in this encounter [facility] Evaluation note Diagnosis Current severe episode of major depressive disorder with psychotic features without prior episode (HCC)- Primary Suicidal behavior without attempted self-injury Episode of recurrent major depressive disorder, unspecified depression episode severity (HCC) Suicidal behavior without attempted self-injury Episode of recurrent major depressive disorder (HCC) Unspecified Depressive Disorder Major depressive disorder, single episode, unspecified Unspecified Anxiety Disorder Anxiety state, unspecified [facility]RE[facility] presents with signs and symptoms consistent [...] s/IADL s and return to PLOF. [facility] Work Phone: History of Present illness Narrative* Mr. GUTIERREZ presents with signs and symptoms consistent with Bilateral shoulder impingement & rotator cuff dysfunction as medical diagnosis and PT diagnosis of Right shoulder pain and stiffness ofRight shoulder and demonstrates impairments/limitations in Shoulder AROM and PROM mildly, significant restriction in GH joint mobility into posterior and inferior directions as well as decreased motor control and proximal stability with scapular musculature with Right scapular more protracted and weakness noted in periscapular musculature. Pt also presents with poor posture and body mechanics. Hereported good understanding to all edu and HEP [...] ADL s/IADL s and return to PLOF. * Clinical Presentation: Stable and/or uncomplicated characteristics. * Level of Complexity: low * Problem List: activity limitations, ADLs/IADLs/self care skills, decreased functional level, flexibility, motor function/control/tone, pain, participation restrictions, posture, range of motion/jointmobility and strength. [facility]: History of Present illness NarrativeGH elevation on the R with standing shoulder flexion. End range tightness with passive flexion and ER. Tightness along UT and deltoid during STW. [facility] Work Phone: History of Present illness Narrative* Added resisted shoulder rows today with cues needed d/t leaning entire body. Improvement after cuesgiven. Updated HEP this date (see below) with blue tband and theraloop. Improved ROM with ABC's in supine. Decreased end range tightness with passive flexion and ABD. * Response to treatment: no change in pain. [facility]: History of Present illness Narrative* Was able to progress strength this date by adding resisted extension and progressing to active IR/ER. Progressed instead taking 2 steps d/t improved control. * Response to treatment: no change in pain. [facility] Work [facility]: Hismmfj of Present illness Narrative* Improved passive flexion to WFL with soft end feel. Minimal exacerbation of pain with PROM. Added weight with anterior shoulder flexion and shoulder abduction. Decreased GH compensation observed today with these exercises so weight was added today in clinic and for HEP. * Response to treatment: decreased pain. [facility]: History of Present illness Narrative* Improved ROM with ABC's with ability to complete large ROM, will attempt in standing next visit forprogression. Improved ROM with shoulder flex and ABD actively. Added weight with eccentric loweringwith wall slides and shoulder flex and ABD in front of the mirror. * Response to treatment: decreased pain. [facility] Work Phone: History of Present illness Narrative* Improved eccentric control with resisted and weight PRE's. Added internal towel stretch to HEP. * Response to treatment: decreased pain. * Patient was able to complete today's treatment with some difficulty. [facility] Work Phone: reason for visit NarrativeInitial Evaluation . RIght Shoulder Impingement.[facility] Work [facility]: reason for visit Narrative* Initial Evaluation . RIght Shoulder Impingement. * Referred by: Chey Wolff [facility]: Summary Purpose Family History No Family History Records FoundNo Family History Records FoundNo Family History Records FoundNo Family History Records FoundNo Family History Records FoundNo Family History Records FoundNo Family History Records FoundNo Family History Records Found Advance Directives No Advanced Directives Records Found Date Activated Date Inactivated Comments 01/30/2024 5:23 AM 02/09/2024 5:36 PM Additional Source Comments (unrecognized sect ion and content) No Status Records FoundNo Status Records FoundNo Status Records FoundNo Status Records FoundNo Status Records FoundNo Status Records FoundNo Status Records FoundNo Status Records Found INFORMATION SOURCE (unrecogn ized section and content) DATE CREATED AUTHOR 03/27/2019 [facility] DATE CREATED AUTHOR AUTHOR'S ORGANIZ ATION 12/26/2019 [facility] DATE CREATED AUTHOR AUTHOR'S ORGANIZ ATION 12/09/2021 [facility] DATE CREATED AUTHOR AUTHOR'S ORGANIZ ATION 05/07/2022 [facility] DATE CREATED AUTHOR AUTHOR'S ORGANIZ ATION 12/13/2022 [facility] DATE CREATED AUTHOR AUTHOR'S ORGANIZ ATION 03/25/2023 [facility] DATE CREATED AUTHOR AUTHOR'S ORGANIZ ATION 03/02/2024 [facility] DATE CREATED AUTHOR AUTHOR'S ORGANIZ ATION 05/26/2024 [facility] Source Comments (unrecognize d section and content) In the event this informatio n is protected by the Federal Confidentiality of Alcohol and Drug Abuse Patient Records regulations: The Federal rules restrict any use of the information to criminally investigate or prosecute any alcohol or drug abuse patient.[facility] the event this information is protected by the Federal Confidentiality of Alcohol and Drug Abuse Patient Records regulations: The Federal rules restrict any use of the information to criminally investigate or prosecute any alcohol or drug abuse patient.[facility] Reason for Visit (unrecogniz ed section and content) Reason Onset Date Comments Outpatient Colonoscopy 04/09/2012 Reason Comments Medical Records Reason Comments Psychiatric Evaluation Care Teams (unrecognized sec tion and content) Director Of Academic Relationship Specialty Start Date End Date Ben Nath PCP - General Family Medicine 03/26/12 Director Of Academic Relationship Specialty Start Date End Date System, Provider Not In PCP - General 01/29/24 02/07/24 Scheduled Active and Recently Administ ered Medications (unrecognized section and content) Medication Order 02/07/2024 02/08/2024 02/09/2024 atorvastatin (LIPITOR) tablet 10 mg 10 mg, Oral, Daily, First dose on 02/05/24 at 1400 0850 (Given - Provider: Jeffry Euceda LPN) 0901 (Given - Provider: Ben Khan, ROSE) 09 (Given - Provider: Saira Esposito, ROSE) cyanocobalamin (B-12) tablet 1,000 mcg 1,000 mcg, Oral, Daily, First dose on Mon02/05/24 at 1400 0850 (Given - Provider: Jeffry Euceda LPN) 0901 (Given - Provider: Ben Khan RN) 09 (Given - Provider: Saira Esposito, ROSE) folic acid (FOLVITE) tablet 2 mg 2 mg, Oral, User specified (Once per day on Monday), First dose on Mon02/06/24 at 1400, In am except for the day he gets wellcovorin. 1407 (Given - Provider: Jeffry Euceda LPN) 1614 (Given - Provider: Ben Khan RN) 1416 (Given - Provider: Saira Esposito RN) hydroxychloroquine (PLAQUENIL) tablet 300 mg 300 mg, Oral, Daily, First dose on Mon02/05/24 at 1400, Indication: Rheumatoid Arthritis 0850 (Given - Provider: Jeffry Euceda LPN) 0900 (Given - Provider: Ben Khan RN) 09 (Given - Provider: Saira Esposito, ROSE) leucovorin (WELLCOVORIN) tablet 15 mg 15 mg, Oral, Weekly, First dose on Mon02/05/24 at 1400 melatonin tablet 2 mg 2 mg, Oral, Nightly, First dose on Mon02/08/24 at 2100 2047 (Given - Provider: Sarah Jacobo RN) methoTREXate (TREXALL) tablet 10 mg 10 mg, Oral, Weekly, First dose (after last modification) on Mon02/05/24 at 1400, 10 mg in am and 10 mg in pm once a week, CATEGORY C HAZARDOUS DRUG use safe handling precautions. Use reference link to view PPE guidelines. Chemotherapy Agent (Refer to Policy Rx- 910.023). DO NOT CRUSH OR CHEW., Indication: Rheumatoid Arthritis, Ordering restricted to Attending provider: Other, Provide rationale for ordering outside of [facility] approved prescribers restrictions: per attending providers Dr. Abdalla's request methoTREXate (TREXALL) tablet 10 mg 10 mg, Oral, Weekly, First dose (after last reorder) on Mon02/05/24 at 2100, 10 mg in am and 10 mg in pm once a week, CATEGORY C HAZARDOUS DRUG use safe handling precautions. Use reference link to view PPE guidelines. Chemotherapy Agent (Refer to Policy Rx- 910.023). DO NOT CRUSH OR CHEW., Indication: Rheumatoid Arthritis, Ordering restricted to Attending provider: Other, Provide rationale for ordering outside of [facility] approved prescribers restrictions: per attending providers Dr. Abdalla's request mirtazapine (REMERON) tablet 15 mg 15 mg, Oral, Nightly, First dose (after last modification) on Mon02/02/24 at 2100 2025 (Given - Provider: Nabila Hassan, RN) 2046 (Given - Provider: Sarah Jacobo, RN) multivitamin (THERAGRAN) per tablet 1 tablet 1 tablet, Oral, Daily, First dose on Mon02/05/24 at 1400 0850 (Given - Provider: Jeffry Euceda LPN) 0901 (Given - Provider: Ben Khan, ROSE) 09 (Given - Provider: Saira Esposito, ROSE) OLANZapine (ZYPREXA) tablet 2.5 mg 2.5 mg, Oral, Nightly, First dose on Mon02/05/24 at 2100, May cause QT interval prolongation. 2025 (Given - Provider: Nabila Hassan RN) 2046 (Given - Provider: Sarah Jacobo, RN) tamsulosin (FLOMAX) 24 hr capsule 0.8 mg 0.8 mg, Oral, Daily, First dose on Mon02/05/24 at 1400, DO NOT CRUSH OR CHEW. Give 30 minutes after the same meal daily. Monitor for orthostasis due to potential risk of syncope. 0850 (Given - Provider: Jeffry Euceda LPN) 0901 (Given - Provider: Ben Khan, ROSE) 0923 (Given - Provider: Saira Esposito, ROSE) PRN Medication Order 02/07/2024 02/08/2024 02/09/2024 acetaminophen (TYLENOL) tablet 650 mg 650 mg, Oral, Every 4 hours PRN, mild pain, Starting on Mon01/30/24 at 0518 aluminum-magnesium hydroxide-simethicone (MAALOX PLUS) 200-200-20 mg/5 mL suspension 30 mL 30 mL, Oral, Every 4 hours PRN, indigestion, Starting on Mon01/30/24 at 0518 benztropine (COGENTIN) injection 2 mg 2 mg, Intramuscular, Once as needed, for dystonia, Starting on Mon01/30/24 at 0527, For 1 dose haloperidoL (HALDOL) tablet 5 mg(Linked Group 1) 5 mg, Oral, Every 4 hours PRN, agitation, ORAL FIRST LINE agent for agitation, Starting on Mon01/30/24 at 0518, If oral route is available, use oral first line agent. Use linked IM agent (IF ordered) if oral route unavailable. If additional agitation medication is necessary within 30 minutes (prior to second line agent-IF ordered), contact provider. May cause QT interval prolongation. haloperidol lactate (HALDOL) injection 5 mg(Linked Group 1) 5 mg, Intramuscular, Every 4 hours PRN, agitation, alternate IM FIRST LINE agent for agitation, Starting on Mon01/30/24 at 0518, If oral route is available, use oral first line agent. Use linked IM agent (IF ordered) if oral route unavailable. If additional agitation medication is necessary within 30 minutes (prior to second line agent-IF ordered), contact provider. May cause QT interval prolongation. hydrOXYzine (ATARAX) tablet 25 mg 25 mg, Oral, Every 6 hours PRN, anxiety, Starting on Mon01/30/24 at 0518 magnesium hydroxide (MOM) 400 mg/5 mL suspension 2,400 mg 2,400 mg (30 mL), Oral, Daily PRN, constipation, constipation, Starting on Mon01/30/24 at 0518 OLANZapine (ZyPREXA) injection 5 mg 5 mg, Intramuscular, Every 4 hours PRN, agitation, SECOND LINE agent for agitation, Starting on Mon01/30/24 at 0518, May give 30 minutes after first line agent if needed for agitation management. Contact provider if additional agitation management is necessary. Do not give IM olanzapine within 2 hours of IM lorazepam. Maximum 30 mg of IM olanzapine total per 24 hours. May cause QT interval prolongation. If not already reconstituted, reconstitute 10 mg vial with 2.1 mL sterile water inj. Final concentration = 5 mg/mL. FOR IM USE ONLY. Use within 1 hr. OLANZapine (ZYPREXA) tablet 5 mg 5 mg, Oral, Every 4 hours PRN, for agitation, Starting on Mon01/30/24 at 0522, May cause QT interval prolongation. traZODone (DESYREL) tablet 50 mg 50 mg, Oral, Nightly PRN, sleep, Starting on Mon01/30/24 at 0520 Linked Groups Order Group 1: haloperidoL (HALDOL) tablet 5 mgJump to med 5 mg, Oral, Every 4 hours PRN, agitation, ORAL FIRST LINE agent for agitation, Starting on Mon01/30/24 at 0518, If oral route is available, use oral first line agent. Use linked IM agent (IF ordered) if oral route unavailable. If additional agitation medication is necessary within 30 minutes (prior to second line agent- IF ordered), contact provider. May cause QT interval prolongation. Or haloperidol lactate (HALDOL) injection 5 mgJump to med 5 mg, Intramuscular, Every 4 hours PRN, agitation, alternate IM FIRST LINE agent for agitation, Starting on Mon01/30/24 at 0518, If oral route is available, use oral first line agent. Use linked IM agent (IF ordered) if oral route unavailable. If additional agitation medication is necessary within 30 minutes (prior to second line agent-IF ordered), contact provider. May cause QT interval prolongation. FOR RECORDS PERTAINING TO PATIENTS WHO ARE [...] BE BASED ON THE PRIMARY CLINICAL RECORDS. [employer] provides no warranty or guarantee of the accuracy or completeness of information in this document.
--- NOTE | 2024-07-08 17:35 | CCTA.WCONT ---
CCTA w/Cont Coronary Arteries Date of Study:: 07/08/24 Abnormal stress test Coronary Calcium Scoring: High-resolution Computed Tomographic imaging of the chest was performed on [07/08/2024], with particular attention paid to the coronary arteries. Intravenous contrast agent was administered per protocol and images reconstructed and displayed. LEFT MAIN CORONARY ARTERY: Mild calcification noted with no significant stenosis [] LEFT ANTERIOR DESCENDING CORONARY ARTERY: Calcified vessel with sequential calcified areas in the proximal and mid segment with at least moderate stenosis noted in the mid to distal vessel with no significant stenosis. First diagonal vessel has no significant stenosis. Coronary calcium score is 429 [] LEFT CIRCUMFLEX CORONARY ARTERY: Nondominant vessel with eccentric proximal calcification in the first bifurcation obtuse marginal branch and the AV groove branch continues with no significant stenosis coronary calcium score is 0 [] RIGHT CORONARY ARTERY: Dominant right coronary artery from the right coronary cusp with mid segment calcification and eccentric nonobstructive and a coronary calcium score is 36.7. [] THORACIC AORTA: Normal size no significant stenosis CORONARY CALCIUM SCORE: Total coronary calcium score is 847 with a total percentile ranking between 50 and 75th percentile Conclusion: CT angiogram with coronary calcification demonstrating a total coronary calcium score of 847 with at least moderately severe stenosis noted in the mid left anterior descending artery. []
== END | disposition home or self-care (01) ==
LOC: CT 12:40
PROVIDERS: PCP Family Medicine; Referring Provider Internal Medicine Cardiovascular Disease; Visit Provider Internal Medicine Cardiovascular Disease
DX: E78.5 Hyperlipidemia, unspecified (principal); I49.1 Atrial premature depolarization; R94.39 Abnormal result of other cardiovascular function study; I25.10 Atherosclerotic heart disease of native coronary artery without angina pectoris
CPT/HCPCS: 75571; 75574; 76380; Q9967

== ENCOUNTER → 2024-12-13 | Outpatient (CLI) | payer MEDICARE, OTHER, SELFPAY ==
[2024-12-13 12:36] LABS: ALB/GLOB Ratio 1.7 RATIO (0.9-2.4); AST(SGOT) 30 U/L (<=37); Alanine Aminotransfer ALT/SGPT 32 U/L (<=46); Albumin, Serum 4.4 g/dL (3.4-4.8); Alkaline Phosphatase 92 U/L (40-129); Anion Gap 10 (5-15); BUN 19 mg/dL (4-19); BUN/Creat Ratio 18.3 RATIO (10-20); Calcium,Total 9.6 mg/dL (7.6-11.0); Carbon Dioxide 26.5 mmol/L (21.0-32.0); Chloride 105 mmol/L (98-108); Creatinine, Serum 1.03 mg/dL (0.70-1.20); EST Glomerular Filtration Rate 78 (>60); Globulin 2.6 g/dL (2.2-4.2); Glucose 93 mg/dL (70-99); Potassium 4.3 mmol/L (3.3-5.1); Sodium Level 141 mmol/L (133-145)
== END | disposition home or self-care (01) ==
LOC: LAB 11:20
PROVIDERS: PCP Family Medicine; Referring Provider Internal Medicine Rheumatology; Visit Provider Internal Medicine Rheumatology
DX: M05.732 Rheumatoid arthritis with rheumatoid factor of left wrist without organ or systems involvement (principal); Z79.899 Other long term (current) drug therapy
CPT/HCPCS: 36415; 80053

== ENCOUNTER → 2025-01-22 | Outpatient (CLI) | payer MEDICARE, OTHER, SELFPAY ==
[2025-01-22 12:25] LABS: Absolute Lymphocyte Count 0.81 X10^3/uL (0.83-4.51); Absolute Neutrophil Count 3.9 X10^3/uL (2.0-7.7); Basophil# 0.03 X10^3/uL; Basophil% 0.6 % (0-1); Hematocrit 41.4 % (40-54); Hemoglobin 14.2 g/dL (13.0-16.5); Lymphocyte # 0.81 X10^3/ul (0.83-4.51); Lymphocyte % 15.9 % (19-41); Mean Corp Hgb Conc 34.3 g/dL (32-36); Mean Corpuscular Hgb 33.4 pg (27.0-32.0); Mean Corpuscular Volume 97.4 fL (80-94); Mean Platelet Vol. 8.9 fl (6.2-12.0); Monocyte% 5.9 % (0-10); NRBC Flagged by Analyzer 0 % (0-5); Neutrophil # 3.85 X10^3/uL (2.7-7.7); Neutrophil % 75.2 % (47-70); Platelet Count 239 K/mm3 (150-450); RBC Distribution Width CV 13.2 % (11.6-14.6); RBC Distribution Width SD 46.3 fl (35.1-43.9); Red Blood Count 4.25 M/mm3 (4.6-6.2); White Blood Count 5.1 K/mm3 (4.4-11.0)
[2025-01-22 13:40] LABS: ALB/GLOB Ratio 1.9 RATIO (0.9-2.4); AST(SGOT) 34 U/L (<=37); Alanine Aminotransfer ALT/SGPT 44 U/L (<=46); Albumin, Serum 4.3 g/dL (3.4-4.8); Alkaline Phosphatase 81 U/L (40-129); Anion Gap 8 (5-15); BUN 15 mg/dL (4-19); BUN/Creat Ratio 15.3 RATIO (10-20); Calcium,Total 9.4 mg/dL (7.6-11.0); Carbon Dioxide 27.7 mmol/L (21.0-32.0); Chloride 102 mmol/L (98-108); Creatinine, Serum 0.98 mg/dL (0.70-1.20); EST Glomerular Filtration Rate 82 (>60); Globulin 2.3 g/dL (2.2-4.2); Glucose 161 mg/dL (70-99); Potassium 4.4 mmol/L (3.3-5.1); Protein, Total 6.6 g/dL (5.9-8.4); Sodium Level 138 mmol/L (133-145); Total Bilirubin 0.55 mg/dL (0.00-1.30)
== END | disposition home or self-care (01) ==
LOC: LAB 11:52
PROVIDERS: PCP Family Medicine; Referring Provider Internal Medicine Rheumatology; Visit Provider Internal Medicine Rheumatology
DX: M05.732 Rheumatoid arthritis with rheumatoid factor of left wrist without organ or systems involvement (principal); Z79.899 Other long term (current) drug therapy; M17.0 Bilateral primary osteoarthritis of knee
CPT/HCPCS: 36415; 80053; 85025

== ENCOUNTER → 2025-03-10 | Outpatient (CLI) | payer MEDICARE, OTHER, SELFPAY ==
[2025-03-10 15:11] LABS: Absolute Lymphocyte Count 0.84 X10^3/uL (0.83-4.51); Absolute Neutrophil Count 3.8 X10^3/uL (2.0-7.7); Basophil# 0.05 X10^3/uL; Basophil% 0.9 % (0-1); Eosinophil# 0.16 X10^3/uL; Hematocrit 40.3 % (40-54); Hemoglobin 13.9 g/dL (13.0-16.5); Lymphocyte # 0.84 X10^3/ul (0.83-4.51); Lymphocyte % 15.9 % (19-41); Mean Corp Hgb Conc 34.5 g/dL (32-36); Mean Corpuscular Hgb 33.6 pg (27.0-32.0); Mean Corpuscular Volume 97.3 fL (80-94); Mean Platelet Vol. 9.2 fl (6.2-12.0); Monocyte# 0.39 X10^3/uL; Monocyte% 7.4 % (0-10); NRBC Flagged by Analyzer 0 % (0-5); Neutrophil # 3.83 X10^3/uL (2.7-7.7); Neutrophil % 72.4 % (47-70); Platelet Count 178 K/mm3 (150-450); RBC Distribution Width CV 13.3 % (11.6-14.6); RBC Distribution Width SD 47.4 fl (35.1-43.9); Red Blood Count 4.14 M/mm3 (4.6-6.2); White Blood Count 5.3 K/mm3 (4.4-11.0)
[2025-03-10 15:50] LABS: ALB/GLOB Ratio 1.8 RATIO (0.9-2.4); AST(SGOT) 28 U/L (<=37); Alanine Aminotransfer ALT/SGPT 30 U/L (<=46); Albumin, Serum 4.4 g/dL (3.4-4.8); Alkaline Phosphatase 68 U/L (40-129); Anion Gap 9 (5-15); BUN 22 mg/dL (4-19); BUN/Creat Ratio 23.5 RATIO (10-20); Calcium,Total 9.3 mg/dL (7.6-11.0); Carbon Dioxide 25.9 mmol/L (21.0-32.0); Chloride 107 mmol/L (98-108); Creatinine, Serum 0.93 mg/dL (0.70-1.20); EST Glomerular Filtration Rate 87 (>60); Globulin 2.4 g/dL (2.2-4.2); Glucose 81 mg/dL (70-99); Potassium 4.4 mmol/L (3.3-5.1); Protein, Total 6.7 g/dL (5.9-8.4); Sodium Level 142 mmol/L (133-145); Total Bilirubin 0.75 mg/dL (0.00-1.30)
[2025-03-10 17:27] LABS: Hemoglobin A1c 5.2 % (<=5.6)
== END | disposition home or self-care (01) ==
LOC: LAB 14:25
PROVIDERS: PCP Family Medicine; Referring Provider Internal Medicine Rheumatology; Visit Provider Internal Medicine Rheumatology
DX: M05.732 Rheumatoid arthritis with rheumatoid factor of left wrist without organ or systems involvement (principal); Z79.899 Other long term (current) drug therapy; M17.0 Bilateral primary osteoarthritis of knee; M18.11 Unilateral primary osteoarthritis of first carpometacarpal joint, right hand; M67.911 Unspecified disorder of synovium and tendon, right shoulder; M65.342 Trigger finger, left ring finger; M65.352 Trigger finger, left little finger
CPT/HCPCS: 36415; 80053; 83036; 85025

== ENCOUNTER → 2025-04-23 | Outpatient (CLI) | payer MEDICARE, OTHER, SELFPAY ==
--- NOTE | 2025-04-23 14:27 | NEURO ---
NCS and/or EMG Patient Report Ordering Doctor: Chey Capps DATE OF SERVICE: 04/23/25 Tommy presents with complaints of numbness and tingling in the left hand. Electrodiagnostic findings: Left median motor nerve demonstrates prolonged latency with normal amplitude and reduced conduction velocity. Left ulnar motor response is within normal limits. Prolonged left median F?wave. Prolonged left median sensory latency at the wrist. Needle EMG testing was performed in the left upper limb. All muscles tested showed no evidence of denervation or normal motor unit action potentials. Electrodiagnostic impression: This is an abnormal study in the left upper limb. 1. Electrodiagnostic findings suggestive of left-sided median mononeuropathy. This is consistent with a moderate left carpal tunnel syndrome. 2. No electrodiagnostic evidence is noted for cervical radiculopathy Multi Select Codes Neurology Neurology Interp Codes: 84884-65 Musc test done w/n test comp (interp) and 96385-43 Nrv cndj tst 5-6 studies (interp)
== END | disposition home or self-care (01) ==
LOC: PSN 13:22
PROVIDERS: PCP Family Medicine; Referring Provider Internal Medicine Rheumatology; Visit Provider Internal Medicine Rheumatology
DX: M05.732 Rheumatoid arthritis with rheumatoid factor of left wrist without organ or systems involvement (principal); Z79.899 Other long term (current) drug therapy; M18.11 Unilateral primary osteoarthritis of first carpometacarpal joint, right hand; M65.342 Trigger finger, left ring finger; M65.352 Trigger finger, left little finger; R20.2 Paresthesia of skin; R20.0 Anesthesia of skin
CPT/HCPCS: 95886; 95909

== ENCOUNTER → 2025-06-09 | Outpatient (CLI) | payer MEDICARE, OTHER, SELFPAY ==
--- OUTSIDE RECORDS SUMMARY | 2024-08-12 09:56 | XMS RPT_ITS ---
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 (Multi) / M05.732(ICD-10) [facility] 08/12/2024 Admitting Diagnosis Other nursing home (current) drug therapy / Z79.899(ICD-10) [facility] 08/12/2024 Admitting Diagnosis Bilateral primary osteoarthritis of knee / M17.0(ICD-10) [facility] 08/12/2024 Admitting Diagnosis Carpal tunnel syndrome, left upper limb / G56.02(ICD-10) [facility] PROCEDURES No Procedure Records Found RESULTS COMPREHENSIVE METABOLIC PANE L W/ANION GAP Collected: 11/08/2024 10:08 AM Status: F Source: [facility] Records Management DIAGNOSTICS Order Comment: FASTING:YES FASTING: YES TYPE CODE TESTS RESULT OUT OF RANGE REFERENCE UNITS LAB [id number] GLUCOSE 91 Normal 65-99 mg/dL Result Comment: Fasting reference interval LAB [id number] UREA NITROGEN (BUN) 19 Normal 7-25 mg/dL LAB [id number] CREATININE 1.02 Normal 0.70-1.28 mg/dL LAB 83084067 EGFR 79 Normal > OR = 60 mL/min/1 .73m2 LAB 86543917 SODIUM 142 Normal 135-146 mmol/L LAB 67589590 POTASSIUM 4.6 Normal 3.5-5.3 mmol/L LAB [id number] CHLORIDE 104 Normal 98-110 mmol/L LAB 88761182 CARBON DIOXIDE 31 Normal 20-32 mmol/L LAB 66057635 ELECTROLYTE BALANCE 7 Normal 7-17 mmol/L (calc) LAB 45904698 CALCIUM 9.5 Normal 8.6-10.3 mg/dL LAB [id number] PROTEIN, TOTAL 7.0 Normal 6.1-8.1 g/dL LAB 12322535 ALBUMIN 4.6 Normal 3.6-5.1 g/dL LAB 52786026 BILIRUBIN, TOTAL 0.6 Normal 0.2-1.2 mg/dL LAB 99095417 ALKALINE PHOSPHATASE 72 Normal 35-144 U/L LAB 41631251 AST 33 Normal 10-35 U/L LAB 19490716 ALT 51 High 9-46 U/L Performed By: #### [id number], 926 65 #### [facility] [address], [address] [place] [address] Director Product: Nasir Munoz MD CBC (INCLUDES DIFF/PLT) Collected: 10/13 10:08 AM Status: F Source: [facility] TYPE CODE TESTS RESULT OUT OF RANGE REFERENCE UNITS LAB [id number] WHITE BLOOD CELL COUNT 4.4 Normal 3.8-10.8 Thousand /uL LAB 02697814 RED BLOOD CELL COUNT 4.34 Normal 4.20-5.80 Million/ uL LAB 68911139 HEMOGLOBIN 14.6 Normal 13.2-17.1 g/dL LAB 66129570 HEMATOCRIT 42.1 Normal 38.5-50.0 % LAB 09398734 MCV 97.0 Normal 80.0-100.0 fL LAB 08662844 MCH 33.6 High 27.0-33.0 pg LAB 48762925 MCHC 34.7 Normal 32.0-36.0 g/dL Result Comment: For adults, a slight decrease in the calculated MCHC value (in the range of 30 to 32 g/dL) is most likely not clinically significant; however, it should be interpreted with caution in correlation with other red cell parameters and the patient's clinical condition. LAB [id number] RDW 13.0 Normal 11.0-15.0 % LAB [id number] PLATELET COUNT 234 Normal 140-400 Thousand /uL LAB [id number] MPV 9.7 Normal 7.5-12.5 fL LAB 65340961 ABSOLUTE NEUTROPHILS 2702 Normal 1613-4804 cells/uL LAB 70065859 ABSOLUTE LYMPHOCYTES 1016 Normal 850-3900 cells/uL LAB 45549642 ABSOLUTE MONOCYTES 422 Normal 200-950 cells/uL LAB 90647141 ABSOLUTE EOSINOPHILS 220 Normal 15-500 cells/uL LAB 77024366 ABSOLUTE BASOPHILS 40 Normal 0-200 cells/uL LAB 98439666 NEUTROPHILS 61.4 Normal % LAB 63703436 LYMPHOCYTES 23.1 Normal % LAB 34953659 MONOCYTES 9.6 Normal % LAB 04502962 EOSINOPHILS 5.0 Normal % LAB 78490794 BASOPHILS 0.9 Normal % Performed By: #### 6399, 926 65 #### [facility] [address], [address] [place] [address] Director Product: Nasir Munoz MD COMPLETE BLOOD COUNT W AUTO DIFFERENTIAL PANEL Collected: 08/12/2024 8:58 AM Status: F Source: [facility] TYPE CODE TESTS RESULT OUT OF RANGE REFERENCE UNITS LAB 6690-2(LOINC) Leukocytes 4.9 4.4-11.3 x10*3/ uL LAB 05765-1(LOINC ) Erythrocytes.nuc leated/100 leukocytes 0.0 0.0-0.0 /100 WBCs LAB 789-8(LOINC) Erythrocytes 4.51 4.50-5.90 x10* 6/uL LAB 718-7(LOINC) Hemoglobin 15.0 13.5-17.5 g/dL LAB 4544-3(LOINC) Hematocrit 45.8 41.0-52.0 % LAB 787-2(LOINC) Erythrocyte mean corpuscular volume 102 High 80-100 fL LAB 785-6(LOINC) Erythrocyte mean corpuscular hemoglobin 33.3 26.0-34.0 pg LAB 786-4(LOINC) Erythrocyte mean corpuscular hemoglobin concentration 32.8 32.0-36.0 g/dL LAB 788-0(LOINC) Erythrocyte distribution width 13.5 11.5-14.5 % LAB 777-3(LOINC) Platelets 213 150-450 x10*3/uL LAB 770-8(LOINC) Neutrophils/100 leukocytes 66.8 40.0-80.0 % LAB 92439-3(LOINC ) Granulocytes.imm ature/100 leukocytes 0.4 0.0-0.9 % Result Comment: Immature Gra nulocyte Count (IG) includes promyelocytes, myelocytes and metamyelocytes but does not include bands. Percent differential counts (%) should be interpreted in the context of the absolute cell counts (cells/UL). LAB 736-9(LOINC) Lymphocytes/100 leukocytes 18.9 13.0-44.0 % LAB 5905-5(LOINC) Monocytes/100 leukocytes 8.6 2.0-10.0 % LAB 713-8(LOINC) Eosinophils/100 leukocytes 4.7 0.0-6.0 % LAB 706-2(LOINC) Basophils/100 leukocytes 0.6 0.0-2.0 % LAB 751-8(LOINC) Neutrophils 3.26 1.60-5.50 x10*3 /uL Result Comment: Percent diff erential counts (%) should be interpreted in the context of the absolute cell counts (cells/uL). LAB 76779-2(LOINC ) Granulocytes.imm ature 0.02 0.00-0.50 x10*3/uL LAB 731-0(LOINC) Lymphocytes 0.92 0.80-3.00 x10*3 /uL LAB 742-7(LOINC) Monocytes 0.42 0.05-0.80 x10*3/u L LAB 711-2(LOINC) Eosinophils 0.23 0.00-0.40 x10*3 /uL LAB 704-7(LOINC) Basophils 0.03 0.00-0.10 x10*3/u L Performed By: #### 43953-8 # ### PALM BRITTNEY ([id number]) [facility] ([facility]) [address] [place] [address] COMPREHENSIVE METABOLIC 2000 PANEL Collected: 08/12/2024 8:58 AM Status: F Source: [facility] TYPE CODE TESTS RESULT OUT OF RANGE REFERENCE UNITS LAB 2345-7(LOINC) Glucose 85 74-99 mg/dL LAB 2951-2(LOINC) Sodium 140 136-145 mmol/L LAB 2823-3(LOINC) Potassium 4.5 3.5-5.3 mmol/L LAB 2075-0(LOINC) Chloride 103 98-107 mmol/L LAB 2028-9(LOINC) Carbon dioxide 32 21-32 mmo l/L LAB 07500-9(LOINC ) Anion gap 10 10-20 mmol/L LAB 3094-0(LOINC) Urea nitrogen 18 6-23 mg/d L LAB 2160-0(LOINC) Creatinine 0.98 0.50-1.30 mg/dL LAB 01327-9(LOINC ) Glomerular filtration rate/1.73 sq M.predicted 82 >60 mL/min/ 1.73m*2 Result Comment: Calculations of estimated GFR are performed using the 2020 CKD- EPI Study Refit equation without the race variable for the IDMS-Traceable creatinine methods. https://jasn.asnjournals.org/content/early//ASN.8280171766 LAB 97830-9(LOINC ) Calcium 9.3 8.6-10.3 mg/dL LAB 49386-7(LOINC ) Albumin 4.4 3.4-5.0 g/dL LAB 6768-6(LOINC) Alkaline phosphatase 62 33-136 U/L LAB 2885-2(LOINC) Protein 6.5 6.4-8.2 g/dL LAB 04150-7(LOINC ) Aspartate aminotransferase 31 9-39 U/L LAB 1975-2(LOINC) Bilirubin 0.8 0.0-1.2 mg/dL LAB 1743-4(LOINC) Alanine aminotransferase 31 10-52 U/L Result Comment: Patients elmer ated with Sulfasalazine may generate falsely decreased results for ALT. Performed By: #### 78582-3 # ### PALM BRITTNEY ([id number]) [facility] ([facility]) [address] [place] [address] ALLERGIES DATE TYPE / CODE NAME / CODE REACTION SEVERITY SOURCE SYSTEMIC/05011709 6(SNOMED CT) ALLERGIES NOT ON FILE [facility] ENCOUNTERS ADMIT/DISCHARGE ACCOUNT NUMBER ADMITTING ENCOUNTER CLASS LOCATION SOURCE 08/12/2024/ 4 [id number] Ambulatory Building:[facility] PAYERS ENCOUNTER GUARANTOR PAYER SUBSCRIBER SOURCE 08/12/2024 KRISTIAN TY: [id number] [address] [address]Nix: () Primary Insurance:MEDICAR EPolicy Number: [id number] santos Date:2018-02-09 KRISTIAN MELONY: [id number] [address] [address]Nvu: () [facility]
[2025-06-09 09:19] LABS: Hematocrit 42.9 % (40-54); Hemoglobin 14.8 g/dL (13.0-16.5); Immature Granulocytes Count 0.040 X10^3/uL (0.0-0.0); Mean Corp Hgb Conc 34.5 g/dL (32-36); Mean Corpuscular Volume 99.3 fL (80-94); Mean Platelet Vol. 9.1 fl (6.2-12.0); NRBC Flagged by Analyzer 0 % (0-5); Platelet Count 215 K/mm3 (150-450); RBC Distribution Width CV 13.3 % (11.6-14.6); RBC Distribution Width SD 48.4 fl (35.1-43.9); Red Blood Count 4.32 M/mm3 (4.6-6.2); White Blood Count 6.1 K/mm3 (4.4-11.0)
[2025-06-09 10:16] LABS: AST(SGOT) 31 U/L (<=37); Alanine Aminotransfer ALT/SGPT 32 U/L (<=46); Albumin, Serum 4.3 g/dL (3.4-4.8); Alkaline Phosphatase 81 U/L (40-129); Anion Gap 11 (5-15); BUN 22 mg/dL (4-19); BUN/Creat Ratio 21.3 RATIO (10-20); Calcium,Total 9.5 mg/dL (7.6-11.0); Carbon Dioxide 25.3 mmol/L (21.0-32.0); Chloride 104 mmol/L (98-108); Globulin 2.4 g/dL (2.2-4.2); Glucose 82 mg/dL (70-99); Potassium 4.5 mmol/L (3.3-5.1)
== END | disposition home or self-care (01) ==
LOC: LAB 08:44
PROVIDERS: PCP Family Medicine; Referring Provider Internal Medicine Rheumatology; Visit Provider Internal Medicine Rheumatology
DX: M05.732 Rheumatoid arthritis with rheumatoid factor of left wrist without organ or systems involvement (principal); Z79.899 Other long term (current) drug therapy; M17.0 Bilateral primary osteoarthritis of knee
CPT/HCPCS: 36415; 80053; 85025

== ENCOUNTER 2025-06-26 11:00 | Outpatient (RCR) | payer MEDICARE, OTHER, SELFPAY ==
--- NOTE | 2025-06-16 14:51 | HP.OTEVAL ---
Patient's Visit Information Visit Information Visit Information: KRISTIAN GUTIERREZ is a 70 year old M, referred to Occupational Therapy by Dr. Peter Olmedo MD, with a diagnosis of left CTS. Date of Evaluation: 06/16/25 Occupational Therapist: Sarah Rodriguez, DONNIE/Van, CHT Subjective Subjective: This 70 year old male was seen for OT eval with dx of left CTS and Dequervain's. pt states he struggles with tingling and pain for over 2 years. pt decided he could not close his hand much and it was time to have sx. DOS was 05/27/2025- pt arrives with off the shelf thumb spica soft splint. pt is right handed- pt states he is not sure how long he could not close his fingers into a fist- Pt states he is ready to rehab to get functional use back of his left hand for daily tasks. pt states he likes to maintain his yard and garden Pain left hand: Current Pain Intensity: 1 Pain Intensity Range: 0 and 2 ROM Wrist: right 65/40 left 30/30 CMC: right 10 left 0 MP: right 40 left 50 IP: right 70 left 50 ROM Comments: pt demo with slight decrease in wrist and thumb ROM compared to unaffected side pt demo with limited flexion of digits forming a open fist 1.5away form composite. Strength Highway Landscape Architect: right 50# left NT Lateral Pinch: right 16# left NT Tripod Pinch: right 12# left NT Strength Comments: will test strength at week 4 s/p Sensation Thumb: right 2.83 (normal ) left 3.22 interpretation diminished light touch Index: right 2.83 (normal ) left 3.22 interpretation diminished light touch Middle: right 2.83 (normal ) left 3.22 interpretation diminished light touch Ring: right 2.83(normal ) left 3.22 interpretation diminished light touch Little: right 2.83(normal ) left 3.22 interpretation diminished light touch Quick DASH-Disab of Arm,Shoulder& Hand Quick DASH Score: 50.0000 Goals Goal:Daily scar massage when approriate: Yes Goal:ROM equal to unaffected hand: Yes Goal:Highway Landscape Architect/Pinch strength at least 75% of unaffected hand: Yes Comment: initiate week 4-6 based on recovery of ROM of digits and wrist Goal:No pain with affected hand use: Yes Goal:Full use of affected hand in daily activities including work: Yes Goal:Improvement in sensation documented by [place]-Marzena monofiliaments: Yes Rehabilitation General Assessment: pt arrives 2 weeks and 6 days s/p from a left CTR and flexor tenosynovectomy and first dorsal compartment tenosynovectomy. pt demo with newly healing structures, limited wrist and digit ROM and weakness limited ability to use left hand with all ADLs. pt would benefit form skilled OT services 1-2x week for 4 weeks to return pt back to using his left hand with daily tasks. Rehabilitation Potential: Good Anticipated Interventions Anticipated Interventions: A/AAROM/PROM, Strengthening, Scar Care, Triggerpoint Release, Sensory Retraining, Modalities, Orthoses, Joint Protection/Energy Conservation, Ergonomic Education, Fine Motor Coord/[place], Sensory Stimulation, Education re assistive Equipment, Education re Diagnosis, Caregiver Training and Home Program Visit Plan Frequency: 1-2x /Week Duration: 4 Weeks TEXT: Thank you for the opportunity to evaluate your patient. For Medicare and Medicare HMO plans, please review the plan of care and approve it. It will need to be FAXED BACK to us at [phone] for Medicare purposes. Please let me know if there are questions or concerns regarding this plan of care. Physician Signature: Date:
--- NOTE | 2025-06-26 11:32 | HP.OTDCSUM ---
Discharge Summary D/C Summary: It has been my pleasure to treat KRISTIAN GUTIERREZ under orders from Dr. Peter Olmedo MD, for the diagnosis of left CTS for a total of 4 visit(s). Please see the following information for a summary of their discharge status. Overall Improvement % Improvement: 80 Objective Objective/Function: left wrist ROM 50/40 left cmc 10 left MPJ 60 left IP 65 left manager animation strength 20# left lateral pinch 10# left tripod pinch 8# pt demo full composite fist - states he is starting to use his hand with daily tasks. pt request d/c Goals Patient Goals: Regain Mobility, Regain Strength, Use Hand/Wrist/Arm Normally Again and Be More Independent in ADLS Goal:Daily scar massage when approriate: Yes Goal:ROM equal to unaffected hand: Yes Goal:Defense Attorney/Pinch strength at least 75% of unaffected hand: Yes Goal:No pain with affected hand use: Yes Goal:Full use of affected hand in daily activities including work: Yes Goal:Improvement in sensation documented by [place]-Marzena monofiliaments: Yes Plan Plan: D/C with HEP D/C Information Discharge Comments: pt request d/c with HEP. He is doing better and starting to use his left hand with daily tasks. Pt demo full composite fist at this time. Pt request d/c with HEP. d/c sentence: If there are questions or concerns regarding this patient's occupational therapy, please fell free to call me at [phone]. Thank you for the referral of this patient. Sincerely, Sarah Rodriguez, OTR/L, CHT
== END 2025-06-26 12:23 | disposition home or self-care (01) ==
LOC: OT 11:00
PROVIDERS: PCP Family Medicine; Referring Provider Orthopaedic Surgery Hand Surgery; Visit Provider Orthopaedic Surgery Hand Surgery
DX: M65.4 Radial styloid tenosynovitis [de Quervain] (principal); G56.02 Carpal tunnel syndrome, left upper limb
CPT/HCPCS: 97110; 97140; 97166; 97530

== ENCOUNTER → 2025-08-28 | Outpatient (CLI) | payer MEDICARE, OTHER, SELFPAY ==
[2025-08-28 11:29] LABS: Hematocrit 43.8 % (40-54); Hemoglobin 14.8 g/dL (13.0-16.5); Immature Granulocytes Count 0.020 X10^3/uL (0.0-0.0); Mean Corp Hgb Conc 33.8 g/dL (32-36); Mean Corpuscular Volume 100.5 fL (80-94); Mean Platelet Vol. 9.2 fl (6.2-12.0); NRBC Flagged by Analyzer 0 % (0-5); Platelet Count 232 K/mm3 (150-450); RBC Distribution Width CV 13.0 % (11.6-14.6); RBC Distribution Width SD 48.1 fl (35.1-43.9); Red Blood Count 4.36 M/mm3 (4.6-6.2); White Blood Count 5.2 K/mm3 (4.4-11.0)
== END | disposition home or self-care (01) ==
LOC: LAB 10:45
PROVIDERS: PCP Family Medicine; Referring Provider Internal Medicine Rheumatology; Visit Provider Internal Medicine Rheumatology
DX: M05.732 Rheumatoid arthritis with rheumatoid factor of left wrist without organ or systems involvement (principal); Z79.899 Other long term (current) drug therapy
CPT/HCPCS: 36415; 80053; 85025

== ENCOUNTER → 2025-08-29 | Outpatient (CLI) | payer MEDICARE, OTHER, SELFPAY ==
[2025-08-29 11:44] LABS: AST(SGOT) 27 U/L (<=37); Alanine Aminotransfer ALT/SGPT 35 U/L (<=46); Albumin, Serum 4.4 g/dL (3.4-4.8); Alkaline Phosphatase 91 U/L (40-129); Anion Gap 8 (5-15); BUN 19 mg/dL (4-19); BUN/Creat Ratio 18.3 RATIO (10-20); Calcium,Total 9.1 mg/dL (7.6-11.0); Carbon Dioxide 28.6 mmol/L (21.0-32.0); Chloride 105 mmol/L (98-108); Globulin 2.2 g/dL (2.2-4.2); Glucose 100 mg/dL (70-99); Potassium 4.6 mmol/L (3.3-5.1)
== END | disposition home or self-care (01) ==
LOC: LAB 10:52
PROVIDERS: PCP Family Medicine; Referring Provider Internal Medicine Rheumatology; Visit Provider Internal Medicine Rheumatology
DX: M05.732 Rheumatoid arthritis with rheumatoid factor of left wrist without organ or systems involvement (principal); Z79.899 Other long term (current) drug therapy
CPT/HCPCS: 80053